=== PATIENT | female | born 1945 | race Caucasian/White ===

== ENCOUNTER → 2017-09-30 10:34 | Outpatient (CLI) | payer MEDICARE, OTHER, SELFPAY ==
[2017-09-30 12:20] LABS: ALB/GLOB Ratio 1.2 RATIO (0.9-2.4); AST(SGOT) 23 U/L (15-37); Alanine Aminotransfer ALT/SGPT 27 U/L (13-56); Albumin, Serum 3.6 g/dL (3.2-5.0); Alkaline Phosphatase 114 U/L (45-117); Anion Gap 8 (5-15); BUN 18 mg/dL (7-18); BUN/Creat Ratio 17.6 RATIO (10-20); Calcium,Total 8.7 mg/dL (8.5-10.1); Chloride 105 mmol/L (98-107); Creatinine, Serum 1.02 mg/dL (0.55-1.02); EST Glomerular Filtration Rate 57 mL/min (>60); Est Glom Filt Rate - Afr Amer 69 mL/min (>60); Globulin 2.9 g/dL (2.2-4.2); Glucose 86 mg/dL (74-106); Potassium 3.4 mmol/L (3.5-5.1); Protein, Total 6.5 g/dL (6.4-8.2); Sodium Level 139 mmol/L (136-145); Thyroid Stim Hormone (TSH) 1.63 uIU/mL (0.358-3.74); Vitamin D,25 Hydroxy 48.4 ng/mL (29.95-100.01)
[2017-09-30 12:30] LABS: Absolute Lymphocyte Count 1.83 X10^3/ul (0.83-4.51); Basophil# 0.02 X10^3/uL; Basophil% 0.3 % (0-1); Eosinophil# 0.13 X10^3/uL; Eosinophils% 1.6 % (0-5); Hematocrit 46.2 % (37-47); Hemoglobin 14.9 g/dl (12.0-15.0); Lymphocyte # 1.83 X10^3/ul (4.0); Lymphocyte % 23.2 % (19-41); Mean Corp Hgb Conc 32.3 g/gl (32-36); Mean Corpuscular Hgb 26.5 pg (27.0-32.0); Mean Corpuscular Volume 82.2 fL (81-99); Mean Platelet Vol. 9.7 fl (6.2-12.0); Monocyte# 0.87 X10^3/uL; Neutrophil # 5.02 X10^3/uL (2.7-7.7); Neutrophil % 63.8 % (47-70); POSITIVE COUNT NO; POSITIVE DIFFERENTIAL NO; POSITIVE MORPHOLOGY NO; Platelet Count 144 K/mm3 (150-450); RBC Distribution Width CV 14.7 % (11.6-14.6); RBC Distribution Width SD 43.8 fl (35.1-43.9); Red Blood Count 5.62 M/mm3 (4.2-5.4); White Blood Count 7.9 K/mm3 (4.4-11.0)
== END ==
PROVIDERS: Family Provider Family Medicine Geriatric Medicine; PCP Family Medicine Geriatric Medicine; Visit Provider Family Medicine Geriatric Medicine
DX: E55.9 Vitamin D deficiency, unspecified (principal); R53.83 Other fatigue
CPT/HCPCS: 36415; 80053; 82306; 84443; 85025

== ENCOUNTER → 2017-12-26 12:37 | Outpatient (CLI) | payer MEDICARE, OTHER, SELFPAY ==
--- NOTE | 2017-12-26 12:40 | RAD_ITS ---
STUDY: X-RAY CHEST REASON FOR EXAM: Female, 72 years old. Increasing shortness of breath since hip surgery last year. TECHNIQUE: PA and lateral views of the chest. COMPARISON: PA and lateral chest x-ray September 20, 2016. FINDINGS: There is mild crowding of vascular markings in the medial left base, unchanged. The lungs are otherwise clear and expanded. There is no demonstrated pleural abnormality. Normal size heart. Normal mediastinum and yvonne. Normal visualized pulmonary arteries. There is stable tortuosity of the aortic arch and descending thoracic aorta that parallels the spinal curvature. Moderate S-shaped scoliosis of the thoracolumbar spine is grossly unchanged Normal visualized ribs, clavicles, and shoulders. A small to moderate size retrocardiac hiatal hernia is more clearly depicted in today's study. RAD/Chest PA and Lateral IMPRESSION: 1. No acute cardiopulmonary disease. 2. Moderate S-shaped scoliosis of the thoracolumbar spine again noted. 3. Small to moderate size retrocardiac hiatal hernia. Electronically Signed: Rojas Coulter MD at 19:52 EDT , Service support ,
== END ==
PROVIDERS: Family Provider Family Medicine Geriatric Medicine; PCP Family Medicine Geriatric Medicine; Visit Provider Family Medicine Geriatric Medicine
DX: R06.02 Shortness of breath (principal)
CPT/HCPCS: 71046

== ENCOUNTER → 2017-12-27 12:30 | Outpatient (CLI) | payer MEDICARE, OTHER, SELFPAY ==
--- NOTE | 2018-01-05 13:32 | PFT_ITS ---
PFT RESULTS SPIROMETRY: Spirometry suggestive for Moderate Restrictive Ventilatory Component. Findings are suggestive, but not diagnostic, for Reversible Airflow Obstruction Comparison with previous studies suggested for restriction. LUNG VOLUMES: Mild Restrictive component confirmed with Lung Volumes. DIFFUSION: Moderate gas transfer abnormality.
== END ==
PROVIDERS: Family Provider Family Medicine Geriatric Medicine; PCP Family Medicine Geriatric Medicine; Visit Provider Family Medicine Geriatric Medicine
DX: R06.02 Shortness of breath (principal); R06.2 Wheezing
CPT/HCPCS: 94060; 94726; 94729

== ENCOUNTER → 2018-01-03 18:57 | Outpatient (CLI) | payer MEDICARE, OTHER, SELFPAY | PROVIDERS: Family Provider Family Medicine Geriatric Medicine; PCP Family Medicine Geriatric Medicine; Visit Provider Family Medicine Geriatric Medicine | DX: N39.0 Urinary tract infection, site not specified (principal) | CPT/HCPCS: 87086; 87088; 87186 ==

== ENCOUNTER → 2018-01-04 12:52 | Outpatient (CLI) | payer MEDICARE, OTHER, SELFPAY ==
--- NOTE | 2018-01-04 12:56 | ECHOD_ITS ---
Reason For Study: SOB Procedure This was a 2D Doppler, Color Flow transthoracic echocardiogram. Exam performed in department. Left Ventricle Normal size and thickness. The estimated ejection fraction is 75 %. Stage 1 diastolic dysfunction. No regional wall motion abnormalities noted. Right Ventricle Normal size and thickness. Normal systolic function. Atria Normal left atrium. Normal right atrium. Normal atrial septum. Mitral Valve The mitral valve is structurally normal. No prolapse or stenosis seen. Tricuspid Valve Normal tricuspid valve. Trivial tricuspid valve insufficiency. Right ventricular systolic pressure estimated to be 28 mmHg. Aortic Valve Normal aortic valve. Trisinus/trileaflet aortic valve. Trivial aortic valve insufficiency. Pulmonic Valve Normal pulmonic valve. Mild (1+) pulmonic valve insufficiency. Great Vessels Normal aortic root. Normal arch. Normal inferior vena cava. Inferior vena cava collapse with sniff. Pericardium/Pleural No pericardial effusion. MMode/2D Measurements & Calculations LVIDd: 2.5 cm IVSd: 1.0 cm Ao root diam: 3.1 cm LVIDs: 1.8 cm LVPWd: 1.0 cm RVDd: 3.2 cm FS: 28.9 % LAV(MOD-bp): 40.5 ml LA A4 area: 16.8 cm2 RA A4 area: 10.9 cm2 LAV(MOD-bp) Indexed: 23.2 ml/m2 LAV(MOD-sp2): 40.8 ml LAV(MOD-sp4): 40.7 ml Time Measurements MV dec time: 0.28 sec Doppler Measurements & Calculations MV E max satish: 73.7 cm/sec Lat Peak E' Satish: 10.5 cm/sec Med Peak E' Satish: 5.7 cm/sec MV A max satish: 94.8 cm/sec E/E' lat: 7.0 E/E' med: 13.0 MV E/A: 0.78 Ao V2 max: 131.1 cm/sec AI max satish: 436.0 cm/sec LV V1 max: 118.3 cm/sec Ao max P.9 mmHg AI max P.2 mmHg LV V1 max P.6 mmHg Ao V2 mean: 90.1 cm/sec AI dec slope: 228.6 cm/sec2 LV V1 mean P.8 mmHg Ao mean P.6 mmHg AI P1/2t: 558.7 msec LV V1 mean: 77.3 cm/sec Ao V2 VTI: 27.8 cm LV V1 VTI: 26.1 cm PA V2 max: 78.3 cm/sec PI end-d satish: 101.8 cm/sec TR max satish: 232.9 cm/sec TR max P.8 mmHg Interpretation Summary The estimated ejection fraction is 75 %. Stage 1 diastolic dysfunction. Trivial tricuspid valve insufficiency. Right ventricular systolic pressure estimated to be 28 mmHg. Trivial aortic valve insufficiency. Mild (1+) pulmonic valve insufficiency. There is no comparison study available. Ordering Physician: Mickey Nguyen Referring Physician: Mickey Nguyen Chi Performed By: Lynette Blood, VICTORIACS, RVT
== END ==
PROVIDERS: Family Provider Family Medicine Geriatric Medicine; PCP Family Medicine Geriatric Medicine; Visit Provider Family Medicine Geriatric Medicine
DX: R06.02 Shortness of breath (principal)
CPT/HCPCS: 93306

== ENCOUNTER → 2018-02-01 11:54 | Outpatient (CLI) | payer MEDICARE, OTHER, SELFPAY ==
[2018-02-01 13:27] LABS: Anion Gap 8 (5-15); BUN 18 mg/dL (7-18); BUN/Creat Ratio 17.1 RATIO (10-20); Calcium,Total 9.4 mg/dL (8.5-10.1); Chloride 105 mmol/L (98-107); Creatinine, Serum 1.05 mg/dL (0.55-1.02); EST Glomerular Filtration Rate 55 mL/min (>60); Est Glom Filt Rate - Afr Amer 66 mL/min (>60); Glucose 99 mg/dL (74-106); Potassium 3.6 mmol/L (3.5-5.1); Sodium Level 141 mmol/L (136-145)
== END ==
PROVIDERS: Family Provider Family Medicine Geriatric Medicine; PCP Family Medicine Geriatric Medicine; Visit Provider Family Medicine Geriatric Medicine
DX: I10 Essential (primary) hypertension (principal)
CPT/HCPCS: 36415; 80048

== ENCOUNTER → 2018-02-17 10:45 | Outpatient (CLI) | payer MEDICARE, OTHER, SELFPAY | PROVIDERS: Family Provider Family Medicine Geriatric Medicine; PCP Family Medicine Geriatric Medicine; Visit Provider Family Medicine Geriatric Medicine | DX: K59.00 Constipation, unspecified (principal) | CPT/HCPCS: 74018 ==

== ENCOUNTER → 2018-06-26 14:39 | Outpatient (CLI) | payer MEDICARE, OTHER, SELFPAY ==
[2018-06-26 17:45] LABS: Absolute Lymphocyte Count 2.31 X10^3/ul (0.83-4.51); Absolute Neutrophil Count 6.6 X10^3/uL (2.0-7.7); Basophil# 0.04 X10^3/uL; Basophil% 0.4 % (0-1); Eosinophil# 0.13 X10^3/uL; Eosinophils% 1.3 % (0-5); Hematocrit 46.7 % (37-47); Hemoglobin 14.7 g/dl (12.0-15.0); Lymphocyte # 2.31 X10^3/ul (4.0); Lymphocyte % 23.4 % (19-41); Mean Corp Hgb Conc 31.5 g/gl (32-36); Mean Corpuscular Hgb 26.8 pg (27.0-32.0); Mean Corpuscular Volume 85.1 fL (81-99); Mean Platelet Vol. 9.9 fl (6.2-12.0); Monocyte# 0.85 X10^3/uL; Monocyte% 8.6 % (0-10); Neutrophil # 6.55 X10^3/uL (2.7-7.7); Neutrophil % 66.2 % (47-70); Platelet Count 173 K/mm3 (150-450); RBC Distribution Width CV 14.6 % (11.6-14.6); RBC Distribution Width SD 44.8 fl (35.1-43.9); Red Blood Count 5.49 M/mm3 (4.2-5.4); White Blood Count 9.9 K/mm3 (4.4-11.0)
[2018-06-26 17:51] LABS: POSITIVE COUNT NO; POSITIVE DIFFERENTIAL NO; POSITIVE MORPHOLOGY NO
[2018-06-26 19:17] LABS: ALB/GLOB Ratio 1.2 RATIO (0.9-2.4); AST(SGOT) 20 U/L (15-37); Alanine Aminotransfer ALT/SGPT 21 U/L (13-56); Albumin, Serum 3.7 g/dL (3.2-5.0); Alkaline Phosphatase 105 U/L (45-117); Anion Gap 11 (5-15); BUN 21 mg/dL (7-18); BUN/Creat Ratio 16.9 RATIO (10-20); Calcium,Total 10.1 mg/dL (8.5-10.1); Chloride 103 mmol/L (98-107); Creatinine, Serum 1.24 mg/dL (0.55-1.02); EST Glomerular Filtration Rate 45 mL/min (>60); Est Glom Filt Rate - Afr Amer 55 mL/min (>60); Glucose 92 mg/dL (74-106); Protein, Total 6.7 g/dL (6.4-8.2); Sodium Level 143 mmol/L (136-145); Thyroid Stim Hormone (TSH) 1.52 uIU/mL (0.358-3.74)
== END ==
PROVIDERS: Family Provider Family Medicine Geriatric Medicine; PCP Family Medicine Geriatric Medicine; Visit Provider Family Medicine Geriatric Medicine
DX: I10 Essential (primary) hypertension (principal); E55.9 Vitamin D deficiency, unspecified; N39.0 Urinary tract infection, site not specified
CPT/HCPCS: 36415; 80053; 82306; 84443; 85025; 87086; 87088

== ENCOUNTER → 2018-07-17 13:46 | Outpatient (CLI) | payer MEDICARE, OTHER, SELFPAY ==
--- NOTE | 2018-07-17 13:48 | US_ITS ---
STUDY: RENAL ULTRASOUND - COMPLETE REASON FOR EXAM: Female, 72 years old. Recurrent UTIs. TECHNIQUE: Ultrasound evaluation of the kidneys was performed with real-time and static madrid-scale imaging. COMPARISON: None. FINDINGS: RIGHT KIDNEY: Normal location of the right kidney, which is normal in size. The right kidney measures 8.7 cm. There is increased renal cortical echogenicity when compared to the adjacent liver. The renal cortex measures 1.1 cm. There is a 1 x 0.9 x 0.9 cm simple cyst in the upper pole cortex. There are no right renal calculi. There is no right hydronephrosis. DISTAL RIGHT URETER: There is non-visualization of the distal right ureter. There is no demonstrated right ureterovesical junction calculus. There is a visualized right ureteral jet. LEFT KIDNEY: Normal location of the left kidney, which is normal in size. The left kidney measures 8.4 cm. Increased renal cortical echogenicity. The renal cortex measures 0.9 cm. There is a 7.3 x 6.8 x 6.5 cm simple cyst off the mid kidney. There are no left renal calculi. There is no left hydronephrosis. DISTAL LEFT URETER: There is non-visualization of the distal left ureter. There is no demonstrated left ureterovesical junction calculus. There is a visualized left ureteral jet. BLADDER: The distended urinary bladder has a volume of 71 ml. The empty urinary bladder has a volume of 0 ml. There is a normal wall thickness of the distended urinary bladder. There is no demonstrated mass within the urinary bladder. There are no demonstrated bladder calculi. US/Kidney and Bladder IMPRESSION: 1. Low normal size kidneys with increased renal cortical echogenicity suggesting medical renal disease. 2. Bilateral renal cysts. 3. Normal urinary bladder. Electronically Signed: Jesu Pollock DO at 20:18 EST Tel [phone], Service support ,
== END ==
PROVIDERS: Family Provider Family Medicine Geriatric Medicine; PCP Family Medicine Geriatric Medicine; Referring Provider Urology; Visit Provider Urology
DX: N39.0 Urinary tract infection, site not specified (principal); E87.6 Hypokalemia
CPT/HCPCS: 36415; 76770; 80048

== ENCOUNTER → 2018-07-17 14:41 | Outpatient (CLI) | payer MEDICARE, OTHER, SELFPAY ==
[2018-07-17 16:07] LABS: Anion Gap 11 (5-15); BUN 27 mg/dL (7-18); BUN/Creat Ratio 24.1 RATIO (10-20); Calcium,Total 9.5 mg/dL (8.5-10.1); Chloride 100 mmol/L (98-107); Creatinine, Serum 1.12 mg/dL (0.55-1.02); EST Glomerular Filtration Rate 51 mL/min (>60); Est Glom Filt Rate - Afr Amer 62 mL/min (>60); Glucose 86 mg/dL (74-106); Potassium 3.9 mmol/L (3.5-5.1); Sodium Level 139 mmol/L (136-145)
== END ==
PROVIDERS: Family Provider Family Medicine Geriatric Medicine; PCP Family Medicine Geriatric Medicine; Visit Provider Family Medicine Geriatric Medicine
DX: E87.6 Hypokalemia (principal)
CPT/HCPCS: 36415; 80048

== ENCOUNTER → 2018-12-27 09:00 | Outpatient (CLI) | payer MEDICARE, OTHER, SELFPAY ==
[2018-12-27 12:22] LABS: Vitamin D,25 Hydroxy 55.6 ng/mL (29.95-100.01)
[2018-12-27 12:30] LABS: ALB/GLOB Ratio 1.3 RATIO (0.9-2.4); AST(SGOT) 20 U/L (15-37); Alanine Aminotransfer ALT/SGPT 21 U/L (13-56); Albumin, Serum 3.8 g/dL (3.2-5.0); Alkaline Phosphatase 96 U/L (45-117); Anion Gap 8 (5-15); BUN 23 mg/dL (7-18); BUN/Creat Ratio 17.3 RATIO (10-20); Calcium,Total 9.9 mg/dL (8.5-10.1); Chloride 104 mmol/L (98-107); Creatinine, Serum 1.33 mg/dL (0.55-1.02); EST Glomerular Filtration Rate 42 mL/min (>60); Est Glom Filt Rate - Afr Amer 50 mL/min (>60); Globulin 2.9 g/dL (2.2-4.2); Glucose 99 mg/dL (74-106); Potassium 3.8 mmol/L (3.5-5.1); Protein, Total 6.7 g/dL (6.4-8.2); Sodium Level 141 mmol/L (136-145); Thyroid Stim Hormone (TSH) 1.65 uIU/mL (0.358-3.74)
[2018-12-27 12:39] LABS: Absolute Lymphocyte Count 2.16 X10^3/uL (0.83-4.51); Absolute Neutrophil Count 3.7 X10^3/uL (2.0-7.7); Basophil# 0.06 X10^3/uL; Basophil% 0.9 % (0-1); Eosinophils% 1.5 % (0-5); Hematocrit 47.4 % (37-47); Hemoglobin 14.6 g/dL (12.0-15.0); Lymphocyte # 2.16 X10^3/ul (4.0); Lymphocyte % 32.7 % (19-41); Mean Corp Hgb Conc 30.8 g/dL (32-36); Mean Corpuscular Hgb 25.4 pg (27.0-32.0); Mean Corpuscular Volume 82.4 fL (81-99); Mean Platelet Vol. 9.8 fl (6.2-12.0); Monocyte# 0.58 X10^3/uL; Monocyte% 8.8 % (0-10); NRBC Flagged by Analyzer 0 % (0-5); Neutrophil # 3.68 X10^3/uL (2.7-7.7); Neutrophil % 55.8 % (47-70); Platelet Count 149 K/mm3 (150-450); RBC Distribution Width CV 14.3 % (11.6-14.6); RBC Distribution Width SD 42.1 fl (35.1-43.9); Red Blood Count 5.75 M/mm3 (4.2-5.4); White Blood Count 6.6 K/mm3 (4.4-11.0)
== END ==
PROVIDERS: Family Provider Family Medicine Geriatric Medicine; PCP Family Medicine Geriatric Medicine; Visit Provider Family Medicine Geriatric Medicine
DX: I10 Essential (primary) hypertension (principal); E55.9 Vitamin D deficiency, unspecified
CPT/HCPCS: 36415; 80053; 82306; 84443; 85025

== ENCOUNTER → 2019-01-10 12:26 | Outpatient (CLI) | payer MEDICARE, OTHER, SELFPAY ==
[2019-01-09 15:15] VITALS: BMI 27.3
--- NOTE | 2019-01-10 12:30 | BI_ITS ---
MAMMOGRAPHY - BILATERAL SCREENING REASON FOR EXAM: Female, 73 years old. Routine annual screening examination. PERTINENT HISTORY: Non-contributory. TECHNIQUE: Digital bilateral breast adolfo (3D mammographic acquisition) in the CC and MLO projections. 2-D mediolateral oblique (MLO) and craniocaudad (CC) views of both breasts were obtained. CAD: Full Field Digital Mammography with Computer Added Detection was performed. COMPARISON: Comparison is made with prior study dated January 01, 2014 and December 15, 2012. FINDINGS: Breast Composition: There are scattered areas of fibroglandular density. There are no dominant masses or suspicious calcifications. No other significant abnormalities are identified. There has been no significant change since the prior study. BI/SCREEN MAMM (CAD) W/ADOLFO BILAT IMPRESSION: Stable bilateral screening mammogram. Yearly follow-up mammogram recommended. (A) ASSESSMENT CATEGORY: BIRADS Category 1: Negative. A letter regarding these results will be sent to the patient by the facility within 30 days. Approximately 10% of breast cancers are not detected by mammography. A normal mammogram should not delay biopsy of a clinically suspicious abnormality. [id number] Electronically Signed: Sinan Johnosn, at 14:28 EDT , Service support ,
== END ==
PROVIDERS: Family Provider Family Medicine Geriatric Medicine; PCP Family Medicine Geriatric Medicine; Referring Provider Family Medicine Geriatric Medicine; Visit Provider Family Medicine Geriatric Medicine
DX: Z12.31 Encounter for screening mammogram for malignant neoplasm of breast (principal)
CPT/HCPCS: 77063; 77067

== ENCOUNTER → 2019-01-22 12:42 | Outpatient (CLI) | payer MEDICARE, OTHER, SELFPAY ==
[2019-01-09 15:15] VITALS: BMI 27.3
--- NOTE | 2019-01-22 12:43 | ECHOCS_ITS ---
Reason For Study: Dyspnea/SOB Procedure This was a 2D Doppler, Color Flow transthoracic echocardiogram. Contrast injection was performed. The study was technically difficult. Exam performed in department. Left Ventricle Normal size and thickness. The estimated ejection fraction is 75 %. Stage 1 diastolic dysfunction. No regional wall motion abnormalities noted. Right Ventricle Normal size and thickness. Normal systolic function. Atria Normal left atrium. Normal right atrium. Normal atrial septum. Mitral Valve The mitral valve is structurally normal. No prolapse or stenosis seen. Tricuspid Valve Normal tricuspid valve. Unable to estimate RV systolic pressure due to insufficient tricuspid regurgitant envelope. Aortic Valve Normal aortic valve. Trisinus/trileaflet aortic valve. Pulmonic Valve Normal pulmonic valve. Trivial pulmonic valve insufficiency. Great Vessels Normal aortic root. Normal arch. Normal inferior vena cava. Inferior vena cava collapse with sniff. Pericardium/Pleural No pericardial effusion. Medication 22 gauge I.V. with prn adaptor inserted into right arm. Diluted definity 2ml given slow IV push to enhance endocardial definition. MMode/2D Measurements & Calculations LVIDd: 3.6 cm IVSd: 1.1 cm LA dimension: 2.9 cm LVIDs: 2.0 cm LVPWd: 0.79 cm FS: 45.8 % LAV(MOD-sp4): 51.4 ml LA A4 area: 18.8 cm2 RA A4 area: 17.8 cm2 Time Measurements MV dec time: 0.19 sec Doppler Measurements & Calculations MV E max satish: 108.7 cm/sec Lat Peak E' Satish: 11.2 cm/sec Med Peak E' Satish: 7.2 cm/sec MV A max satish: 111.0 cm/sec E/E' lat: 9.7 E/E' med: 15.0 MV E/A: 0.98 MV V2 max: 108.8 cm/sec MV P1/2t max satish: 107.9 cm/sec Ao V2 max: 136.8 cm/sec MV max P.7 mmHg MV P1/2t: 94.6 msec Ao max P.5 mmHg MV V2 mean: 51.0 cm/sec MV dec slope: 334.0 cm/sec2 Ao V2 mean: 92.0 cm/sec MV mean P.4 mmHg Ao mean P.7 mmHg MV V2 VTI: 37.9 cm MVA(P1/2t): 2.3 cm2 Ao V2 VTI: 33.9 cm LV V1 max: 114.4 cm/sec PA V2 max: 74.2 cm/sec PI end-d satish: 92.5 cm/sec LV V1 max P.2 mmHg LV V1 mean P.3 mmHg LV V1 mean: 67.9 cm/sec LV V1 VTI: 26.6 cm Interpretation Summary The estimated ejection fraction is 75 %. Stage 1 diastolic dysfunction. Unable to estimate RV systolic pressure due to insufficient tricuspid regurgitant envelope. Compared to echo report dated 01/04/2018, no appreciable changes noted. The study was technically difficult. Contrast injection was performed. Ordering Physician: Kamaljit Jean-Baptiste Referring Physician: Patrick, Mickey Chi Performed By: Jef Mortensen RCS
== END ==
PROVIDERS: Family Provider Family Medicine Geriatric Medicine; PCP Family Medicine Geriatric Medicine; Referring Provider Internal Medicine Cardiovascular Disease; Visit Provider Internal Medicine Cardiovascular Disease
DX: R06.02 Shortness of breath (principal); I11.9 Hypertensive heart disease without heart failure; R60.9 Edema, unspecified
CPT/HCPCS: 93306; Q9957; A4216; C8929

== ENCOUNTER → 2019-01-29 10:16 | Outpatient (CLI) | payer MEDICARE, OTHER, SELFPAY ==
[2019-01-09 15:15] VITALS: BMI 27.3
[2019-01-23 06:37] VITALS: BMI 26.9
--- NOTE | 2019-01-29 10:16 | STEWCON_ITS ---
Reason For Study: Dyspnea Stress Results Protocol: Dobutamine Stress Echo Maximum Predicted HR: 148 bpm Target HR: 126 bpm % Maximum Predicted HR: 89 % DurationHeart Rate Stage (mm:ss) (bpm) BP Comment Baseline 52 135/75No Chest Pain; Diluted Definity 4 ML Given DSE 10 MCG 3:25 51 142/70No Chest Pain DSE 20 MCG 3:05 55 138/70No Chest Pain DSE 30 MCG 3:04 81 142/70No Chest Pain DSE 40 MCG 4:55 131 164/70No Chest Pain; Atropine 0.5 MG IVP Recovery 91 122/70No Chest Pain Stress Duration: 14:29 mm:ss Maximum Stress HR: 131 bpm METS: 1 Baseline Echocardiogram Findings The estimated ejection fraction is 65 %. Stress Echo Wall motion Data Resting WM Intermediate WM Stress WM Resting Wall Motion Wall Motion Stress No regional wall motion No regional wall motion abnormalities noted. abnormalities noted. EKG Data The baseline ECG displays normal sinus rhythm. The patient was titrated from 10 mcg to a maximum of 40 mcg of dobutamine during the stress. The maximum heart rate attained was 131 beats per minute. This was 88% of maximum predicted heart rate. During dobutamine infusion, there were no ST or T wave changes noted to suggest ischemia. No clinical angina was noted. Interpretation Summary The estimated ejection fraction is 65 %. Normal, adequate, dobutamine echocardiogram. Negative for ischemia by EKG and echocardiographic criteria. No anginal symptoms noted. Rare PVCs and PACs noted. Appropriate blood pressure response to dobutamine. Test terminated due to the attainment of target heart rate. Final LVEF is 75%. Decreased sensitivity due to poor echo windows requiring Definity agent. No complications. The study was technically difficult. Contrast injection was performed. Ordering Physician: Kamaljit Jean-Baptiste Referring Physician: Mickey Nguyen Chi Performed By: La Bocanegra, GLENNY, RVT
== END ==
PROVIDERS: Family Provider Family Medicine Geriatric Medicine; PCP Family Medicine Geriatric Medicine; Referring Provider Internal Medicine Cardiovascular Disease; Visit Provider Internal Medicine Cardiovascular Disease
DX: I11.9 Hypertensive heart disease without heart failure (principal); R06.02 Shortness of breath; R60.9 Edema, unspecified
CPT/HCPCS: 93017; 93350; J7040; Q9957; A4216; C8928

== ENCOUNTER → 2019-02-07 13:26 | Outpatient (CLI) | payer MEDICARE, OTHER, SELFPAY ==
[2019-01-23 06:37] VITALS: BMI 26.9
--- NOTE | 2019-02-07 13:29 | CT_ITS ---
STUDY: CT CHEST WITHOUT CONTRAST REASON FOR EXAM: Female, 73 years old. INCREASING SHORTNESS OF BREATH RADIATION DOSAGE (If Supplied By Facility): CTDIvol = ( 9.53 ) mGy, DLP = ( 271.10 ) mGycm TECHNIQUE: Transaxial imaging was performed without the administration of intravenous contrast material. Individualized dose optimization techniques were used for this CT. COMPARISON: None. FINDINGS: The lungs are normal. There is no demonstrated pleural abnormality. Normal heart and pericardium. There are calcifications of the coronary arteries. Normal mediastinum. Normal hilar regions. Normal unenhanced pulmonary arteries. Normal aorta arch and descending thoracic aorta. Moderate hiatal hernia. There are multi-level degenerative changes of the thoracic spine. Moderate dextroconvex scoliosis. There is no demonstrated abnormality of the visualized upper abdomen. CT/Chest without Contrast IMPRESSION: No acute chest disease. Moderate hiatal hernia. Electronically Signed: Addi Go MD at 19:17 EDT , Service support ,
== END ==
PROVIDERS: Family Provider Family Medicine Geriatric Medicine; PCP Family Medicine Geriatric Medicine; Referring Provider Internal Medicine Critical Care Medicine; Visit Provider Internal Medicine Critical Care Medicine
DX: R06.02 Shortness of breath (principal)
CPT/HCPCS: 71250

== ENCOUNTER → 2019-02-27 10:35 | Outpatient (CLI) | payer MEDICARE, OTHER, SELFPAY ==
[2019-01-23 06:37] VITALS: BMI 26.9
--- NOTE | 2019-02-28 09:26 | PFT ---
INTRODUCTION: The patient is a 73-year-old female that presents for pulmonary function studies secondary to a diagnosis of shortness of breath. Respiratory therapy reports good patient effort. Bronchodilators were used during testing. INTERPRETATION: Forced expiration spirometry demonstrates the presence of a severe large airways obstructive ventilatory defect. There was no significant response to aerosolized bronchodilators. Spirograms are of fair quality and do not plateau indicating slow emptying of the lungs. Body plethysmography was performed and reveals a decrease TLC to 3.15 L, 75% of predicted, indicative of a mild restrictive ventilatory defect. Diffusing capacity by single breath CO is reduced at 47% of predicted. IMPRESSION: Irreversible severe mixed ventilatory defect with symmetric reduction in diffusing capacity.
== END ==
PROVIDERS: Family Provider Family Medicine Geriatric Medicine; PCP Family Medicine Geriatric Medicine; Referring Provider Internal Medicine Critical Care Medicine; Visit Provider Internal Medicine Critical Care Medicine
DX: R06.02 Shortness of breath (principal)
CPT/HCPCS: 94060; 94726; 94729

== ENCOUNTER → 2019-02-28 12:17 | Outpatient (CLI) | payer MEDICARE, OTHER, SELFPAY ==
[2019-01-23 06:37] VITALS: BMI 26.9
[2019-02-28 12:45] VITALS: PULSE 56; PULSE 57; PULSE 81; PULSE 83; PULSE 84; PULSE 85; PULSE 86; O2SAT 91; O2SAT 92; O2SAT 93; O2SAT 96; O2SAT 97
--- NOTE | 2019-03-01 08:23 | PCM.PSN.6M ---
PSN 6 Minute Walk Test - 6 Minute Walk Test 6 Minute Walk Test: 6 Minute Walk Test PSN:6-Minute Walk Test Start: 02/28/19 12:45 Freq: Status: Active Protocol: RESP.6MINW Document 02/28/19 12:45 JANAENDER (Rec: 02/28/19 12:49 DYLON [id number]) 6 Minute Walk Test Date Performed 02/28/19 Time Performed 12:30 Height 5 ft 3 in Weight: 152 lb Weight in Pounds 152.[address]: José Luis Damon Assistive device used: Cane Pre-test Oxygen Delivery Method Room Air Pulse Ox (%) 96 Pulse Rate (60-100 beats/min) 56 L Dyspnea Kelle Scale (0-10) 0 Exertion Kelle Scale (6-20) 6 1st minute Oxygen Delivery Method Room Air Pulse Ox (%) 93 Pulse Rate (60-100 beats/min) 81 2nd minute Oxygen Delivery Method Room Air Pulse Ox (%) 92 Pulse Rate (60-100 beats/min) 84 3rd minute Oxygen Delivery Method Room Air Pulse Ox (%) 91 Pulse Rate (60-100 beats/min) 83 Reported Symptoms Increased Work of Breathing 4th minute Oxygen Delivery Method Room Air Pulse Ox (%) 92 Pulse Rate (60-100 beats/min) 83 Reported Symptoms Increased Work of Breathing 5th minute Oxygen Delivery Method Room Air Pulse Ox (%) 91 Pulse Rate (60-100 beats/min) 86 Reported Symptoms Increased Work of Breathing 6th minute Oxygen Delivery Method Room Air Pulse Ox (%) 92 Pulse Rate (60-100 beats/min) 85 Dyspnea Kelle Scale (0-10) 4 Exertion Kelle Scale (6-20) 14 Reported Symptoms Increased Work of Breathing Post-test Oxygen Delivery Method Room Air Pulse Ox (%) 97 Pulse Rate (60-100 beats/min) 57 L Full Laps Walked 10 Partial Lap, Number of Tiles Walked 15 Total Distance Walked (ft) 605 - Interpretation Interpretation: The patient ambulated 605 feet over the course of 6 minutes beginning on room air with the use of a cane. Pretesting oxygen saturation was noted to be 96% on room air. With ambulation, the ludy oxygen saturation was 91%. There was evidence of both impaired walk distance and significant exertional oxygen desaturation. - Recommendations Recommendations: There is no indication for the use of supplemental oxygen at this time. However, close interval follow-up is recommended, given the degree of oxygen desaturation noted during this study.
== END ==
PROVIDERS: Family Provider Family Medicine Geriatric Medicine; PCP Family Medicine Geriatric Medicine; Referring Provider Internal Medicine Critical Care Medicine; Visit Provider Internal Medicine Critical Care Medicine
DX: R06.02 Shortness of breath (principal)
CPT/HCPCS: 94618

== ENCOUNTER → 2019-06-27 13:12 | Outpatient (CLI) | payer MEDICARE, OTHER, SELFPAY ==
[2019-05-01 06:21] VITALS: BMI 26.5
[2019-06-27 13:34] LABS: Absolute Lymphocyte Count 2.16 X10^3/uL (0.83-4.51); Absolute Neutrophil Count 5.5 X10^3/uL (2.0-7.7); Basophil# 0.07 X10^3/uL; Basophil% 0.8 % (0-1); Eosinophil# 0.17 X10^3/uL; Eosinophils% 1.9 % (0-5); Hematocrit 48.7 % (37-47); Hemoglobin 15.3 g/dL (12.0-15.0); Lymphocyte # 2.16 X10^3/ul (4.0); Lymphocyte % 24.4 % (19-41); Mean Corp Hgb Conc 31.4 g/dL (32-36); Mean Corpuscular Hgb 27.3 pg (27.0-32.0); Mean Platelet Vol. 9.4 fl (6.2-12.0); Monocyte# 0.98 X10^3/uL; NRBC Flagged by Analyzer 0 % (0-5); Neutrophil # 5.47 X10^3/uL (2.7-7.7); Neutrophil % 61.7 % (47-70); Platelet Count 158 K/mm3 (150-450); RBC Distribution Width CV 13.2 % (11.6-14.6); RBC Distribution Width SD 41.7 fl (35.1-43.9); White Blood Count 8.9 K/mm3 (4.4-11.0)
[2019-06-27 13:54] LABS: Vitamin D,25 Hydroxy 59.5 ng/mL (29.95-100.01)
[2019-06-27 14:06] LABS: ALB/GLOB Ratio 1.2 RATIO (0.9-2.4); AST(SGOT) 21 U/L (15-37); Alanine Aminotransfer ALT/SGPT 26 U/L (13-56); Albumin, Serum 3.7 g/dL (3.2-5.0); Alkaline Phosphatase 108 U/L (45-117); Anion Gap 5 (5-15); BUN 21 mg/dL (7-18); BUN/Creat Ratio 17.1 RATIO (10-20); Calcium,Total 10.5 mg/dL (8.5-10.1); Chloride 105 mmol/L (98-107); Creatinine, Serum 1.23 mg/dL (0.55-1.02); EST Glomerular Filtration Rate 46 mL/min (>60); Est Glom Filt Rate - Afr Amer 55 mL/min (>60); Glucose 83 mg/dL (74-106); Potassium 3.8 mmol/L (3.5-5.1); Protein, Total 6.7 g/dL (6.4-8.2); Sodium Level 140 mmol/L (136-145); Thyroid Stim Hormone (TSH) 1.83 uIU/mL (0.358-3.74)
== END ==
PROVIDERS: Family Provider Family Medicine Geriatric Medicine; PCP Family Medicine Geriatric Medicine; Visit Provider Family Medicine Geriatric Medicine
DX: E55.9 Vitamin D deficiency, unspecified (principal); I10 Essential (primary) hypertension
CPT/HCPCS: 36415; 80053; 82306; 84443; 85025

== ENCOUNTER → 2019-08-21 13:32 | Outpatient (CLI) | payer MEDICARE, OTHER, SELFPAY ==
[2019-08-03 11:37] VITALS: BMI 26.9
--- NOTE | 2019-08-21 13:34 | ECHOD_ITS ---
Reason For Study: PHTN Procedure This was a 2D Doppler, Color Flow transthoracic echocardiogram. Exam performed in department. Left Ventricle Normal size and thickness. The estimated ejection fraction is 75 %. Stage 1 diastolic dysfunction. No regional wall motion abnormalities noted. Right Ventricle Normal size and thickness. Normal systolic function. Atria Normal left atrium. Normal right atrium. Normal atrial septum. Mitral Valve Mild diffuse mitral valve thickening. Mild mitral annular calcification extending into the posterior leaflet. Tricuspid Valve Normal tricuspid valve. Trivial tricuspid valve insufficiency. Right ventricular systolic pressure estimated to be 33 mmHg. Aortic Valve Trisinus/trileaflet aortic valve. Mild diffuse aortic valve thickening. Trivial aortic valve insufficiency. Pulmonic Valve Normal pulmonic valve. Mild (1+) pulmonic valve insufficiency identified. Great Vessels Normal aortic root. Normal arch. Normal inferior vena cava. Inferior vena cava collapse with sniff. Pericardium/Pleural No pericardial effusion. MMode/2D Measurements & Calculations LVIDd: 3.6 cm IVSd: 0.83 cm Ao root diam: 2.8 cm LVIDs: 1.7 cm LVPWd: 0.81 cm RVDd: 3.4 cm FS: 53.4 % LAV(MOD-bp): 45.8 ml LA A4 area: 20.3 cm2 LA dimension(2D): 3.1 cm LAV(MOD-bp) Indexed: 26.6 ml/m2 LAV(MOD-sp2): 33.8 ml LAV(MOD-sp4): 58.8 ml RA A4 area: 13.2 cm2 Time Measurements MV dec time: 0.29 sec Doppler Measurements & Calculations MV E max satish: 84.0 cm/sec Lat Peak E' Satish: 11.2 cm/sec Med Peak E' Satish: 6.0 cm/sec MV A max satish: 99.3 cm/sec E/E' lat: 7.5 E/E' med: 14.0 MV E/A: 0.85 Ao V2 max: 130.3 cm/sec AI max satish: 413.1 cm/sec LV V1 max: 112.8 cm/sec Ao max P.8 mmHg AI max P.6 mmHg LV V1 max P.1 mmHg Ao V2 mean: 99.2 cm/sec AI dec slope: 171.3 cm/sec2 LV V1 mean P.1 mmHg Ao mean P.2 mmHg AI P1/2t: 706.4 msec LV V1 mean: 85.1 cm/sec Ao V2 VTI: 33.4 cm LV V1 VTI: 26.1 cm PA V2 max: 97.1 cm/sec PI end-d satish: 105.8 cm/sec TR max satish: 259.9 cm/sec TR max P.0 mmHg Interpretation Summary The estimated ejection fraction is 75 %. Stage 1 diastolic dysfunction. Trivial tricuspid valve insufficiency. Right ventricular systolic pressure estimated to be 33 mmHg. Trivial aortic valve insufficiency. Compared to echo report dated 01/22/2019, no appreciable changes noted. Ordering Physician: Kamaljit Jean-Baptiste Referring Physician: Mickey Nguyen Chi Performed By: Carolina Turner RDCS, RVT
== END ==
PROVIDERS: PCP Family Medicine Geriatric Medicine; Referring Provider Internal Medicine Cardiovascular Disease; Visit Provider Internal Medicine Cardiovascular Disease
DX: I27.20 Pulmonary hypertension, unspecified (principal); R06.02 Shortness of breath
CPT/HCPCS: 93306

== ENCOUNTER → 2020-01-02 11:46 | Outpatient (CLI) | payer MEDICARE, OTHER, SELFPAY ==
[2019-10-29 08:16] VITALS: BMI 26.9
[2020-01-02 12:19] LABS: Absolute Lymphocyte Count 2.23 X10^3/uL (0.83-4.51); Absolute Neutrophil Count 4.5 X10^3/uL (2.0-7.7); Basophil# 0.05 X10^3/uL; Basophil% 0.7 % (0-1); Eosinophil# 0.19 X10^3/uL; Eosinophils% 2.5 % (0-5); Hematocrit 47.1 % (37-47); Hemoglobin 14.9 g/dL (12.0-15.0); Lymphocyte # 2.23 X10^3/ul (4.0); Lymphocyte % 29.4 % (19-41); Mean Corp Hgb Conc 31.6 g/dL (32-36); Mean Corpuscular Hgb 27.6 pg (27.0-32.0); Mean Corpuscular Volume 87.4 fL (81-99); Mean Platelet Vol. 9.5 fl (6.2-12.0); Monocyte# 0.64 X10^3/uL; Monocyte% 8.4 % (0-10); NRBC Flagged by Analyzer 0 % (0-5); Neutrophil # 4.46 X10^3/uL (2.7-7.7); Neutrophil % 58.9 % (47-70); Platelet Count 153 K/mm3 (150-450); RBC Distribution Width CV 13.3 % (11.6-14.6); RBC Distribution Width SD 41.3 fl (35.1-43.9); Red Blood Count 5.39 M/mm3 (4.2-5.4); White Blood Count 7.6 K/mm3 (4.4-11.0)
[2020-01-02 12:43] LABS: ALB/GLOB Ratio 1.4 RATIO (0.9-2.4); AST(SGOT) 21 U/L (15-37); Alanine Aminotransfer ALT/SGPT 26 U/L (13-56); Alkaline Phosphatase 94 U/L (45-117); Anion Gap 5 (5-15); BUN 23 mg/dL (7-18); Calcium,Total 10.7 mg/dL (8.5-10.1); Chloride 103 mmol/L (98-107); Creatinine, Serum 1.15 mg/dL (0.55-1.02); EST Glomerular Filtration Rate 49 mL/min (>60); Est Glom Filt Rate - Afr Amer 60 mL/min (>60); Globulin 2.9 g/dL (2.2-4.2); Glucose 111 mg/dL (74-106); Potassium 3.7 mmol/L (3.5-5.1); Protein, Total 6.9 g/dL (6.4-8.2); Sodium Level 141 mmol/L (136-145); Thyroid Stim Hormone (TSH) 1.77 uIU/mL (0.358-3.74)
[2020-01-02 14:08] LABS: Vitamin D,25 Hydroxy 74.5 ng/mL
== END ==
PROVIDERS: PCP Family Medicine Geriatric Medicine; Visit Provider Family Medicine Geriatric Medicine
DX: E55.9 Vitamin D deficiency, unspecified (principal); I10 Essential (primary) hypertension
CPT/HCPCS: 36415; 80053; 82306; 84443; 85025

== ENCOUNTER → 2020-01-31 13:28 | Outpatient (CLI) | payer MEDICARE, OTHER, SELFPAY ==
[2019-10-29 08:16] VITALS: BMI 26.9
--- NOTE | 2020-01-31 14:58 | PFTCOMP_ITS ---
COMPLETE PULMONARY FUNCTION TEST INTERPRETATION Brief HPI: Patient is a 74 year old female, currently under the care of myself, who presents to [facility] for complete pulmonary function tests secondary to diagnosis of dyspnea. Respiratory therapist reports good effort and reproducible results. Interpretation: Forced expiration spirometry shows a severe large airways obstructive ventilatory defect with an FEV1 of 47% predicted. There is no significant bronchodilator response by strict ATS criteria. Spirograms are of good quality and plateau slowly, indicating slowly emptying areas of the lungs. The respiratory flow volume loop shows decreased expiratory flow rates at all lung volumes consistent with airway obstruction. Lung volumes by body plethysmography show a normal total lung capacity at 4.19 L, 95% predicted. FRC and RV are elevated out of proportion. Lung volume measurements are consistent with air-trapping. Diffusion capacity by carbon monoxide is decreased at 47% predicted. The airway resistance is elevated. Compared to previous pulmonary function tests from 02/27/2019, a significant improvement in TLC by 33%. Impression: Irreversible severe large airways obstructive ventilatory defect with a symmetric reduction diffusion capacity, resulting in air trapping, but some improvement compared to previous.
== END ==
PROVIDERS: PCP Family Medicine Geriatric Medicine; Referring Provider Nurse Practitioner Acute Care; Visit Provider Nurse Practitioner Acute Care
DX: R06.02 Shortness of breath (principal)
CPT/HCPCS: 94060; 94726; 94729

== ENCOUNTER → 2020-02-01 12:25 | Outpatient (CLI) | payer MEDICARE, OTHER, SELFPAY ==
[2019-10-29 08:16] VITALS: BMI 26.9
[2020-02-01 12:50] VITALS: PULSE 105; PULSE 56; PULSE 77; PULSE 91; PULSE 92; PULSE 94; PULSE 96; O2SAT 88; O2SAT 89; O2SAT 90; O2SAT 92; O2SAT 94; O2SAT 95
--- NOTE | 2020-02-01 12:56 | CPS ---
Mrs Ahuja stated she had to stop more due to back pain than SOB, but I also felt that she was more SOB than a 2 at the end of testing more a 5. She also took a 15 sec break at 430 into the test.
--- NOTE | 2020-02-01 15:43 | PCM.PSN.6M ---
PSN 6 Minute Walk Test - 6 Minute Walk Test 6 Minute Walk Test: 6 Minute Walk Test PSN:6-Minute Walk Test Start: 02/01/20 12:49 Freq: Status: Active Protocol: RESP.6MINW Document 02/01/20 12:50 FR (Rec: 02/01/20 13:00 FR [id number]) 6 Minute Walk Test Date Performed 02/01/20 Time Performed 12:30 Height 5 ft 3 in Weight: 68.946 kg Weight in Pounds 152.[address]: Dr. Damon Assistive device used: Cane Pre-test Oxygen Delivery Method Room Air Pulse Ox (%) 94 Pulse Rate (60-100 beats/min) 56 L Dyspnea Kelle Scale (0-10) 0 Exertion Kelle Scale (6-20) 6 1st minute Oxygen Delivery Method Room Air Pulse Ox (%) 90 Pulse Rate (60-100 beats/min) 91 Number of Rests Taken 1 Reported Symptoms Increased Work of Breathing 2nd minute Oxygen Delivery Method Room Air Pulse Ox (%) 89 Pulse Rate (60-100 beats/min) 92 Reported Symptoms Increased Work of Breathing 3rd minute Oxygen Delivery Method Room Air Pulse Ox (%) 92 Pulse Rate (60-100 beats/min) 96 Reported Symptoms Increased Work of Breathing 4th minute Oxygen Delivery Method Room Air Pulse Ox (%) 89 Pulse Rate (60-100 beats/min) 92 Number of Rests Taken 1 Reported Symptoms Increased Work of Breathing 5th minute Oxygen Delivery Method Room Air Pulse Ox (%) 88 Pulse Rate (60-100 beats/min) 94 Reported Symptoms Increased Work of Breathing 6th minute Oxygen Delivery Method Room Air Pulse Ox (%) 88 Pulse Rate (60-100 beats/min) 105 H Dyspnea Kelle Scale (0-10) 2 Exertion Kelle Scale (6-20) 9 Reported Symptoms Increased Work of Breathing Post-test Oxygen Delivery Method Room Air Pulse Ox (%) 95 Pulse Rate (60-100 beats/min) 77 Full Laps Walked 10 Partial Lap, Number of Tiles Walked 45 Total Distance Walked (ft) 635 02/01/20 12:56 Cardiopulmonary Services by Amanda Torres Mrs Ahuja stated she had to stop more due to back pain than SOB, but I also felt that she was more SOB than a 2 at the end of testing more a 5. She also took a 15 sec break at 430 into the test. Initialized on 02/01/20 12:56 - END OF NOTE - Interpretation Interpretation: The patient was able to ambulate 635 feet over the course of 6 minutes on room air with the assistance of a cane and one break. The patient did desaturate as low as 88%, but no supplemental oxygen was given. These findings are consistent with a respiratory limitation exercise tolerance. - Recommendations Recommendations: Patient requires no supplemental oxygen at rest, but should be using 2 L nasal cannula with any exertion.
== END ==
PROVIDERS: PCP Family Medicine Geriatric Medicine; Referring Provider Nurse Practitioner Acute Care; Visit Provider Nurse Practitioner Acute Care
DX: R06.02 Shortness of breath (principal)
CPT/HCPCS: 94618

== ENCOUNTER → 2020-07-16 10:54 | Outpatient (CLI) | payer MEDICARE, OTHER, SELFPAY ==
[2020-05-22 13:09] VITALS: BMI 27.1
[2020-07-16 12:34] LABS: Absolute Lymphocyte Count 2.03 X10^3/uL (0.83-4.51); Absolute Neutrophil Count 5.1 X10^3/uL (2.0-7.7); Basophil# 0.05 X10^3/uL; Basophil% 0.6 % (0-1); Eosinophil# 0.15 X10^3/uL; Eosinophils% 1.9 % (0-5); Hematocrit 49.7 % (37-47); Hemoglobin 15.5 g/dL (12.0-15.0); Lymphocyte # 2.03 X10^3/ul (4.0); Lymphocyte % 25.3 % (19-41); Mean Corp Hgb Conc 31.2 g/dL (32-36); Mean Corpuscular Hgb 26.6 pg (27.0-32.0); Mean Corpuscular Volume 85.4 fL (81-99); Mean Platelet Vol. 9.6 fl (6.2-12.0); Monocyte# 0.65 X10^3/uL; Monocyte% 8.1 % (0-10); NRBC Flagged by Analyzer 0 % (0-5); Neutrophil # 5.13 X10^3/uL (2.7-7.7); Platelet Count 154 K/mm3 (150-450); RBC Distribution Width CV 13.2 % (11.6-14.6); RBC Distribution Width SD 41.1 fl (35.1-43.9); Red Blood Count 5.82 M/mm3 (4.2-5.4)
[2020-07-16 13:03] LABS: Vitamin D,25 Hydroxy 51.4 ng/mL
[2020-07-16 13:25] LABS: ALB/GLOB Ratio 1.3 RATIO (0.9-2.4); AST(SGOT) 21 U/L (15-37); Alanine Aminotransfer ALT/SGPT 26 U/L (13-56); Albumin, Serum 3.8 g/dL (3.2-5.0); Alkaline Phosphatase 114 U/L (45-117); Anion Gap 8 (5-15); BUN 30 mg/dL (7-18); BUN/Creat Ratio 24.6 RATIO (10-20); Calcium,Total 10.1 mg/dL (8.5-10.1); Chloride 106 mmol/L (98-107); Creatinine, Serum 1.22 mg/dL (0.55-1.02); EST Glomerular Filtration Rate 46 mL/min (>60); Est Glom Filt Rate - Afr Amer 56 mL/min (>60); Globulin 2.9 g/dL (2.2-4.2); Glucose 69 mg/dL (74-106); Potassium 3.6 mmol/L (3.5-5.1); Protein, Total 6.7 g/dL (6.4-8.2); Sodium Level 141 mmol/L (136-145)
== END ==
PROVIDERS: PCP Family Medicine Geriatric Medicine; Visit Provider Family Medicine Geriatric Medicine
DX: I10 Essential (primary) hypertension (principal); E55.9 Vitamin D deficiency, unspecified
CPT/HCPCS: 36415; 80053; 82306; 84443; 85025

== ENCOUNTER → 2020-10-28 13:25 | Outpatient (CLI) | payer MEDICARE, OTHER, SELFPAY ==
[2020-05-22 13:09] VITALS: BMI 27.1
[2020-10-28 13:44] VITALS: PULSE 74; PULSE 75; PULSE 96; PULSE 98; PULSE 99; O2SAT 91; O2SAT 92; O2SAT 95; O2SAT 98
--- NOTE | 2020-10-29 09:29 | PCM.PSN.6M ---
PSN 6 Minute Walk Test 6 Minute Walk Test 6 Minute Walk Test: 6 Minute Walk Test PSN:6-Minute Walk Test Start: 10/28/20 13:44 Freq: Status: Active Protocol: [id number].6MINW Document 10/28/20 13:44 (Rec: 10/28/20 13:50 [id number]) 6 Minute Walk Test Date Performed 10/28/20 Time Performed 13:45 Height 5 ft 3 in Weight: 146 lb Weight in Pounds 146.[address]: Aleja Gao DISABILITY REPRESENTATIVE FIO2 (% Oxygen) 21 Assistive device used: Cane Pre-test Oxygen Delivery Method Room Air Pulse Ox (%) 98 Pulse Rate (60-100 beats/min) 74 Dyspnea Kelle Scale (0-10) 0 Exertion Kelle Scale (6-20) 6 1st minute Oxygen Delivery Method Room Air Pulse Ox (%) 92 Pulse Rate (60-100 beats/min) 96 2nd minute Oxygen Delivery Method Room Air Pulse Ox (%) 92 Pulse Rate (60-100 beats/min) 96 3rd minute Oxygen Delivery Method Room Air Pulse Ox (%) 92 Pulse Rate (60-100 beats/min) 96 4th minute Oxygen Delivery Method Room Air Pulse Ox (%) 91 Pulse Rate (60-100 beats/min) 98 5th minute Oxygen Delivery Method Room Air Pulse Ox (%) 91 Pulse Rate (60-100 beats/min) 99 6th minute Oxygen Delivery Method Room Air Pulse Ox (%) 91 Pulse Rate (60-100 beats/min) 98 Post-test Oxygen Delivery Method Room Air Pulse Ox (%) 95 Pulse Rate (60-100 beats/min) 75 Dyspnea Kelle Scale (0-10) 1 Exertion Kelle Scale (6-20) 11 Full Laps Walked 8 Partial Lap, Number of Tiles Walked 0 Total Distance Walked (ft) 472 Interpretation Interpretation: The patient ambulated 472 feet over the course of 6 minutes beginning on room air with the use of a cane. Pretesting oxygen saturation was noted to be 98% on room air. With ambulation, the ludy oxygen saturation was 91%. This represents a significant exertional oxygen desaturation, consistent with a pulmonary limitation to exercise tolerance. Recommendations Recommendations: There is no indication for the use of supplemental oxygen at this time. However, close interval follow-up is recommended, given the degree of oxygen desaturation noted during this study.
== END ==
PROVIDERS: PCP Family Medicine Geriatric Medicine; Referring Provider Nurse Practitioner Acute Care; Visit Provider Nurse Practitioner Acute Care
DX: R06.02 Shortness of breath (principal)
CPT/HCPCS: 94618

== ENCOUNTER → 2021-01-07 09:46 | Outpatient (CLI) | payer MEDICARE, OTHER, SELFPAY ==
[2020-10-29 09:36] VITALS: BMI 27.1
[2021-01-07 12:41] LABS: Absolute Lymphocyte Count 1.76 X10^3/uL (0.83-4.51); Absolute Neutrophil Count 4.6 X10^3/uL (2.0-7.7); Basophil# 0.05 X10^3/uL; Basophil% 0.7 % (0-1); Eosinophil# 0.13 X10^3/uL; Eosinophils% 1.8 % (0-5); Hematocrit 49.1 % (37-47); Hemoglobin 15.6 g/dL (12.0-15.0); Lymphocyte # 1.76 X10^3/ul (0.83-4.51); Lymphocyte % 24.4 % (19-41); Mean Corp Hgb Conc 31.8 g/dL (32-36); Mean Corpuscular Hgb 27.3 pg (27.0-32.0); Mean Corpuscular Volume 85.8 fL (81-99); Monocyte# 0.69 X10^3/uL; Monocyte% 9.6 % (0-10); NRBC Flagged by Analyzer 0 % (0-5); Neutrophil # 4.56 X10^3/uL (2.7-7.7); Neutrophil % 63.4 % (47-70); Platelet Count 138 K/mm3 (150-450); RBC Distribution Width CV 14.1 % (11.6-14.6); RBC Distribution Width SD 44.4 fl (35.1-43.9); Red Blood Count 5.72 M/mm3 (4.2-5.4); White Blood Count 7.2 K/mm3 (4.4-11.0)
[2021-01-07 13:23] LABS: ALB/GLOB Ratio 1.3 RATIO (0.9-2.4); AST(SGOT) 21 U/L (15-37); Alanine Aminotransfer ALT/SGPT 29 U/L (13-56); Albumin, Serum 3.7 g/dL (3.2-5.0); Alkaline Phosphatase 93 U/L (45-117); Anion Gap 6 (5-15); BUN 20 mg/dL (7-18); BUN/Creat Ratio 22.5 RATIO (10-20); Calcium,Total 9.9 mg/dL (8.5-10.1); Chloride 104 mmol/L (98-107); Creatinine, Serum 0.89 mg/dL (0.55-1.02); EST Glomerular Filtration Rate 66 mL/min (>60); Est Glom Filt Rate - Afr Amer 80 mL/min (>60); Globulin 2.9 g/dL (2.2-4.2); Glucose 99 mg/dL (74-106); Potassium 3.6 mmol/L (3.5-5.1); Protein, Total 6.6 g/dL (6.4-8.2); Sodium Level 140 mmol/L (136-145); Thyroid Stim Hormone (TSH) 1.61 uIU/mL (0.358-3.74)
== END ==
PROVIDERS: PCP Family Medicine Geriatric Medicine; Referring Provider Family Medicine Geriatric Medicine; Visit Provider Family Medicine Geriatric Medicine
DX: I10 Essential (primary) hypertension (principal); E55.9 Vitamin D deficiency, unspecified
CPT/HCPCS: 36415; 80053; 82306; 84443; 85025

== ENCOUNTER → 2021-05-22 13:01 | Outpatient (CLI) | payer MEDICARE, OTHER, SELFPAY ==
[2020-10-29 09:36] VITALS: BMI 27.1
--- NOTE | 2021-05-23 10:58 | PFTCOMP ---
COMPLETE PULMONARY FUNCTION TEST INTERPRETATION Brief HPI: Patient is a 75 year old female, currently under the care of myself, who presents to [facility] for complete pulmonary function tests secondary to diagnosis of dyspnea. Respiratory therapist reports good effort and reproducible results. Interpretation: Forced expiration spirometry shows no large airways obstructive ventilatory defect with an FEV1 of 51% predicted. There is no significant bronchodilator response by strict ATS criteria. Spirograms are of good quality and plateau normally. The respiratory flow volume loop shows a normal pattern. Lung volumes by body plethysmography show a decreased total lung capacity at 2.8 L, 67% predicted. All other lung volumes are reduced symmetrically. Diffusion capacity by carbon monoxide is normal at 83% predicted. The airway resistance is elevated. Compared to previous pulmonary function tests from 02/27/2019, there is been a significant improvement in DLCO. Impression: Moderate restrictive ventilatory defect with some improvement in DLCO compared to previous.
== END ==
PROVIDERS: PCP Family Medicine Geriatric Medicine; Referring Provider Internal Medicine Critical Care Medicine; Visit Provider Internal Medicine Critical Care Medicine
DX: R06.02 Shortness of breath (principal); M41.9 Scoliosis, unspecified; K44.9 Diaphragmatic hernia without obstruction or gangrene
CPT/HCPCS: 94060; 94726; 94729

== ENCOUNTER 2021-08-18 14:00 | Outpatient (CLI) | payer MEDICARE, OTHER, SELFPAY ==
[2021-08-18 16:44] LABS: Absolute Lymphocyte Count 3.24 X10^3/uL (0.83-4.51); Absolute Neutrophil Count 5.2 X10^3/uL (2.0-7.7); Basophil# 0.02 X10^3/uL; Basophil% 0.2 % (0-1); Hematocrit 47.7 % (37-47); Hemoglobin 16.6 g/dL (12.0-15.0); Lymphocyte # 3.24 X10^3/ul (0.83-4.51); Lymphocyte % 35.6 % (19-41); Mean Corp Hgb Conc 34.8 g/dL (32-36); Mean Corpuscular Hgb 29.2 pg (27.0-32.0); Mean Corpuscular Volume 83.8 fL (81-99); Mean Platelet Vol. 10.1 fl (6.2-12.0); Monocyte# 0.67 X10^3/uL; Monocyte% 7.4 % (0-10); NRBC Flagged by Analyzer 0 % (0-5); Neutrophil # 5.15 X10^3/uL (2.7-7.7); Neutrophil % 56.5 % (47-70); Platelet Count 186 K/mm3 (150-450); RBC Distribution Width CV 13.2 % (11.6-14.6); RBC Distribution Width SD 40.7 fl (35.1-43.9); Red Blood Count 5.69 M/mm3 (4.2-5.4); White Blood Count 9.1 K/mm3 (4.4-11.0)
[2021-08-18 17:12] LABS: Vitamin D,25 Hydroxy 63.2 ng/mL
[2021-08-18 17:23] LABS: ALB/GLOB Ratio 0.7 RATIO (0.9-2.4); AST(SGOT) 95 U/L (15-37); Alanine Aminotransfer ALT/SGPT 57 U/L (13-56); Albumin, Serum 2.8 g/dL (3.2-5.0); Alkaline Phosphatase 102 U/L (45-117); Anion Gap 9 (5-15); BUN 20 mg/dL (7-18); BUN/Creat Ratio 19.2 RATIO (10-20); Calcium,Total 8.3 mg/dL (8.5-10.1); Chloride 93 mmol/L (98-107); Creatinine, Serum 1.04 mg/dL (0.55-1.02); EST Glomerular Filtration Rate 55 mL/min (>60); Est Glom Filt Rate - Afr Amer 67 mL/min (>60); Glucose 133 mg/dL (74-106); Potassium 3.5 mmol/L (3.5-5.1); Protein, Total 6.8 g/dL (6.4-8.2); Sodium Level 131 mmol/L (136-145); Thyroid Stim Hormone (TSH) 1.14 uIU/mL (0.358-3.74)
== END 2021-08-18 23:59 | disposition home or self-care (01) ==
LOC: POLAB3 14:11
PROVIDERS: PCP Family Medicine Geriatric Medicine; Visit Provider Family Medicine Geriatric Medicine
DX: I10 Essential (primary) hypertension (principal); E55.9 Vitamin D deficiency, unspecified
CPT/HCPCS: 36415; 80053; 82306; 84443; 85025

== ENCOUNTER 2021-08-18 16:24 | Inpatient (IN) | payer MEDICARE, OTHER, SELFPAY ==
[2021-08-18] VITALS (10 sets, daily range): BP systolic 107–135; BP diastolic 53–92; PULSE 83–101; RESP 15–27; TEMP 36.4–36.9; O2SAT 88–100; BMI 24.4; BMI 24.3
--- NOTE | 2021-08-18 16:45 | EKG12_ITS ---
Test Reason : Blood Pressure : / mmHG Vent. Rate : 081 BPM Atrial Rate : 081 BPM P-R Int : 140 ms QRS Dur : 084 ms QT Int : 392 ms P-R-T Axes : 018 009 026 degrees QTc Int : 455 ms Normal sinus rhythm T wave abnormality, consider anterior ischemia Abnormal ECG Confirmed by ANISH GAN, AUDREY ([id number]), technical writer and editor MARGARITA LOCKWOOD ([id number]) on 08/19/2021 9:49:34 AM Referred By: DESTINEY Confirmed By:AUDREY OCONNELL MD
--- NOTE | 2021-08-18 16:59 | ED.VIS.DYS ---
HPI History of Present Illness Chief Complaint: Shortness of Breath Informant: patient and family Onset/Context/Timing Onset: Days Context: sudden Timing: Continuous Quality: Positive for Dyspnea on exertion and Wheezing; Negative for Orthopnea and PND Current Severity: Mild Maximum Severity: Severe Worsened by: - (Any activity) Relieved by: Nothing Associated Symptoms cough and rhinorrhea; Negative for post nasal drip, ear pain, fever, sore throat, subjective, chills, white sputum, yellow sputum or green sputum Chest Pain: Positive for None Narrative Narrative: Patient is 75-year-old woman who at the end of June 13 [place] to care for a sick relative. Relative was diagnosed with COVID. Patient returned from the [facility] 2 weeks ago. She now presents because of cough, dyspnea, dyspnea on exertion and wheezing. She was seen at Dr. Sen's office who ordered laboratory tests and sent her to the emergency department. Patient has mild labored breathing at rest. Pulse ox is 88% on room air. She has conversational dyspnea. She denies fever chills. She initially had upper respiratory symptoms which were much more pronounced. She does have a cough which is slightly productive. She denies leg pain or swelling. She denies prior history of VTE. PE Risk Factors: Positive for Recent travel; Negative for Cancer, OCP + Smoking + > 35, Prior DVT or PE, Recent immobilization and Recent surgery Prior similar symptoms: No Recent Illness/Hospitalization: No PFSH PFS Medical History Diastolic dysfunction Edema Essential hypertension Hiatal hernia History of pneumonia Hyperlipidemia Hypokalemia Scoliosis Shortness of breath Home Medications ascorbic acid (vitamin C) 500 mg tablet 1,000 mg PO DAILY tab 01/06/19 [History Last Taken Unknown] citalopram 20 mg tablet 20 mg PO DAILY 01/06/19 [History Last Taken Unknown] hydrochlorothiazide 50 mg tablet 50 mg PO DAILY 01/06/19 [History Last Taken Unknown] loratadine 10 mg tablet 10 mg PO DAILY 01/06/19 [History Last Taken Unknown] losartan 50 mg tablet 50 mg PO DAILY 01/06/19 [History Last Taken Unknown] potassium chloride 20 mEq tablet,extended release 20 meq PO DAILY 01/06/19 [History Last Taken Unknown] rosuvastatin 10 mg tablet 10 mg PO DAILY 01/06/19 [History Last Taken Unknown] calcium-ergocalciferol (vit D2) capsule 1 cap PO DAILY cap 01/09/19 [History Last Taken Unknown] latanoprost 0.005 % eye drops 1 drp OPHTHALMIC QPM 01/09/19 [History Last Taken Unknown] timolol maleate 0.5 % eye drops 1 drp OPHTHALMIC DAILY ml 01/09/19 [History Last Taken Unknown] brimonidine 0.2 % eye drops 1 drp OPHTHALMIC BID ml 05/22/20 [History Last Taken Unknown] cholecalciferol (vitamin D3) 25 mcg (1,000 unit) tablet 25 mcg PO DAILY 02/04/21 [History Last Taken Unknown] Allergy/AdvReac Type Severity Reaction Status Date / Time prednisone Allergy Rash Verified 06/02/21 10:51 adhesive tape AdvReac Intermediate Rash, Verified 06/02/21 10:51 burning amoxicillin [From Augmentin] AdvReac Unknown unknown Verified 06/02/21 10:51 clavulanic acid AdvReac Unknown unknown Verified 06/02/21 10:51 [From Augmentin] pain medication AdvReac Severe Difficulty Uncoded 06/02/21 10:51 swallowing Family History Father CAD (coronary artery disease) Myocardial infarction Mother Hypertension Uncle Emphysema of lung Surgical History H/O wisdom tooth extraction History of hernia repair History of hip replacement History of Leobardo fundoplication History of tonsillectomy Hx of cataract removal with insertion of prosthetic lens Social History (Updated 08/18/21 @ 17:[address] Harris Jacobsen MD) household members: none Smoking Status: Never smoker alcohol intake: never substance use type: does not use ROS ROS ED Constitutional Constitutional ED: Denies chills, fever(s), sweats or weight loss Eyes Eyes: Denies blurry vision, change in vision or diplopia ENT ENT ED: Reports rhinorrhea; Denies ear pain or sore throat Cardiovascular Cardiovascular: Denies chest pain, orthopnea, palpitations, paroxysmal nocturnal dyspnea or racing heartbeat Respiratory/Chest Respiratory/Chest: Reports cough, dyspnea, dyspnea on exertion and sputum; Denies orthopnea or paroxysmal nocturnal dyspnea Gastrointestinal Gastrointestinal: Denies abdominal pain, diarrhea, nausea or vomiting Genitourinary Genitourinary ED: Denies dysuria, hematuria or urinary frequency Musculoskeletal Musculoskeletal: Denies arthralgias, myalgias or neck pain Integumentary Denies rash Neurologic Neurologic: Reports weakness; Denies headache(s) or paresthesias Endocrine Endocrinology: Denies polydipsia, polyphagia or polyuria Hematologic/Lymphatic Hematologic/Lymphatic: Denies easy bleeding or easy bruising EXAM Physical Exam Const Vital Signs: 08/18/21 16:25 08/18/21 16:42 08/18/21 16:44 Temperature 97.6 F L Temperature Source Temporal Pulse Rate 83 Respiratory Rate 15 Respiratory Effort Short of Breath Labored Respiratory Depth Normal Respiratory Pattern Tachypnea Blood Pressure 119/53 L Blood Pressure Mean 75 Pulse Ox 100 88 Oxygen Delivery Method Room Air Room Air Nasal Cannula Oxygen Flow Rate (L/min) 2 08/18/21 17:06 Temperature Temperature Source Pulse Rate 101 H Respiratory Rate 20 H Respiratory Effort Respiratory Depth Respiratory Pattern Normal Blood Pressure Blood Pressure Mean Pulse Ox Oxygen Delivery Method Oxygen Flow Rate (L/min) Positive well nourished and well developed; Negative for obese, cachectic, contractures or unkempt General Appearance ED: well developed; Negative for unkempt, cachectic, contractures, NAD or pallor Nutritional Appearance: Negative for cachectic or obese HEENT Reports TM's clear and dry mucous membranes HEENT Narrative: Nares patent. Uvula midline. atraumatic; Negative for tenderness Tympanic Membrane ED: Yes TM's clear Mouth ED: Yes dry mucous membranes Mouth: dry mucous membranes Eyes PERRL and EOMs intact bilaterally General Eye ED: Negative for pale conjunctiva or scleral icterus Neck no lymphadenopathy, supple, no meningeal signs and no JVD Neck Narrative: Trachea midline. No inspiratory expiratory stridor. Resp No normal respiratory effort and No clear to auscultation bilaterally Auscultation: rales bilateral base and wheezes expiratory wheezes and scattered wheezes (Bilateral more pronounced posterior and centrally anterior after coughing) Cardio regular rate, regular rhythm, S1 normal heart sound, S2 normal heart sound and no murmurs GI non-tender, non-distended and no masses Auscultation: normoactive bowel sounds Palpation: soft Back/Spine no CVA tenderness and normal to inspection Extremity normal to inspection Extremity Narrative: There is no asymmetry, swelling, discoloration, leg vein distention, palpable cords or tenderness along the distribution of the deep venous system. Neuro oriented x3 and CN's II-XII intact bilaterally [place] Coma Scale: document GCS findings Spontaneous Obeys Commands Oriented 15 Sensorium / Orientation: alert Psych mental status grossly normal Appearance: Negative for unkempt Skin no wounds General Skin Exam: Negative for jaundice or pallor Lesions: no lesions Rashes: no rashes MDM MDM MDM Narrative Medical decision making narrative: Since blood work was ordered and in the lab and running these were not repeated. In light of history of Covid exposure and the patient not being vaccinated with bilateral rales and wheezing suspect that she has Covid pneumonia. Rapid Covid test was obtained as well as chest x-ray. Since there is history of cardiac disease after reviewing prior records EKG was obtained to rule out cardiac ischemia. Since concern is patient has COVID pneumonia even though the rapid is negative which is not surprising since her symptoms started approximately 1 month ago. Shortness of breath started 2 weeks ago. Will obtain PCR test and prolactin. Since her white count is normal and history is suggestive/consistent with Covid pneumonia antibiotics were not ordered. The hospitalist was made aware that antibiotics were not started. Clinically patient has COVID pneumonia. Lab Data Attestation: I reviewed the patient's lab results. Lab results narrative: Since lactate is normal blood cultures are not indicated or needed. Labs: Laboratory Results - last 24 hr 08/18/21 17:00 Lactic Acid 1.6 CBC and differential that were ordered prior to arrival are unremarkable. The electrolyte panel reveals mild hyponatremia and hypochloremia. This most likely is due to hydrochlorothiazide. GFR is 55 with a creatinine of 1.04. Glucose is slightly elevated. Radiography Chest X-Ray - ED: 1 View and Read by ED Physician (Single view chest x-ray was interpreted by me at 1748 as findings consistent with Covid. She has bilateral interstitial changes that are predominantly in the periphery. Cardiac size is unremarkable. Mediastinum is unremarkable. Ostia structures are remarkable for significant scoliosis.) EKG Initial EKG: Attestation: I personally reviewed and interpreted this EKG as follows: Interpretation: Sinus Rhythm (Ventricular rate is 81. WI interval is 140 ms. QS durations 84 ms. QT duration 392 ms. [place] is normal. There is minimally inverted T waves in the anterior leads. There is no ST depression or elevation. We will need to compare to prior.) Discharge Plan Dx/Rx/DC Orders Clinical Impression: Bilateral pneumonia, Acute respiratory failure with hypoxia, Sepsis without acute organ dysfunction Disposition Disposition: Acute Care Hospital [facility]
[2021-08-18] MEDS: Albuterol 2.5 MG/3 ML VIAL.NEB. INHALATION ×3 (17:06)
[2021-08-18 17:34] LABS: Lactic Acid 1.6 mmol/L (0.4-1.9)
--- NOTE | 2021-08-18 17:37 | RAD_ITS ---
STUDY: X-RAY CHEST REASON FOR EXAM: Female, 75 years old. Hypoxia, bibasilar rales, exposure to Covid TECHNIQUE: Single frontal view of the chest. COMPARISON: 02/07/2019. FINDINGS: Diffuse patchy pulmonary opacities. There is no demonstrated pleural abnormality. Normal size heart. Normal mediastinum and yvonne. Normal visualized pulmonary arteries. Normal visualized aortic arch and descending thoracic aorta. Severe scoliosis incompletely characterized. Normal visualized ribs, clavicles, and shoulders. There is no demonstrated abnormality of the visualized soft tissue structures of the upper abdomen. RAD/Chest 1 View (Portable) IMPRESSION: Diffuse pulmonary opacities may represent pneumonia in the appropriate clinical setting. Electronically Signed: Fredy Roche MD at 18:24 EST ,
--- NOTE | 2021-08-18 18:01 | PCM.HP.STD ---
HPI - General General Date of Admission: 08/18/21 HPI Narrative RICHELLE DIXON, is a 75 F who presents via the ED on 08/18/2021 with a complaint of shortness of breath for 2 weeks prior to admission. She went to the [facility] to take care of a relative who had covid. She returned from the [facility] about 2 weeks ago and started feeling short of breath. Her symptoms gradually worsened and she had associated cough, wheezing and dyspnea on exertion. She denied any fever or chills. She went to her PCP today and was referred to the ED. On arrival in the ED she was saturating at 88% on room air. She denies any history of DVT or PE. Vitals in the ED were temperature of 97.6 Fahrenheit with pulse rate of 101 and RR of 20. She was saturating at 88% on 2 L of oxygen. CBC showed WBC of 9.1 with hemoglobin of 16.6 and platelets of 186. Chemistry shows sodium of 131 and creatinine of 1.04. Lactic acid was 1.6 and total bilirubin was 1.4. Chest x-ray showed evidence of bilateral infiltrates. She was given a dose of dexamethasone. Covid antigen test was negative and PCR orders was pending. She has been admitted to be managed for acute hypoxic respiratory insufficiency with suspicion for Covid. [facility] Medical History Diastolic dysfunction Edema Essential hypertension Hiatal hernia History of pneumonia Hyperlipidemia Hypokalemia Scoliosis Shortness of breath Home Medications ascorbic acid (vitamin C) 500 mg tablet 1,000 mg PO DAILY tab 01/06/19 [History Last Taken 08/18/21] citalopram 20 mg tablet 20 mg PO DAILY 01/06/19 [History Last Taken 08/18/21] hydrochlorothiazide 50 mg tablet 50 mg PO DAILY 01/06/19 [History Last Taken 08/18/21] loratadine 10 mg tablet 10 mg PO DAILY 01/06/19 [History Last Taken 08/18/21] losartan 50 mg tablet 50 mg PO DAILY 01/06/19 [History Last Taken 08/18/21] potassium chloride 20 mEq tablet,extended release 20 meq PO DAILY 01/06/19 [History Last Taken 08/18/21] rosuvastatin 10 mg tablet 10 mg PO DAILY 01/06/19 [History Last Taken 08/18/21] latanoprost 0.005 % eye drops 1 drp OPHTHALMIC QPM 01/09/19 [History Last Taken 08/17/21] timolol maleate 0.5 % eye drops 1 drp OPHTHALMIC DAILY ml 01/09/19 [History Last Taken 08/17/21] brimonidine 0.2 % eye drops 1 drp OPHTHALMIC BID ml 05/22/20 [History Last Taken 08/17/21] cholecalciferol (vitamin D3) 25 mcg (1,000 unit) tablet 25 mcg PO DAILY 02/04/21 [History Last Taken 08/18/21] Allergy/AdvReac Type Severity Reaction Status Date / Time prednisone Allergy Rash Verified 06/02/21 10:51 adhesive tape AdvReac Intermediate Rash, Verified 06/02/21 10:51 burning amoxicillin [From Augmentin] AdvReac Unknown unknown Verified 06/02/21 10:51 clavulanic acid AdvReac Unknown unknown Verified 06/02/21 10:51 [From Augmentin] pain medication AdvReac Severe Difficulty Uncoded 06/02/21 10:51 swallowing Family History Father CAD (coronary artery disease) Myocardial infarction Mother Hypertension Uncle Emphysema of lung Surgical History H/O wisdom tooth extraction History of hernia repair History of hip replacement History of Leobardo fundoplication History of tonsillectomy Hx of cataract removal with insertion of prosthetic lens Social History (Updated 08/18/21 @ 17:[address] Harris Jacobsen MD) household members: none Smoking Status: Never smoker alcohol intake: never substance use type: does not use ROS Constitutional Constitutional: Reports fatigue, malaise and weakness; Denies anorexia, change in weight, chills, fever(s) or night sweats Eyes Eyes: Denies change in vision ENT HEENT: Denies dysphagia, headache(s), nasal congestion, nasal discharge or sore throat Cardiovascular Cardiovascular: Denies chest pain, dyspnea on exertion, edema, lightheadedness, orthopnea, palpitations, rapid heart rate or syncope Respiratory/Chest Respiratory/Chest: Reports cough, dyspnea, productive cough, shortness of breath at rest, shortness of breath with exertion and wheezing; Denies excessive phlegm production or hemoptysis Gastrointestinal Gastrointestinal: Denies abdominal pain, constipation, diarrhea, nausea or vomiting Genitourinary Genitourinary: Denies burning urination, dysuria, urinary frequency or urinary hesitancy Musculoskeletal Musculoskeletal: Denies arthralgias Neurologic Neurologic: Denies confusion, focal weakness, headache(s), numbness or seizures Psychiatric Psychiatric: Denies anxiety or depression Endocrine Endocrinology: Denies change in body appearance Hematologic/Lymphatic Hematologic/Lymphatic: Denies anemia or easy bleeding Allergic/Immunologic Allergic/Immunologic: Denies asthma Vital Signs Vital Signs Vital Signs: 08/18/21 16:25 08/18/21 16:42 08/18/21 16:44 Temperature 97.6 F L Temperature Source Temporal Pulse Rate 83 Respiratory Rate 15 Respiratory Effort Short of Breath Labored Respiratory Depth Normal Respiratory Pattern Tachypnea Blood Pressure 119/53 L Blood Pressure Mean 75 Pulse Ox 100 88 Oxygen Delivery Method Room Air Room Air Nasal Cannula Oxygen Flow Rate (L/min) 2 08/18/21 17:06 Temperature Temperature Source Pulse Rate 101 H Respiratory Rate 20 H Respiratory Effort Respiratory Depth Respiratory Pattern Normal Blood Pressure Blood Pressure Mean Pulse Ox Oxygen Delivery Method Oxygen Flow Rate (L/min) Weight Weight: 138 lb Body Mass Index (BMI) 24.4 Physical Exam Const alert, oriented x3 and no apparent distress General Appearance: cooperative HEENT normocephalic, head/scalp atraumatic and hearing grossly normal bilaterally Eyes PERRL, EOMs intact bilaterally and conjunctivae normal Neck no lymphadenopathy, supple and no JVD Resp Resp Narrative: Mildly diminished breath sounds bibasilarly. No wheezes or crackles. On 2 L of oxygen by nasal cannula. Cardio regular rate, regular rhythm, S1 normal heart sound, S2 normal heart sound and no murmurs GI normal to inspection, nondistended, normoactive bowel sounds, soft to palpation, non-tender and non-distended Extremity normal to inspection, full ROM and no clubbing, cyanosis or edema Peripheral Pulses: Yes pulses 2+ throughout Skin no rashes or lesions noted Neuro oriented x3, CN's II-XII intact bilaterally and moves all extremities Sensorium / Orientation: awake, alert and oriented to time Motor Exam: strength 5/5 throughout Psych affect normal Results Lab / Micro Data Labs: Laboratory Results - last 24 hr 08/18/21 17:00: Lactic Acid 1.6 Micro: Microbiology 08/18/21 16:55 Nasal Secretion SARS-CoV-2 Antigen (Rapid) - Final Assessment & Plan Assessment/Plan (1) Bilateral pneumonia: (2) Hypoxia: PLAN: #Acute hypoxic respiratory insufficiency concern is for covid as she was exposed to a relative she went to care for who had covid she is unvaccinated covid antigen test is negative. WIll check PCR check respiratory panel, troponin series and BNP titrate oxygen to maintain sats >90% breathing treatment with bronchodilators Hold off on any further treatment for Covid now until PCR comes back. : Covid precautions. patient is adamant she doesnt want the COVID shot because she doesnt believe in it. She is however open to having the covid meds if needed. SHe was counseled that she is out of the window for remdesivir,a nd would be initiated on a 10 day course of decadron if her PCR is positive EKG showed t wave inversions in anterior leads; previous EKG only showed evidence of probable old inferior infarct; no evidence of anterior t wave inversions. #Hypertension: On hydrochlorothiazide and losartan. #Hyperlipidemia: On statin DVT prophylaxis: Lovenox CODE STATUS:DNRCCA no intubation Patient counseled extensively about differences between full code, DNR CCA and DNR CCA. Patient states she does not want to be intubated. She was initially open to CPR but subsequently changed her mind when she was informed that CPR and intubation usually go together. Despite further counseling, patient is adamant that she does not want CPR or intubation. I counseled patient that if she needed intubation and she refused it, she would likely . Patient states she is okay with it and does not want CPR or intubation. CODE STATUS is therefore DNR CCA no intubation Total [id number] time 18 minutes Charges/Coding Visit Charges Inpatient E&M: 96135 Init Hosp L3 Procedures Hospitalists Procedures: 95361 Advncd Care Plan 30 Min
[2021-08-18] MEDS: dexAMETHasone 4 MG Tablet 6 MG PO (18:07)
--- NOTE | 2021-08-18 18:15 | CASEMGMT ---
SHAISTA CALVIN Assessment: RN CM to room to meet with patient for initial transition planning/care coordination assessment. RN NIKUNJ introduced self and role at [facility]. Patient voices understanding and consents to assessment at this time. Patient's friend Karla present at bedside. Patient is alert and oriented and answers all questions appropriately, sitting up on ER cart with oxygen per NC. Care providers, pharmacy, and demographics verified/updated at this time. Admitting Dx: bilateral pneumonia, hypoxia, suspect COVID pneumonia PCP: Patrick Specialists: Denies Preferred Pharmacy: [facility] Insurance: Medicare A/B & [employer] Pres[employer] Benefit: yes Living Will/HPOA: Patient denies having a living will or HPOA. LNOK: Cousins Dre Arriaga and Audrey Osorio Living Arrangements: Patient lives alone in ground-level, single story apartment with no steps to enter the home. Patient states independent with ADLs prior to hospitalization but admits to recent weakness. Patient typically ambulates with the use of a cane. Smoking/ETOH: Never smoker, denies ETOH use Transportation: Patient drives self and denies transportation concerns. DME/HHC/SNF: Patient has a cane, raised toilet seat, shower chair and grab bars available in the home. Patient does not have home oxygen and denies preference of DME company if oxygen were to be needed at time of discharge. Previous HHC through [facility] and previous SNF stay at [facility]. Patient has no concerns with going home at time of discharge and is interested in HHC. Patient was provided with a list of HHC providers including quality and resource use data and consistent with the patient's preferred geographic region, medical needs, and insurance network. CM to follow for any discharge planning/needs. Patient voices no concerns/needs at this time. Advised patient to ask for CM if any questions/concerns/needs arise. Voices understanding. Plan: home with HHC
[2021-08-18 19:01] LABS: Procalcitonin 0.24 ng/mL (0.00-0.09)
[2021-08-18 19:23] LABS: BNP,B-Type NATRIURETIC PEPTIDE 22.7 pg/mL (0-100)
[2021-08-18 20:54] LABS: Troponin-I HS 24 pg/mL (3.0-54.0)
[2021-08-18] MEDS: BRIMONIDINE 0.2% 5ML BOTTLE 1 DRP OPHTHALMIC (21:33)
[2021-08-18] MEDS: Latanoprost 0.005% 1 Bottle 1 DRP OPHTHALMIC (21:33)
[2021-08-18] MEDS: Timolol 0.5% 5ML OPTH.BTL 1 DRP OPHTHALMIC (21:34)
[2021-08-18] MEDS: Atorvastatin Calcium 20 MG Tablet PO (21:49)
[2021-08-18 22:57] LABS: Troponin-I HS 23 pg/mL (3.0-54.0)
[2021-08-18 23:01] LABS: D-Dimer Quantitative (DVT/PE) 2.62 FEU/ug/m (0.27-0.49)
--- NOTE | 2021-08-18 23:42 | PCM.HOSP.N ---
Hospitalist Note COVID PCR returned positive. Will add antigen, sputum request. Maintain on precautions for COVID given worsened status would require the 20 day timeline. Will add decadron and monitor given rash reported with prednisone therapy. Given timeline 2 weeks not candidate for antiviral treatment. D-dimer elevated thus will also obtain CTPA.
[2021-08-19] VITALS (15 sets, daily range): BP systolic 104–121; BP diastolic 61–79; PULSE 63–96; RESP 18–20; TEMP 36.6–37.7; O2SAT 84–100
[2021-08-19 02:16] LABS: Absolute Lymphocyte Count 3.71 X10^3/uL (0.83-4.51); Absolute Neutrophil Count 2.3 X10^3/uL (2.0-7.7); Hematocrit 44.5 % (37-47); Hemoglobin 14.8 g/dL (12.0-15.0); Lymphocyte # 3.71 X10^3/ul (0.83-4.51); Mean Corp Hgb Conc 33.3 g/dL (32-36); Mean Corpuscular Hgb 28.6 pg (27.0-32.0); Mean Corpuscular Volume 85.9 fL (81-99); Mean Platelet Vol. 10.3 fl (6.2-12.0); Monocyte# 0.19 X10^3/uL; Monocyte% 3.1 % (0-10); NRBC Flagged by Analyzer 0 % (0-5); Neutrophil # 2.26 X10^3/uL (2.7-7.7); Neutrophil % 36.6 % (47-70); Platelet Count 158 K/mm3 (150-450); RBC Distribution Width CV 13.2 % (11.6-14.6); RBC Distribution Width SD 42.2 fl (35.1-43.9); Red Blood Count 5.18 M/mm3 (4.2-5.4); White Blood Count 6.2 K/mm3 (4.4-11.0)
[2021-08-19 02:46] LABS: Troponin-I HS 28 pg/mL (3.0-54.0)
[2021-08-19 02:49] LABS: ALB/GLOB Ratio 0.7 RATIO (0.9-2.4); AST(SGOT) 73 U/L (15-37); Alanine Aminotransfer ALT/SGPT 45 U/L (13-56); Albumin, Serum 2.3 g/dL (3.2-5.0); Alkaline Phosphatase 92 U/L (45-117); Anion Gap 6 (5-15); BUN 19 mg/dL (7-18); Calcium,Total 8.1 mg/dL (8.5-10.1); Chloride 102 mmol/L (98-107); Creatinine, Serum 0.95 mg/dL (0.55-1.02); EST Glomerular Filtration Rate 61 mL/min (>60); Est Glom Filt Rate - Afr Amer 74 mL/min (>60); Estimated Creatinine Clearance 42.98 ml/min; Globulin 3.4 g/dL (2.2-4.2); Glucose 178 mg/dL (74-106); Potassium 3.3 mmol/L (3.5-5.1); Protein, Total 5.7 g/dL (6.4-8.2); Sodium Level 136 mmol/L (136-145)
[2021-08-19] MEDS: Cholecalciferol (VIT D3) 25 MCG TABLET (1,000 UNITS) PO (08:28)
[2021-08-19] MEDS: Losartan Potassium 50 MG Tablet PO (08:28)
[2021-08-19] MEDS: Potassium Chloride Oral Tablet 20 MEQ PO (08:28)
[2021-08-19] MEDS: Potassium Chloride Oral Tablet 20 MEQ 40 MEQ PO (08:28)
[2021-08-19] MEDS: Citalopram 20 MG Tablet PO (08:29)
[2021-08-19] MEDS: Loratadine 10 MG Tablet PO (08:29)
[2021-08-19] MEDS: hydroCHLOROthiazide 25 MG Tablet 50 MG PO (08:29)
[2021-08-19] MEDS: Ascorbic Acid 500 MG Tablet 1000 MG PO (08:29)
[2021-08-19] MEDS: Enoxaparin 40 MG/0.4 ML Syringe SC (08:30)
[2021-08-19] MEDS: dexAMETHasone 10 MG/ML Vial 6 MG IV (08:31)
[2021-08-19] MEDS: BRIMONIDINE 0.2% 5ML BOTTLE 1 DRP OPHTHALMIC ×2 (08:42→20:54)
--- NOTE | 2021-08-19 08:43 | NURSING ---
refused proair inhaler for wheezes states it affects her glaucma. education provided on repositioning and proning as well as I.S..
--- NOTE | 2021-08-19 13:20 | PCM.PN.HOSP ---
Subjective Subjective Patient reports her breathing is stable. She is maintained on 3 L nasal cannula. She does indicate that she has coughed up some sputum and has been compliant with her incentive spirometer. Nursing indicates that she has not wanted to do a whole lot for herself overall. Patient indicates she is not interested in being vaccinated after she is cleared to do so. Objective Data Objective Data Vital Signs: Vital Signs Temp Pulse Resp BP Pulse Ox 97.8 F 80 18 118/67 100 08/19/21 08:23 08/19/21 11:00 08/19/21 08:23 08/19/21 08:23 08/19/21 13:08 Oxygen Flow Rate (L/min) 3 Oxygen Delivery Method Nasal Cannula Weight: 62.414 kg Body Mass Index (BMI) 24.3 Intake & Output: Intake and Output for Last 24 Hours 08/17/21 08/18/21 08/19/21 23:59 23:59 23:59 Intake Total 600 / 600 Output Total 450 / 450 Balance 150 / 150 Lab / Micro Data Result Diagrams: 08/19/21 02:08 08/19/21 02:08 Labs: Laboratory Results - last 24 hr 08/18/21 14:11: B-Natriuretic Peptide 22.7 08/18/21 17:00: Lactic Acid 1.6 08/18/21 18:05: Procalcitonin 0.24 H 08/18/21 18:11: COVID-19 (LORAINE) Detected 08/18/21 20:00: Troponin I High Sens 24 08/18/21 22:14: Troponin I High Sens 23 08/18/21 22:14: D-Dimer Quant (PE/DVT) 2.62 H* 08/19/21 02:08: Troponin I High Sens 28 08/19/21 02:08: WBC 6.2, RBC 5.18, Hgb 14.8, Hct 44.5, MCV 85.9, MCH 28.6, MCHC 33.3, RDW Std Deviation 42.2, RDW Coeff of Thong 13.2, Plt Count 158, MPV 10.3, Immature Gran % (Auto) 0.300, Neut % (Auto) 36.6 L, Lymph % (Auto) 60.0 H, [place] % (Auto) 3.1, Eos % (Auto) 0.0, Baso % (Auto) 0.0, Absolute Neuts (auto) 2.3, Absolute Lymphs (auto) 3.71, Nucleated RBC % 0 08/19/21 02:08: Sodium 136, Potassium 3.3 L, Chloride 102, Carbon Dioxide 28.0, Anion Gap 6, BUN 19 H, Creatinine 0.95, Estim Creat Clear Calc 42.98, Est GFR (MDRD) Af Amer 74, Est GFR (MDRD) Non-Af 61, BUN/Creatinine Ratio 20.0, Glucose 178 H, Calcium 8.1 L, Total Bilirubin 0.80, AST 73 H, ALT 45, Alkaline Phosphatase 92, Total Protein 5.7 L, Albumin 2.3 L, Globulin 3.4, Albumin/Globulin Ratio 0.7 L 08/19/21 02:08: C-React Prot Ext Range 60.60 H Micro: Microbiology 08/18/21 23:55 Urine, Clean Catch Legionella Antigen - Final 08/18/21 23:55 Urine, Clean Catch Streptococcus pneumoniae Antigen (M - Final 08/18/21 16:55 Nasal Secretion SARS-CoV-2 Antigen (Rapid) - Final Radiography Diagnostic Testing: Radiology Impression Chest X-Ray 08/18/21 17:37 IMPRESSION: Diffuse pulmonary opacities may represent pneumonia in the appropriate clinical setting. Electronically Signed: Fredy Roche MD at 18:24 EST , Chest CTA 08/19/21 23:39 IMPRESSION: 1. No evidence of pulmonary embolus. 2. Patchy multifocal areas of groundglass opacity. Imaging features can be seen with COVID 19 pneumonia, though are nonspecific and occur with a variety of infectious and noninfectious processes. Individualized dose optimization techniques were used for this CT. at 0124 Reported and signed by: Rob Serrano MD Electronically Signed: Rob Serrano MD at 1:23 EST , Physical Exam Const alert, oriented x3, no apparent distress, average body habitus, healthy appearing and well nourished Constitutional Narrative: Older white female sitting up in a chair at the bedside, nontoxic, mild dyspnea with conversation with intermittent cough Exam Limitations: no limitations HEENT head/scalp atraumatic and moist oral mucous membranes HEENT Narrative: No thrush noted, Mallampati is 3 Head and Scalp: normocephalic Resp normal respiratory effort, no retractions and no use of accessory muscles Resp Narrative: Few scattered crackles, mild dyspnea with conversation, intermittent cough Auscultation: crackles; Negative for rales, rhonchi or wheezes Cardio regular rate, regular rhythm, S1 normal heart sound, S2 normal heart sound, no murmurs, no rub, no gallops, no clicks and no JVD GI normal to inspection, nondistended, normoactive bowel sounds, soft to palpation, non-tender and non-distended Extremity no clubbing, cyanosis or edema Peripheral Pulses: Yes pulses 2+ throughout Neuro oriented x3, moves all extremities and no focal motor deficits Sensorium / Orientation: awake and alert Speech: speech normal Assessment & Plan Assessment/Plan (1) Acute respiratory failure with hypoxia: (2) Shortness of breath: (3) Hypokalemia: (4) Transaminitis: (5) Hyperglycemia: (6) Elevated d-dimer: PLAN: Acute hypoxic respiratory failure secondary to COVID-19 pneumonia -Patient is nonvaccinated -Patient has been symptomatic for approximately 2 weeks -Out of the window for remdesivir -Continue Decadron day 2 of 10 -Check CRP to assess whether or not she would qualify for baricitinib if she decompensates further -Patient is currently on 3 L nasal cannula with oxygen saturations at 92 to 97% -Continue incentive spirometer -As needed diuresis to maintain euvolemia and optimize lung function -Patient does have restrictive disease at baseline per previous PFTs -Encourage mobility -Patient is uninterested in being vaccinated Hypokalemia -P.o. potassium replacement -Repeat lab in a.m. Transaminitis -Likely related to acute COVID-19 infection -Monitor periodically Hyperglycemia -Suspected iatrogenic -Patient remains on Decadron -Monitor and add sliding scale if patient having consistent blood sugars greater than 180 Elevated D-dimer -Suspect related to Covid infection -CTA is negative for PE Restrictive lung disease -PFTs done by pulmonary on 06/02/2021 -Follow-up with pulmonary after discharge Chronic diastolic dysfunction -Monitor for as needed diuresis -No current signs of decompensation Hypertension -Continue hydrochlorothiazide -Continue losartan Hyperlipidemia -Continue Crestor Depression -Continue citalopram DVT prophylaxis -Lovenox -SCDs CODE STATUS -DNR CCA with no intubation -Documentation noted on admission but order not in place -We will place order at this time Charges/Coding Visit Charges Inpatient E&M: 06614 Subs Hosp L2
[2021-08-19] MEDS: Latanoprost 0.005% 1 Bottle 1 DRP OPHTHALMIC (20:54)
[2021-08-19] MEDS: Timolol 0.5% 5ML OPTH.BTL 1 DRP OPHTHALMIC (20:54)
[2021-08-19] MEDS: Acetaminophen 325 MG Tablet 650 MG PO (20:54)
--- NOTE | 2021-08-19 23:39 | CT_ITS ---
EXAM: CT ANGIOGRAPHY CHEST WITHOUT AND WITH INTRAVENOUS CONTRAST : 1945 CLINICAL INDICATION: suspected PE TECHNIQUE: Helically acquired angiography images were obtained of the chest without and with intravenous contrast. This CT exam was performed using one or more of the following dose reduction techniques: automated exposure control, adjustment of the mA and/or kV according to patient size, and/or use of iterative reconstruction technique. This report was created using [employer] report generation technology. MIP reconstructed images were created and reviewed. CONTRAST: IV 100mL Isovue-370 COMPARISON: None. FINDINGS: PULMONARY ARTERIES: Unremarkable. Normal in caliber. No evidence of pulmonary embolism. AORTA: Unremarkable. Normal in caliber. No evidence of dissection. GREAT VESSELS OF AORTIC ARCH: Unremarkable. Normal in caliber. No evidence of dissection. LUNGS AND PLEURAL SPACES: There are multifocal patchy areas of groundglass opacity within both lungs. No mass. No pleural effusion or thickening. No pneumothorax. HEART: Unremarkable. Heart size is normal. No pericardial effusion. No signs of right heart strain, ratio of right ventricle to left ventricle measures less than 1. MEDIASTINUM: Unremarkable. No mediastinal or hilar adenopathy. Esophagus is unremarkable. No hiatal hernia. THYROID: Unremarkable. No thyroid lesions. BONES/JOINTS: There is a scoliotic deformity of the thoracic spine. No suspicious lytic or blastic abnormality. CT/CTA Chest W/WO Contrast IMPRESSION: 1. No evidence of pulmonary embolus. 2. Patchy multifocal areas of groundglass opacity. Imaging features can be seen with COVID 19 pneumonia, though are nonspecific and occur with a variety of infectious and noninfectious processes. Individualized dose optimization techniques were used for this CT. at 0124 Reported and signed by: Rob Serrano MD Electronically Signed: Rob Serrano MD at 1:23 EST ,
[2021-08-20] VITALS (12 sets, daily range): BP systolic 101–132; BP diastolic 66–86; PULSE 70–102; RESP 18–19; TEMP 35.9–37.4; O2SAT 87–95
[2021-08-20 06:43] LABS: Anion Gap 5 (5-15); BUN 31 mg/dL (7-18); BUN/Creat Ratio 34.7 RATIO (10-20); Calcium,Total 8.8 mg/dL (8.5-10.1); Chloride 100 mmol/L (98-107); Creatinine, Serum 0.89 mg/dL (0.55-1.02); EST Glomerular Filtration Rate 65 mL/min (>60); Est Glom Filt Rate - Afr Amer 79 mL/min (>60); Estimated Creatinine Clearance 45.87 ml/min; Glucose 118 mg/dL (74-106); Potassium 4.4 mmol/L (3.5-5.1); Sodium Level 133 mmol/L (136-145)
[2021-08-20] MEDS: Citalopram 20 MG Tablet PO (09:50)
[2021-08-20] MEDS: Ascorbic Acid 500 MG Tablet 1000 MG PO (09:50)
[2021-08-20] MEDS: dexAMETHasone 10 MG/ML Vial 6 MG IV (09:51)
[2021-08-20] MEDS: Losartan Potassium 50 MG Tablet PO (09:51)
[2021-08-20] MEDS: Loratadine 10 MG Tablet PO (09:51)
[2021-08-20] MEDS: hydroCHLOROthiazide 25 MG Tablet 50 MG PO (09:51)
[2021-08-20] MEDS: Potassium Chloride Oral Tablet 20 MEQ PO (09:52)
[2021-08-20] MEDS: Enoxaparin 40 MG/0.4 ML Syringe SC (09:52)
[2021-08-20] MEDS: Cholecalciferol (VIT D3) 25 MCG TABLET (1,000 UNITS) PO (09:52)
[2021-08-20] MEDS: BRIMONIDINE 0.2% 5ML BOTTLE 1 DRP OPHTHALMIC ×2 (09:53→21:03)
--- NOTE | 2021-08-20 10:12 | CASEMGMT ---
Addendum entered by Nafisa Zuniga 08/20/21 12:43: Received tc from Lois at [facility] who states pt visitor in room asks who will take care of pt until [facility] sees her on Tuesday. Visitor reported pt cannot return home. At this time hospitalist notified RN CM and DUST CONTROL ENGINEER that pt is agreeable to SNF as therapy is in working with her now. TC to Lois at [facility] to cancel C referral. Addendum entered by Nafisa Zuniga 08/20/21 11:45: Received tc from Lois, they will accept pt for SOC on Tuesday. Original Note: TC to pt in room, noted PT and OT is recommending additional therapy, pt states she has had a chance to review the [facility] list provided in ER. She has chosen [facility]. TC to [facility], left message on Lois's vm with referral. Will await acceptance.
--- NOTE | 2021-08-20 12:49 | CASEMGMT ---
Social Work Note SW updated that pt will need SNF at discharge. RICKIE placed a call to pt's room and spoke with guest Lin. RICKIE spoke with Lin and pt about SNF options. Pt stating that first choice is [facility] and then other choices would be either [facility] or [facility]. RICKIE placed a call to Flower at [facility]. [facility] COVID unit is available and do have beds available. SW faxed referral to [facility]. Plan: [facility] pending acceptance Kiana Melendez PROJECT MANAGER PROCESS DEVELOPMENT, FAN MAIL CLERK
--- NOTE | 2021-08-20 13:14 | PCM.PN.HOSP ---
Subjective Subjective Patient has remained stable on 2 L of supplemental oxygen. She had minimal desaturation on this with exertion. She was initially resistant to going somewhere for strengthening prior to discharge home however she is now more accepting. We have discussed this with case management and they were going to be looking into this however there is some question whether or not she will be able to be placed given the fact that she is Covid positive. Objective Data Objective Data Vital Signs: Vital Signs Temp Pulse Resp BP Pulse Ox 99.3 F H 102 H 18 132/66 H 87 08/20/21 09:05 08/20/21 09:05 08/20/21 09:05 08/20/21 09:05 08/20/21 10:07 Oxygen Flow Rate (L/min) [At 0 REST on Room Air] Oxygen Flow Rate (L/min) 2 Oxygen Delivery Method Nasal Cannula Weight: 62.4 kg Body Mass Index (BMI) 24.3 Intake & Output: Intake and Output for Last 24 Hours 08/18/21 08/19/21 08/20/21 23:59 23:59 23:59 Intake Total 900 / 900 Output Total 850 / 850 Balance 50 / 50 Lab / Micro Data Result Diagrams: 08/19/21 02:08 08/20/21 05:30 Labs: Laboratory Results - last 24 hr 08/20/21 05:30: Sodium 133 L, Potassium 4.4, Chloride 100, Carbon Dioxide 28.0, Anion Gap 5, BUN 31 H, Creatinine 0.89, Estim Creat Clear Calc 45.87, Est GFR (MDRD) Af Amer 79, Est GFR (MDRD) Non-Af 65, BUN/Creatinine Ratio 34.7 H, Glucose 118 H, Calcium 8.8 Micro: Microbiology 08/18/21 23:55 Urine, Clean Catch Legionella Antigen - Final 08/18/21 23:55 Urine, Clean Catch Streptococcus pneumoniae Antigen (M - Final 08/18/21 16:55 Nasal Secretion SARS-CoV-2 Antigen (Rapid) - Final Physical Exam Const alert, oriented x3, no apparent distress, average body habitus, healthy appearing and well nourished Constitutional Narrative: Older white female sitting up on the edge of bed with therapy services at the bedside, nontoxic, dyspneic with recent exertion but oxygen saturation stable on 3 L General Appearance: cooperative Exam Limitations: no limitations HEENT normocephalic, head/scalp atraumatic, hearing grossly normal bilaterally and moist oral mucous membranes HEENT Narrative: No thrush Head and Scalp: normocephalic Eyes conjunctivae normal Resp normal respiratory effort, no retractions, no use of accessory muscles and clear to auscultation bilaterally Resp Narrative: Diminished but clear Auscultation: Negative for crackles, rales, rhonchi or wheezes Cardio regular rate, regular rhythm, S1 normal heart sound, S2 normal heart sound, no murmurs, no rub, no gallops, no clicks and no JVD GI normal to inspection, nondistended, normoactive bowel sounds, soft to palpation, non-tender and non-distended Extremity normal to inspection, full ROM and no clubbing, cyanosis or edema Peripheral Pulses: Yes pulses 2+ throughout Neuro oriented x3, moves all extremities and no focal motor deficits Neuro Narrative: Significant generalized weakness Sensorium / Orientation: awake and alert Speech: speech normal Assessment & Plan Assessment/Plan (1) Acute respiratory failure with hypoxia: (2) Shortness of breath: (3) Hypokalemia: (4) Transaminitis: (5) Hyperglycemia: (6) Elevated d-dimer: (7) Debility: PLAN: Acute hypoxic respiratory failure secondary to COVID-19 pneumonia -Patient is nonvaccinated -Patient has been symptomatic for approximately 2 weeks--> will need a patient through 08/24/2020 -Out of the window for remdesivir -Continue Decadron day 3 of 10 -CRP was 60.6 and therefore patient would not be a candidate for baricitinib -Patient is currently on 3 L nasal cannula with oxygen saturations at 93 to 95% -Patient was 87% at rest on room air -Continue incentive spirometer -As needed diuresis to maintain euvolemia and optimize lung function -Lasix 40 mg IV push today we will hold hydrochlorothiazide at this time -Patient does have restrictive disease at baseline per previous PFTs -Encourage mobility -Patient is uninterested in being vaccinated Hypokalemia -Resolved Transaminitis -Likely related to acute COVID-19 infection -Monitor periodically Hyperglycemia -Suspected iatrogenic -Patient remains on Decadron -Monitor and add sliding scale if patient having consistent blood sugars greater than 180 Debility -Patient with marked weakness and therapy services at this time recommending placement at discharge for continued rehab prior to discharge home -Referrals to be made -New PT/OT while hospitalized Elevated D-dimer -Suspect related to Covid infection -CTA is negative for PE Restrictive lung disease -PFTs done by pulmonary on 06/02/2021 -Follow-up with pulmonary after discharge Chronic diastolic dysfunction -Monitor for as needed diuresis -No current signs of decompensation Hypertension -Hold hydrochlorothiazide while utilizing pulse Lasix -Continue losartan Hyperlipidemia -Continue Crestor Depression -Continue citalopram DVT prophylaxis -Lovenox -SCDs CODE STATUS -DNR CCA with no intubation Charges/Coding Visit Charges Inpatient E&M: 10618 Subs Hosp L2
--- NOTE | 2021-08-20 14:30 | CASEMGMT ---
Addendum entered by Kiana Melendez 08/20/21 17:12: SW in to speak with pt and Lin. SW introduced self and role at [facility]. SW updated pt that [facility] is able to accept pt and she will discharge there tomorrow. Pt states she would like to go to [facility]. SW informed pt that this worker will have to check on [facility]'s COVID policy as this worker is not sure they will accept a COVID+ patient. Pt states understanding. RICKIE placed a call to Aneta at [facility] and provided referral. Aneta states she is not sure of their COVID policy as it just changed. Aneta states she will need to check with upper management to see what their current policy is for COVID pt's. RICKIE faxed referral to [facility]. Plan: [facility] vs [facility] pending acceptance Kiana BRISENO, NICK Original Note: Social Work Note SW received email from Flower at [facility] stating they can accept pt tomorrow. Kiana BRISENO, SHANK CARRIER
[2021-08-20] MEDS: Furosemide 40 MG/4 ML Vial IV (15:47)
[2021-08-20] MEDS: Latanoprost 0.005% 1 Bottle 1 DRP OPHTHALMIC (21:03)
[2021-08-20] MEDS: Timolol 0.5% 5ML OPTH.BTL 1 DRP OPHTHALMIC (21:05)
[2021-08-20] MEDS: Atorvastatin Calcium 20 MG Tablet PO (21:05)
[2021-08-21] VITALS (11 sets, daily range): BP systolic 98–140; BP diastolic 62–75; PULSE 72–85; RESP 16–20; TEMP 36.1–37.2; O2SAT 86–95
[2021-08-21 06:56] LABS: Anion Gap 6 (5-15); BUN 31 mg/dL (7-18); BUN/Creat Ratio 36.5 RATIO (10-20); Calcium,Total 9.4 mg/dL (8.5-10.1); Chloride 99 mmol/L (98-107); Creatinine, Serum 0.85 mg/dL (0.55-1.02); EST Glomerular Filtration Rate 69 mL/min (>60); Est Glom Filt Rate - Afr Amer 84 mL/min (>60); Estimated Creatinine Clearance 48.03 ml/min; Glucose 110 mg/dL (74-106); Potassium 3.9 mmol/L (3.5-5.1); Sodium Level 135 mmol/L (136-145)
[2021-08-21] MEDS: Ascorbic Acid 500 MG Tablet 1000 MG PO (08:40)
[2021-08-21] MEDS: Potassium Chloride Oral Tablet 20 MEQ PO (08:40)
[2021-08-21] MEDS: Citalopram 20 MG Tablet PO (08:40)
[2021-08-21] MEDS: Loratadine 10 MG Tablet PO (08:40)
[2021-08-21] MEDS: Enoxaparin 40 MG/0.4 ML Syringe SC (08:40)
[2021-08-21] MEDS: dexAMETHasone 10 MG/ML Vial 6 MG IV (08:40)
[2021-08-21] MEDS: Losartan Potassium 50 MG Tablet PO (08:40)
[2021-08-21] MEDS: BRIMONIDINE 0.2% 5ML BOTTLE 1 DRP OPHTHALMIC (08:41)
[2021-08-21] MEDS: Cholecalciferol (VIT D3) 25 MCG TABLET (1,000 UNITS) PO (08:48)
--- NOTE | 2021-08-21 10:50 | CASEMGMT ---
Social Work Note RICKIE received call from Aneta at [facility] stating they cannot accept pt. SW in to speak with pt and pt's visitor present in room. RICKIE informed pt that [facility] cannot accept pt. Pt agreeable to [facility]. RICKIE asked pt about completing HCPOA. Pt's visitor said documents have been completed, they just need signed. RICKIE informed pt's visitor that this worker needs to hear from pt herself who she wants to be HCPOA. SW spoke with pt regarding HCPOA. Pt unable to name HCPOA at this time to this worker. SW informed pt that documents can be sent with her to the assisted and RICKIE at [facility] can assist when pt is able to discuss HCPOA. RICKIE updated physician. Plan: [facility] skilled today Kiana Melendez SOUND DESIGNER, DIETETIC INTERN
--- NOTE | 2021-08-21 12:17 | TREXTCAR_ITS ---
Diet 08/18/21 19:11 Diet: Cardiac - Heart Healthy Food consistency:: Regular Liquid Consistency:: Regular/Thin Type of Dietary Supplement:: Ensure Enlive Is pt able to select menu?: Yes Diet Comments: 120ml ensure enlive TID w/ meals Routine Orders/Code Status O2 Liters per Minute: 2L at rest and 3 with exertion O2 Frequency: Continuous Keep PO Greater than or Equal to (%): 90 Routine Lab Work: CBC and BMP Code Status: DNRCC-A (no intubation) Therapies Physical Therapy: Eval and Treat Occupational Therapy: Eval and Treat Problem/Diagnosis (1) Acute respiratory failure with hypoxia: Status: Acute (2) Shortness of breath: Status: Acute (3) Hypokalemia: Status: Acute (4) Transaminitis: Status: Acute (5) Hyperglycemia: Status: Acute (6) Elevated d-dimer: Status: Acute (7) Debility: Status: Acute Allergies/Procedures Done in Hospital Allergies prednisone Allergy (Verified 06/02/21 10:51) Rash adhesive tape Adverse Reaction (Intermediate, Verified 06/02/21 10:51) Rash, burning amoxicillin [From Augmentin] Adverse Reaction (Unknown, Verified 06/02/21 10:51) unknown clavulanic acid [From Augmentin] Adverse Reaction (Unknown, Verified 06/02/21 10:51) unknown pain medication Adverse Reaction (Severe, Uncoded 06/02/21 10:51) Difficulty swallowing Procedures: None Type of Care/Length of Stay Estimated LOS: Convalescent Care Less Than 30 days Type of Care Needed: Skilled Rehab Potential: Good Prognosis: Good Additional Orders/Day of Discharge Day of Discharge: 08/21/21 Dietary and Speech Recommendations Dietitian Recommendations/Changes: Continue cardiac diet w/ ensure enlive TID at meals---will adjust ensure to 120ml Q meal. Monitor need to restrict carbohydrates if blood glucose remains high. Discharge Plan Admission Admit Date/Time: 08/18/21 18:14 Primary Reason for Your Visit: Shortness of Breath Attending Provider: Kiah Torre Primary Care Provider: Mickey Nguyen Chi Instructions Additional Instructions / Restrictions: 1. You will need to be isolated through 08/24/2020 and then may come out of quarantine 2. Recommend vaccination once you are out of quarantine 3. Please complete Decadron as ordered Discharge Orders/Prescriptions Prescriptions: New acetaminophen [Tylenol] 325 mg Tablet 650 mg PO Q4H PRN PRN (Reason: Fever, pain 1-03/22) Qty: 0 RF: 0 albuterol sulfate [ProAir HFA] 90 mcg/actuation Hfa Aerosol Inhaler 2 puff inhalation Q2H PRN PRN (Reason: Dyspnea, wheezing) Qty: 0 RF: 0 enoxaparin 40 mg/0.4 mL Syringe 40 mg subcut DAILY Qty: 0 RF: 0 (DME) Compact Space Chamber Spacer 1 ea inhalation PRN Qty: 0 RF: 0 dexamethasone [Decadron] 6 mg tablet 6 mg PO DAILY Qty: 6 RF: 0 Continued citalopram 20 mg tablet 20 mg PO DAILY RF: 0 losartan 50 mg tablet 50 mg PO DAILY RF: 0 hydrochlorothiazide 50 mg tablet 50 mg PO DAILY RF: 0 potassium chloride 20 mEq tablet extended release 20 meq PO DAILY RF: 0 rosuvastatin [Crestor] 10 mg tablet 10 mg PO DAILY RF: 0 loratadine [Claritin] 10 mg tablet 10 mg PO DAILY RF: 0 ascorbic acid (vitamin C) 500 mg tablet 1,000 mg PO DAILY RF: 0 timolol maleate 0.5 % drops 1 drp OPHTHALMIC DAILY RF: 0 latanoprost 0.005 % drops 1 drp OPHTHALMIC QPM RF: 0 cholecalciferol (vitamin D3) 25 mcg (1,000 unit) tablet 25 mcg PO DAILY RF: 0 brimonidine 0.2 % drops 1 drp OPHTHALMIC BID RF: 0 Referrals / Follow Up: José Luis Damon MD [STAFF PHYSICIAN] - See Referral Note (Call for follow-up after discharge from the correction) Mickey Nguyen Chi, MD [Primary Care Provider] - Within 1 Month Disposition Disposition (needs filled in before D/C Order can be placed): Long Term Facility
--- NOTE | 2021-08-21 12:22 | DS.PCM_ITS ---
Providers Date of Admission: 08/18/21 Primary Care Physician: Dr. Mickey Nguyen MD Reason For Visit: ACUTE HYPOXIC RESPIRATORY INSUFFICIENCY Diagnosis Discharge Diagnosis (1) Acute respiratory failure with hypoxia: Status: Acute Code(s): J96.01 - Acute respiratory failure with hypoxia (2) Shortness of breath: Status: Acute Code(s): R06.02 - Shortness of breath (3) Hypokalemia: Status: Acute Code(s): E87.6 - Hypokalemia (4) Transaminitis: Status: Acute Code(s): R74.01 - Elevation of levels of liver transaminase levels (5) Hyperglycemia: Status: Acute Code(s): R73.9 - Hyperglycemia, unspecified (6) Elevated d-dimer: Status: Acute Code(s): R79.89 - Other specified abnormal findings of blood chemistry (7) Debility: Status: Acute Code(s): R53.81 - Other malaise Medications at Discharge Home Medications ascorbic acid (vitamin C) 500 mg tablet 1,000 mg PO DAILY tab 01/06/19 citalopram 20 mg tablet 20 mg PO DAILY 01/06/19 hydrochlorothiazide 50 mg tablet 50 mg PO DAILY 01/06/19 loratadine 10 mg tablet 10 mg PO DAILY 01/06/19 losartan 50 mg tablet 50 mg PO DAILY 01/06/19 potassium chloride 20 mEq tablet,extended release 20 meq PO DAILY 01/06/19 rosuvastatin 10 mg tablet 10 mg PO DAILY 01/06/19 latanoprost 0.005 % eye drops 1 drp OPHTHALMIC QPM 01/09/19 timolol maleate 0.5 % eye drops 1 drp OPHTHALMIC DAILY ml 01/09/19 brimonidine 0.2 % eye drops 1 drp OPHTHALMIC BID ml 05/22/20 cholecalciferol (vitamin D3) 25 mcg (1,000 unit) tablet 25 mcg PO DAILY 02/04/21 acetaminophen [Tylenol] 650 mg PO Q4H PRN PRN #0 tab 08/21/21 albuterol sulfate [ProAir HFA] 2 puff INHALATION Q2H PRN PRN #0 g 08/21/21 dexamethasone [Decadron] 6 mg PO DAILY #6 tab 08/21/21 enoxaparin 40 mg SUBCUT DAILY #0 ml 08/21/21 inhalational spacing device [Compact Space Chamber] #0 ea 08/21/21 Hospital Course Operations None Procedures None Summary of Care Provided Minutes Spent on Discharge: 37 Hospital Course: Mrs. Ahuja is a 75-year-old white female who presented to the emergency department [facility] on 08/18/2021 with a chief complaint of shortness of breath. She evidently had been having some shortness of breath for about 2 weeks prior to presentation but was progressively worsening which is why she decided to present when she did. She had been in [place] visiting a relative who had developed Covid at that time and she had been taking care of them. She is not vaccinated. She reported her symptoms gradually worsened and she complained of associated cough, wheezing, dyspnea on exertion and general malaise. She denied any fever or chills, nausea or vomiting, or diarrhea. She was evaluated by her primary care physician on the day of admission and they referred her to the emergency department. Upon arrival to the ED she was satting 88% on room air and was not oxygen dependent at baseline. She was afebrile with mild tachycardic having a heart rate of 101 and a respiratory rate at 20. Her CBC was overall unimpressive. Her BMP showed mild hyponatremia with a sodium of 131 and a serum creatinine of 1.04. A lactic acid was obtained and found to be 1.6. Her chest x-ray showed bilateral patchy infiltrates. Her rapid Covid testing was negative however she was positive on PCR. A D-dimer was obtained and found to be mildly elevated therefore CTA of her chest was performed and was negative for PE but did redemonstrate patchy bilateral infiltrates that were noted on her chest x-ray. She was given Decadron and admitted to the medical floor for continued care. A CRP was obtained to evaluate whether or not she would be a candidate for baricitinib if her respiratory status decompensated and it was found to be 60.6 which made her noncandidate. She was maintained on 2 to 3 L of nasal cannula for entire hospitalization and did not have any decompensation or worsening respiratory status. It was difficult motivating her to utilize her incentive spirometry, Acapella, and encourage mobility within the room however therapy was able to work with her periodically. Prior to discharge I did discuss with her the importance of continued pulmonary hygiene including I-S/Acapella/continued aggressive mobility. We did discuss the ramifications of not being aggressive with this including further debility and superimposed bacterial pneumonia. She voiced understanding and family was at bedside when we had this discussion. She was found to be intermittently hypokalemic and this had resolved upon discharge. She had some mild transaminitis which was related to her COVID-19 infection. As noted above, she was seen by physical and Occupational Therapy during her hospitalization and they recommended discharge to a skilled facility for continued care as she was markedly weak and compliance was less than stellar. She was maintained on all her chronic medications throughout her hospitalization other than her hydrochlorothiazide as she was being dosed intermittently with Lasix. Her HCTZ was reinitiated on discharge and I do recommend a BMP be done within the next 7 days to follow-up on her sodium. She was discharged in stable condition on 2 L at rest and required 3 L with exertion on 08/21/2021. She is to follow-up with her primary care physician within 2 weeks after discharge from the skilled facility and we do recommend follow-up with pulmonary medicine after discharge as well. Information for pulmonary follow-up was given and she needs to call for appointment after discharge from the skilled facility. Vaccination was recommended after she completes quarantine however she was resistant to this recommendation. Quarantine is completed on 08/24/2021. Discharge diagnoses: Acute hypoxic respiratory failure COVID-19 pneumonia Hypokalemia-resolved Transaminitis Iatrogenic hyperglycemia secondary to steroid use Debility Elevated D-dimer Restrictive lung disease Chronic diastolic dysfunction Hypertension Hyperlipidemia Depression Physical Exam Const alert, oriented x3, no apparent distress, average body habitus, healthy appearing and well nourished Constitutional Narrative: Older white female lying in bed relatively flat, visitor bedside, patient appears tired but nontoxic, somewhat tachypneic but remains on 2 L nasal cannula at rest with oxygen saturations at 95% General Appearance: cooperative, comfortable, well kempt and well developed Exam Limitations: no limitations HEENT normocephalic, head/scalp atraumatic, hearing grossly normal bilaterally and moist oral mucous membranes HEENT Narrative: No thrush is present, Mallampati is 2 Eyes PERRL, EOMs intact bilaterally and conjunctivae normal Eyes Narrative: No scleral icterus Neck no lymphadenopathy, supple and no JVD Neck Narrative: Trachea midline, no thyroid enlargement Resp normal respiratory effort, no retractions, no use of accessory muscles and clear to auscultation bilaterally Resp Narrative: Diminished few crackles at bases bilaterally-incentive spirometry was strongly encouraged Auscultation: Negative for crackles, rales, rhonchi or wheezes Cardio regular rate, regular rhythm, S1 normal heart sound, S2 normal heart sound, no murmurs, no rub, no gallops, no clicks and no JVD GI normal to inspection, nondistended, normoactive bowel sounds, soft to palpation, non-tender and non-distended Extremity normal to inspection, full ROM and no clubbing, cyanosis or edema Skin no rashes or lesions noted, no wounds, skin turgor normal and no jaundice Neuro oriented x3, CN's II-XII intact bilaterally, moves all extremities and no focal motor deficits Neuro Narrative: Significant generalized weakness Sensorium / Orientation: awake and alert Speech: speech normal Psych affect normal Weight / BMI Weight Weight: 62.4 kg Body Mass Index (BMI) 24.3 ABG / Lab / Microbiology Data Result Diagrams: 08/19/21 02:08 08/21/21 06:07 Laboratory: Laboratory Results - last 24 hr 08/21/21 06:07: Sodium 135 L, Potassium 3.9, Chloride 99, Carbon Dioxide 30.0, Anion Gap 6, BUN 31 H, Creatinine 0.85, Estim Creat Clear Calc 48.03, Est GFR (MDRD) Af Amer 84, Est GFR (MDRD) Non-Af 69, BUN/Creatinine Ratio 36.5 H, Glucose 110 H, Calcium 9.4 Microbiology: Microbiology 08/18/21 23:55 Urine, Clean Catch Legionella Antigen - Final 08/18/21 23:55 Urine, Clean Catch Streptococcus pneumoniae Antigen (M - Final 08/18/21 16:55 Nasal Secretion SARS-CoV-2 Antigen (Rapid) - Final D/C Instructions Discharge Diet: Low fat / Low cholesterol Discharge Activity: Return to Normal Activity (As tolerated) Meaningful Use Info Meaningful Use Diagnoses (Choose all that apply): None applicable Discharge Plan Admission Admit Date/Time: 08/18/21 18:14 Primary Reason for Your Visit: Shortness of Breath Attending Provider: Kiah Torre Primary Care Provider: Mickey Nguyen Chi Instructions Additional Instructions / Restrictions: 1. You will need to be isolated through 08/24/2020 and then may come out of quarantine 2. Recommend vaccination once you are out of quarantine 3. Please complete Decadron as ordered Discharge Orders/Prescriptions Prescriptions: New acetaminophen [Tylenol] 325 mg Tablet 650 mg PO Q4H PRN PRN (Reason: Fever, pain 1-03/22) Qty: 0 RF: 0 albuterol sulfate [ProAir HFA] 90 mcg/actuation Hfa Aerosol Inhaler 2 puff inhalation Q2H PRN PRN (Reason: Dyspnea, wheezing) Qty: 0 RF: 0 enoxaparin 40 mg/0.4 mL Syringe 40 mg subcut DAILY Qty: 0 RF: 0 (DME) Compact Space Chamber Spacer 1 ea inhalation PRN Qty: 0 RF: 0 dexamethasone [Decadron] 6 mg tablet 6 mg PO DAILY Qty: 6 RF: 0 Continued citalopram 20 mg tablet 20 mg PO DAILY RF: 0 losartan 50 mg tablet 50 mg PO DAILY RF: 0 hydrochlorothiazide 50 mg tablet 50 mg PO DAILY RF: 0 potassium chloride 20 mEq tablet extended release 20 meq PO DAILY RF: 0 rosuvastatin [Crestor] 10 mg tablet 10 mg PO DAILY RF: 0 loratadine [Claritin] 10 mg tablet 10 mg PO DAILY RF: 0 ascorbic acid (vitamin C) 500 mg tablet 1,000 mg PO DAILY RF: 0 timolol maleate 0.5 % drops 1 drp OPHTHALMIC DAILY RF: 0 latanoprost 0.005 % drops 1 drp OPHTHALMIC QPM RF: 0 cholecalciferol (vitamin D3) 25 mcg (1,000 unit) tablet 25 mcg PO DAILY RF: 0 brimonidine 0.2 % drops 1 drp OPHTHALMIC BID RF: 0 Referrals / Follow Up: José Luis Damon MD [STAFF PHYSICIAN] - See Referral Note (Call for follow-up after discharge from the retirement) Mickey Nguyen Chi, MD [Primary Care Provider] - Within 1 Month Disposition Disposition (needs filled in before D/C Order can be placed): [facility] Facility Charges/Coding Visit Charges Inpatient E&M: 75409 SNF Disch >30 Min
--- NOTE | 2021-08-21 16:10 | CASEMGMT ---
Social Work Note SW completed [facility] in [facility]. RICKIE Faxed completed discharge paperwork to [facility] including transfer to extended care facility, signed medication list, any scripts, COVID tool, and [facility]. Original in SNF folder and copy on pt's chart. RICKIE spoke with RN, pt to transport via cot. SW accessed trip assist and arranged transportation via cot for 5:00pm. Transportation form completed and placed on SNF folder and copy on pt's chart. RICKIE also placed Advanced Directives in additional folder and asked front office secretary to send them with transport. SW in to speak with pt and pt's guest present. SW updated pt on discharge and transportation time to [facility]. RICKIE also informed pt that Advanced Directive documents will be sent with pt so she can continue to discuss the documents. Pt and pt's guest state understanding, denied additional needs or concerns at this time. RICKIE placed a call to Flower at [facility] and left message updating her on discharge and transportation time. RICKIE also emailed Flower at [facility]. RN updated. Plan: [facility] skilled under [facility]escent stay with Physician's transporting pt via cot at 5:00pm Kiana Melendez CATALOGUE AND SPECIAL PRODUCTS MANAGER, REORDERING CLERK
== END 2021-08-21 17:25 | disposition skilled nursing facility (03) | DRG 177 ==
LOC: ED 18:08 → MS3 18:28
PROVIDERS: Family Medicine; Admitting Provider Student in an Organized Health Care Education/Training Program; Emergency Provider Emergency Medicine; PCP Family Medicine Geriatric Medicine; Visit Provider Internal Medicine
DX: U07.1 COVID-19 (principal); J12.82 Pneumonia due to coronavirus disease 2019; J96.01 Acute respiratory failure with hypoxia; I50.32 Chronic diastolic (congestive) heart failure; E87.1 Hypo-osmolality and hyponatremia; I11.0 Hypertensive heart disease with heart failure; E78.5 Hyperlipidemia, unspecified; E87.6 Hypokalemia; J98.4 Other disorders of lung; E55.9 Vitamin D deficiency, unspecified; R74.01 Elevation of levels of liver transaminase levels; R73.9 Hyperglycemia, unspecified; T38.0X5A Adverse effect of glucocorticoids and synthetic analogues, initial encounter; F32.A Depression, unspecified; R53.81 Other malaise; R79.1 Abnormal coagulation profile; Z66 Do not resuscitate; Z79.899 Other long term (current) drug therapy
CPT/HCPCS: 36415; 71045; 71275; 80048; 80053; 82306; 83605; 83880; 84145; 84443; 84484; 85025; 85379; 86140; 87426; 87449; 87635; 93005; 94640; 94667; 94762; 97162; 97166; 97530; 97535; 97802; 99251; 99284; A4216; G0463; J1940; U0003; U0005

== ENCOUNTER 2021-09-16 13:11 | Outpatient (CLI) | payer MEDICARE, OTHER, SELFPAY ==
[2021-09-16 17:23] LABS: Anion Gap 5 (5-15); BUN 27 mg/dL (7-18); BUN/Creat Ratio 24.8 RATIO (10-20); Calcium,Total 10.6 mg/dL (8.5-10.1); Chloride 105 mmol/L (98-107); Creatinine, Serum 1.09 mg/dL (0.55-1.02); EST Glomerular Filtration Rate 52 mL/min (>60); Est Glom Filt Rate - Afr Amer 63 mL/min (>60); Glucose 85 mg/dL (74-106); Potassium 4.1 mmol/L (3.5-5.1); Sodium Level 139 mmol/L (136-145)
== END 2021-09-16 23:59 | disposition home or self-care (01) ==
LOC: POLAB3 13:12
PROVIDERS: PCP Family Medicine Geriatric Medicine; Visit Provider Family Medicine Geriatric Medicine
DX: E87.6 Hypokalemia (principal)
CPT/HCPCS: 36415; 80048

== ENCOUNTER 2021-09-24 12:57 | Outpatient (CLI) | payer MEDICARE, OTHER, SELFPAY ==
[2021-09-24 17:45] LABS: Anion Gap 5 (5-15); BUN 18 mg/dL (7-18); BUN/Creat Ratio 19.4 RATIO (10-20); Calcium,Total 9.6 mg/dL (8.5-10.1); Chloride 105 mmol/L (98-107); Creatinine, Serum 0.93 mg/dL (0.55-1.02); EST Glomerular Filtration Rate 63 mL/min (>60); Est Glom Filt Rate - Afr Amer 76 mL/min (>60); Glucose 111 mg/dL (74-106); Potassium 4.1 mmol/L (3.5-5.1); Sodium Level 139 mmol/L (136-145)
== END 2021-09-24 23:59 | disposition home or self-care (01) ==
LOC: POLAB3 12:58
PROVIDERS: PCP Family Medicine Geriatric Medicine; Visit Provider Family Medicine Geriatric Medicine
DX: E83.52 Hypercalcemia (principal)
CPT/HCPCS: 36415; 80048

== ENCOUNTER → 2022-04-19 | Outpatient (CLI) | payer MEDICARE, OTHER, SELFPAY ==
--- NOTE | 2022-04-20 15:09 | PFTCOMP_ITS ---
COMPLETE PULMONARY FUNCTION TEST INTERPRETATION Brief HPI: Patient is a 76-year-old female, currently under the care of myself, who presents to [facility] for complete pulmonary function tests secondary to diagnosis of dyspnea. Respiratory therapist reports good effort and reproducible results. Interpretation: Forced expiration spirometry shows no large airways obstructive ventilatory defect with an FEV1 of 48% predicted. There is no significant bronchodilator response by strict ATS criteria. Spirograms are of good quality and plateau normally. The respiratory flow volume loop shows a normal pattern. Lung volumes by body plethysmography show a decreased total lung capacity at 2.8 3 L, 65% predicted. All other lung volumes are reduced symmetrically. Diffusion capacity by carbon monoxide is normal at 77% predicted. The airway resistance is slightly elevated. Compared to previous pulmonary function tests from 05/22/2021, there has been no significant change. Impression: Moderate restrictive ventilatory defect with relatively preserved diffusion capacities and no change compared to previous testing
== END | disposition home or self-care (01) ==
LOC: PSN 12:49
PROVIDERS: PCP Family Medicine Geriatric Medicine; Referring Provider Nurse Practitioner Acute Care; Visit Provider Nurse Practitioner Acute Care
DX: R06.02 Shortness of breath (principal)
CPT/HCPCS: 94060; 94726; 94729

== ENCOUNTER → 2022-10-25 | Outpatient (CLI) | payer MEDICARE, OTHER, SELFPAY ==
[2022-10-25 16:42] LABS: Absolute Lymphocyte Count 2.21 X10^3/uL (0.83-4.51); Absolute Neutrophil Count 5.1 X10^3/uL (2.0-7.7); Basophil# 0.08 X10^3/uL; Eosinophil# 0.18 X10^3/uL; Eosinophils% 2.2 % (0-5); Hematocrit 50.7 % (37-47); Hemoglobin 16.3 g/dL (12.0-15.0); Lymphocyte # 2.21 X10^3/ul (0.83-4.51); Mean Corp Hgb Conc 32.1 g/dL (32-36); Mean Corpuscular Hgb 28.5 pg (27.0-32.0); Mean Corpuscular Volume 88.6 fL (81-99); Mean Platelet Vol. 8.9 fl (6.2-12.0); Monocyte# 0.58 X10^3/uL; Monocyte% 7.1 % (0-10); NRBC Flagged by Analyzer 0 % (0-5); Neutrophil # 5.11 X10^3/uL (2.7-7.7); Neutrophil % 62.5 % (47-70); Platelet Count 169 K/mm3 (150-450); RBC Distribution Width CV 12.5 % (11.6-14.6); RBC Distribution Width SD 40.5 fl (35.1-43.9); Red Blood Count 5.72 M/mm3 (4.2-5.4); White Blood Count 8.2 K/mm3 (4.4-11.0)
[2022-10-25 17:00] LABS: Vitamin D,25 Hydroxy 67.1 ng/mL
[2022-10-25 17:09] LABS: ALB/GLOB Ratio 1.2 RATIO (0.9-2.4); AST(SGOT) 28 U/L (15-37); Alanine Aminotransfer ALT/SGPT 32 U/L (13-56); Albumin, Serum 3.7 g/dL (3.2-5.0); Alkaline Phosphatase 132 U/L (45-117); Anion Gap 8 (5-15); BUN 16 mg/dL (7-18); BUN/Creat Ratio 16.9 RATIO (10-20); Calcium,Total 10.1 mg/dL (8.5-10.1); Chloride 106 mmol/L (98-107); Creatinine, Serum 0.95 mg/dL (0.55-1.02); EST Glomerular Filtration Rate 61 mL/min (>60); Est Glom Filt Rate - Afr Amer 74 mL/min (>60); Glucose 132 mg/dL (74-106); Protein, Total 6.7 g/dL (6.4-8.2); Sodium Level 142 mmol/L (136-145); Thyroid Stim Hormone (TSH) 1.63 uIU/mL (0.358-3.74)
== END | disposition home or self-care (01) ==
LOC: POLAB3 15:05
PROVIDERS: PCP Family Medicine Geriatric Medicine; Visit Provider Family Medicine Geriatric Medicine
DX: I10 Essential (primary) hypertension (principal); E55.9 Vitamin D deficiency, unspecified
CPT/HCPCS: 36415; 80053; 82306; 84443; 85025

== ENCOUNTER → 2023-01-31 | Outpatient (CLI) | payer MEDICARE, OTHER, SELFPAY ==
--- NOTE | 2023-01-31 14:45 | RAD_ITS ---
Abdomen A burst INDICATION: LOW BACK PAIN EXAMINATION/TECHNIQUE: X-RAY - XR Spine Lumbar Min 4 Views: 5 image COMPARISON: December 09, 2015 hip radiograph. January 18, 2013 lumbar spine radiograph. FINDINGS: VERTEBRAE: Severe levocurvature of the lumbar spine without significant change from January 18, 2013. No fracture or acute compression deformity. Diffuse facet arthropathy, severe right L1-L2 and L2-L3, bilateral L3-L4 and L4-L5 with worsening from prior lumbar spine exam. Preserved lumbar lordosis. Mild degenerative grade 1 anterolisthesis L3 on L4 and L4 on L5. Left lateral subluxation of L3 on L4 without significant interval change. DISCS: Redemonstration disc height loss throughout the lumbar spine without significant interval change. OTHER: Interval bilateral hip arthroplasty with expected alignment, incompletely viewed on lumbar spine projections. INCLUDED ABDOMEN: Included bowel gas pattern is non-obstructive. Pelvic phleboliths. RAD/L/S Spine Min 4 Views IMPRESSION: Severe scoliosis and spondylosis with mild progression of facet arthropathy compared to prior exam Interval bilateral hip arthroplasty without acute finding in limited [id number]. Electronically Signed: Quinten Rae MD at 10:05 EDT ,
[2023-01-31 15:39] LABS: Absolute Lymphocyte Count 2.17 X10^3/uL (0.83-4.51); Absolute Neutrophil Count 4.8 X10^3/uL (2.0-7.7); Basophil# 0.05 X10^3/uL; Basophil% 0.6 % (0-1); Eosinophil# 0.15 X10^3/uL; Eosinophils% 1.9 % (0-5); Hematocrit 52.3 % (37-47); Hemoglobin 16.4 g/dL (12.0-15.0); Lymphocyte # 2.17 X10^3/ul (0.83-4.51); Lymphocyte % 28.1 % (19-41); Mean Corp Hgb Conc 31.4 g/dL (32-36); Mean Corpuscular Hgb 27.9 pg (27.0-32.0); Mean Corpuscular Volume 89.1 fL (81-99); Mean Platelet Vol. 9.2 fl (6.2-12.0); Monocyte# 0.54 X10^3/uL; NRBC Flagged by Analyzer 0 % (0-5); Neutrophil # 4.78 X10^3/uL (2.7-7.7); Neutrophil % 62.1 % (47-70); Platelet Count 157 K/mm3 (150-450); RBC Distribution Width CV 12.7 % (11.6-14.6); RBC Distribution Width SD 41.2 fl (35.1-43.9); Red Blood Count 5.87 M/mm3 (4.2-5.4); White Blood Count 7.7 K/mm3 (4.4-11.0)
[2023-01-31 16:25] LABS: ALB/GLOB Ratio 1.3 RATIO (0.9-2.4); AST(SGOT) 27 U/L (15-37); Alanine Aminotransfer ALT/SGPT 28 U/L (13-56); Albumin, Serum 3.8 g/dL (3.2-5.0); Alkaline Phosphatase 120 U/L (45-117); Anion Gap 6 (5-15); BUN 13 mg/dL (7-18); BUN/Creat Ratio 12.1 RATIO (10-20); Calcium,Total 10.3 mg/dL (8.5-10.1); Chloride 108 mmol/L (98-107); Creatinine, Serum 1.07 mg/dL (0.55-1.02); EST Glomerular Filtration Rate 53 mL/min (>60); Est Glom Filt Rate - Afr Amer 64 mL/min (>60); Globulin 2.9 g/dL (2.2-4.2); Glucose 126 mg/dL (74-106); Potassium 3.9 mmol/L (3.5-5.1); Protein, Total 6.7 g/dL (6.4-8.2); Sodium Level 140 mmol/L (136-145); Thyroid Stim Hormone (TSH) 1.55 uIU/mL (0.358-3.74)
[2023-01-31 20:49] LABS: Vitamin D,25 Hydroxy 78.1 ng/mL
== END | disposition home or self-care (01) ==
PROVIDERS: PCP Family Medicine Geriatric Medicine; Referring Provider Family Medicine Geriatric Medicine; Visit Provider Family Medicine Geriatric Medicine
DX: I10 Essential (primary) hypertension (principal); E55.9 Vitamin D deficiency, unspecified; M54.50 Low back pain, unspecified
CPT/HCPCS: 36415; 72110; 80053; 82306; 84443; 85025

== ENCOUNTER 2023-03-18 15:00 | Outpatient (RCR) | payer MEDICARE, OTHER, SELFPAY ==
--- NOTE | 2023-02-02 13:52 | HP.PTEVAL ---
Patient's Visit Information Visit Information Visit Information: RICHELLE DIXON is a 77 year old F referred to Physical Therapy by Dr. Mickey Nguyen MD with a diagnosis of LBP. Date of Evaluation: 02/02/23 Physical Therapist: Alonso Wills DPT, OCS, CSCS Visit Plan Frequency: 2x /Week Duration: 4-6 Weeks Plan: 2x/week for 4-6 weeks for... 1. LB ROM mat and stretching to HEP 2. core and LE mat strength and hip strength to HEP 3. MH and STM to R Lumbar paraspinals please. Subjective Subjective: LBP for about a month. H/o arthritis and scoliosis. This is new and insidious. Checked kidney adn OK. X rays show scoliosis and OA. No leg symptoms but has comfortable sitting. a bad R knee which may need replaced. H?o B CARMEN. Arthhritis throughout body. pain is 5/10 getting up from bed or chair. Once up it feels better. Walking is limited due to knee pain . Back is OK. Uses wh walker to get around. Sleeping is OK but getting up is painful and turning is painful. 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 Basic ADLs are good. Sweeping is challenging to back and knee. Hobbies:Puzzles, gameshows. No regular exercises. Lifts walker into car with movement. Pain LBP: Pain Intensity (Out of 10): 0 Pain Intensity Range: 0 and 5 Objective Objective: lift 1.5 inches on R shoe since 2017 hip replacement. Walks with a wh walker mod I, can ambulate without AD, see FGA. LB AROM is poor and max limited in ext and flexion and B SB. Pain with r SB and ext on r LB. - SLR, - slump test. hip ankle and knee AROM WFL, L knee slightly flexed -3 degrees due to OA. Weakness apparent in pelvis and hips abd, ext at 3/5 and flexion 3/5 knee flexion and ext 4- B. Ankles 4. reflexes 1/3 patella and achilles Sensation LE WNL to gross light touch. Balance/Special Test Scores Oswestry Low Back Score: 19 Goals Goal 1:: I appropr HEP core and LE mat strength adn LB ROM to limit future problems. Goal Time Frame: 4-6 Weeks Goal 2:: Patient feel pain back to baseline levels 1/10 and 90% better Goal Time Frame: 4-6 Weeks Goal 3:: Oswestry score 5 or better Goal Time Frame: 4-6 Weeks Goal 4:: Get out of bed without pain Goal Time Frame: 4-6 Weeks Rehabilitation Potential Physical Therapy Diagnosis: LBP muscular vs OA, making mobility challenging. Rehabilitation Potential: Fair Anticipated Interventions Patient/Client Instruction: Educate patient on: Condition For the Purpose of:: To decrease pain, To improve nutrient delivery to tissue, To improve muscle performance and motor function, To increase tolerance to activity/condition/position and To improve ability of physical actions for home/community/work/leisure Therapeutic Exercise to Include: Strength training, Postural training, Flexibilty training, Passive ROM and Active ROM For the Purpose of:: To decrease pain, To increase ROM, To improve nutrient delivery to tissue, To improve muscle performance and motor function, To increase tolerance to activity/condition/position and To improve ability of physical actions for home/community/work/leisure Manual Therapy Techniques to Include: Petrissage and Soft tissue mobilization For the Purpose of:: To decrease pain, To increase ROM and To improve nutrient delivery to tissue Thermo therapy (hot pack): Yes For the Purpose of:: To improve nutrient delivery to tissue Text: Thank you for the opportunity to evaluate your patient. For Medicare and Medicare HMO plans, please review the plan of care and approve it. It will need to be FAXED BACK to us at [phone] for Medicare purposes. For Medicare only, by signing this I certify the plan of care. Please let me know if there are questions or concerns regarding this plan of care. Physician Signature: Date:
--- NOTE | 2023-03-18 15:58 | HP.PTDCSUM_ITS ---
Discharge Summary D/C summary: It has been my pleasure to treat RICHELLE DIXON referred by Dr. Mickey Nguyen MD, with the diagnosis of LBP for a total of 14 visit(s). Discharge Date: 03/18/23 Please see the following information for a summary of their discharge status. Subjective Subjective: Slow progress, R knee holds her back. back pain is up and down but days up to 3/10, not sure what makes her worse, maybe weather. Uses wh walker away from home but not at home. Back only hurts at times. has been busy at [employer] today. Very busy days give her more back pain. HEP: Pain LBP: Pain Intensity (Out of 10): 3 right knee: Pain Intensity (Out of 10): 5 Overall Improvement % Improvement: 10 Objective Objective/Function: r leg shorter but lift in shoe today. Walksin short steps but I with wh walker adn without today. LB AROM mod limited all over but not much inncreased pain with movement. antalgia in gait on R side. Goals Goal 1:: I appropr HEP core and LE mat strength adn LB ROM to limit future problems. Goal Progress: Goal Met Goal 2:: Patient feel pain back to baseline levels 1/10 and 90% better Goal Progress: Not Progressing Goal 3:: Oswestry score 5 or better Goal Progress: Not Progressing Goal 4:: Get out of bed without pain Goal Progress: Goal Met Plan Plan: d/c to HEP, pt to contact doctor Nguyen if she decides pain is not livable or wants further options. D/C Information Discharge Comments: pt to continue via HEP and contact Dr. Nguyen if desires further option for LBP. I am suspicious that R knee pain is part of the problem with her back. d/c sentence: If there are questions or concerns regarding this patient's physical therapy, please feel free to call me at [phone]. Thank you for the referral of this patient. Sincerely, Alonso Wills, DPT, OCS, CSCS Balance/Gait/Functional tests Balance/Special Test Scores Oswestry Low Back Score: 19 Improvement % Improvement: 10
== END 2023-03-18 19:00 | disposition home or self-care (01) ==
LOC: PT 15:00
PROVIDERS: PCP Family Medicine Geriatric Medicine; Referring Provider Family Medicine Geriatric Medicine; Visit Provider Family Medicine Geriatric Medicine
DX: M54.50 Low back pain, unspecified (principal)
CPT/HCPCS: 97110; 97140; 97162; 97164; 97530

== ENCOUNTER → 2023-08-03 | Outpatient (CLI) | payer MEDICARE, OTHER, SELFPAY ==
--- OUTSIDE RECORDS SUMMARY | 2023-08-03 13:53 | XMS RPT_ITS | CCD ---
Author Name Unknown Address [address] [place] [address] Organization [facility] Care Team Providers Care Family Medicine Resident Name Role Phone Sanjeev Nguyen Primary Care Provider [phone] Allergies Allergy Classification Reported Allergen(s) Allergy Type Date of Onset Reaction(s) Facility (3 sources) Amoxicillin Drug Allergy 0 [place] (3 sources) Clavulanate Drug Allergy 0 [place] (3 sources) predniSONE Drug Allergy 0 Rash [place] (2 sources) Acetaminophen / HYDROcodone Drug Allergy 0 Nausea And Vomiting [facility] Work Phone: (2 sources) Acetaminophen / oxyCODONE Drug Allergy 0 Nausea And Vomiting [facility] Work Phone: (2 sources) Adhesive Tape Propensity to adverse reactions to drug 1 Rash [facility] Work Phone: (2 sources) Morphine Drug Allergy 0 Nausea And Vomiting [facility] Work Phone: (2 sources) oxyCODONE Drug Allergy 0 Nausea And Vomiting [facility] Work Phone: (2 sources) oxyCODONE Drug Allergy 0 Nausea And Vomiting [facility] Work Phone: Medications Current Medications Medication Drug Class(es) Dates Sig (Normalized) Sig (Original) brimonidine tartrate 2 mg/ml ophthalmic solution (4 sources) alpha-Adrenergic Agonist Start: 08-13-2020 1 drop, Both Eyes, 2 TIMES DAILY, First dose on Tue08/13/20 at 2100 Completed/Discontinued Medications Medication Drug Class(es) Dates Sig (Normalized) Sig (Original) 100 ml acetaminophen 10 mg/ml injection (6 sources) Start: 08-13-2020 End: 08-14-2020 [facility] 1,000 mg Problems Problem Classification Problem Date Documented Date Episodic/Chronic Abdominal hernia (5 sources) Hiatal hernia; Translations: [Hiatal hernia] Onset: 04-08-2020 04-08-2020 Episodic Esophageal disorders (5 sources) Gastroesophageal reflux disease without esophagitis; Translations: [Gastroesophageal reflux disease without esophagitis] Onset: 04-08-2020 04-08-2020 Chronic Gastritis and duodenitis (4 sources) Chronic superficial gastritis; Translations: [Chronic superficial gastritis without bleeding] 04-08-2020 Episodic Unclassified (1 source) Patient encounter status; Translations: [Encounter for screening for other viral diseases] Results Test Name Value Interpretation Reference Range Facil ity Vital Signs Date Time Vital Sign Value Performing Clinician Faci lity 08-14-2020 13:29-0500 Body Temperature 98.6 [degF] Fran LEYVA Work Phone: 08-14-2020 13:29-0500 BP Diastolic 69 mm[Hg] Fran LEYVA Work Phone: 08-14-2020 13:29-0500 BP Systolic 136 mm[Hg] Fran LEYVA Work Phone: 08-14-2020 13:29-0500 Pulse (Heart Rate) 62 /min Fran LEYVA Work Phone: 08-14-2020 13:29-0500 Pulse Oximetry 97 % Fran LEYVA Work Phone: 08-14-2020 13:29-0500 Respiratory Rate 16 /min Fran LEYVA Work Phone: 08-13-2020 11:07-0500 BMI (Body Mass Index) 27.44 kg/m2 Fran LEYVA Work Phone: 08-13-2020 11:07-0500 Body weight 68.04 kg Fran LEYVA Work Phone: 08-13-2020 11:07-0500 Height 157.5 cm Fran LEYVA Work Phone: 08-11-2020 12:39-0500 Body Temperature 97.7 [degF] Fran LEYVA Work Phone: 08-11-2020 12:39-0500 BP Diastolic 67 mm[Hg] Fran LEYVA Work Phone: 08-11-2020 12:39-0500 BP Systolic 119 mm[Hg] Fran LEYVA Work Phone: 08-11-2020 12:39-0500 Pulse (Heart Rate) 56 /min Fran LEYVA Work Phone: 08-11-2020 12:39-0500 Pulse Oximetry 95 % Fran LEYVA Work Phone: 08-11-2020 12:39-0500 Respiratory Rate 16 /min Fran LEYVA Work Phone: 08-11-2020 12:30-0500 BMI (Body Mass Index) 27.47 kg/m2 Fran LEYVA Work Phone: 08-11-2020 12:30-0500 Body weight 68.13 kg Fran LEYVA Work Phone: 08-11-2020 12:30-0500 Height 157.5 cm Fran LEYVA Work Phone: 04-08-2020 10:43-0400 BP Diastolic 76 mm[Hg] Fran Castro [email or web address] , [place] 04-08-2020 10:43-0400 BP Systolic 157 mm[Hg] Fran Castro [email or web address] , [place] 04-08-2020 10:43-0400 Pulse (Heart Rate) 62 /min Fran Castro [email or web address], [place] 04-08-2020 10:43-0400 Pulse Oximetry 98 % Fran Castro [email or web address] , [place] 04-08-2020 10:43-0400 Respiratory Rate 18 /min Fran Woods [facility] , [place] 04-08-2020 09:07-0400 BMI (Body Mass Index) 27.28 kg/m2 Fran Woods [facility], [place] 04-08-2020 09:07-0400 Body Temperature 98.29 [degF] Fran Woods [facility], [place] 04-08-2020 09:07-0400 Body weight 69.85 kg Fran Woods [facility] , [place] 04-08-2020 09:07-0400 Height 160 cm Fran Woods [facility] , [place] Encounters Encounter Date Encounter Type Care Provider Facility Start: 08-13-2020 End: 08-14-2020 Subsequent hospital visit by physician Fran Castro Work Phone: [facility] Procedures Date Procedure Procedure Detail Performing Clinician Start: 08-14-2020 Radex gi tract upper w/wo delayed images w/o kub Caprice Burnette Work Phone: Start: 08-14-2020 Assay of magnesium Silvina viry Burnette Work Phone: Start: 08-14-2020 Assay of phosphorus inorganic Caprice Burnette Work Phone: Start: 08-14-2020 BASIC METABOLIC PANE L W/ REFLEX TO MG FOR LOW K Caprice Burnette Work Phone: Start: 08-14-2020 Blood count complete auto&auto difrntl wbc Caprice Burnette Work Phone: Start: 08-13-2020 OPERATIVE REPORT 3m Sca nning Start: 08-11-2020 Radiologic exam ches t 2 views Chinyere L Gordon Work Phone: Start: 08-11-2020 Basic metabolic pane l calcium total Nadege Friedt Work Phone: Start: 08-11-2020 Blood count hemoglobin Nadege Friedt Work Phone: Start: 08-11-2020 COVID-19 Nadege Fr iedt Work Phone: Start: 04-08-2020 ENDOSCOPY REPORT 3m Scanning Plan of Treatment Date Care Activity Detail Author Start: 08-14-2021 Creatinine measurement Creatinine mo nitoring [facility] Work Phone: Start: 08-14-2021 Potassium monitoring Potassium monit oring [facility] Work Phone: Start: 08-11-2021 Creatinine measurement Creatinine mo nitoring [facility] Work Phone: Start: 08-11-2021 Potassium monitoring Potassium monit oring [facility] Work Phone: Start: 08-22-2020 End: 08-22-2020 Office Visit 08/22/2020 Office Visit [facility] Fran Castro MD [address] [place] [address], [address] [place], [place] [id number] [facility] [place] [place] Start: 08-13-2020 Hospital Encounter 08/13/2020 Hospital Encounter General Surgery Fran Castro MD [address] [place] [address], [address] [place] [address] [phone] [facility] Start: 04-18-2020 End: 04-18-2020 Office Visit 04/18/2020 Office Visit [facility] Surgery Fran Castro MD [address] [place] [address] Street, [address] [place] [address] [phone] [facility] [place] [place] Start: 02-27-2020 Annual Wellness Visi t (AWV) Annual Wellness Visit (AWV) [place] Start: 02-12-2020 Influenza vaccination Flu vaccine (# 1) [place] Start: 12-08-2011 Pneumococcal 65+ yea rs Vaccine (1 of 1 - PPSV23) Pneumococcal 65+ years Vaccine (1 of 1 - PPSV23) [place] Start: 2001 Screening for osteoporosis DEXA (modify frequency per FRAX score) [place] Start: 1996 Screening for malign ant neoplasm of breast Breast cancer screen [place] Start: 1996 Screening for malign ant neoplasm of colon Colon cancer screen colonoscopy [place] Start: 1996 Shingles Vaccine (1 of 2) Correa gles Vaccine (1 of 2) [place] Start: 1965 DTaP/Tdap/Td vaccine (1 - Tdap) DTaP/Tdap/Td vaccine (1 - Tdap) [place] Start: 1962 COVID-19 Vaccine (1 of 2) COVI D-19 Vaccine (1 of 2) [employer] Work Phone: Start: 1956 Lipid panel Lipid screen [place], [place] Start: 1946 Creatinine measurement Creatinine mo nitoring [place] Start: 1946 Hepatitis C screening Hepatitis C sc reen [place] Start: 1946 Potassium monitoring Potassium monit oring [place] Basic Metabolic Pane l w/ Reflex to MG Basic Metabolic Panel w/ Reflex to MG Lab Routine Daily until discontinued starting 08/14/2020, 1 completed [employer] Work Phone: Payers Date Payer Category Payer Unknown [facility] [id number] 2016-Present [phone] [address] [place] [address] [id number] 2014 Medicare [id number] Social History Date Type Detail Facility Start: 04-08-2020 End: 08-13-2020 Tobacco smoking status NHIS Never smoker [place] Start: 04-08-2020 End: 08-13-2020 Tobacco use and exposure Never used [place] Start: 04-08-2020 End: 08-13-2020 Alcohol intake Lifetime non-drinker (finding) [place] Start: 03-07-2020 History SDOH Alcohol Frequency 1 [place] [facility] to SARS-CoV -2 (event) Not sure [facility] [place] Summary Purpose Family History No Family History Records FoundNo Family History Records Found Advance Directives Latest Code Status on File Code Status Date Activated Date Inactivated Comments Full Code 08/13/2020 6:26 PM Full Code 08/13/2020 11:07 AM 08/13/2020 6:23 PM Discharge Instructions * Instructions* Sadie Shetty RN - 04/08/2020 Upper GI Endoscopy: What to expect at home ACTIVITY: DO NOT DRIVE, OPERATE MACHINERY, OR DRINK ANY ALCOHOL TODAY. Avoid making critical decisions, signing legal documents, or performing any activity that requires alertness for the rest of the day. You may be bloated or have gas pains since air was introduced into the stomach for the procedure. You may need to pass the gas throughout the day. You may experience a mild sore throat. You may use an pulr-afi-bjzogwi chloraseptic spray, gargle with warm salt water, or use throat lozenges. Notify your physician if this feeling lasts more than 48 hours. Rest the remainder of the day. You may resume normal activity tomorrow. You may return to work tomorrow. DIET: You may resume a normal diet unless notified or recommended by your physician. You may be eager to eat a large meal after fasting, but it is a good idea to start with light mealsand ease into solid foods the first day. (*) If your stomach is upset, try clear liquids and bland, low-fat foods like plain toast or rice. Drink plenty of fluids for the first 24 hours (unless your physician states otherwise). MEDICATION: Resume your normal home medications unless notified or recommended by your physician. If you take blood thinners (such as Coumadin, Eliquis, Plavix, Aspirin, etc.) or anti-inflammatory medications (Advil, Motrin, Aleve, etc.), ask your physician when you may resume these medications. FOLLOW-UP APPOINTMENT: Follow up with or call your physician as needed. When to call for help: Call your doctor IMMEDIATELY or seek medical care if you experience: ? Severe pain or vomiting ? Coughing up more than a teaspoon of blood ? You pass a large amount of tar-like stools ? Your belly is swollen and firm with severe pain ? A fever greater than 101 degrees ? Redness or swelling of arm from the IV site for more than 48 hours ? Sudden onset of chest pain or shortness of breath ? If you become extremely dizzy or pass out (lose consciousness) IF YOU ARE UNABLE TO REACH YOUR PHYSICIAN GO TO NEAREST EMERGENCY DEPARTMENT You may experience some minor side effects following your procedure. Minor complications of esophageal manometry include: Nosebleed Discomfort in the nose and throat Stuffy/runny nose Severe complications from this procedure are rare. If you experience any signs of severe complications, please alert your physician and/or seek emergency medical care. Severe complications of esophageal manometry include: Chest pain Shortness of breath Irregular heart rhythm Aspiration (inhaling stomach contents into the lungs) Fever great than 100.4 F Perforation or tearing of the esophagus Perforation or tearing of a lung (pneumothorax) *Please continue taking your medications as prescribed and resume your previous diet unless instructed otherwise by your physician. *If a new medication has been prescribed, you will either receive a paper prescription or have it sent electronically to your pharmacy. This will be discussed with you by your physician and/or your nurse. documented in this encounter* Instructions* Vivian Hamlin RN - 08/11/2020 TAKE the following medications the morning of your surgery-Citalopram, Claritin,eye drops. You may take Tylenol (Acetaminophen) if needed for pain. No Motrin, Ibuprofen, or Advil 24 hours prior to surgery, or longer if instructed by your surgeon. No Aleve or Naprosyn 3 days prior to surgery, or longer if instructed by your surgeon. If you have specific questions, please call your surgeon. Please bring your [facility] Surgical Information folder on the day of surgery. Please saniya the last dose taken (date and time ) on your Daily Medications List provided in your After Visit Summary. Please bring a photo ID and insurance information to 1st floor surgery. * Attachments The following attachments cannot be sent through Care Everywhere. * Hiatal Hernia (Gambian) documented in this encounter* Discharge Instr - Diet* Caprice Burnette MD - 08/13/2020 3:14 PM EST Good nutrition is important when healing from an illness, injury, or surgery. Follow any nutrition recommendations given to you during your hospital stay. If you were given an oral nutrition supplement while in the hospital, continue to take this supplement at home. You can take it with meals, in-between meals, and/or before bedtime. These supplements can be purchased at most local grocery stores, pharmacies, and chain super-stores. If you have any questions about your diet or nutrition, call the hospital and ask for the dietitian. Avoid carbonation, straws, gum chewing, and smoking. These activities introduce air into your stomach and cause bloating and discomfort. Simethicone (gas-x) may ease gas pain and can be purchased over the counter without a prescription. Day 1 after your surgery begin a clear liquid diet. It includes the following liquids: Apple juice Cranberry juice Grape juice Chicken broth Beef broth Flavored gelatin (Jell-O ) Decaf tea and coffee Caffeinated beverages are permitted based on tolerance Popsicles Citizen Of [place] ice Day 2 and Day 3 after your surgery advance diet to full liquid diet which includes anything on the clear liquid diet, plus: Milk, soy, rice and almond (no chocolate) Cream of wheat, cream of rice, grits Strained creamed soups (no tomato or broccoli) Vanilla and strawberry-flavored ice cream Sherbet Blended, custard styled or whipped yogurt (plain or vanilla only) Vanilla and butterscotch pudding (no chocolate or coconut) Nutritional drinks including Ensure , Boost , [place] Instant Breakfast (no chocolate-flavored) Mashed potatoes On Day 4 after your surgery you may start a soft diet and continue this diet until you follow up inthe office in one to two weeks. A list of food items is below. Food Category Foods to Choose Foods to Avoid Beverages Milk, such as, whole, 2%, 1%, non-fat, or skim, soy, rice, almond Caffeinated and decaf tea and coffee Powdered drink mixes (in moderation) Non-citrus juices (apple, grape, cranberry or blends of these) Fruit nectars Nutritional drinks including Boost , Ensure , [place] Instant Breakfast Chocolate milk, cocoa or other chocolate-flavored drinks Carbonated drinks Alcohol K[place]us juices like orange, grapefruit, lemon and pamunkey Breads Pancakes, Greek toast and waffles Crackers (saltine, butter, soda, mathieu, Goldfish and Cheese Nips ) Toasted bread Untoasted bread, bagels, Rg and hard rolls, [place]ian muffins Crackers with nuts, seeds, fresh or dried fruit, coconut, or highly seasoned, such as garlic or onion-flavored Sweet rolls, coffee cake or doughnuts Cereals Well cooked cereals, such as oatmeal (plain or flavored) Cold cereal (Cornflakes , Rice Krispies , Cheerios , Special K plain, Rice Chex and puffed rice) Very coarse cereal, such as bran, shredded wheat Any cereal with fresh or dried fruit, coconut, seeds or nuts Desserts Eat in moderation and do not eat desserts or sweets by themselves. Plain cakes, cookies and cream-filled pies Vanilla and butterscotch pudding or custard Ice cream, ice milk, frozen yogurt and sherbet Gelatin made from allowed foods Fruit ices and popsicles Desserts containing chocolate, coconut, nuts, seeds, fresh or dried fruit,peppermint or spearmint Eggs Poached, hard boiled or scrambled Fried eggs and highly seasoned eggs (deviled eggs) Fats Eat in moderation. Butter and margarine Mayonnaise and vegetable oils Mildly seasoned cream sauces and gravies Plain cream cheese Sour cream Highly seasoned salad dressings, cream sauces and gravies Medrano, medrano fat, ham fat, lard and salt pork Fried foods Nuts Fruits Fruit juice Any canned or cooked fruit except those listed in the AVOID column ALL fresh fruits, such as citrus, bananas and pineapple Canned pineapple Dried fruits, such as raisins, berries Fruits with seeds, such as berries, kiwi and figs Meat, Fish, Poultry, and Dairy Products Meats may be ground, minced or chopped to ease swallowing and digestion Tender, well cooked and moist cuts of beef, chicken, turkey and pork Veal and mello Flaky, cooked fish Canned tuna Cottage and ricotta cheeses Mild cheese, such as Citizen Of [place], brick, mozzarella and baby [place]ian Creamy peanut butter Plain custard or blended fruit yogurt Moist casseroles, such as macaroni & cheese, tuna noodle Grilled or toasted cheese sandwich Tough meats with a lot of gristle Fried, highly seasoned, smoked and fatty meat, fish or poultry, such as frankfurters, luncheon meats, sausage, medrano, spare ribs, beef brisket, sardines, anchovies, duck and goose Erath and other entrees made with pepper or chili pepper Shellfish Strongly flavored cheeses, such as sharp cheese, extra sharp cheddar, cheese containing peppers or other seasonings Crunchy peanut butter Any yogurt with nuts, seeds, coconut, strawberries or raspberries Potatoes and Starches Peeled, mashed or boiled white or sweet potatoes Oven-baked potatoes without skin Well cooked white rice, enriched noodles, barley, spaghetti, macaroni and other pastas Fried potatoes, potato skins and potato chips Hard and soft taco shells Fried, brown or wild rice Soups Mildly flavored meat stocks Cream soups made from allowed foods Highly seasoned soups and tomato based soups, cream soups made with gas producing vegetables, such as broccoli, cauliflower, onion, etc. Sweets and Snacks Use in moderation and do not eat large amounts of sweets by themselves. Syrup, honey, jelly and seedless jam Plain hard candies and plain candies made with allowed ingredients Molasses Marshmallows Other candy made from allowed ingredients Thin pretzels Jam, marmalade and preserves Chocolate in any form Any candy containing nuts, coconut, seeds, peppermint, spearmint or dried or fresh fruit Popcorn, potato chips, tortilla chips Soft or hard thick pretzels, such as sourdough Vegetables Well cooked soft vegetables without seeds or skins, such as asparagus tips, beets, carrots, green and wax beans, chopped spinach, tender canned baby peas, squash and pumpkin Raw vegetables, tomatoes, tomato juice, tomato sauce and V-8 juice Gas producing vegetables, such as broccoli, Brussel sprouts, cabbage, cauliflower, onions, corn, cucumber, green peppers, rutabagas, turnips, radishes and sauerkraut Dried beans, peas and lentils Miscellaneous Salt and spices in moderation Mustard and vinegar in moderation Fried or highly seasoned foods Coconut and seeds Pickles and olives Erath sauces, ketchup, barbecue sauce, horseradish, black pepper, chili powder and onion and garlicseasonings Any other strongly flavored seasoning, condiment, spice or herb not tolerated Any food not tolerated * Additional Instructions* Caprice Burnette MD - 08/13/2020 [facility] - Surgery [facility] Physicians Surgery DISCHARGE INSTRUCTIONS FOR DR. CASTRO Thank you very much for allowing me to participate in your care, it is truly a privilege. Below please see discharge orders that will help you during your recovery. Please do not hesitate to call theoffice during the day at [phone] for any questions. After hours, the same number will allow you to reach the on-call surgeon. Please remove the Steri-Strips 5 days after surgery. Please remove the Steri- Strips as instructed 5days after your date of surgery, remove them on 08/18/20. This includes any clear bandages and gauze placed in the navel, if applicable. If you have been provided with an abdominal binder, this is for your comfort. Please take this off in order to shower and use it as needed for your comfort. There is no designated time frame with which you should wear the binder. Again, it is only for your comfort and symptom relief. Please shower the day after surgery. Soap and water is adequate. Keep the incisions clean and dry. No lotions or ointments until you are seen in the office. Surgery can hurt! Please make every effort to take the pain medicine as instructed to help reduce your discomfort. I usually recommend that you take pain medicine when you wake up in the morning and before you go to sleep. Schedule the rest of the day in order to not interfere with medication dosages as prescribed. If you feel that the medicine is not working, please call the office. Should you have nausea after surgery (the most common complaint after surgery) you will be providedwith a prescription for Phenergan. Please utilize this should you have any postoperative nausea or vomiting. If you feel that the medicine is not working, please call the office. Please use Miralax (available over the counter) until you have a bowel movement. Constipation is routine after surgery and adding the Miralax will help prevent constipation. For any emergencies, please dial 911. Thank you again for allowing me to participate in your care, and get well soon! Best regards, Fran Castro M.D., F.A.C.S. * Attachments The following attachments cannot be sent through Care Everywhere. * Leobardo Fundoplication: Post-op (Gambian) documented in this encounter Assessments Diagnosis Hiatal hernia Diaphragmatic hernia without mention of obstruction or gangrene Gastroesophageal reflux disease without esophagitis Esophageal reflux Chronic superficial gastritis without bleeding Atrophic gastritis without mention of hemorrhage Diagnosis Encounter for screening for other viral diseases Diagnosis Hiatal hernia- Primary Diaphragmatic hernia without mention of obstruction or gangrene Gastroesophageal reflux disease without esophagitis Esophageal reflux Hospital Course * Caprice Burnette MD - 08/14/2020 4:06 PM EST 48 Hour Discharge Summary Note Patient ID: Sahyy Ahuja [id number] y.o. 1945 Admit date: 08/13/2020 Discharge date and time: 08/14/20 Admitting Physician: Fran Castro MD Discharge Physician: Caprice Burnette MD Consults: none Admission Diagnoses: Hiatal hernia [K44.9] BMI Classification: Overweight (BMI 25.0-29.9) Procedure: Laparoscopic Hiatal Hernia Repair with Mesh Laparoscopic Posterior Toupet Fundoplication Upper GI Endoscopy Pertinent Findings and Labs noted during admission: see Epic Significant Diagnostic Studies: UGI Discharge Diagnoses: Hiatal hernia [K44.9] Discharged Condition: good Homegoing Instructions: activity as tolerated, no heavy lifting greater than 10 lbs, no driving while on narcotics, may shower Recommended Follow-up: Follow up with Dr. Castro in 1-2 weeks Diet: clear liquids Discharge Medications: Shayy Ahuja Home Medication Instructions JOHNATHON:[id number] Printed on:08/14/20 1039 Medication Information acetaminophen (TYLENOL) 500 MG tablet Take 500 mg by mouth every 6 hours as needed for Pain ascorbic acid (VITAMIN C) 500 MG tablet Take 1,000 mg by mouth daily brimonidine (ALPHAGAN) 0.2 % ophthalmic solution INSTILL 1 DROP INTO EACH EYE TWICE DAILY Calcium Carb-Cholecalciferol (CALCIUM-VITAMIN D) 500-200 MG-UNIT per tablet Take 1 tablet by mouth daily Cholecalciferol (VITAMIN D3) 125 MCG (5000 UT) TABS Take by mouth daily citalopram (CELEXA) 20 MG tablet Take 20 mg by mouth daily hydroCHLOROthiazide (HYDRODIURIL) 50 MG tablet Take 50 mg by mouth daily latanoprost (XALATAN) 0.005 % ophthalmic solution Place 1 drop into both eyes nightly loratadine (CLARITIN) 10 MG tablet Take 10 mg by mouth daily losartan (COZAAR) 50 MG tablet Take 50 mg by mouth daily NYSTATIN [id number] UNIT/GM powder Apply topically as needed (groin rash) ondansetron (ZOFRAN-ODT) 4 MG disintegrating tablet Take 1 tablet by mouth 3 times daily as needed for Nausea or Vomiting potassium chloride (KLOR-CON M) 20 MEQ extended release tablet TAKE 1 TABLET BY MOUTH ONCE DAILY rosuvastatin (CRESTOR) 10 MG tablet Take 10 mg by mouth nightly timolol (TIMOPTIC) 0.5 % ophthalmic solution INSTILL 1 DROP INTO EACH EYE TWICE DAILY timolol (TIMOPTIC-XE) 0.5 % ophthalmic gel-forming 1 drop daily No longer taking Disposition: home documented in this encounter Note 48 Hour Discharge Summary No te Patient ID: Shayy Abbasi Page [id number] 74 y.o. 1945 Admit date: 08/13/2020 Discharge date and time: 08/14/20 Admitting Physician: Fran Castro MD Discharge Physician: Caprice Burnette MD Consults: none Admission Diagnoses: Hiatal hernia [K44.9] BMI Classification: Overweight (BMI 25.0-29.9) Procedure: ? Laparoscopic Hiatal Hernia Repair with Mesh ? Laparoscopic Posterior Toupet Fundoplication ? Upper GI Endoscopy Pertinent Findings and Labs noted during admission: see Epic Significant Diagnostic Studies: UGI Discharge Diagnoses: Hiatal hernia [K44.9] Discharged Condition: good Homegoing Instructions: activity as tolerated, no heavy lifting greater than 10 lbs, no driving while on narcotics, may shower Recommended Follow-up: Follow up with Dr. Castro in 1-2 weeks Diet: clear liquids Discharge Medications: Shayy Ahuja Home Medication Instructions JOHNATHON:[id number] Printed on:08/14/20 6982 Medication Information acetaminophen (TYLENOL) 500 M (more content not included)... Note [facility] Patient Name: Shayy Ahuja OPERATIVE NOTE DATE OF PROCEDURE: 08/13/2020 SURGEON: Fran Castro HEATER HELPER FORGE: Caprice Burnette MD PREOPERATIVE DIAGNOSIS: ? Large Hiatal Hernia ? Refractory GERD POSTOPERATIVE DIAGNOSIS: ? Large Hiatal Hernia ? Refractory GERD OPERATION: ? Laparoscopic Hiatal Hernia Repair with Mesh ? Laparoscopic Posterior Toupet Fundoplication ? Upper GI Endoscopy ANESTHESIA: General anesthesia ESTIMATED BLOOD LOSS: less than 50 COMPLICATIONS: None PREOPERATIVE MEDICATIONS: Ancef, Heparin HISTORY: The patient is a 74 y.o. year old female with history of above preop diagnosis. I explained the risk, benefits, expected outcome, and alternatives to the procedure. Patient understands and is in agreement to proceed with operation. PROCEDURE: The patient was brought to the operating room and placed in supine position. After initiation of general anesthesia by the Anesthesia Department, she was placed in split- (more content not included)... Procedure Findings Note [facility] Patient Name: Shayy Ahuja OPERATIVE NOTE DATE OF PROCEDURE: 08/13/2020 SURGEON: Fran Castro HEATER HELPER FORGE: Caprice Burnette MD PREOPERATIVE DIAGNOSIS: ? Large Hiatal Hernia ? Refractory GERD POSTOPERATIVE DIAGNOSIS: ? Large Hiatal Hernia ? Refractory GERD OPERATION: ? Laparoscopic Hiatal Hernia Repair with Mesh ? Laparoscopic Posterior Toupet Fundoplication ? Upper GI Endoscopy ANESTHESIA: General anesthesia ESTIMATED BLOOD LOSS: less than 50 COMPLICATIONS: None PREOPERATIVE MEDICATIONS: Ancef, Heparin HISTORY: The patient is a 74 y.o. year old female with history of above preop diagnosis. I explained the risk, benefits, expected outcome, and alternatives to the procedure. Patient understands and is in agreement to proceed with operation. PROCEDURE: The patient was brought to the operating room and placed in supine position. After initiation of general anesthesia by the Anesthesia Department, she was placed in split- (more content not included)... History of Present Illness * Caprice Burnette MD - 08/14/2020 8:55 AM EST Department of General Surgery Surgical Service Surg4 Daily Progress Note ADMIT DATE: 08/13/2020 TODAY'S DATE: 08/14/2020 SUBJECTIVE No issues overnight. Feels great this AM. Pain well controlled with tylenol. No nausea or vomiting.No difficulty swallowing with ice chips OBJECTIVE: VITALS: BP 127/68 Pulse 65 Temp 97.9 F (36.6 C) (Temporal) Resp 18 Ht 5' 2 (1.575 m) Wt 150 lb (68 kg) SpO2 92% BMI 27.44 kg/m INTAKE/OUTPUT: Date 08/14/20 0000 - 08/14/20 2359 Shift [id number] 3477-9391 4897-7670 24 Hour Total INTAKE I.V.(mL/kg) 10(0.1) 10(0.1) Shift Total(mL/kg) 10(0.1) 10(0.1) OUTPUT Urine(mL/kg/hr) 300(0.6) 300 Shift Total(mL/kg) 300(4.4) 300(4.4) Weight (kg) 68 68 68 68 I/O last 3 completed shifts: In: 1010 [I.V.:1010] Out: 414 [Urine:400; Blood:14] No intake/output data recorded. PHYSICAL EXAM: GEN: well appearing, well developed, NAD HEAD: normocephalic, atraumatic HEENT: EOMI, conjunctiva normal NECK: full ROM, neck supple CHEST: RRR, Resp effort easy and unlabored ABDOMEN: soft, appropriately TTP, non-distended, incisions c/d/i SKIN: warm and dry, no rashes or erythema Data: CBC: Recent Labs 08/11/20142408/14/20136 WBC -- 10.7 HGB 14.5 15.1 HCT 44.1 44.9 PLT -- 135* BMP: Recent Labs 08/11/20 14208/14/20136 NA 136 134* K 4.0 4.0 CL 100 99 CO2 29 26 BUN 22* 26* CREATININE 0.87 0.89 GLUCOSE 92 130* Hepatic: No results for input(s): AST, ALT, ALB, BILITOT, ALKPHOS in the last 72 hours. Current Inpatient Medications Scheduled Meds: timolol 1 drop Both Eyes Daily brimonidine 1 drop Both Eyes BID sodium chloride flush 10 mL Intravenous 2 times per day enoxaparin 40 mg Subcutaneous Daily acetaminophen 1,000 mg Intravenous Q8H Continuous Infusions: PRN Meds:sodium chloride flush, ondansetron OR ondansetron, hydrALAZINE ASSESSMENT AND PLAN: This is a 74 y.o. female s/p lap hiatal hernia repair with toupet fundoplication -UGI this AM -can start clears once UGI done -IVFs -pain control with tylenol, refusing narcotics -nausea medication prn -oob/ambulate -IS/dvt ppx with lovenox -dc planning for today if tolerates clears Caprice Burnette MD PGY-5 08/14/2020 8:55 AM Associated attestation - Fran Castro MD - 08/14/2020 3:34 PM EST [facility] Patient Name: Shayy Abbasi Page Date: 08/14/20 MIS-General Surgery/Bariatric Progress Note Subjective: The patient is doing well, postoperative day #1 from [facility]. No nausea, vomiting, or adverse eventsovernight. Scheduled Meds: acetaminophen 1,000 mg Oral 3 times per day citalopram 20 mg Oral Daily hydroCHLOROthiazide 50 mg Oral Daily rosuvastatin 10 mg Oral Nightly timolol 1 drop Both Eyes Daily brimonidine 1 drop Both Eyes BID sodium chloride flush 10 mL Intravenous 2 times per day enoxaparin 40 mg Subcutaneous Daily Continuous Infusions: PRN Meds:sodium chloride flush, ondansetron OR ondansetron, hydrALAZINE Allergies Allergen Reactions Amoxicillin AMOXICILLIN (FROM AUGMENTIN) ADVERSE REACTION Clavulanic Acid CLAVULANIC ( FROM AUGMENTIN) ADVERSE REACTION Adhesive Tape Rash Several types tape, bandaids Morphine Nausea And Vomiting [place] [Hydrocodone-Acetaminophen] Nausea And Vomiting Tolerates Tylenol Oxycodone Nausea And Vomiting Oxycontin [Oxycodone Hcl] Nausea And Vomiting Percocet [Oxycodone-Acetaminophen] Nausea And Vomiting Prednisone Rash Objective: Patient Vitals for the past 24 hrs: BP Temp Temp src Pulse Resp SpO2 08/14/20 1329 136/69 98.6 F (37 C) Temporal 62 16 97 % 08/14/20 1009 (!) 146/77 98.6 F (37 C) Temporal 59 18 95 % 08/14/20 0510 127/68 97.9 F (36.6 C) Temporal 65 18 92 % 08/14/20 0151 124/73 98.2 F (36.8 C) Temporal 67 18 93 % 08/13/20 2114 137/71 98.2 F (36.8 C) Temporal 60 18 93 % 08/13/20 1825 (!) 164/88 98.4 F (36.9 C) Temporal 68 20 98 % 08/13/20 1745 137/80 66 16 99 % 08/13/20 1730 133/75 67 18 99 % 08/13/20 1720 (!) 147/80 68 16 100 % 08/13/20 1709 (!) 179/92 98 F (36.7 C) Temporal 68 14 99 % 08/13/20 1700 (!) 179/97 66 17 99 % 08/13/20 1630 (!) 180/96 64 19 98 % 08/13/20 1600 (!) 163/91 63 17 100 % 08/13/20 1545 (!) 154/78 66 18 99 % Average, Min, and Max for last 24 hours Vitals: TEMPERATURE: Temp Av.3 F (36.8 C) Min: 97.9 F (36.6 C) Max: 98.6 F (37 C) RESPIRATIONS RANGE: Resp Av.4 Min: 14 Max: 20 PULSE RANGE: Pulse Av.9 Min: 59 Max: 68 BLOOD PRESSURE RANGE: Systolic (24hrs), Av , Min:124 , Max:180 ; Diastolic (24hrs), Av, Min:68, Max:97 PULSE OXIMETRY RANGE: SpO2 Av.2 % Min: 92 % Max: 100 % I/O last 3 completed shifts: In: 1010 [I.V.:1010] Out: 414 [Urine:400; Blood:14] CBC: Recent Labs 08/14/20 013 WBC 10.7 HGB 15.1 HCT 44.9 PLT 135* BMP: Recent Labs 08/14/20 013 NA 134* K 4.0 CL 99 CO2 26 BUN 26* CREATININE 0.89 GLUCOSE 130* Abdomen: Bowel sounds were normal. The abdomen was soft and appropriately tender postoperative. Nondistended. Wounds are clean dry and intact. Assessment/Plan: Postoperative day #1, Lap HH GI/DVT prophylaxis, continue SQ heparin UGI normal, no signs of extravasation or leak Increase activity Trial clear liquid diet Pulmonary toilet Initiate home medications, and oral pain control medications Care was discussed with the resident on service. * Mirna Fisher RN - 08/13/2020 6:[address] Chad arshad for [facility] order for pain at [address] sumit arshad at [address] Ibarra gave verbal order, order placed and pharmacy called to verify order so it can be given, pttransported to H5 * Mirna Fisher RN - 08/13/2020 4:[address] burnette paged morphine ordered for the floor and pt has allergy to it * Mirna Fisher RN - 08/13/2020 4:45 PM EST Pt complaining for pain, but refusing narcotic pain ems d/t fear of having nausea like in the past,RN offered to medicate with zofran or phenergan for nausea prior to giving morphine;fentanyl' or dilaudid- pt refusing * Tammy Petit RN - 08/13/2020 4:27 PM EST Patient beginning to have pain in stomach and neck. Patient does not want narcotics. Given icepacksfor pain. * Tammy Petit RN - 08/13/2020 3:44 PM EST Updated friend. * Tammy Petit RN - 08/13/2020 3:30 PM EST Oral airway removed. documented in this encounter Additional Source Comments INFORMATION SOURCE (unrecogn ized section and content) DATE CREATED AUTHOR AUTHOR'S ORGANIZ ATION 08/16/2020 [facility] Ordered Prescriptions (unrec ognized section and content) FOR RECORDS PERTAINING TO PATIENTS WHO ARE OR HAVE BEEN ENROLLED IN A CHEMICAL DEPENDENCY/SUBSTANCEABUSE PROGRAM, SOME INFORMATION MAY BE OMITTED. This clinical summary was aggregated from multiple sources. Caution should be exercised in using it in the provision of clinical care. This summary normalizes information from multiple sources, and as a consequence, information in this document may materially change the coding, format and clinical context of patient data. In addition, data may be omitted in some cases. CLINICAL DECISIONS SHOULD BE BASED ON THE PRIMARY CLINICAL RECORDS. [facility]. provides no warranty or guarantee of the accuracy or completeness of information in this document.
[2023-08-03 16:08] LABS: Absolute Lymphocyte Count 1.92 X10^3/uL (0.83-4.51); Absolute Neutrophil Count 5.3 X10^3/uL (2.0-7.7); Basophil# 0.07 X10^3/uL; Basophil% 0.9 % (0-1); Eosinophil# 0.12 X10^3/uL; Eosinophils% 1.5 % (0-5); Hematocrit 49.6 % (37-47); Hemoglobin 15.6 g/dL (12.0-15.0); Lymphocyte # 1.92 X10^3/ul (0.83-4.51); Lymphocyte % 24.3 % (19-41); Mean Corp Hgb Conc 31.5 g/dL (32-36); Mean Corpuscular Hgb 28.2 pg (27.0-32.0); Mean Corpuscular Volume 89.7 fL (81-99); Mean Platelet Vol. 9.6 fl (6.2-12.0); Monocyte# 0.53 X10^3/uL; Monocyte% 6.7 % (0-10); NRBC Flagged by Analyzer 0 % (0-5); Neutrophil # 5.25 X10^3/uL (2.7-7.7); Neutrophil % 66.5 % (47-70); Platelet Count 146 K/mm3 (150-450); RBC Distribution Width CV 13.1 % (11.6-14.6); RBC Distribution Width SD 42.6 fl (35.1-43.9); Red Blood Count 5.53 M/mm3 (4.2-5.4); White Blood Count 7.9 K/mm3 (4.4-11.0)
[2023-08-03 16:23] LABS: Vitamin D,25 Hydroxy 66.9 ng/mL
[2023-08-03 16:28] LABS: ALB/GLOB Ratio 1.4 RATIO (0.9-2.4); AST(SGOT) 22 U/L (15-37); Alanine Aminotransfer ALT/SGPT 25 U/L (13-56); Albumin, Serum 3.7 g/dL (3.2-5.0); Alkaline Phosphatase 101 U/L (45-117); Anion Gap 4 (5-15); BUN 22 mg/dL (7-18); BUN/Creat Ratio 22.6 RATIO (10-20); Calcium,Total 10.1 mg/dL (8.5-10.1); Chloride 110 mmol/L (98-107); Creatinine, Serum 0.98 mg/dL (0.55-1.02); EST Glomerular Filtration Rate 59 mL/min (>60); Est Glom Filt Rate - Afr Amer 71 mL/min (>60); Globulin 2.7 g/dL (2.2-4.2); Glucose 108 mg/dL (74-106); Protein, Total 6.4 g/dL (6.4-8.2); Sodium Level 142 mmol/L (136-145); Thyroid Stim Hormone (TSH) 1.24 uIU/mL (0.358-3.74)
== END | disposition home or self-care (01) ==
LOC: POLAB3 13:05
PROVIDERS: PCP Family Medicine Geriatric Medicine; Visit Provider Family Medicine Geriatric Medicine
DX: I10 Essential (primary) hypertension (principal); E55.9 Vitamin D deficiency, unspecified
CPT/HCPCS: 36415; 80053; 82306; 84443; 85025

== ENCOUNTER → 2023-08-31 | Outpatient (CLI) | payer MEDICARE, OTHER, SELFPAY ==
--- NOTE | 2023-08-31 14:12 | RAD_ITS ---
STUDY: X-RAY - RIGHT SHOULDER REASON FOR EXAM: Female, 77 years old. RIGHT ROTATOR CUFF TEAR TECHNIQUE: 4 views of the right shoulder. COMPARISON: None. FINDINGS: There is mild glenohumeral arthrosis. There is mild acromioclavicular arthrosis. Normal acromion. Normal humeral head and visualized proximal humerus. The soft tissue structures are unremarkable. There is no demonstrated fracture. Normal visualized pulmonary apex. 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 Electronically Signed: George Torre MD at 14:20 EDT ,
== END | disposition home or self-care (01) ==
LOC: RAD 14:09
PROVIDERS: PCP Family Medicine Geriatric Medicine; Referring Provider Family Medicine Geriatric Medicine; Visit Provider Family Medicine Geriatric Medicine
DX: M75.101 Unspecified rotator cuff tear or rupture of right shoulder, not specified as traumatic (principal); X58.XXXA Exposure to other specified factors, initial encounter
CPT/HCPCS: 73030

== ENCOUNTER 2023-10-21 14:30 | Outpatient (RCR) | payer MEDICARE, OTHER, SELFPAY ==
--- NOTE | 2023-09-12 15:38 | HP.PTEVAL_ITS ---
Patient's Visit Information Visit Information Visit Information: RICHELLE DIXON is a 77 year old F referred to Physical Therapy by Dr. Mickey Nguyen MD with a diagnosis of R shoulder pain. Date of Evaluation: 09/12/23 Physical Therapist: Alosno Wills, PAWANT, OCS, CSCS Visit Plan Frequency: 2-3x /Week Duration: 4-6 Weeks Plan: 2-3x/week for 4-6 weeks for 1. mobs and PROM and strength to R shoulder Rc and elevaotrs, work on ROM end range flexion adn er also. US nonthermal R supraspinatus if painful at rest. Progress to home strength Rc posture as tolerated. IE HEP: sca circles, penduilum and supine stick elevation with activitiy modifcaiton and posture. Subjective Subjective: R shoulder hurts. Might have a RC tear. Had bruise for about a m onth. Shoulder hurt after cortisone injection in achilles which she may be allergic to. Not sure what elsemight have caused it. now it is hard to raise past 90, can force it up painfully. Painfree most of time at rest. Has been put on antiinflammatory. Meds are helping a little bit. Sleep is not a problem. Cannot lie on R side though which she likes to do. Basic aDLs dressing is going OK, elastic hose are a little tough. Showering and bathing are OK, Doing hair is painful. Reaching into cupboards hurt. Hobbies include crossword puzzle and jigsaw puzzles and reading. These things are oK. No regualr exercises for shoulder. Pain R shoulder: Pain Intensity (Out of 10): 1 Pain Intensity Range: 0 and 8 Objective Objective: Walks with rollator in to therapy mod I. Transfers bed and chair I. Cervical aROm WFL and without pain. tender to palpation R supraspinatus insertion point tender moderately. scap AROM is WNL Posture is forward head and protracted slightly elevated scap. Shoulder aROM is slow into elevation on R but can get symmetry with pain on R t 140. er 50 and painful R, IR L4 and painful R. slow and hesitant to move r shoulder. reflexes 1/3 bi and tri B. Sensation UE WNL to gross light touch. strength 3+ rotation B shoulders. 3 elevation R with pain, 3+ L. elbows flex and ext 4- and without pain. wrist and hands deformed form arthritis but strength WFL. + neer and HK on R, - ext rotation lag test, - sulcus, - apprehension Balance/Special Test Scores Quick DASH Score: 31.8175 Goals Goal 1:: Pain in R shoulder 75% better and 2/10 at worst Goal Time Frame: 4-6 Weeks Goal 2:: I appropriate HEP of posture, activitiy modifciaiton and strength Rc and posture to limit future problems Goal Time Frame: 4-6 Weeks Goal 3:: Do hair and eyebrows without increased pain R shoulder Goal Time Frame: 4-6 Weeks Goal 4:: quickdash score 15 or better. Goal Time Frame: 4-6 Weeks Rehabilitation Potential Physical Therapy Diagnosis: R shoulder pain and weakness limting funcitonal acttivites and comfort. Rehabilitation Potential: Good Anticipated Interventions Patient/Client Instruction: Educate patient on: Condition and Plan of Care For the Purpose of:: To decrease pain, To increase ROM, To improve nutrient delivery to tissue, To improve muscle performance and motor function, To increase tolerance to activity/condition/position and To improve ability of physical actions for home/community/work/leisure Therapeutic Exercise to Include: Strength training, Postural training, Flexibilty training, Passive ROM, Active ROM and Scapular Strength/Stabilization For the Purpose of:: To decrease pain, To increase ROM, To improve nutrient delivery to tissue and To improve muscle performance and motor function Manual Therapy Techniques to Include: Mobilization, Passive ROM and Soft tissue mobilization For the Purpose of:: To decrease pain, To increase ROM and To improve nutrient delivery to tissue Thermo therapy (hot pack): Yes Ultrasound (thermal/non thermal): Yes For the Purpose of:: To decrease pain, To decrease swelling/inflammation, To increase ROM, To improve nutrient delivery to tissue and To increase oxygenation perfusion Text: Thank you for the opportunity to evaluate your patient. For Medicare and Medicare HMO plans, please review the plan of care and approve it. It will need to be FAXED BACK to us at [phone] for Medicare purposes. For Medicare only, by signing this I certify the plan of care. Please let me know if there are questions or concerns regarding this plan of care. Physician Signature: Date:
--- NOTE | 2023-10-21 15:10 | HP.PTDCSUM ---
Discharge Summary D/C summary: It has been my pleasure to treat RICHELLE DIXON referred by Dr. Mickey Nguyen MD, with the diagnosis of R shoulder pain for a total of 12 visit(s). Discharge Date: 10/21/23 Please see the following information for a summary of their discharge status. Subjective Subjective: Been dooing good lately, weather makes her sore today. Soreness 4/10, was much better 1-2/10. Exeercises no problem at home. Shoulder activity is normal outside of heavy lifting and mopping. Dressing. Pain R shoulder: Pain Intensity (Out of 10): 1 Overall Improvement % Improvement: 80 Objective Objective/Function: full aROM, stiff near full elevation, strength 4-/5 wihtout pain. Doing well overall and understands activitiy mdoficaiton Goals Goal 1:: Pain in R shoulder 75% better and 2/10 at worst Goal Progress: Goal Met Goal 2:: I appropriate HEP of posture, activitiy modifciaiton and strength Rc and posture to limit future problems Goal Progress: Goal Met Goal 3:: Do hair and eyebrows without increased pain R shoulder Goal Progress: Goal Met Goal 4:: quickdash score 15 or better. Goal Progress: Goal Met Plan Plan: d/c to HEP D/C Information d/c sentence: If there are questions or concerns regarding this patient's physical therapy, please feel free to call me at [phone]. Thank you for the referral of this patient. Sincerely, Alonso Wills, DPT, OCS, CSCS Balance/Gait/Functional tests Balance/Special Test Scores Quick DASH Score: 25.0000 Improvement % Improvement: 80
== END 2023-10-21 15:30 | disposition home or self-care (01) ==
LOC: PT 14:30
PROVIDERS: PCP Family Medicine Geriatric Medicine; Referring Provider Family Medicine Geriatric Medicine; Visit Provider Family Medicine Geriatric Medicine
DX: M25.511 Pain in right shoulder (principal); M75.101 Unspecified rotator cuff tear or rupture of right shoulder, not specified as traumatic
CPT/HCPCS: 97035; 97110; 97140; 97161; 97530

== ENCOUNTER 2023-12-05 13:00 | Outpatient (RCR) | payer MEDICARE, OTHER, SELFPAY ==
--- NOTE | 2023-10-21 15:40 | HP.PTEVAL ---
Patient's Visit Information Visit Information Visit Information: RICHELLE DIXON is a 77 year old F referred to Physical Therapy by Dr. Per Portillo DPM with a diagnosis of R PF fibromatosis. Date of Evaluation: 10/21/23 Physical Therapist: Alonso Wills DPT, OCS, CSCS Visit Plan Frequency: 2x /Week Duration: 4-6 Weeks Plan: 2x/week for 4=6 weeks for IE: gastroc wall stretch and 305x in am and pm, AP throughout day. 1. STM to PF R and rollout gastroc soleus R and stretch PF and gastroc 2. ankle and foot strength R foot to HEP 3. US nonthermal R heel 4. consider ionto, orthotics, nightsplint if not helpful but cannot afford right now, or return to doctor. Subjective Subjective: New script for R PF fibromatosis today. Pain in R platar heel. Been hurting for 8 weeks and just started one day insidiously. Referred to [facility] in [place]. Gave cortisone shot(allergic to prednisone), which did not help any. [facility] is on fixed [facility]. They take the edge off. Pain was 8/10 before inserts, 7/10 with inserts, Today 7/10 every step, More comfortable at rest. It causes her to limp and walks on toes due to R LLD shorter. Activities that are effected including walking. Has to stop walking early when on feet alot, Avoids walking for fitness. uses wh walker to get around. Hurts immediately in am but does not keep shanique up at night. Pain R: Pain Intensity (Out of 10): 3 R heel: Pain Intensity (Out of 10): 2 Pain Intensity Range: 0 and 8 Objective Objective: R heel tender on plantar surface moderately. Min tender on R posterior achilles insertion also. DF 4 degrees with some tightness gastroc but not soleus B. Other AROM in ankle WFL and symmetrical. heel raise without pain B, toe raise hurts R. strength ankle 4-/5 without myotomal abnormalities in LE. reflexes 2/3 patella and achilles Wearing heels and walking I but antalgic and hesitant heel weight bearing on R. Sensation LE WNL to gross light touch. Pes planus in B feet moderatly, has inserts and cannot afford more aggressive ones offered by doctor. metatarsals move well and big toe is 4/5 flex/ext and without pain. Balance/Special Test Scores Lower Extremity Functional Score: 40 Goals Goal 1:: pain in R heel 2/10 at worst and 75% better Goal Time Frame: 4-6 Weeks Goal 2:: I appropriate HEP to limit future problems(stretch adn ankle strength ) Goal Time Frame: 4-6 Weeks Goal 3:: walk without antalgia in R LE Goal Time Frame: 4-6 Weeks Goal 4:: Get out of bed without noticing R foot pain Goal Time Frame: 4-6 Weeks Rehabilitation Potential Physical Therapy Diagnosis: R heel pain effecting comfortable functions Rehabilitation Potential: Fair Anticipated Interventions Patient/Client Instruction: Educate patient on: Condition and Plan of Care For the Purpose of:: To decrease pain, To increase ROM, To improve nutrient delivery to tissue and To improve muscle performance and motor function Therapeutic Exercise to Include: Strength training, Flexibilty training, Passive ROM and Active ROM For the Purpose of:: To decrease pain, To increase ROM, To improve nutrient delivery to tissue, To improve muscle performance and motor function and To increase tolerance to activity/condition/position Manual Therapy Techniques to Include: Mobilization, Passive ROM and Soft tissue mobilization For the Purpose of:: To decrease pain, To increase ROM and To improve nutrient delivery to tissue Ultrasound (thermal/non thermal): Yes (nonthermal) For the Purpose of:: To decrease pain, To decrease swelling/inflammation and To improve nutrient delivery to tissue Text: Thank you for the opportunity to evaluate your patient. For Medicare and Medicare HMO plans, please review the plan of care and approve it. It will need to be FAXED BACK to us at [phone] for Medicare purposes. For Medicare only, by signing this I certify the plan of care. Please let me know if there are questions or concerns regarding this plan of care. Physician Signature: Date:
--- NOTE | 2023-12-05 13:17 | HP.PTDCSUM ---
Discharge Summary D/C summary: It has been my pleasure to treat RICHELLE DIXON referred by Dr. Per Portillo DPM, with the diagnosis of R PF fibromatosis for a total of 14 visit(s). Discharge Date: 12/05/23 Please see the following information for a summary of their discharge status. Subjective Subjective: Getting better adn better. Insoles help. Hurts a little in am 2/10 until gets shoes on. Does well the rest of the day. Can get sensitive if doesn't have shoes on. Activities are normal for her, she is limited by OA , not heel. HEP: stretches , ecc lowering, bands all 1x/day. Using wh walker out outside of house due to knee OA. Can't stand long for this reason. Pain R: Pain Intensity (Out of 10): 3 R heel: Pain Intensity (Out of 10): 0 Overall Improvement % Improvement: 95 Objective Objective/Function: Good AROM, Good gait with no problem. FGA is good. Pt is more limited by OA then any remaining heel pain and is I with HEP. Goals Goal 1:: pain in R heel 2/10 at worst and 75% better Goal Progress: Goal Met Goal 2:: I appropriate HEP to limit future problems(stretch adn ankle strength ) Goal Progress: Goal Met Goal 3:: walk without antalgia in R LE Goal Progress: Goal Met Goal 4:: Get out of bed without noticing R foot pain Goal Progress: Progressing Plan Plan: d/c to HEP D/C Information Discharge Comments: Will contact doctor if pain returns. d/c sentence: If there are questions or concerns regarding this patient's physical therapy, please feel free to call me at [phone]. Thank you for the referral of this patient. Sincerely, Alonso Wills, DPT, OCS, CSCS Balance/Gait/Functional tests Balance/Special Test Scores Functional Gait Assessment Score: 21 % Disability: 30.0000 Lower Extremity Functional Score: 45 Improvement % Improvement: 95
== END 2023-12-05 13:26 | disposition home or self-care (01) ==
LOC: PT 13:00
PROVIDERS: PCP Family Medicine Geriatric Medicine; Referring Provider Podiatrist Foot & Ankle Surgery; Visit Provider Podiatrist Foot & Ankle Surgery
DX: M72.2 Plantar fascial fibromatosis (principal)
CPT/HCPCS: 97035; 97110; 97140; 97161; 97530

== ENCOUNTER 2023-12-12 19:51 | Emergency (ER) | payer MEDICARE, OTHER, SELFPAY ==
[2023-12-12 19:51] VITALS: BP 172/65; PULSE 59; RESP 16; TEMP 36.1; O2SAT 95; BMI 25.8
--- NOTE | 2023-12-12 22:02 | US_ITS ---
INDICATION: LT LEG PAIN TODAY EXAMINATION: Ultrasound US Venous Duplex LE Unilat / Limited TECHNIQUE: Loving scale, pulse wave, and color flow Doppler imaging was performed of the lower extremity venous system. The LEFT greater saphenous, common femoral, femoral, and popliteal veins were interrogated. COMPARISON: No pertinent previous for comparison.. FINDINGS: There is normal compression, augmentation, and signal throughout the visualized deep lower extremity veins. No mass or fluid collection. US/Venous Duplex Imag/Limited/Uni IMPRESSION: 1. No sonographic evidence of deep venous thrombosis/DVT in the LEFT lower extremity venous system. 2. No sonographic evidence of superficial thrombophlebitis. Electronically Signed: Nicolas Navarro MD at 22:53 EDT ,
--- NOTE | 2023-12-12 22:14 | RAD_ITS ---
INDICATION: pain EXAMINATION/TECHNIQUE: X-RAY - XR Hip Unilateral with Pelvis when performed; 2-3 Views COMPARISON: No relevant prior comparison study available FINDINGS: PELVIC BONES: No displaced fracture, destructive or sclerotic lesions. Note that overlapping bowel shadows may however obscure fine detail. Sacroiliac joints are unremarkable. No widening of the pubic symphysis. HIPS: Bilateral hip arthroplasties are present. No evidence of fracture or hardware failure. No displaced fracture seen in this frontal view. SOFT TISSUES: No soft tissue swelling or gas. RAD/HIP, UNI W/ Pelvis 2-3 Views IMPRESSION: 1. Bilateral hip arthroplasties. 2. No evidence of fracture or hardware failure or destructive bony process particularly involving LEFT hip. Electronically Signed: Nicolas Navarro MD at 22:41 EDT ,
--- NOTE | 2023-12-12 23:34 | ED.VIS.LOWEX ---
HPI History of Present Illness Chief Complaint: Lower Extremity Injury Narrative Narrative: 78-year-old female presenting with left leg pain. She states that this morning she took some trash out to the dumpster and it was fairly heavy and she had to struggle to get it over the top of the dumpster she did not have any injury at that time but later noticed that her left calf started to hurt and was achy. Now radiates up into her left hamstring and the lateral aspect of her left hip. Denies any direct trauma. No numbness. No bruising. No swelling. No history of DVT and no risk factors. She does have history of left hip replacement and expresses concern she might have injured something. [facility] Medical History Non-smoker Hiatal hernia History of pneumonia Scoliosis Diastolic dysfunction Hypokalemia Edema Hyperlipidemia Essential hypertension Shortness of breath Home Medications ?Medication ?Instructions ?Recorded ?Last Taken ?Type ascorbic acid (vitamin C) 500 mg 1,000 mg PO DAILY 01/06/19 08/18/21 History tablet citalopram 20 mg tablet 20 mg PO DAILY 01/06/19 08/18/21 History losartan 50 mg tablet 50 mg PO DAILY 01/06/19 08/18/21 History potassium chloride 20 mEq 20 meq PO DAILY 01/06/19 08/18/21 History tablet,extended release rosuvastatin 10 mg tablet (Crestor) 10 mg PO DAILY 01/06/19 08/18/21 History latanoprost 0.005 % eye drops 1 drp ophthalmic (eye) QPM 01/09/19 08/17/21 History timolol maleate 0.5 % eye drops 1 drp ophthalmic (eye) DAILY 01/09/19 08/17/21 History brimonidine 0.2 % eye drops 1 drp ophthalmic (eye) BID 05/22/20 08/17/21 History cholecalciferol (vitamin D3) 25 25 mcg PO DAILY 02/04/21 08/18/21 History mcg (1,000 unit) tablet acetaminophen 325 mg tablet 650 mg (2 x 325 mg) PO Q4H PRN PRN 08/21/21 Unknown Rx (Tylenol) Fever, pain 1-03/22 #0 tabs inhalational spacing device #0 ea 08/21/21 Unknown Rx (Compact Space Chamber) biotin 10,000 mcg chewable tablet mcg PO 11/29/22 Unknown History (Hair, Skin and Nails (biotin)) fexofenadine 180 mg tablet 180 mg PO DAILY #90 tabs 11/29/22 Unknown Rx (Radha Allergy) Allergy/AdvReac Type Severity Reaction Status Date / Time prednisone Allergy Rash Verified 12/12/23 19:53 Opioids - Morphine Analogues AdvReac Severe DIFFICULTY Verified 12/12/23 19:53 SWALLOWING adhesive tape AdvReac Intermediate Rash, Verified 12/12/23 19:53 burning amoxicillin (From Augmentin) AdvReac Unknown unknown Verified 12/12/23 19:53 clavulanic acid (From AdvReac Unknown unknown Verified 12/12/23 19:53 Augmentin) Corticosteroids AdvReac Pain in Verified 12/12/23 19:53 (Glucocorticoids) (steroids) joints Family History Father CAD (coronary artery disease) Myocardial infarction Mother Hypertension Uncle Emphysema of lung Surgical History History of hernia repair History of Leobardo fundoplication H/O wisdom tooth extraction History of hip replacement Hx of cataract removal with insertion of prosthetic lens History of tonsillectomy Social History household members: none Smoking Status: Never smoker alcohol intake: never substance use type: does not use ROS ROS ED Constitutional Constitutional ED: Denies chills, fever(s) or sweats Eyes Eyes: Denies blurry vision or change in vision ENT ENT ED: Denies ear pain or sore throat Cardiovascular Cardiovascular: Denies chest pain, palpitations or racing heartbeat Respiratory/Chest Respiratory/Chest: Denies cough, dyspnea or sputum Gastrointestinal Gastrointestinal: Denies abdominal pain, constipation, diarrhea, nausea or vomiting Genitourinary Genitourinary ED: Denies dysuria, hematuria or urinary frequency Musculoskeletal Musculoskeletal: Reports other Details: Left leg pain ; Denies arthralgias, myalgias or neck pain Integumentary Denies abscess, Abrasions or rash Neurologic Neurologic: Denies headache(s), paresthesias or weakness Psychiatric Psychiatric: Denies anxiety, depression, suicidal ideation or suicidal thoughts Endocrine Endocrinology: Denies polydipsia or polyuria EXAM Physical Exam Const Vital Signs: 12/12/23 19:51 Temperature 96.9 F L Temperature Source Temporal Pulse Rate 59 L Respiratory Rate 16 Blood Pressure 172/65 H Blood Pressure Mean 100 Pulse Ox 95 Positive well nourished General Appearance ED: NAD HEENT Reports moist mucous membranes normocephalic and atraumatic Resp normal respiratory effort Cardio regular rate and regular rhythm Extremity Extremity Narrative: Mild tenderness to palpation at left greater trochanter. No obvious deformity. Negative logroll. There is pain with external rotation of the hip. I am able to straight leg raise her left leg greater than 90 degrees without significant symptoms. There is mild tenderness to palpation directly over the IT band on the left and in the left calf. No bruising, rashes. MDM MDM MDM Narrative Medical decision making narrative: Patient presenting with left leg pain. Her exam is benign and she is some mild tenderness. She does not any risk factors for DVT that I can tell. She has no bruising or swelling. I had a long discussion with the patient about imaging. Will obtain a duplex of the left lower extremity to rule out DVT and an x-ray of the left hip as the patient is concerned for her hip replacement. X-ray left hip on my interpretation shows no acute fracture or subluxation. The hardware is in place. DVT study was negative. Patient counseled on findings. Recommended RICE therapy. Discharged home in stable condition. Impression: 1. Leg strain Radiography Diagnostic Testing: Clinical Impression(s) from Imaging Studies Venous Duplex 12/12/23 22:02 IMPRESSION: 1. No sonographic evidence of deep venous thrombosis/DVT in the LEFT lower extremity venous system. 2. No sonographic evidence of superficial thrombophlebitis. Electronically Signed: Nicolas Navarro MD at 22:53 EDT , Hip/Pelvis X-Ray 12/12/23 22:14 IMPRESSION: 1. Bilateral hip arthroplasties. 2. No evidence of fracture or hardware failure or destructive bony process particularly involving LEFT hip. Electronically Signed: Nicolas Navarro MD at 22:41 EDT , Discharge Plan Triage Chief Complaint: Lower Extremity Injury ED Provider: Sergio Smith Dx/Rx/DC Orders Instructions: ED Leg Spasm Prescriptions: No Action citalopram 20 mg tablet 20 mg PO DAILY losartan 50 mg tablet 50 mg PO DAILY potassium chloride 20 mEq tablet extended release 20 meq PO DAILY rosuvastatin [Crestor] 10 mg tablet 10 mg PO DAILY ascorbic acid (vitamin C) 500 mg tablet 1,000 mg PO DAILY timolol maleate 0.5 % drops 1 drp OPHTHALMIC DAILY latanoprost 0.005 % drops 1 drp OPHTHALMIC QPM cholecalciferol (vitamin D3) 25 mcg (1,000 unit) tablet 25 mcg PO DAILY brimonidine 0.2 % drops 1 drp OPHTHALMIC BID Patient Comments: INSTILL 1 DROP INTO EACH EYE TWICE DAILY Hair, Skin and Nails (biotin) 10,000 mcg tablet,chewable PO fexofenadine [Radha Allergy] 180 mg tablet 180 mg PO DAILY Qty: 90 3RF acetaminophen [Tylenol] 325 mg Tablet 650 mg PO Q4H PRN PRN (Reason: Fever, pain 1-03/22) Qty: 0 0RF (DME) Compact Space Chamber Spacer 1 ea inhalation PRN Qty: 0 0RF Rx Instructions: As Directed Primary Care Provider: Mickey Nguyen Chi Referrals: Mickey Nguyen Chi, MD [Primary Care Provider] - Print Language: Kyrgyz Disposition Disposition: Home, Self Care Discharge Date/Time: 12/12/23 23:21
== END 2023-12-12 23:21 | disposition home or self-care (01) ==
PROVIDERS: Emergency Provider Student in an Organized Health Care Education/Training Program; PCP Family Medicine Geriatric Medicine; Visit Provider Student in an Organized Health Care Education/Training Program
DX: S86.912A Strain of unspecified muscle(s) and tendon(s) at lower leg level, left leg, initial encounter (principal); X58.XXXA Exposure to other specified factors, initial encounter
CPT/HCPCS: 73502; 93971; 99282

== ENCOUNTER → 2024-02-20 | Outpatient (CLI) | payer MEDICARE, OTHER, SELFPAY ==
[2024-02-20 15:08] LABS: Absolute Lymphocyte Count 2.22 X10^3/uL (0.83-4.51); Absolute Neutrophil Count 5.1 X10^3/uL (2.0-7.7); Basophil# 0.06 X10^3/uL; Basophil% 0.7 % (0-1); Eosinophil# 0.12 X10^3/uL; Eosinophils% 1.5 % (0-5); Hematocrit 51.5 % (37-47); Hemoglobin 16.5 g/dL (12.0-15.0); Lymphocyte # 2.22 X10^3/ul (0.83-4.51); Lymphocyte % 27.3 % (19-41); Mean Corpuscular Hgb 28.1 pg (27.0-32.0); Mean Corpuscular Volume 87.7 fL (81-99); Mean Platelet Vol. 8.5 fl (6.2-12.0); Monocyte% 7.4 % (0-10); NRBC Flagged by Analyzer 0 % (0-5); Neutrophil # 5.11 X10^3/uL (2.7-7.7); Neutrophil % 62.7 % (47-70); Platelet Count 143 K/mm3 (150-450); RBC Distribution Width CV 12.9 % (11.6-14.6); RBC Distribution Width SD 41.5 fl (35.1-43.9); Red Blood Count 5.87 M/mm3 (4.2-5.4); White Blood Count 8.1 K/mm3 (4.4-11.0)
[2024-02-20 15:40] LABS: ALB/GLOB Ratio 1.3 RATIO (0.9-2.4); AST(SGOT) 26 U/L (15-37); Alanine Aminotransfer ALT/SGPT 34 U/L (13-56); Albumin, Serum 3.8 g/dL (3.2-5.0); Alkaline Phosphatase 125 U/L (45-117); Anion Gap 9 (5-15); BUN 21 mg/dL (7-18); BUN/Creat Ratio 19.1 RATIO (10-20); Calcium,Total 10.5 mg/dL (8.5-10.1); Chloride 107 mmol/L (98-107); EST Glomerular Filtration Rate 51 mL/min (>60); Est Glom Filt Rate - Afr Amer 62 mL/min (>60); Globulin 2.9 g/dL (2.2-4.2); Glucose 123 mg/dL (74-106); Potassium 4.3 mmol/L (3.5-5.1); Protein, Total 6.7 g/dL (6.4-8.2); Sodium Level 142 mmol/L (136-145)
== END | disposition home or self-care (01) ==
LOC: POLAB3 14:58
PROVIDERS: PCP Family Medicine Geriatric Medicine; Visit Provider Family Medicine Geriatric Medicine
DX: I10 Essential (primary) hypertension (principal); E55.9 Vitamin D deficiency, unspecified
CPT/HCPCS: 36415; 80053; 82306; 84443; 85025

== ENCOUNTER → 2024-05-15 | Outpatient (CLI) | payer MEDICARE, OTHER, SELFPAY | END | disposition home or self-care (01) | LOC: POLAB3 15:50 | PROVIDERS: PCP Family Medicine Geriatric Medicine; Visit Provider Family Medicine Geriatric Medicine | DX: R68.83 Chills (without fever) (principal) | CPT/HCPCS: 87631 ==

== ENCOUNTER → 2024-08-06 | Outpatient (CLI) | payer MEDICARE, OTHER, SELFPAY | END | disposition home or self-care (01) | LOC: POLAB3 15:25 | PROVIDERS: PCP Family Medicine Geriatric Medicine; Visit Provider Family Medicine Geriatric Medicine | DX: J10.1 Influenza due to other identified influenza virus with other respiratory manifestations (principal) | CPT/HCPCS: 87631 ==

== ENCOUNTER → 2024-08-21 | Outpatient (CLI) | payer MEDICARE, OTHER, SELFPAY ==
[2024-08-21 16:02] LABS: Absolute Lymphocyte Count 3.48 X10^3/uL (0.83-4.51); Absolute Neutrophil Count 6.1 X10^3/uL (2.0-7.7); Basophil# 0.08 X10^3/uL; Basophil% 0.7 % (0-1); Eosinophil# 0.18 X10^3/uL; Eosinophils% 1.7 % (0-5); Hematocrit 49.1 % (37-47); Hemoglobin 15.9 g/dL (12.0-15.0); Lymphocyte # 3.48 X10^3/ul (0.83-4.51); Lymphocyte % 32.2 % (19-41); Mean Corp Hgb Conc 32.4 g/dL (32-36); Mean Corpuscular Hgb 28.2 pg (27.0-32.0); Mean Corpuscular Volume 87.1 fL (81-99); Mean Platelet Vol. 8.9 fl (6.2-12.0); Monocyte# 0.97 X10^3/uL; NRBC Flagged by Analyzer 0.2 % (0-5); Neutrophil # 6.08 X10^3/uL (2.7-7.7); Neutrophil % 56.1 % (47-70); Platelet Count 181 K/mm3 (150-450); RBC Distribution Width CV 12.7 % (11.6-14.6); RBC Distribution Width SD 40.5 fl (35.1-43.9); Red Blood Count 5.64 M/mm3 (4.2-5.4); White Blood Count 10.8 K/mm3 (4.4-11.0)
[2024-08-21 16:57] LABS: ALB/GLOB Ratio 1.6 RATIO (0.9-2.4); AST(SGOT) 24 U/L (<=31); Alanine Aminotransfer ALT/SGPT 13 U/L (<=34); Albumin, Serum 4.1 g/dL (3.4-4.8); Alkaline Phosphatase 114 U/L (35-104); Anion Gap 11 (5-15); BUN 23 mg/dL (4-19); BUN/Creat Ratio 24.8 RATIO (10-20); Calcium,Total 10.6 mg/dL (7.6-11.0); Carbon Dioxide 24.5 mmol/L (21.0-32.0); Chloride 104 mmol/L (98-108); Creatinine, Serum 0.95 mg/dL (0.70-1.20); EST Glomerular Filtration Rate 62 (>60); Globulin 2.5 g/dL (2.2-4.2); Glucose 80 mg/dL (70-99); Potassium 4.6 mmol/L (3.3-5.1); Protein, Total 6.6 g/dL (5.9-8.4); Sodium Level 140 mmol/L (133-145); Vitamin D,25 Hydroxy 52.2 ng/mL (30-100)
== END | disposition home or self-care (01) ==
LOC: POLAB3 15:34
PROVIDERS: PCP Family Medicine Geriatric Medicine; Visit Provider Family Medicine Geriatric Medicine
DX: I10 Essential (primary) hypertension (principal); E55.9 Vitamin D deficiency, unspecified
CPT/HCPCS: 36415; 80053; 82306; 84443; 85025

== ENCOUNTER 2024-12-06 11:24 | Emergency (ER) | payer MEDICARE, OTHER, SELFPAY ==
[2024-12-06 11:24] VITALS: BP 129/75; PULSE 68; RESP 18; TEMP 36.6; O2SAT 98; BMI 26.4
[2024-12-06 11:33] VITALS: BMI 26.4
--- NOTE | 2024-12-06 11:49 | RAD_ITS ---
PROCEDURE: TIBIA FIBULA 2 VIEWS 12/06/2024 REASON FOR EXAM: INJURY TECHNIQUE: TIBIA FIBULA 2 VIEWS COMPARISON: None FINDINGS: No fracture or dislocation. Soft tissues are unremarkable. RAD/Tibia & Fibula 2 Views IMPRESSION: No acute abnormality is seen. Reading Location: [id number]
--- NOTE | 2024-12-06 12:01 | CT_ITS ---
PROCEDURE: BRAIN/HEAD WITHOUT CONTRAST 12/06/2024 REASON FOR EXAM: HEAD INJURY TECHNIQUE: BRAIN/HEAD WITHOUT CONTRAST Coronal and Sagittal reconstruction series were provided. One or more dose reduction techniques were used (e.g., Automated exposure control, adjustment of the mA and/or kV according to patient size, use of iterative reconstruction technique. RADIATION DOSE SUMMARY: CTDlvol: 44.99 mGy DLP: 829.85 mGycm COMPARISON: None FINDINGS: Brain: Low density in the periventricular white matter suggests mild chronic small vessel ischemic changes. Atherosclerotic calcification of the cavernous portions of the internal carotid arteries bilaterally. CSF Spaces: Mild generalized cerebral atrophy Sinuses/Mastoids: Clear at visualized levels Bones: Hyperostosis frontalis interna. CT/Brain/Head without Contrast IMPRESSION: CHRONIC CHANGES. NO ACUTE FINDINGS. Reading Location: [id number]
[2024-12-06 12:52] VITALS: PULSE 74; RESP 18; O2SAT 94
--- NOTE | 2024-12-06 13:20 | ED.VIS.FALL ---
HPI HPI - Fall History of Present Illness Chief Complaint: Fall Narrative Narrative: Presents here with friend fall out of bed. Awaking at 7:00 felt tired stayed in bed. She rolled to edge of bed fell off hitting her left leg on the bed. She got up and bumped her head on the bed siding. No loss of conscious. Recent TIA on aspirin and Plavix. Bruising to the legs however able to ambulate. No loss of consciousness. PFSH PFS Medical History Polycythemia Non-smoker Hiatal hernia History of pneumonia Scoliosis Diastolic dysfunction Hypokalemia Edema Hyperlipidemia Essential hypertension Shortness of breath Home Medications ?Medication ?Instructions ?Recorded ?Last Taken ?Type ascorbic acid (vitamin C) 500 mg 1,000 mg PO DAILY 01/06/19 12/06/24 History tablet citalopram 20 mg tablet 20 mg PO DAILY 01/06/19 12/06/24 History losartan 50 mg tablet 50 mg PO DAILY 01/06/19 12/06/24 History rosuvastatin 10 mg tablet (Crestor) 10 mg PO QHS 01/06/19 12/05/24 History latanoprost 0.005 % eye drops 1 drp ophthalmic (eye) QPM 01/09/19 12/05/24 History timolol maleate 0.5 % eye drops 1 drp ophthalmic (eye) BID 01/09/19 12/06/24 History brimonidine 0.2 % eye drops 1 drp ophthalmic (eye) BID 05/22/20 12/06/24 History cholecalciferol (vitamin D3) 25 25 mcg PO DAILY 02/04/21 12/06/24 History mcg (1,000 unit) tablet inhalational spacing device #0 ea 08/21/21 Unknown Rx (Compact Space Chamber) biotin 10,000 mcg chewable tablet 10,000 mcg PO DAILY 11/29/22 12/06/24 History (Hair, Skin and Nails (biotin)) fexofenadine 180 mg tablet 180 mg PO DAILY #90 tabs 11/29/22 12/06/24 Rx (Radha Allergy) netarsudil 0.02 % eye drops 1 drp ophthalmic (eye) QPM 02/29/24 12/05/24 History (Rhopressa) acetaminophen 325 mg tablet 650 mg PO Q4H PRN Fever, pain 12/06/24 Unknown History (Tylenol) -03/22 clopidogrel 75 mg tablet 75 mg PO DAILY 12/06/24 12/06/24 History potassium chloride 20 mEq 20 meq PO DAILY 12/06/24 12/06/24 History tablet,extended release(part/cryst) Allergy/AdvReac Type Severity Reaction Status Date / Time prednisone Allergy Rash Verified 12/06/24 11:41 Opioids - Morphine Analogues AdvReac Severe DIFFICULTY Verified 12/06/24 11:41 SWALLOWING adhesive tape AdvReac Intermediate Rash, Verified 12/06/24 11:41 burning amoxicillin (From Augmentin) AdvReac Unknown unknown Verified 12/06/24 11:41 clavulanic acid (From AdvReac Unknown unknown Verified 12/06/24 11:41 Augmentin) Corticosteroids AdvReac Pain in Verified 12/06/24 11:41 (Glucocorticoids) (steroids) joints Family History Father CAD (coronary artery disease) Myocardial infarction Mother Hypertension Heart disease Uncle Emphysema of lung Heart disease Surgical History History of hernia repair History of Leobardo fundoplication H/O wisdom tooth extraction History of hip replacement Hx of cataract removal with insertion of prosthetic lens History of tonsillectomy Social History household members: none Smoking Status: Never smoker alcohol intake: never substance use type: does not use ROS ROS ED Constitutional Constitutional ED: Denies fever(s) Cardiovascular Cardiovascular: Denies chest pain Respiratory/Chest Respiratory/Chest: Denies cough Gastrointestinal Gastrointestinal: Denies diarrhea or vomiting Musculoskeletal Musculoskeletal: Reports none and other Details: Left leg bruising Integumentary Denies rash or wounds Neurologic Neurologic: Denies weakness EXAM Physical Exam Const Vital Signs: 12/06/24 11:24 12/06/24 12:52 12/06/24 12:52 Temperature 97.8 F Temperature Source Temporal Pulse Rate 68 74 Respiratory Rate 18 18 Respiratory Effort Normal Respiratory Depth Normal Respiratory Pattern Normal Blood Pressure 129/75 H Blood Pressure Mean 93 Pulse Ox 98 94 Oxygen Delivery Method Room Air Room Air Room Air 12/06/24 13:22 Temperature 97 F L Temperature Source Pulse Rate 81 Respiratory Rate 16 Respiratory Effort Respiratory Depth Respiratory Pattern Blood Pressure 128/74 H Blood Pressure Mean 92 Pulse Ox 98 Oxygen Delivery Method Positive well nourished and well developed Constitutional Narrative: GCS 15. General Appearance ED: well developed and NAD HEENT Reports moist mucous membranes HEENT Narrative: Abrasion right forehead above right eye. normocephalic Eyes General Eye ED: Yes normal appearance of both eyes Neck full ROM Chest Wall Chest: Negative for tenderness Resp normal respiratory effort and normal air movement Effort and Inspection: symmetric chest movement; Negative for respiratory distress Cardio regular rate, regular rhythm and no murmurs Peripheral Pulses: pulses 2+ throughout GI normal to inspection, nondistended, normoactive bowel sounds and non-tender Palpation: Negative for guarding or rebound tenderness present Extremity Extremity Narrative: Left lower leg: No hip tenderness. Small infrapatellar knee abrasion. Hematoma anterior mid leg, no active bleeding. Soft compartments. Pulses intact distally. General Extremety ED: Yes tenderness; Negative for edema General Extremity: Negative for edema Neuro oriented x3 and no sensory deficits noted Sensorium / Orientation: awake and alert Skin Skin Narrative: See above MDM MDM MDM Narrative Medical decision making narrative: Interventions / MDM: Differential diagnosis: Left leg contusion, closed head injury Diagnosis considered but do not suspect: Fracture x-ray negative. Troponin hemorrhage however CT negative. My EKG interpretation: N/A Imaging independently reviewed and interpreted by myself: CT brain: No acute process. Left leg tib-fib 2 views: No fracture noted External documents reviewed: N/A Test considered but not ordered:N/A ED course: Patient alert oriented x 3 she had fall out of bed leg injury on aspirin and Plavix. She has abrasion to her head. CT head and left leg x-ray ordered. Image studies negative. Adeel wrap to her hematoma to the leg. She will use Tylenol as needed. Outpatient follow-up. All questions were answered. Re-evaluation: stable Disposition discussed with patient/family/significant other: Patient and friend Case discussed with consulting clinician: N/A This note was generated with [employer] dictation software. It may contain incorrect words, spelling, and punctuation that were not noted in checking the note before signing. Radiography Diagnostic Testing: Clinical Impression(s) from Imaging Studies Tibia/Fibula X-Ray 06/26/25 11:49 IMPRESSION: No acute abnormality is seen. Reading Location: [id number] Brain CT 12/06/24 12:01 IMPRESSION: CHRONIC CHANGES. NO ACUTE FINDINGS. Reading Location: [id number] Discharge Plan Triage Chief Complaint: Fall Other Complaint: Neuro S/Sx ED Provider: Archie Bone Dx/Rx/DC Orders Clinical Impression: Head injury, Contusion of leg, left, Fall Instructions: Bruises (Contusions), ED Head Injury (Adult) Prescriptions: No Action citalopram 20 mg tablet 20 mg PO DAILY losartan 50 mg tablet 50 mg PO DAILY rosuvastatin [Crestor] 10 mg tablet 10 mg PO QHS ascorbic acid (vitamin C) 500 mg tablet 1,000 mg PO DAILY timolol maleate 0.5 % drops 1 drp OPHTHALMIC BID latanoprost 0.005 % drops 1 drp OPHTHALMIC QPM cholecalciferol (vitamin D3) 25 mcg (1,000 unit) tablet 25 mcg PO DAILY brimonidine 0.2 % drops 1 drp OPHTHALMIC BID Patient Comments: INSTILL 1 DROP INTO EACH EYE TWICE DAILY Hair, Skin and Nails (biotin) 10,000 mcg tablet,chewable 10,000 mcg PO DAILY fexofenadine [Radha Allergy] 180 mg tablet 180 mg PO DAILY Qty: 90 3RF Rhopressa 0.02 % drops 1 drp ophthalmic (eye) QPM (DME) Compact Space Chamber Spacer 1 ea inhalation PRN Qty: 0 0RF Rx Instructions: As Directed potassium chloride 20 mEq tablet,ER particles/crystals 20 meq PO DAILY acetaminophen [Tylenol] 325 mg Tablet 650 mg PO Q4H PRN (Reason: Fever, pain 1-03/22) clopidogrel 75 mg tablet 75 mg PO DAILY Patient Comments: FOR 20 DAYS Primary Care Provider: Mickey Nguyen Chi Referrals: Mickey Nguyen Chi, MD [Primary Care Provider] - Activity Restrictions/Additional Instructions: CT brain negative. Left leg x-ray negative for fracture. Continue Adeel wrap ice can use Tylenol as needed. Follow-up with your doctor. Print Language: Indian Disposition Disposition: Home, Self Care Discharge Date/Time: 12/06/24 13:26
[2024-12-06 13:22] VITALS: BP 128/74; PULSE 81; RESP 16; TEMP 36.1; O2SAT 98
== END 2024-12-06 13:26 | disposition home or self-care (01) ==
PROVIDERS: Emergency Provider Emergency Medicine; PCP Family Medicine Geriatric Medicine; Visit Provider Emergency Medicine
DX: S00.81XA Abrasion of other part of head, initial encounter (principal); I10 Essential (primary) hypertension; S80.12XA Contusion of left lower leg, initial encounter; W06.XXXA Fall from bed, initial encounter; Z79.02 Long term (current) use of antithrombotics/antiplatelets; Z79.82 Long term (current) use of aspirin; Z79.899 Other long term (current) drug therapy; Z86.73 Personal history of transient ischemic attack (TIA), and cerebral infarction without residual deficits
CPT/HCPCS: 70450; 73590; 99283; A4216

== ENCOUNTER → 2024-12-11 | Outpatient (CLI) | payer MEDICARE, OTHER, SELFPAY ==
--- NOTE | 2024-12-11 14:08 | VDLE_ITS ---
Reason For Study Reason For Study: Left leg swelling Procedure LEFT This is a venous duplex using B-mode, color flow and GSV is normal. spectral Doppler. CFV is compressible, spontaneous, phasic, competent, Exam performed in department. and demonstrates normal augmentation. A preliminary report was called and/or faxed to . FV is compressible, spontaneous, phasic, competent Patrick. and demonstrates normal augmentation. POP V is compressible, spontaneous, phasic, competent and demonstrates normal augmentation. T/P Trunk is compressible. PTV is compressible. LT PerV is compressible. VL/Venous Duplex US, Unilateral Interpretation Summary Deep veins of the left lower extremity are patent and compressible segmentally. There is no evidence of left lower extremity deep vein thrombosis. Valvular competence appears intact within the p roximal deep venous system on the left . The left great saphenous vein appears patent and compressible segmentally. Ordering Physician: Mickey Nguyen Chi Referring Physician: Mickey Nguyen Chi Performed By: Kiana Mcqueen RVT
--- OUTSIDE RECORDS SUMMARY | 2024-12-11 22:48 | XMS RPT_ITS | CCD ---
Author Organization [facility] Care Team Providers Care Farmer Vegetable Name Role Phone Sanjeev Nguyen Primary Care Provider Patrick, Dr. Mickey Whittington Primary Care Provider Patrick, Dr. Mickey Whittington Referring Provider Murray PRINTED CIRCUIT PHOTOGRAPHER, PRINTED CIRCUIT PHOTOGRAPHER-C Aleja Attending Provider Dr. Harris Jacobsen Emergency Provider Dr. Jada Mccarthy Admit Provider Dr. Jada Mccarthy Attending Provider [phone] Jada Mccarthy Other Provider Dr. Kiah Torre Attending Provider Dr. Kiah Torre Other Provider Dr. Mickey Nguyen Chi Primary Care Provider Patrick, Dr. Mickey Whittington Primary Care Provider Patrick, Dr. Mickey Whittington Referring Provider Murray PRINTED CIRCUIT PHOTOGRAPHER, PRINTED CIRCUIT PHOTOGRAPHER-C Aleja Attending Provider [phone] Murray PRINTED CIRCUIT PHOTOGRAPHER, PRINTED CIRCUIT PHOTOGRAPHER-C Aleja Referring Provider Murray PRINTED CIRCUIT PHOTOGRAPHER, PRINTED CIRCUIT PHOTOGRAPHER-C Aleja Other Provider Dr. José Luis Damon Attending Provider Dr. Mickey Nguyen Chi Primary Care Provider [phone] Patrick, Dr. Mickey Whittington Referring Provider Dr. José Luis Damon Attending Provider Patrick GAN, Dr. Mickey Whittington Primary Care Provider [phone] Patrick GAN, Dr. Mickey Whittington Attending Provider [phone] Patrick GAN, Dr. Mickey Whittington Primary Care Provider Patrick GAN, Dr. Mickey Whittington Attending Provider PATRICK GAN, DR CANALES Primary Care Physician Patrick GAN, Dr. Mickey Whittington Primary Care Provider [phone] Patrick GAN, Dr. Mickey Whittington Attending Provider Smitha ALEXANDRE, Dr. Almanza Emergency Provider [phone] GiseleusLillianaour Attending Unavailable Patrick, Mickey Chi Referring Unavailable Patrick, Mickey Chi Primary Care Unavailable Isckarus, Mansour Attending Unavailable Patrick, Mickey Chi Referring Unavailable Patrick, Mickey Chi Primary Care Unavailable Patrick, Mickey Chi Primary Care Unavailable Nikky Galo Attending Unavailable Isckarus, Mansour Attending Unavailable Isckarus, Mansour Referring Unavailable Patrick, Mickey Chi Primary Care Unavailable Patrick, Mickey Chi Attending Unavailable Patrick, Mickey Chi Primary Care Unavailable Patrick, Mickey Chi Attending Unavailable Patirck, Mickey Chi Primary Care Unavailable Patrick, Mickey Chi Attending Unavailable Patrick, Mickey Chi Primary Care Unavailable Patrick, Mickey Chi Attending Unavailable Patrick, Mickey Chi Primary Care Unavailable Sergio Smith Attending Unavailable Patrick, Mickey Chi Primary Care Unavailable Archie Bone Attending Unavailable Patrick, Mickey Chi Primary Care Unavailable YELITZA MORENO, KRISTEN Abbasi Admitting Adrien HARO DO, DR ARANGO Attending Unavailable PATRICK GAN, DR CANALES Primary Care Unavailable Allergies Allergy Classification Reported Allergen(s) Allergy Type Date of Onset Reaction(s) Facility (11 sources) Amoxicillin Drug Allergy 02-27-20 20 unknown [place], [place] (11 sources) Clavulanate Drug Allergy 02-27-20 20 unknown [place], [place] (12 sources) predniSONE; Translations: [prednisone] Drug Allergy 02-27-20 Rash [place], [place] (2 sources) Acetaminophen / HYDROcodone Drug Allergy 04-18-20 Nausea And Vomiting [facility] Work Phone: (2 sources) Acetaminophen / oxyCODONE Drug Allergy 04-18-20 20 Nausea And Vomiting [facility] Work Phone: (11 sources) Adhesive Tape; Translations: [adhesive tape] Propensity to adverse reactions to drug 08-12-19 21 Rash [facility] Work Phone: (2 sources) Morphine Drug Allergy 04-18-20 [facility]a [facility]omiting [facility] Work Phone: (2 sources) oxyCODONE Drug Allergy 04-18-20 [facility] Vomiting [facility] Work Phone: (2 sources) oxyCODONE Drug Allergy 04-18-20 Nausea And Vomiting [facility] Work Phone: (3 sources) pain medication Propensity to adverse reactions 06-02-20 21 Difficulty swallowing [facility] Work Phone: (5 sources) Opioids - Morphine Analogues Propensity to adverse reactions 07-13-19 24 DIFFICULTY SWALLOWING [facility] (3 sources) Glucocorticoid Receptor Agonists Propensity to adverse reactions 03-07-20 24 Pain in joints [facility] (1 source) Codeine; Translations: [codeine] Drug Allergy nausea [facility] (1 source) Cortisone; Translations: [cortisone] Drug Allergy nausea, rash [facility] (1 source) Latex Allergy to substance rash [facility] (1 source) [facility] medication for hypertension (non-codified) Drug allergy narcotics [facility] (1 source) Amoxicillin Drug Allergy 12-07-19 25 [facility] (1 source) Clavulanate Drug Allergy 12-07-19 25 [facility] (1 source) Corticosteroids Drug allergy (disorder) 12-07-19 25 [facility] (1 source) predniSONE Drug Allergy 12-07-19 25 [facility] (1 source) Opioids - Morphine Analogues Drug allergy (disorder) 12-07-19 25 [facility] Repository Medications Current Medications Medication Drug Class(es) Dates Sig (Normalized) Sig (Original) acetaminophen 325 mg oral tablet (15 sources) Start: 08-21-2021 End: 12-06-2024 take 2 tablets by mouth every four hours as needed for pain Acetaminophen (Tylenol) 325 mg Tablet Active 650 mg PO Q4H as needed for Fever, pain December 06, 2024 12:00am Start: 08-13-2020 End: 08-14-2020 acetaminophen (OFIRMEV) infu irma 1,000 mg Start: 08-13-2020 take 1 dose by mouth three times daily 1,000 mg, Oral, EVERY 8 HOURS SCHEDULED (3 times per day), First dose on Alida 08/14/20 at 1400 Maximum dose of acetaminophen is 4000 mg from all sources in 24 hours. take 1 tablet by beata every six hours as needed for pain acetaminophen (TYLENOL) 500 MG tablet Take 500 mg by mouth every 6 hours as needed for Pain 0 Suspended Albuterol Sulfate (8 sources) beta2-Adrenergic Agonist Start: 08-21-2021 take 1 puff(s) by inhalation every two hours as needed Albuterol Sulfate (Proair Hfa) 90 mcg/actuation Hfa Aerosol Inhaler Active 2 PUFF INHALATION EVERY 2 HOURS NEEDED 0 August 21, 2021 1:24pm Start: 08-21-2021 End: 11-24-2021 Albuterol Sulfate (Proair Hf a) 90 mcg/actuation Hfa Aerosol Inhaler Discontinued 2 NMA INHALATION EVERY 2 HOURS NEEDED as needed for Dyspnea, wheezing 0 August 21, 2021 1:00am November 24, 2021 12:40pm Start: 08-21-2021 End: 11-24-2021 take 1 puff(s) by inhalation every two hours as needed Albuterol Sulfate (Proair Hfa) 90 mcg/actuation Hfa Aerosol Inhaler Discontinued 2 PUFF INHALATION EVERY 2 HOURS NEEDED 0 August 21, 2021 1:00am November 24, 2021 12:40pm Radha 24 Hour Allergy (1 source) Start: 12-02-2024 take 1 dose by mouth once daily Radha 24 Hour Allergy Dose : 180 mg =, Oral, qDay, 0 Refill(s) Start Date: 12/02/24 Status: Ordered Repeat number: 1 Ascorbic Acid (12 sources) Vitamin C Start: 12-02-2024 Vitamin C See Instructions, qDay, 0 Refill(s) Start Date: 12/02/24 Status: Ordered Repeat number: 1 Start: 01-06-2019 take 2 tablets by mo [facility] once daily Ascorbic Acid (Vitamin C) 500 mg tablet Active 1000 mg PO DAILY January 06, 2019 12:00am Start: 01-06-2019 take 1000 mg by mouth once jaylen ly Ascorbic Acid (Vitamin C) Active 1000 MG PO DAILY January 06, 2019 12:00am take 1 tablet by mouth once niesha y ascorbic acid (VITAMIN C) 500 MG tablet Take 500 mg by mouth daily 0 Active aspirin 81 mg chewable tablet (1 source) Platelet Aggregation Inhibitor, Nonsteroidal Anti-inflammatory Drug Start: 12-03-2024 End: 01-02-2025 aspirin 81 mg oral tablet, chewable Dose : 81 mg = 1 tab(s), Oral, qDay, # 30 tab(s), 0 Refill(s), Pharmacy: [facility]/pharmacy #[id number], 160, cm, 12/02/24 15:49:00 EDT, Height, kg, 12/02/24 15:49:00 EDT, Dosing Weight Start Date: 12/03/24 Stop Date: 01/02/25 Status: Ordered Quantity: 30.0 Unit: tab(s) Repeat number: 1 Biotin (6 sources) Start: 12-02-2024 biotin qDay, 0 Refill(s) Start Date: 12/02/24 Status: Ordered Repeat number: 1 Start: 11-29-2022 Biotin (Hair, Skin And Nails (Biotin)) 10,000 mcg tablet,chewable Active 56113 ug PO DAILY November 29, 2022 12:00am Start: 11-29-2022 Biotin (Hair, Skin And Nails (Biotin)) 10,000 mcg tablet,chewable Active ug PO November 29, 2022 12:00am Start: 11-29-2022 Biotin (Hair, Skin And Nails (Biotin)) 10,000 mcg tablet,chewable Active ug PO November 28, 2022 11:00pm Start: 11-29-2022 Biotin (Hair, Skin And Nails (Biotin)) 10,000 mcg tablet,chewable Active MCG PO November 29, 2022 12:00am brimonidine tartrate 2 mg/ml ophthalmic solution (13 sources) alpha-Adrenergic Agonist Start: 05-22-2020 Brimo nidine 0.2 % drops Active 1 NMA OPHTHALMIC TWICE A DAY May 22, 2020 1:00am Start: 02-19-2020 take 1 drop(s) into the eye(s) twice daily brimonidine (ALPHAGAN) 0.2 % ophthalmic solution INSTILL 1 DROP INTO EACH EYE TWICE DAILY 0 02/19/2020 Suspended Start: 09-25-2019 take 1 drop(s) into the eye(s) twice daily Alphagan 0.2% ophthalmic solution INSTILL 1 DROP INTO EACH EYE TWICE DAILY Start Date: 09/25/19 Status: Ordered Repeat number: 1 cholecalciferol 0.025 mg oral tablet (19 sources) Vitamin D Start: 02-04-2021 take 1 tablet by mouth once daily Cholecalciferol (Vitamin D3) 25 mcg (1,000 unit) tablet Active 25 ug PO DAILY February 04, 2021 12:00am Start: 01-09-2019 End: 02-04-2021 take 1 capsule by mouth once daily Cholecalciferol (Vitamin D3) 5,000 unit capsule Discontinued 5000 U PO DAILY January 09, 2019 12:00am February 04, 2021 1:37pm Cholecalciferol (VITAMIN D3) 125 MCG (5000 UT) TABS Take by mouth daily 0 Suspended Cholecalciferol (VITAMIN D3) 125 MCG (5000 UT) TABS Take by mouth 0 Active citalopram 20 mg oral tablet (13 sources) Serotonin Reuptake Inhibitor Start: 01-06-2019 take 1 tablet by mouth once daily Citalopram 20 mg tablet Active 20 mg PO DAILY January 06, 2019 12:00am clopidogrel 75 mg oral tablet (2 sources) [id number] Platelet Inhibitor Start: 12-04-2024 End: 12-24-2024 take 1 tablet by mouth once daily Clopidogrel 75 mg tablet Active 75 mg PO DAILY December 06, 2024 12:00am 1 ml hydrALAZINE hydrochloride 20 mg/ml injection (2 sources) Arteriolar Vasodilator Start: 08-13-2020 hydrALAZINE (APRESOLINE) injection 10 mg Start: 08-13-2020 End: 08-13-2020 hydrALAZINE (APRESOLINE) inj ection 5 mg hydroCHLOROthiazide 25 mg oral tablet (12 sources) Thiazide Diuretic Start: 08-14-2020 take 50 mg by mouth once daily 50 mg, Oral, DAILY, First dose on Alida 08/14/20 at 1045 Start: 01-06-2019 End: 07-13-2023 take 1 tablet by mouth once daily Hydrochlorothiazide 50 mg tablet Discontinued 50 mg PO DAILY January 06, 2019 12:00am July 13, 2023 11:46am Inhalational Spacing Device (Compact Space Chamber) Spacer (8 sources) Start: 08-21-2021 Inhalational S pacing Device (Compact Space Chamber) Spacer Active 1 EACH INHALATION NEEDED 0 August 21, 2021 1:24pm As Directed Start: 08-21-2021 Inhalational S pacing Device (Compact Space Chamber) Spacer Active 1 NMA INHALATION NEEDED as needed for WITH ALBUTEROL INHALER 0 August 21, 2021 1:00am As Directed Start: 08-21-2021 Inhalational S pacing Device (Compact Space Chamber) Spacer Active 1 NMA INHALATION NEEDED as needed for WITH ALBUTEROL INHALER 0 August 21, 2021 12:00am As Directed Start: 08-21-2021 Inhalational S pacing Device (Compact Space Chamber) Spacer Active 1 EACH INHALATION NEEDED 0 August 21, 2021 1:00am As Directed Start: 08-21-2021 Inhalational S pacing Device (Compact Space Chamber) Spacer Active 1 EACH INHALATION NEEDED 0 August 21, 2021 12:00am As Directed latanoprost 0.05 mg/ml ophthalmic solution (12 sources) Prostaglandin Analog Start: 09-25-2019 take 1 drop(s) into the eye(s) at bedtime latanoprost 0.005% ophthalmic solution INSTILL 1 DROP INTO EACH EYE AT BEDTIME Start Date: 09/25/19 Status: Ordered Repeat number: 1 Start: 01-09-2019 Latanoprost 0. 005 % drops Active 1 NMA OPHTHALMIC EVERY EVENING January 09, 2019 12:00am take 1 drop(s) into the eye(s) once daily latanoprost (XALATAN) 0.005 % ophthalmic solution Place 1 drop into both eyes nightly 0 Suspended losartan potassium 50 mg oral tablet (12 sources) Angiotensin 2 Receptor Zunilda Start: 01-06-2019 take 1 tablet by mouth once daily Losartan 50 mg tablet Active 50 mg PO DAILY January 06, 2019 12:00am netarsudil 0.2 mg/ml ophthalmic solution (4 sources) Rho Kinase Inhibitor Start: 12-02-2024 Rhopressa 0.02% ophthalmic solution Dose = 1 drop(s), Eyes, both, qPM, 0 Refill(s) Start Date: 12/02/24 Status: Ordered Repeat number: 1 Start: 02-29-2024 take 0.02 drop(s) in to the eye(s) once daily in the evening Netarsudil (Rhopressa) 0.02 % drops Active 1 NMA OPHTHALMIC EVERY EVENING February 29, 2024 12:00am ondansetron 4 mg disintegrating oral tablet (1 source) Serotonin-3 Receptor Antagonist Start: 08-13-2020 take 1 tablet by mouth three times daily as needed for nausea ondansetron (ZOFRAN-ODT) 4 MG disintegrating tablet Take 1 tablet by mouth 3 times daily as needed for Nausea or Vomiting 21 tablet 0 08/13/2020 Active ondansetron (ZOFRAN-ODT) disintegrating tablet 4 mg (1 source) Start: 08-13-2020 ondansetron (ZOFRAN-ODT) disintegrating tablet 4 mg microencapsulated potassium chloride 20 meq extended release oral tablet (13 sources) Start: 12-06-2024 take 1 tablet by mouth once daily Potassium Chloride 20 mEq tablet,ER particles/crystals Active 20 meq PO DAILY December 06, 2024 12:00am Start: 02-07-2020 take 1 tablet by beata th once daily potassium chloride (KLOR-CON M) 20 MEQ extended release tablet TAKE 1 TABLET BY MOUTH ONCE DAILY 0 02/07/2020 Suspended Start: 09-25-2019 take 1 tablet by beata th once daily potassium chloride 20 mEq oral tablet, extended release TAKE 1 TABLET BY MOUTH ONCE DAILY Start Date: 09/25/19 Status: Ordered Repeat number: 1 Start: 01-06-2019 End: 12-06-2024 take 1 tablet by mouth once daily Potassium Chloride 20 mEq tablet extended release Discontinued 20 meq PO DAILY January 06, 2019 12:00am December 06, 2024 12:21pm rosuvastatin calcium 20 mg oral tablet (13 sources) HMG-CoA Reductase Inhibitor Start: 08-14-2020 take 10 mg by mouth once daily 10 mg, Oral, NIGHTLY, First dose on Al[place] 08/14/20 at 2100 Start: 01-06-2019 take 1 tablet by beata th at bedtime Rosuvastatin (Crestor) 10 mg tablet Active 10 mg PO AT BEDTIME January 06, 2019 12:00am 3 ml sodium chloride 9 mg/ml injection (3 sources) Start: 08-13-2020 10 mL, Intrave nous, EVERY 12 HOURS SCHEDULED (2 times per day), First dose on Tue08/13/20 at 2100 Start: 08-13-2020 take 10 mL intraveno us route once as needed 10 mL, Intravenous, PRN, Line Care, After every IV line use, Starting Tue08/13/20 at 1826 Start: 04-08-2020 0.9 % sodium c hloride infusion timolol 0.005 mg/mg ophthalmic gel (16 sources) beta-Adrenergic Zunilda Start: 08-13-2020 1 drop , Both Eyes, DAILY, First dose on Tue08/13/20 at 1845 Start: 02-07-2020 take 1 drop(s) into the eye(s) twice daily timolol (TIMOPTIC) 0.5 % ophthalmic solution INSTILL 1 DROP INTO EACH EYE TWICE DAILY 0 02/07/2020 Suspended Start: 09-25-2019 take 1 drop(s) into the eye(s) twice daily timolol maleate 0.5% ophthalmic solution INSTILL 1 DROP INTO EACH EYE TWICE DAILY Start Date: 09/25/19 Status: Ordered Repeat number: 1 Start: 01-09-2019 Timolol Maleat e Active 1 DRP OPHTHALMIC DAILY January 09, 2019 3:32pm Start: 01-09-2019 Timolol Maleat e 0.5 % drops Active 1 NMA OPHTHALMIC TWICE A DAY January 09, 2019 12:00am Start: 01-09-2019 Timolol Maleat e 0.5 % drops Active 1 NMA OPHTHALMIC DAILY January 09, 2019 12:00am Start: 01-09-2019 Timolol Maleat e 0.5 % drops Active 1 NMA OPHTHALMIC DAILY January 08, 2019 11:00pm Start: 01-09-2019 Timolol Maleat e Active 1 DRP OPHTHALMIC DAILY January 09, 2019 12:00am Start: 01-09-2019 Timolol Maleat e Active 1 DRP OPHTHALMIC DAILY January 08, 2019 11:00pm apply 1 drop(s) into the eye(s) once daily timolol (TIMOPTIC-XE) 0.5 % ophthalmic gel-forming 1 drop daily No longer taking 0 Suspended Vitamin D3 (1 source) Start: 12-02-2024 Vitamin D3 Dos e : 25 mcg = 1 tab(s), Oral, Daily, 0 Refill(s) Start Date: 12/02/24 Status: Ordered Repeat number: 1 Completed/Discontinued Medications Medication Drug Class(es) Dates Sig (Normalized) Sig (Original) aprepitant 40 mg oral capsule (1 source) Substance P/Neurokinin-1 Receptor Antagonist Start: 08-13-2020 End: 08-13-2020 aprepitant (EMEND) capsule 40 mg Start: 08-13-2020 End: 08-13-2020 aprepitant (EMEND) capsule 4 0 mg atenolol 25 mg oral tablet (8 sources) beta-Adrenergic Zunilda Start: 01-06-2019 End: 08-03-2019 take 1 tablet by mouth once daily Atenolol 25 mg tablet Discontinued 25 mg PO DAILY January 06, 2019 12:00am August 03, 2019 12:46pm calcium carbonate 1250 mg / cholecalciferol 200 unt oral tablet (3 sources) Vitamin D take 1 tablet by mouth once daily Calcium Carb-Cholecalcife rol (CALCIUM-VITAMIN D) 500-200 MG-UNIT per tablet Take 1 tablet by mouth daily 0 Suspended take 1 tablet by beata th twice daily at mealtime Calcium Carb-Cholecalciferol (CALCIUM- TAMIN D) 500-200 MG-UNIT per tablet Take 1 tablet by mouth 2 times daily (with meals) 0 Active calcium chloride 0.0014 meq/ml / potassium chloride 0.004 meq/ml / sodium chloride 0.103 meq/ml / sodium lactate 0.028 meq/ml injectable solution (1 source) Start: 08-13-2020 End: 08-13-2020 lactated ringers infusion ceFAZolin 2000 mg injection (1 source) Cephalosporin Antibacterial Start: 08-13-2020 End: 08-13-2020 ceFAZolin (ANCEF) 2000 mg in dextrose 4 % 100 mL IVPB (premix) celecoxib 200 mg oral capsule (1 source) Nonsteroidal Anti-inflammatory Drug Start: 08-13-2020 End: 08-13-2020 celecoxib (CELEBREX) capsule 200 mg Start: 08-13-2020 End: 08-13-2020 celecoxib (CELEBREX) capsule 200 mg dexamethasone 6 mg oral tablet (8 sources) Corticosteroid Start: 08-21-2021 End: 08-28-2021 take 1 tablet by mouth once daily Dexamethasone (Decadron) 6 mg tablet Discontinued 6 mg PO DAILY August 21, 2021 1:00am August 27, 2021 12:00am August 28, 2021 12:03am 0.4 ml enoxaparin sodium 100 mg/ml prefilled syringe (9 sources) Low Molecular Weight Heparin Start: 08-21-2021 End: 07-13-2023 Enoxaparin 40 mg/0.4 mL Syringe Discontinued 40 mg SC DAILY 0 August 21, 2021 1:00am July 13, 2023 11:46am Start: 08-13-2020 inject 40 mg by subc utaneous injection once daily 40 mg, Subcutaneous, DAILY, First dose on Tue08/13/20 at 2200 famotidine 20 mg oral tablet (1 source) Histamine-2 Receptor Antagonist Start: 08-13-2020 End: 08-13-2020 famotidine (PEPCID) tablet 20 mg Start: 08-13-2020 End: 08-13-2020 famotidine (PEPCID) tablet 2 0 mg fexofenadine hydrochloride 180 mg oral tablet (16 sources) Histamine-1 Receptor Antagonist Start: 03-03-2022 End: 11-29-2022 take 1 tablet by mouth once daily Fexofenadine (Radha Allergy) 180 mg tablet Discontinued 180 mg PO DAILY November 29, 2022 1:27pm November 29, 2022 1:27pm furosemide 20 mg oral tablet (8 sources) Loop Diuretic Start: 01-09-2019 End: 02-07-2020 take 1 tablet by mouth once daily as needed for edema, then take 3 tablets by mouth once daily as needed for edema Furosemide 20 mg tablet Discontinued 20 mg PO DAILY as needed for edema January 09, 2019 12:00am February 07, 2020 3:41pm Take 1 tablet as needed for excessive lower extremity edema, or weight gain of greater than 3 pounds from the day before 1 ml heparin sodium, porcine 5000 unt/ml prefilled syringe (1 source) Unfractionated Heparin, Anti-coagulant Start: 08-13-2020 End: 08-13-2020 heparin (porcine) injection 5,000 Units Start: 08-13-2020 End: 08-13-2020 heparin (porcine) injection 5,000 Units lidocaine hydrochloride 0.02 mg/mg topical gel (1 source) Antiarrhythmic, Amide Local Anesthetic Start: 04-08-2020 End: 04-08-2020 lidocaine (XYLOCAINE) 2 % jelly loperamide hydrochloride 2 mg oral capsule (1 source) Opioid Agonist Start: 08-14-2020 End: 08-14-2020 loperamide (IMODIUM) capsule 2 mg loratadine 10 mg oral tablet (11 sources) Start: 01-06-2019 End: 03-03-2022 take 1 tablet by mouth once daily Loratadine (Claritin) 10 mg tablet Discontinued 10 mg PO DAILY January 06, 2019 12:00am March 03, 2022 2:51pm meloxicam 7.5 mg oral tablet (8 sources) Nonsteroidal Anti-inflammatory Drug Start: 01-06-2019 End: 08-03-2019 take 1 tablet by mouth twice daily Meloxicam 7.5 mg tablet Discontinued 7.5 mg PO TWICE A DAY January 06, 2019 12:00am August 03, 2019 12:47pm nystatin 100 unt/mg topical powder (2 sources) Polyene Antifungal Start: 04-16-2020 NYSTATIN [id number] UNIT/GM powder Apply topically as needed (groin rash) 0 04/16/2020 Suspended pantoprazole 40 mg delayed release oral tablet (8 sources) Proton Pump Inhibitor Start: 01-06-2019 End: 08-03-2019 take 1 tablet by mouth once daily Pantoprazole 40 mg tablet,delayed release (DR/EC) Discontinued 40 mg PO DAILY January 06, 2019 12:00am August 03, 2019 12:47pm Problems Active Problems Problem Classification Problem Date Documented Date Episodic/Chronic Abdominal hernia (13 sources) Hiatal hernia; Translations: [Diaphragmatic hernia without obstruction or gangrene] Onset: 04-08-2020 04-08-2020 Episodic Comment on above: Status post Leobardo M arch 2020 Diabetes mellitus without complication (3 sources) Type 2 diabetes mellitus without complication; Translations: [Type 2 diabetes mellitus without complications] Onset: 12-02-2024 Chronic Diabetes mellitus without complication (10 sources) Hyperglycemia; Translations: [Hyperglycemia, unspecified] Episodic Disorders of lipid metabolism (10 sources) Hyperlipidemia; Translations: [Hyperlipidemia, unspecified] Onset: 12-02-2024 02-04-2021 Chronic E Codes: Fall (1 source) Fall; Translations: [Unspecified fall, initial encounter] 12-06-2024 Episodic Esophageal disorders (5 sources) Gastroesophageal reflux disease without esophagitis; Translations: [Gastroesophageal reflux disease without esophagitis] Onset: 04-08-2020 04-08-2020 Chronic Essential hypertension (11 sources) Essential hypertension; Translations: [Essential (primary) hypertension] Onset: 08-31-2024 01-06-2019 Chronic Fluid and electrolyte disorders (18 sources) Hypokalemia; Translations: [Hypokalemia] Episodic Gastritis and duodenitis (4 sources) Chronic superficial gastritis; Translations: [Chronic superficial gastritis without bleeding] 04-08-2020 Episodic Malaise and fatigue (10 sources) Asthenia; Translations: [Other malaise] Episodic Mood disorders (8 sources) Depressive disorder; Translations: [Depression] 01-06-2019 Chronic Nutritional deficiencies (8 sources) Vitamin D deficiency; Translations: [Vitamin D deficiency, unspecified] 01-06-2019 Chronic Other acquired deformities (8 sources) Kyphoscoliosis deformity of spine; Translations: [Scoliosis, unspecified] 01-23-2019 Chronic Other acquired deformities (2 sources) Scoliosis, unspecified; Translations: [Scoliosis [and kyphoscoliosis], idiopathic] 07-13-2023 Chronic Other and ill-defined heart disease (8 sources) Diastolic dysfunction; Translations: [Other ill-defined heart diseases] 02-21-2020 Chronic Comment on above: Stage I per echo 08/11 Other and ill-defined heart disease (2 sources) Other ill-defined heart diseases; Translations: [Heart disease, unspecified] 07-13-2023 Chronic Other hematologic conditions (3 sources) Erythrocytosis; Translations: [Secondary polycythemia] 02-29-2024 Episodic Other injuries and conditions due to external causes (1 source) Injury of head; Translations: [Unspecified injury of head, initial encounter] 12-06-2024 Episodic Other liver diseases (10 sources) Enzyme level - finding; Translations: [Elevated transaminase measurement] Episodic Other lower respiratory disease (8 sources) Dyspnea; Translations: [Shortness of breath] 01-06-2019 Episodic Other lower respiratory disease (8 sources) Hypoxia; Translations: [Hypoxemia] 08-18-2021 Episodic Other lower respiratory disease (3 sources) Shortness of breath; Translations: [Shortness of breath] Episodic Other lower respiratory disease (2 sources) Hypoxemia; Translations: [Hypoxemia] Episodic Other lower respiratory disease (9 sources) Cough; Translations: [[id number] syndrome manifesting as chronic cough] Episodic Other screening for suspected conditions (not mental disorders or infectious disease) (10 sources) D-dimer above reference range; Translations: [Other specified abnormal findings of blood chemistry] Episodic Pneumonia (except that caused by tuberculosis or sexually transmitted disease) (10 sources) Bilateral pneumonia; Translations: [Pneumonia, unspecified organism] Episodic Residual codes; unclassified (8 sources) Edema; Translations: [Edema, unspecified] 01-06-2019 Episodic Residual codes; unclassified (1 source) Altered mental status; Translations: [Altered mental status, unspecified] Onset: 12-02-2024 Episodic Residual codes; unclassified (1 source) Altered mental status, unspecified; Translations: [Altered mental status, unspecified] Onset: 12-02-2024 Episodic Respiratory failure; insufficiency; arrest (adult) (11 sources) Acute respiratory failure; Translations: [Acute respiratory failure with hypoxia] Episodic Superficial injury; contusion (1 source) Contusion of left lower leg, initial encounter; Translations: [Contusion of left lower extremity] 12-06-2024 Episodic Transient cerebral ischemia (2 sources) Transient cerebral ischemia; Translations: [Transient cerebral ischemic attack, unspecified] Onset: 12-02-2024 Chronic Unclassified (1 source) Patient encounter status; Translations: [Encounter for screening for other viral diseases] Past or Other Problems Problem Classification Problem Date Documented Da te Episodic/Chronic Other connective tissue disease (1 source) Pain in left leg; Translations: [Pain in left leg] Onset: 12-27-2023 Episodic Other hematologic conditions (2 sources) Secondary polycythemia; Translations: [Secondary polycythemia] Onset: 02-29-2024 Episodic Residual codes; unclassified (1 source) Chills (without fever); Translations: [Chills (without fever)] Onset: 08-16-2024 Episodic Results Test Name Value Interpretation Reference Range Facility Brain/Head without Contrasto n 12-06-2024 Brain/Head without Contrast [facility] Imaging Services [address] [place] [id number] Brain/Head without Contrast MR#: [id number] Acct: [id number] Name: RICHELLE AHUJA Rep #: [id number] : 1945 F 78 From: Sinan pitts MD PCP: Dr. Mickey Nguyen MD Status: [facility] ER Study: Brain/Head without Contrast Date of Exam: 11/12 12/05 Exam# [id number] Ordering Dr: Archie Bone DO PROCEDURE: BRAIN/HEAD WITHOUT CONTRAST 12/06/2024 REASON FOR EXAM: HEAD INJURY TECHNIQUE: BRAIN/HEAD WITHOUT CONTRAST Coronal and Sagittal reconstruction series were provided. One or more dose reduction techniques were used (e.g., Automated exposure control, adjustment of the mA and/or kV according to patient size, use of iterative reconstruction technique. RADIATION DOSE SUMMARY: CTDlvol: 44.99 mGy DLP: 829.85 mGycm COMPARISON: None FINDINGS: Brain: Low density in the periventricular white matter suggests mild chronic small vessel ischemic changes. Atherosclerotic calcification of the cavernous portions of the internal carotid arteries bilaterally. CSF Spaces: Mild generalized cerebral atrophy Sinuses/Mastoids: Clear at visualized levels Bones: Hyperostosis frontalis interna. CT/Brain/Head without Contrast IMPRESSION: CHRONIC CHANGES. NO ACUTE FINDINGS. Reading Location: [facility] CC: Dr. Mickey Nguyen MD; Dr. Archie Bone DO Global Program Director: Signed Normal [facility] Emergency Department Summary on 12-06-2024 Emergency Department Summary [facility] Medical Records Department [address] [place] [id number] Emergency Department Summary 12/06/24 MR#: [id number] Acct: [id number] Name: RICHELLE AHUJA Rep #: [id number] : 1945 78 From: Archie Breaux PCP: Dr. Mickey Nguyen MD Status:[facility] ER Location: ED [facility] HPI - Fall History of Present Illness Chief Complaint: Fall Narrative Narrative: Presents here with friend fall out of bed. Awaking at 7:00 felt tired stayed in bed. She rolled to edge of bed fell off hitting her left leg on the bed. She got up and bumped her head on the bed siding. No loss of conscious. Recent TIA on aspirin and Plavix. Bruising to the legs however able to ambulate. No loss of consciousness. [facility] Medical History Polycythemia Non-smoker Hiatal hernia History of pneumonia Scoliosis Diastolic dysfunction Hypokalemia Edema Hyperlipidemia Essential hypertension Shortness of breath Home Medications ???Medication ???Instructions ???Recorded ???Last Taken ???Type ascorbic acid (vitamin C) 500 mg 1,000 mg PO DAILY 01/06/19 5 History tablet citalopram 20 mg tablet 20 mg PO DAILY 01/06/19 12/06/24 H istory losartan 50 mg tablet 50 mg PO DAILY 01/06/19 12/06/24 H istory rosuvastatin 10 mg tablet (Crestor) 10 mg PO QHS 01/06/19 12/05/24 History latanoprost 0.005 % eye drops 1 drp ophthalmic (eye) QPM 9 12/05/24 History timolol maleate 0.5 % eye drops 1 drp ophthalmic (eye) BID 9 12/06/24 History brimonidine 0.2 % eye drops 1 drp ophthalmic (eye) BID 0 12/06/24 History cholecalciferol (vitamin D3) 25 25 mcg PO DAILY 02/04/21 12/06/24 History mcg (1,000 unit) tablet inhalational spacing device #0 ea 08/21/21 Unknown Rx (Compact Space Chamber) biotin 10,000 mcg chewable tablet 10,000 mcg PO DAILY 11/29/2211/12 History (Hair, Skin and Nails (biotin)) fexofenadine 180 mg tablet 180 mg PO DAILY #90 tabs 11/29/22 12/06/24 Rx (Radha Allergy) netarsudil 0.02 % eye drops 1 drp ophthalmic (eye) QPM 4 12/05/24 History (Rhopressa) acetaminophen 325 mg tablet 650 mg PO Q4H PRN Fever, pain 11/12 12/05 Unknown History (Tylenol) -10/10 clopidogrel 75 mg tablet 75 mg PO DAILY 12/06/24 12/06/24 H istory potassium chloride 20 mEq 20 meq PO DAILY 12/06/24 12/06/24 History tablet,extended release(part/cryst) Allergy/AdvReac Type Severity Reaction Status Date / Time prednisone Allergy Rash Verified 12/06/24 11:41 Opioids - Morphine Analogues AdvReac Severe DIFFICULTY Verified 12/06/24 11:41 SWALLOWING adhesive tape AdvReac Intermediate Rash, Verified 12/06/24 11:41 burning amoxicillin (From Augmentin) AdvReac Unknown unknown Verified 12/06/24 11:41 clavulanic acid (From AdvReac Unknown unknown Verified 12/06/24 11:41 Augmentin) Corticosteroids AdvReac Pain in Verified 12/06/24 11:41 (Glucocorticoids) (steroids) joints Family History Father CAD (coronary artery disease) Myocardial infarction Mother Hypertension Heart disease Uncle Emphysema of lung Heart disease Surgical History History of hernia repair History of Leobardo fundoplication H/O wisdom tooth extraction History of hip replacement Hx of cataract removal with insertion of prosthetic lens History of tonsillectomy Social History household members: none Smoking Status: Never smoker alcohol intake: never substance use type: does not use ROS ROS ED Constitutional Constitutional ED: Denies fever(s) Cardiovascular Cardiovascular: Denies chest pain Respiratory/Chest Respiratory/Chest: Denies cough Gastrointestinal Gastrointestinal: Denies diarrhea or vomiting Musculoskeletal Musculoskeletal: Reports none and other Details: Left leg bruising Integumentary Denies rash or wounds Neurologic Neurologic: Denies weakness EXAM Physical Exam Const Vital Signs: 12/06/24 11:24 12/06/24 12:52 12/06/24 12:52 Temperature 97.8 F Temperature Source Temporal Pulse Rate 68 74 Respiratory Rate 18 18 Respiratory Effort Normal Respiratory Depth Normal Respiratory Pattern Normal Blood Pressure 129/75 H Blood Pressure Mean 93 Pulse Ox 98 94 Oxygen Delivery Method Room Air Room Air Room Air 12/06/24 13:22 Temperature 97 F L Temperature Source Pulse Rate 81 Respiratory Rate 16 Respiratory Effort Respiratory Depth Respiratory Pattern Blood Pressure 128/74 H Blood Pressure Mean 92 Pulse Ox 98 Oxygen Delivery Method Positive well nourished and well developed Constitutiona (more content not included)... Normal [facility] Tibia Fibula 2 Viewson 12-06 Tibia Fibula 2 Views [facility] Imaging Services [address] [place] [address] Tibia Fibula 2 Views MR#: [id number] Acct: [id number] Name: RICHELLE AHUJA Rep #: [id number] : 1945 F 78 From: Sinan pitts MD PCP: Dr. Mickey Nguyen MD Status: REG ER Study: Tibia Fibula 2 Views Date of Exam: 12/06/24 Exam# [id number] Ordering Dr: Archie Bone DO PROCEDURE: TIBIA FIBULA 2 VIEWS 12/06/2024 REASON FOR EXAM: INJURY TECHNIQUE: TIBIA FIBULA 2 VIEWS COMPARISON: None FINDINGS: No fracture or dislocation. Soft tissues are unremarkable. RAD/Tibia Fibula 2 Views IMPRESSION: No acute abnormality is seen. Reading Location: [id number] CC: Dr. Mickey Nguyen MD; Dr. Archie Bone DO Global Program Director: Signed Normal [facility] CT ANGIOGRAPHY NECK W/CONTRA STon 12-04-2024 CT ANGIOGRAPHY NECK W/CONTRAST ORIGINAL EXAMINATION: CTA OF THE NECK 12/03/2024 2:31 pm TECHNIQUE: CTA of the neck was performed with the administration of intravenous contrast. Multiplanar reformatted images are provided for review. MIP images are provided for review. Stenosis of the internal carotid arteries measured using NASCET criteria. Automated exposure control, iterative reconstruction, and/or weight based adjustment of the mA/kV was utilized to reduce the radiation dose to as low as reasonably achievable. COMPARISON: None. HISTORY: ORDERING SYSTEM PROVIDED HISTORY: Reason for Exam: Transient ischemic attack (TIA) FINDINGS: AORTIC ARCH/ARCH VESSELS: No dissection or arterial injury. No significant stenosis of the brachiocephalic or subclavian arteries. CAROTID ARTERIES: No dissection, arterial injury, or hemodynamically significant stenosis by NASCET criteria. VERTEBRAL ARTERIES: No dissection, arterial injury, or significant stenosis. SOFT TISSUES: The lung apices are clear. No cervical or superior mediastinal lymphadenopathy. The larynx and pharynx are unremarkable. No acute abnormality of the salivary and thyroid glands. BONES: No acute osseous abnormality. IMPRESSION: No acute arterial abnormality of the neck. Interpreted by: Bayron Barr MD Preliminary Report By: Bayron Barr MD Electronically signed By Bayron Barr MD Dictated Date: 12/04/2024 3:32:47 AM Prelim Date: 12/04/2024 3:37:13 AM Sign Date: 12/04/2024 3:37:13 AM Ordering Provider: KRISTEN Wilde [facility] .Auto Diffon 12-03-2024 Basophil, Absolute 0.0 10 3/mcL Normal 0.0-0.3 [facility] Comment on above: Performed By: #### T SH, LIPID, FT4, A1C #### [address] [address] Basophils/100 WBC (Bld) 0.5 % Normal 0.0-2.[address] [facility] Comment on above: Performed By: #### T SH, LIPID, FT4, A1C #### [address] [address] Eosinophil, Absolute 0.2 10 3/mcL Normal 0.0-0.7 [facility] Comment on above: Performed By: #### T SH, LIPID, FT4, A1C #### [address] [address] Eosinophils/100 WBC (Bld) 1.9 % Normal 0.0-6.0 [facility] Comment on above: Performed By: #### T SH, LIPID, FT4, A1C #### [address] [address] Lymphocyte, Absolute 2.7 10 3/mcL Normal 0.9-4.3 [facility] Comment on above: Performed By: #### T SH, LIPID, FT4, A1C #### [address] [address] Lymphocytes/100 WBC (Bld) 34.4 % Normal 20.0-40.0 [facility] Comment on above: Performed By: #### T SH, LIPID, FT4, A1C #### [address] [address] Monocyte, Absolute 0.7 10 3/mcL Normal 0.1-1.4 [facility] Comment on above: Performed By: #### T SH, LIPID, FT4, A1C #### [address] [address] Monocytes/100 WBC (Bld) 8.6 % Normal 2.0-13.[address] [facility] Comment on above: Performed By: #### T SH, LIPID, FT4, A1C #### [address] [address] Neutrophils/100 WBC (Bld) 54.6 % Normal 50.0-75.0 [facility] Comment on above: Performed By: #### T SH, LIPID, FT4, A1C #### [address] [address] .GFRon 12-03-2024 Estimated Glomerular Filtration Rate 65 ml/min/1.73sqm Normal [facility] Comment on above: Result Comment: Stages of Chronic Kidney Disease (CKD) Stage Description eGFR(ml/min/1.73 sq.m.) CKD 1 Normal kidney function or >=90 normal kindney function with possible kidney damage (ex. Proteinuria) CKD 2 Kidney damage with mild loss 60-89 of kidney function CKD 3a Mild to moderate loss of kidney 45-59 function CKD 3b Moderate to severe loss of 30-44 of kindey function CKD 4 Severe loss of kidney function 15-29 CKD 5 Kidney failure <15 Note: (go live 2024) the eGFR calculation was updated to the 2020 CKD-EPI creatinine equation without a race factor to calculate the eGFR results. Performed By: #### T SH, LIPID, FT4, A1C #### [address] [address] .NEUABSon 12-03-2024 Neutrophil, Absolute 4.4 10 3/mcL Normal 2.3-8.1 [facility] Comment on above: Performed By: #### T SH, LIPID, FT4, A1C #### [address] [address] CBCon 12-03-2024 Erythrocyte distribution width (RBC) [Ratio] 13.5 % Normal 11.5-15.5 [facility] Comment on above: Performed By: #### T SH, LIPID, FT4, A1C #### [place] [id number] Hematocrit (Bld) [Volume fraction] 42.6 % Normal 34.0-46.0 [facility] Comment on above: Performed By: #### T SH, LIPID, FT4, A1C #### [place] [id number] Hgb 14.5 G/dL Normal 12.0-16.0 [facility] Comment on above: Performed By: #### T SH, LIPID, FT4, A1C #### [place] [id number] MCH (RBC) [Entitic mass] 29.3 pg Normal 27.0-33.0 [facility] Comment on above: Performed By: #### T SH, LIPID, FT4, A1C #### [place] [address] MCHC 34.1 G/dL Normal 32.0-36.0 [facility] Comment on above: Performed By: #### T SH, LIPID, FT4, A1C #### [place] [id number] MCV (RBC) [Entitic vol] 85.8 fL Normal 80.0-99.[address] [facility] Comment on above: Performed By: #### T SH, LIPID, FT4, A1C #### [place] [id number] Platelet 105 10 3/mcL Low 150-450 [facility] Comment on above: Performed By: #### T SH, LIPID, FT4, A1C #### [place] [id number] Platelet mean volume (Bld) [Entitic vol] 7.2 fL Normal 6.6-10.5 [facility] Comment on above: Performed By: #### T MACEY, LIPID, FT4, A1C #### [address] [address] RBC 4.96 10 6/mcL Normal 4.10-5.30 [facility] Comment on above: Performed By: #### T MACEY, LIPID, FT4, A1C #### [address] [address] WBC 8.0 10 3/mcL Normal 4.5-10.8 [facility] Comment on above: Performed By: #### T MACEY, LIPID, FT4, A1C #### [address] [address] CMPon 12-03-2024 Albumin Level 3.3 G/dL Low 3.4-4.8 [facility] Comment on above: Performed By: #### T MACEY, LIPID, FT4, A1C #### [address] [address] Albumin/Globulin [Mass ratio] 1.4 {ratio} Normal 1.1-2.5 [facility] Comment on above: Performed By: #### T MACEY, LIPID, FT4, A1C #### [address] [address] ALP [Catalytic activity/Vol] 89 U/L Normal 40-135 [facility] Comment on above: Performed By: #### T MACEY, LIPID, FT4, A1C #### [address] [address] ALT [Catalytic activity/Vol] 18 U/L Normal 14-59 [facility] Comment on above: Performed By: #### T MACEY, LIPID, FT4, A1C #### [address] [address] AST [Catalytic activity/Vol] 34 U/L Normal 10-40 [facility] Comment on above: Performed By: #### T MACEY, LIPID, FT4, A1C #### [address] [address] Bili Total 0.9 mg/dL Normal 0.2-1.0 [facility] Comment on above: Result Comment: Use of this assay is not recommended for patients undergoing treatment with eltrombopag due to the potential for falsely elevated results. Performed By: #### T SH, LIPID, FT4, A1C #### [place] [address] BUN/Creatinine Ratio 21 ratio Normal 7-27 [facility] Comment on above: Performed By: #### T SH, LIPID, FT4, A1C #### [place] [id number] Calcium [Mass/Vol] 9.6 mg/dL Normal 8.4-10.2 [facility] Comment on above: Performed By: #### T SH, LIPID, FT4, A1C #### [place] [address] Chloride [Moles/Vol] 109 mmol/L High 98-107 [facility] Comment on above: Performed By: #### T SH, LIPID, FT4, A1C #### [place] [address] CO2 [Moles/Vol] 30 mmol/L Normal 23-31 [facility] Comment on above: Performed By: #### T SH, LIPID, FT4, A1C #### [place] [address] Creatinine [Mass/Vol] 0.91 mg/dL Normal 0.51-0.95 [facility] Comment on above: Performed By: #### T SH, LIPID, FT4, A1C #### [place] [address] Electrolyte Balance 4.0 mEq/L Normal 4.0-15.0 [facility] Comment on above: Performed By: #### T SH, LIPID, FT4, A1C #### [place] [address] Globulin 2.4 G/dL Low 2.7-4.4 [facility] Comment on above: Performed By: #### T SH, LIPID, FT4, A1C #### [address] [address] Glucose [Mass/Vol] 98 mg/dL Normal 83-110 [facility] Comment on above: Performed By: #### T SH, LIPID, FT4, A1C #### [address] [address] Potassium [Moles/Vol] 4.2 mmol/L Normal 3.5-5.1 [facility] Comment on above: Performed By: #### T SH, LIPID, FT4, A1C #### [address] [address] Sodium [Moles/Vol] 143 mmol/L Normal 136-145 [facility] Comment on above: Performed By: #### T SH, LIPID, FT4, A1C #### [address] [address] Total Protein 5.7 G/dL Low 6.4-8.2 [facility] Comment on above: Performed By: #### T SH, LIPID, FT4, A1C #### [address] [address] Urea nitrogen [Mass/Vol] 19 mg/dL High 7-18 [facility] Comment on above: Performed By: #### T SH, LIPID, FT4, A1C #### [address] [address] [address] ANGIOGRAPHY HEAD W/ CONTR Theron 12-03-2024 CT ANGIOGRAPHY HEAD W/ CONTRAST ORIGINAL HISTORY: TIA COMPARISON: No TECHNIQUE: CT angiography of the head following uncomplicated administration of intravenous contrast, with 3D post-acquisition processing and with results displayed in source images, sagittal reconstructions through the carotid siphons, maximum intensity projections and volume rendered images. This exam was performed according to our departmental dose optimization program, and includes the following measures where applicable: automated exposure control, adjustment of the mAs and/or kVp according to patient size and/or exam, and an iterative reconstruction algorithm. FINDINGS: There are mild atherosclerotic changes to the cavernous internal carotid arteries. The internal carotid arteries their major branches are otherwise patent without, significant stenosis or aneurysm. There is early division of the left A2 segment. The major vessels of the posterior circulation are unremarkable in appearance. There is a circulatory pattern on the right. IMPRESSION: No large vessel occlusion. Interpreted by: Anderson Parry MD Preliminary Report By: Anderson Parry MD Electronically signed By Anderson Parry MD Dictated Date: 12/03/2024 3:23:08 PM Prelim Date: 12/03/2024 3:30:22 PM Sign Date: 12/03/2024 3:30:22 PM Ordering Provider: KRISTEN Wilde [facility] CT HEAD OR BRAIN W/O CONTRAS Ton 12-03-2024 CT HEAD OR BRAIN W/O CONTRAST ORIGINAL HISTORY: TIA COMPARISON: Previous day TECHNIQUE: Routine noncontrast head CT, with sagittal and coronal reconstructions. This exam was performed according to our departmental dose optimization program, and includes the following measures where applicable: automated exposure control, adjustment of the mAs and/or kVp according to patient size and/or exam, and an iterative reconstruction algorithm. FINDINGS: The study is mildly degraded by motion. Theventricles and sulci are mildly enlarged. There are no abnormal intra or extra-axial fluid collections. Within the limits of the examination loving-white matter differentiation is maintained. The calvaria and the bones of base of the skull are intact. IMPRESSION: Limited by motion. Otherwise no significant change. Interpreted by: Anderson Parry MD Preliminary Report By: Anderson Parry MD Electronically signed By Anderson Parry MD Dictated Date: 12/03/2024 2:08:42 PM Prelim Date: 12/03/2024 2:10:15 PM Sign Date: 12/03/2024 2:10:15 PM Ordering Provider: KRISTEN TORRE [facility] LABORATORYOrdered By: SYSTEM SYSTEM on 12-03-2024 Albumin BCP dye [Mass/Vol] 3.3 G/dL Low 3.4 - 4.8 G/dL AO ADM SS Albumin/Globulin [Mass ratio] 1.4 {ratio} Normal 1.1 - 2.5 ratio AO ADM SS ALP [Catalytic activity/Vol] 89 U/L Normal 40 - 135 U/L AO ADM SS ALT With P-5'-P [Catalytic activity/Vol] 18 U/L Normal 14 - 59 U/L AO ADM SS AST With P-5'-P [Catalytic activity/Vol] 34 U/L Normal 10 - 40 U/L AO ADM SS Basophils (Bld) [#/Vol] 0.0 103/mcL Normal 0.0 - 0.3 10^3/mcL AO Workflow SS Basophils/100 WBC (Bld) 0.5 % Normal 0.0 - 2.5 % AO Workflow SS Bilirubin [Mass/Vol] 0.9 mg/dL Normal 0.2 - 1 .0 mg/dL AO ADM SS Comment on above: Interpretive Data: U se of this assay is not recommended for patients undergoing treatment with eltrombopag due to the potential for falsely elevated results. Calcium [Mass/Vol] 9.6 mg/dL Normal 8.4 - 10. 2 mg/dL AO ADM SS Chloride [Moles/Vol] 109 mmol/L High 98 - 10 7 mmol/L AO ADM SS CO2 [Moles/Vol] 30 mmol/L Normal 23 - 31 mmol/L AO ADM SS Creatinine [Mass/Vol] 0.91 mg/dL Normal 0.51 - 0.95 mg/dL AO ADM SS Electrolyte Balance 4.0 mEq/L Normal 4.0 - 15 .0 mEq/L AO ADM SS Eosinophil, Absolute 0.2 103/mcL Normal 0.0 - 0 .7 10^3/mcL AO Workflow SS Eosinophils/100 WBC (Bld) 1.9 % Normal 0.0 - 6.0 % AO Workflow SS Erythrocyte distribution width (RBC) [Ratio] 13.5 % Normal 11.5 - 15.5 % AO Workflow SS Estimated Glomerular Filtration Rate 65 ml/min/1.73sqm Invalid Interpretation Code AO Chemistry S Comment on above: Interpretive Data: Stages of Chronic Kidney Disease (CKD) Stage Description eGFR(ml/min/1.73 sq.m.) CKD 1 Normal kidney function or >=90 normal kindney function with possible kidney damage (ex. Proteinuria) CKD 2 Kidney damage with mild loss 60-89 of kidney function CKD 3a Mild to moderate loss of kidney 45-59 function CKD 3b Moderate to severe loss of 30-44 of kindey function CKD 4 Severe loss of kidney function 15-29 CKD 5 Kidney failure <15 Note: (go live 2024) the eGFR calculation was updated to the 2020 CKD-EPI creatinine equation without a race factor to calculate the eGFR results. Globulin 2.4 G/dL Low 2.7 - 4.4 G/dL AO ADM SS Glucose [Mass/Vol] 98 mg/dL Normal 83 - 110 mg/dL AO ADM SS Hematocrit (Bld) [Volume fraction] 42.6 % Normal 34.0 - 46.0 % AO Workflow SS Hemoglobin (Bld) [Mass/Vol] 14.5 G/dL Normal 12.0 - 16.0 G/dL AO Workflow SS Lymphocytes (Bld) [#/Vol] 2.7 103/mcL Normal 0.9 - 4.3 10^3/mcL AO Workflow SS Lymphocytes/100 WBC (Bld) 34.4 % Normal 20.0 - 40.0 % AO Workflow SS Magnesium [Mass/Vol] 2.0 mg/dL Normal 1.8 - 2 .4 mg/dL AO ADM SS MCH (RBC) [Entitic mass] 29.3 pg Normal 27.0 - 33.0 pg AO Workflow SS MCHC 34.1 G/dL Normal 32.0 - 36.0 G/dL AO Workflow SS MCV (RBC) [Entitic vol] 85.8 fL Normal 80.0 - 99.0 fL AO Workflow SS Monocytes (Bld) [#/Vol] 0.7 103/mcL Normal 0.1 - 1.4 10^3/mcL AO Workflow SS Monocytes/100 WBC (Bld) 8.6 % Normal 2.0 - 13.0 % AO Workflow SS Neutrophils (Bld) [#/Vol] 4.4 103/mcL Normal 2.3 - 8.1 10^3/mcL AO Workflow SS Neutrophils/100 WBC (Bld) 54.6 % Normal 50.0 - 75.0 % AO Workflow SS Platelet mean volume (Bld) [Entitic vol] 7.2 fL Normal 6.6 - 10.5 fL AO Workflow SS Platelets (Bld) [#/Vol] 105 103/mcL Low 150 - 450 10^3/mcL AO Workflow SS Potassium [Moles/Vol] 4.2 mmol/L Normal 3.5 - 5.1 mmol/L AO ADM SS Protein [Mass/Vol] 5.7 G/dL Low 6.4 - 8.2 G/dL AO ADM SS RBC (Bld) [#/Vol] 4.96 106/mcL Normal 4.10 - 5.3 0 10^6/mcL AO Workflow SS Sodium [Moles/Vol] 143 mmol/L Normal 136 - 145 mmol/L AO ADM SS Urea nitrogen [Mass/Vol] 19 mg/dL High 7 - 18 mg/dL AO ADM SS Urea nitrogen/Creatinine [Mass ratio] 21 ratio Normal 7 - 27 ratio AO ADM SS WBC (Bld) [#/Vol] 8.0 103/mcL Normal 4.5 - 10.8 10^3/mcL AO Workflow SS MGon 12-03-2024 Magnesium [Mass/Vol] 2.0 mg/dL Normal 1.8-2.4 [facility] Comment on above: Performed By: #### T SH, LIPID, FT4, A1C #### [address] [address] .Auto Diffon 12-02-2024 Basophil, Absolute 0.1 10 3/mcL Normal 0.0-0.3 [facility] Comment on above: Performed By: #### T SH, LIPID, FT4, A1C #### [address] [address] Basophils/100 WBC (Bld) 0.8 % Normal 0.0-2.[address] [facility] Comment on above: Performed By: #### T SH, LIPID, FT4, A1C #### [address] [address] Eosinophil, Absolute 0.1 10 3/mcL Normal 0.0-0.7 [facility] Comment on above: Performed By: #### T SH, LIPID, FT4, A1C #### [address] [address] Eosinophils/100 WBC (Bld) 1.3 % Normal 0.0-6.0 [facility] Comment on above: Performed By: #### T SH, LIPID, FT4, A1C #### [address] [address] Lymphocyte, Absolute 2.3 10 3/mcL Normal 0.9-4.3 [facility] Comment on above: Performed By: #### T SH, LIPID, FT4, A1C #### [address] [address] Lymphocytes/100 WBC (Bld) 27.3 % Normal 20.0-40.0 [facility] Comment on above: Performed By: #### T SH, LIPID, FT4, A1C #### [address] [address] Monocyte, Absolute 0.5 10 3/mcL Normal 0.1-1.4 [facility] Comment on above: Performed By: #### T SH, LIPID, FT4, A1C #### [address] [address] Monocytes/100 WBC (Bld) 6.0 % Normal 2.0-13.[address] [facility] Comment on above: Performed By: #### T SH, LIPID, FT4, A1C #### [address] [address] Neutrophils/100 WBC (Bld) 64.6 % Normal 50.0-75.0 [facility] Comment on above: Performed By: #### T SH, LIPID, FT4, A1C #### [address] [address] .GFRon 12-02-2024 Estimated Glomerular Filtration Rate 63 ml/min/1.73sqm Normal [facility] Comment on above: Result Comment: Stages of Chronic Kidney Disease (CKD) Stage Description eGFR(ml/min/1.73 sq.m.) CKD 1 Normal kidney function or >=90 normal kindney function with possible kidney damage (ex. Proteinuria) CKD 2 Kidney damage with mild loss 60-89 of kidney function CKD 3a Mild to moderate loss of kidney 45-59 function CKD 3b Moderate to severe loss of 30-44 of kindey function CKD 4 Severe loss of kidney function 15-29 CKD 5 Kidney failure <15 Note: (go live 2024) the eGFR calculation was updated to the 2020 CKD-EPI creatinine equation without a race factor to calculate the eGFR results. Performed By: #### T SH, LIPID, FT4, A1C #### [address] [place] [address] .MDWon 12-02-2024 Monocyte Distribution Width 19.18 Normal 0.00-20.00 [facility] Comment on above: Result Comment: For ED adult patients suspected of sepsis, MDW<=20.0 does not rule out sepsis or risk of sepsis Performed By: #### T SH, LIPID, FT4, A1C #### [address] [address] .NEUABSon 12-02-2024 Neutrophil, Absolute 5.5 10 3/mcL Normal 2.3-8.1 [facility] Comment on above: Performed By: #### T SH, LIPID, FT4, A1C #### [address] [address] A1Con 12-02-2024 Glucose [Mass/Vol] 142 mg/dL Normal [facility] Comment on above: Result Comment: Erin mated average glucose (eAG) is a calculated value from Hemoglobin A1C and is major account representative of the average blood glucose level in the last 2-3 month period. Normal range: less than 114 mg/dL Performed By: #### T SH, LIPID, FT4, A1C #### [address] [address] HbA1c (Bld) [Mass fraction] 6.6 % Normal 4.3-6.4 [facility] Comment on above: Performed By: #### T SH, LIPID, FT4, A1C #### [address] [address] BMPon 12-02-2024 BUN/Creatinine Ratio 30 ratio High 7-27 [facility] Comment on above: Performed By: #### T SH, LIPID, FT4, A1C #### [address] [address] Calcium [Mass/Vol] 9.9 mg/dL Normal 8.4-10.2 [facility] Comment on above: Performed By: #### T SH, LIPID, FT4, A1C #### [address] [address] Chloride [Moles/Vol] 107 mmol/L Normal 98-107 [facility] Comment on above: Performed By: #### T SH, LIPID, FT4, A1C #### [place] [id number] CO2 [Moles/Vol] 27 mmol/L Normal 23-31 [facility] Comment on above: Performed By: #### T SH, LIPID, FT4, A1C #### [place] [id number] Creatinine [Mass/Vol] 0.93 mg/dL Normal 0.51-0.95 [facility] Comment on above: Performed By: #### T SH, LIPID, FT4, A1C #### [place] [address] Electrolyte Balance 7.0 mEq/L Normal 4.0-15.0 [facility] Comment on above: Performed By: #### T SH, LIPID, FT4, A1C #### [place] [address] Glucose [Mass/Vol] 106 mg/dL Normal 83-110 [facility] Comment on above: Performed By: #### T MACEY, LIPID, FT4, A1C #### [place] [address] Potassium [Moles/Vol] 3.8 mmol/L Normal 3.5-5.1 [facility] Comment on above: Performed By: #### T SH, LIPID, FT4, A1C #### [place] [address] Sodium [Moles/Vol] 141 mmol/L Normal 136-145 [facility] Comment on above: Performed By: #### T SH, LIPID, FT4, A1C #### [place] [id number] Urea nitrogen [Mass/Vol] 28 mg/dL High 7-18 [facility] Comment on above: Performed By: #### T SH, LIPID, FT4, A1C #### [place] [id number] CBCon 12-02-2024 Erythrocyte distribution width (RBC) [Ratio] 13.5 % Normal 11.5-15.5 [facility] Comment on above: Performed By: #### T SH, LIPID, FT4, A1C #### [address] [address] Hematocrit (Bld) [Volume fraction] 47.1 % High 34.0-46.0 [facility] Comment on above: Performed By: #### T SH, LIPID, FT4, A1C #### [place] [address] Hgb 15.8 G/dL Normal 12.0-16.0 [facility] Comment on above: Performed By: #### T SH, LIPID, FT4, A1C #### [address] [address] MCH (RBC) [Entitic mass] 28.7 pg Normal 27.0-33.0 [facility] Comment on above: Performed By: #### T SH, LIPID, FT4, A1C #### [address] [address] MCHC 33.6 G/dL Normal 32.0-36.0 [facility] Comment on above: Performed By: #### T SH, LIPID, FT4, A1C #### [address] [address] MCV (RBC) [Entitic vol] 85.3 fL Normal 80.0-99.[address] [facility] Comment on above: Performed By: #### T SH, LIPID, FT4, A1C #### [address] [address] Platelet 106 10 3/mcL Low 150-450 [facility] Comment on above: Performed By: #### T SH, LIPID, FT4, A1C #### [address] [address] Platelet mean volume (Bld) [Entitic vol] 6.8 fL Normal 6.6-10.5 [facility] Comment on above: Performed By: #### T SH, LIPID, FT4, A1C #### [facility] [address] [place], [place] [address] RBC 5.52 10 6/mcL High 4.10-5.30 [facility] Comment on above: Performed By: #### T SH, LIPID, FT4, A1C #### [facility] [address] [place], [place] [address] WBC 8.6 10 3/mcL Normal 4.5-10.8 [facility] Comment on above: Performed By: #### T SH, LIPID, FT4, A1C #### [facility] [address] [place], [place] [address] CT HEAD OR BRAIN W/O CONTRAS Ton 12-02-2024 CT HEAD OR BRAIN W/O CONTRAST ORIGINAL EXAMINATION: Exam Title:CT OF THE HEAD WITHOUT CONTRAST Completed Time: 12/02/2024 1:06 pm Procedure Description:CT HEAD/BRAIN WITHOUT CONTRAST COMPARISON: No direct comparison available HISTORY: ORDERING SYSTEM PROVIDED HISTORY: Reason for Exam: Delirium TECHNIQUE: Non-contrast CT head performed according to protocol. Multiplanar reconstructions performed. This exam was performed according to our departmental dose optimization program, and includes the following measures where applicable: automated exposure control, adjustment of the mAs and/or kVp according to patient size and/or exam, and an iterative reconstruction algorithm. FINDINGS: Calcified falx meningiomas. Moderate diffuse cerebral and mild diffuse cerebellar atrophy. Atherosclerotic disease. There is no gross intracranial hemorrhage, midline shift, or mass effect . No evidence for major vessel acute ischemic change. No acute osseous abnormality. Included portions of the globes, retrobulbar soft tissue, paranasal sinuses, mastoid air cells, and middle ears are normal in appearance. IMPRESSION: Chronic brain changes. No acute intracranial process demonstrated. CT head exam limited for evaluation for subtle acute ischemic process. Interpreted by: Eugenia Stearns DO Preliminary Report By: Eugenia Stearns DO Electronically signed By Eugenia Stearns DO Dictated Date: 12/02/2024 1:19:17 PM Prelim Date: 12/02/2024 1:20:06 PM Sign Date: 12/02/2024 1:20:06 PM Ordering Provider: BENJAMIN Wilde [facility] FT4on 12-02-2024 Free T4 [Mass/Vol] 1.11 ng/dL Normal 0.76-1.46 [facility] Comment on above: Performed By: #### T SH, LIPID, FT4, A1C #### [facility] [address] [place], [place] [address] LABORATORYOrdered By: Melba Pavon on 12-02-2024 Appearance (U) Clear (12/02/24 11:56 AM) Normal Clear AO Auto Urine SS Bilirubin Ql (U) Negative (12/02/24 11:56 AM) Normal Negative AO Auto Urine SS Color (U) Yellow (12/02/24 11:56 AM) Normal AO Auto Urine SS Glucose Test strip (U) [Mass/Vol] Negative Normal Negative AO Auto Urine SS Hemoglobin Auto test strip (U) [Mass/Vol] Negative (12/02/24 11:56 AM) Normal Negative AO Auto Urine SS Ketones Ql (U) Negative Normal Negative AO Auto Urine SS UA Leuk Est Negative (12/02/24 11:56 AM) Normal Negative AO Auto Urine SS UA Nitrite Negative (12/02/24 11:56 AM) Normal Negative AO Auto Urine SS UA pH 6.0 (12/02/24 11:56 AM) Normal 5.0 - 8.0 AO Auto Urine SS UA Protein Negative Normal Negative AO Auto Urine SS UA Spec Grav 1.025 (12/02/24 11:56 AM) Normal 1.015-1.025 AO Auto Urine SS UA Specimen Type Void (12/02/24 11:56 AM) Normal AO Auto Urine SS UA Urobilinogen 0.2 E.U./dL Normal 0.2-1.0 AO Auto Urine SS Cholesterol [Mass/Vol] 120 mg/dL Normal 0 - 2 00 mg/dL AO ADM SS Comment on above: Interpretive Data: C holesterol Reference Interval: Less than 200 Desirable 200-239 Borderline high risk 240 and above High risk Cholesterol in HDL [Mass/Vol] 50 mg/dL Normal 40 - 60 mg/dL AO ADM SS Cholesterol in LDL [Mass/Vol] 49 mg/dL Normal 0 - 130 mg/dL AO ADM SS Glucose [Mass/Vol] 142 mg/dL Invalid Interpretation Code AO Chemistry S Comment on above: Interpretive Data: E stimated average glucose (eAG) is a calculated value from Hemoglobin A1C and is major account representative of the average blood glucose level in the last 2-3 month period. Normal range: less than 114 mg/dL HbA1c (Bld) [Mass fraction] 6.6 % Invalid Interpretation Code 4.3 - 6.4 % AO Chemistry S Triglyceride [Mass/Vol] 103 mg/dL Normal 0 - 150 mg/dL AO ADM SS Comment on above: Interpretive Data: T riglyceride Reference Interval: Less than 150 Normal 150-199 Borderline high risk 200-499 High risk 500 or higher Very high risk LABORATORYOrdered By: SYSTEM SYSTEM on 12-02-2024 Basophils (Bld) [#/Vol] 0.1 103/mcL Normal 0.0 - 0.3 10^3/mcL AO Workflow SS Basophils/100 WBC (Bld) 0.8 % Normal 0.0 - 2.5 % AO Workflow SS Calcium [Mass/Vol] 9.9 mg/dL Normal 8.4 - 10. 2 mg/dL AO ADM SS Chloride [Moles/Vol] 107 mmol/L Normal 98 - 10 7 mmol/L AO ADM SS CO2 [Moles/Vol] 27 mmol/L Normal 23 - 31 mmol/L AO ADM SS Creatinine [Mass/Vol] 0.93 mg/dL Normal 0.51 - 0.95 mg/dL AO ADM SS Electrolyte Balance 7.0 mEq/L Normal 4.0 - 15 .0 mEq/L AO ADM SS Eosinophil, Absolute 0.1 103/mcL Normal 0.0 - 0 .7 10^3/mcL AO Workflow SS Eosinophils/100 WBC (Bld) 1.3 % Normal 0.0 - 6.0 % AO Workflow SS Erythrocyte distribution width (RBC) [Ratio] 13.5 % Normal 11.5 - 15.5 % AO Workflow SS Estimated Glomerular Filtration Rate 63 ml/min/1.73sqm Invalid Interpretation Code AO Chemistry S Comment on above: Interpretive Data: Stages of Chronic Kidney Disease (CKD) Stage Description eGFR(ml/min/1.73 sq.m.) CKD 1 Normal kidney function or >=90 normal kindney function with possible kidney damage (ex. Proteinuria) CKD 2 Kidney damage with mild loss 60-89 of kidney function CKD 3a Mild to moderate loss of kidney 45-59 function CKD 3b Moderate to severe loss of 30-44 of kindey function CKD 4 Severe loss of kidney function 15-29 CKD 5 Kidney failure <15 Note: (go live 2024) the eGFR calculation was updated to the 2020 CKD-EPI creatinine equation without a race factor to calculate the eGFR results. Free T4 [Mass/Vol] 1.11 ng/dL Normal 0.76 - 1. 46 ng/dL AO ADM SS Glucose [Mass/Vol] 106 mg/dL Normal 83 - 110 mg/dL AO ADM SS Hematocrit (Bld) [Volume fraction] 47.1 % High 34.0 - 46.0 % AO Workflow SS Hemoglobin (Bld) [Mass/Vol] 15.8 G/dL Normal 12.0 - 16.0 G/dL AO Workflow SS Lymphocytes (Bld) [#/Vol] 2.3 103/mcL Normal 0.9 - 4.3 10^3/mcL AO Workflow SS Lymphocytes/100 WBC (Bld) 27.3 % Normal 20.0 - 40.0 % AO Workflow SS MCH (RBC) [Entitic mass] 28.7 pg Normal 27.0 - 33.0 pg AO Workflow SS MCHC 33.6 G/dL Normal 32.0 - 36.0 G/dL AO Workflow SS MCV (RBC) [Entitic vol] 85.3 fL Normal 80.0 - 99.0 fL AO Workflow SS Monocyte distribution width Auto (Bld) [Entitic vol] 19.18 1 Normal 0.00 - 20.00 AO Workflow SS Comment on above: Result Comment: For ED adult patients suspected of sepsis, MDW<=20.0 does not rule out sepsis or risk of sepsis Monocytes (Bld) [#/Vol] 0.5 103/mcL Normal 0.1 - 1.4 10^3/mcL AO Workflow SS Monocytes/100 WBC (Bld) 6.0 % Normal 2.0 - 13.0 % AO Workflow SS Neutrophils (Bld) [#/Vol] 5.5 103/mcL Normal 2.3 - 8.1 10^3/mcL AO Workflow SS Neutrophils/100 WBC (Bld) 64.6 % Normal 50.0 - 75.0 % AO Workflow SS Platelet mean volume (Bld) [Entitic vol] 6.8 fL Normal 6.6 - 10.5 fL AO Workflow SS Platelets (Bld) [#/Vol] 106 103/mcL Low 150 - 450 10^3/mcL AO Workflow SS Potassium [Moles/Vol] 3.8 mmol/L Normal 3.5 - 5.1 mmol/L AO ADM SS RBC (Bld) [#/Vol] 5.52 106/mcL High 4.10 - 5.3 0 10^6/mcL AO Workflow SS Sodium [Moles/Vol] 141 mmol/L Normal 136 - 145 mmol/L AO ADM SS Troponin I.cardiac DL <= 0.01 ng/mL [Mass/Vol] 12 ng/L Normal 0 - 51 ng/L AO ADM SS Comment on above: Interpretive Data: H igh Sensitive Troponin I Reference Ranges: Female: 0-51 ng/L Male: 0-76 ng/L Testing performed on [employer] using a homogeneous sandwich chemiluminescent immunoassay based on [employer] technology. TSH Qn 1.41 m[IU]/L Normal 0.36 - 3.74 mcIU/mL AO ADM SS Urea nitrogen [Mass/Vol] 28 mg/dL High 7 - 18 mg/dL AO ADM SS Urea nitrogen/Creatinine [Mass ratio] 30 ratio High 7 - 27 ratio AO ADM SS WBC (Bld) [#/Vol] 8.6 103/mcL Normal 4.5 - 10.8 10^3/mcL AO Workflow SS LABORATORYOrdered By: Siri Cooper on 12-02-2024 Glucose [Mass/Vol] 105 mg/dL Normal 82 - 115 mg/dL [facility] Work Phone: LIPIDon 12-02-2024 Cholesterol [Mass/Vol] 120 mg/dL Normal 0-200 [facility] Comment on above: Result Comment: Chol esterol Reference Interval: Less than 200 Desirable 200-239 Borderline high risk 240 and above High risk Performed By: #### T SH, LIPID, FT4, A1C #### [place] [id number] [place], [place] [address] Cholesterol in HDL [Mass/Vol] 50 mg/dL Normal 40-60 [facility] Comment on above: Performed By: #### T SH, LIPID, FT4, A1C #### [facility] [address] [place], [place] [address] Cholesterol in LDL [Mass/Vol] 49 mg/dL Normal 0-130 [facility] Comment on above: Performed By: #### T SH, LIPID, FT4, A1C #### [address] [address] Triglyceride [Mass/Vol] 103 mg/dL Normal 0-150 A [facility] Comment on above: Result Comment: Trig lyceride Reference Interval: Less than 150 Normal 150-199 Borderline high risk 200-499 High risk 500 or higher Very high risk Performed By: #### T SH, LIPID, FT4, A1C #### [address] [address] [facility] High Sensitivity Troponin I 12 ng/L Normal 0-51 [facility] Comment on above: Result Comment: High Sensitive Troponin I Reference Ranges: Female: 0-51 ng/L Male: 0-76 ng/L Testing performed on [employer] using a homogeneous sandwich chemiluminescent immunoassay based on [employer] technology. Performed By: #### T SH, LIPID, FT4, A1C #### [place] [id number] TSHon 12-02-2024 TSH Qn 1.41 m[IU]/L Normal 0.36-3.74 [facility] Comment on above: Performed By: #### T SH, LIPID, FT4, A1C #### [address] [address] UAon 12-02-2024 Color (U) Yellow Normal [facility] Comment on above: Performed By: #### U A #### [address] [address] Glucose (U) [Mass/Vol] Negative Normal Negative [facility] Comment on above: Performed By: #### U A #### [address] [address] Ketones Ql (U) Negative Normal Negative [facility] Comment on above: Performed By: #### U A #### [place] [id number] UA Appear Clear Normal Clear [facility] Comment on above: Performed By: #### U A #### [address] [address] UA Blood Negative Normal Negative [facility] Comment on above: Performed By: #### U A #### [place] [id number] UA Leuk Est Negative Normal Negative [facility] Comment on above: Performed By: #### U A #### [place] [address] UA Nitrite Negative Normal Negative [facility] Comment on above: Performed By: #### U A #### [place] [address] UA pH 6.0 Normal 5.0 - 8.0 [facility] Comment on above: Performed By: #### U A #### [place] [address] UA Protein Negative Normal Negative [facility] Comment on above: Performed By: #### U A #### [place] [address] UA Spec Grav 1.025 Normal 1.015-1.025 [facility] Comment on above: Performed By: #### U A #### [place] [address] UA Specimen Type Void Normal [facility] Comment on above: Performed By: #### U A #### [place] [address] UA Urobilinogen 0.2 E.U./dL Normal 0.2-1.0 [facility] Comment on above: Performed By: #### U A #### [place] [address] Urobilinogen (U) [Mass/Vol] Negative Normal Negative [facility] Comment on above: Performed By: #### U A #### [place] [address] XR CHEST 1 VIEWon 12-02-2024 XR CHEST 1 VIEW ORIGINAL EXAMINATION: Exam Title:ONE XRAY VIEW OF THE CHEST Completed Time: 12/02/2024 12:00 pm Procedure Description:CHEST ONE VIEW AP/PA COMPARISON: No direct comparison available. HISTORY: ORDERING SYSTEM PROVIDED HISTORY: Reason for Exam: cough FINDINGS: Moderate-severe rotoscoliosis. A few scattered reticular pulmonary markings. No gross consolidative pneumonia, effusion, or pneumothorax. Heart size felt to be upper limits of normal. External chest leads. IMPRESSION: [] 1. A few subtle scattered reticular pulmonary markings. 2. Other findings described above. Interpreted by: Eugenia Stearns DO Preliminary Report By: Eugenia Stearns DO Electronically signed By Eugenia Stearns DO Dictated Date: 12/02/2024 12:13:20 PM Prelim Date: 12/02/2024 12:14:01 PM Sign Date: 12/02/2024 12:14:01 PM Ordering Provider: BENJAMIN Wilde [facility] Absolute lymphocyte countOrd ered By: Mickey Nguyen on 08-21-2024 Lymphocytes Auto (Unsp spec) [#/Vol] 3.48 10*3/uL 0.83-4.51 [facility] Absolute neutrophil countOrd ered By: Mickey Nguyen on 08-21-2024 Neutrophils (Bld) [#/Vol] 6.1 10*3/uL 2.0-7.7 [facility] Anion gap in Serum or Plasma Ordered By: Mickey Nguyen on 08-21-2024 Anion gap [Moles/Vol] 11 mmol/L 5-15 [facility] Automated lymphocyte count a s percentage of total leukocytesOrdered By: Mickey Nguyen on 08-21-2024 Lymphocytes/100 WBC Auto (Unsp spec) 32.2 % 19-41 [facility] BUN/creatinine ratioOrdered By: Mickey Nguyen on 08-21-2024 Urea nitrogen/Creatinine [Mass ratio] 24.8 mg/mg High 10-20 [facility] Basophil percentageOrdered B y: Mickey Nguyen on 08-21-2024 Basophils/100 WBC (Bld) 0.7 % 0-1 [facility] Bilirubin, totalOrdered By: Mickey Nguyen on 08-21-2024 Bilirubin [Mass/Vol] 0.70 mg/dL 0.00-1.30 [facility] CBC W/Diff, Automatedon 03- Absolute Lymph 3.48 X10 3/uL Normal 0.83-4.51 [facility] Comment on above: Performed By: #### L 500.4050, L506.1001, L501.9520, L100.0100 ####[facility] [address] [place], [address] Absolute Neut 6.1 X10 3/uL Normal 2.0-7.7 [facility] Comment on above: Performed By: #### L 500.4050, L506.1001, [id number], L100.0100 ####[facility] [address] [place], [address] Basophils/100 WBC (Bld) 0.7 % Normal 0-1 [facility] Comment on above: Performed By: #### L 500.4050, L506.1001, [id number], L100.0100 ####[facility] [address] [place], [address] Eosinophils/100 WBC (Bld) 1.7 % Normal 0-5 [facility] Comment on above: Performed By: #### L 500.4050, L506.1001, [id number], L100.0100 ####[facility] [address] [place], [address] Erythrocyte distribution width (RBC) [Ratio] 12.7 % Normal 11.6-14.6 [facility] Comment on above: Performed By: #### L 500.4050, L506.1001, L501.9520, L100.0100 ####[facility] [address] [place], [address] Hematocrit (Bld) [Volume fraction] 49.1 % High 37-47 [facility] Comment on above: Performed By: #### L 500.4050, L506.1001, [id number], L100.0100 ####[facility] [address] [place], [address] Hemoglobin (Bld) [Mass/Vol] 15.9 g/dL High 12.0-15.0 [facility] Comment on above: Performed By: #### L 500.4050, L506.1001, L501.9520, L100.0100 ####[facility] [address] [place], [address] IG% 0.300 Normal 0.0-0.9 [facility] Comment on above: Result Comment: IG% - Immature Granulocytes (promyelocytes, myelocytes and metamyelocytes) > 1% indicates that a LEFT SHIFT is Present. Performed By: #### L 500.4050, L506.1001, L501.9520, L100.0100 ####[facility] [address] [place], [address] Lymphocytes/100 WBC (Bld) 32.2 % Normal 19-41 [facility] Comment on above: Performed By: #### L 500.4050, L506.1001, [id number], L100.0100 ####[facility] [address] [place], [address] MCH (RBC) [Entitic mass] 28.2 pg Normal 27.0-32.0 [facility] Comment on above: Performed By: #### L 500.4050, L506.1001, [id number], L100.0100 ####[facility] [address] [place], [address] MCHC (RBC) [Mass/Vol] 32.4 g/dL Normal 32-36 [facility] Comment on above: Performed By: #### L 500.4050, L506.1001, [id number], L100.0100 ####[facility] [address] [place], [address] MCV (RBC) [Entitic vol] 87.1 fL Normal 81-99 [facility] Comment on above: Performed By: #### L 500.4050, L506.1001, [id number], L100.0100 ####[facility] [address] [place], [address] Monocytes/100 WBC (Bld) 9.0 % Normal 0-10 [facility] Comment on above: Performed By: #### L 500.4050, L506.1001, [id number], L100.0100 ####[facility] [address] [place], [address] Neutrophils/100 WBC (Bld) 56.1 % Normal 47-70 [facility] Comment on above: Performed By: #### L 500.4050, L506.1001, L501.9520, L100.0100 ####[facility] [address] [place], [address] Nucleated RBC (Bld) [#/Vol] 0.2 10*3/uL Normal 0-5 [facility] Comment on above: Performed By: #### L 500.4050, L506.1001, L501.9520, L100.0100 ####[facility] [address] [place], [address] Platelet mean volume (Bld) [Entitic vol] 8.9 fL Normal 6.2-12.0 [facility] Comment on above: Performed By: #### L 500.4050, L506.1001, [id number], L100.0100 ####[facility] [address] [place], [address] Platelets (Bld) [#/Vol] 181 10*3/uL Normal 150-450 [facility] Comment on above: Performed By: #### L 500.4050, L506.1001, [id number], L100.0100 ####[facility] [address] [place], [address] RBC (Bld) [#/Vol] 5.64 10*6/uL High 4.2-5.4 [facility] Comment on above: Performed By: #### L 500.4050, L506.1001, [id number], L100.0100 ####[facility] [address] [place], [address] RDW SD 40.5 fl Normal 35.1-43.9 [facility] Comment on above: Performed By: #### L 500.4050, L506.1001, L501.9520, L100.0100 ####[facility] [facility] [address] [place], [address] WBC (Bld) [#/Vol] 10.8 10*3/uL Normal 4.4-11.0 [facility] Comment on above: Performed By: #### L 500.4050, L506.1001, L501.9520, L100.0100 ####[facility] [address] [place], [address] Carbon dioxide, total [Moles /volume] in Central venous bloodOrdered By: Mickey Nguyen on 08-21-2024 CO2 [Moles/Vol] 24.5 mmol/L 21.0-32.0 [facility] Chloride assayOrdered By: Berhane Nguyen on 08-21-2024 Chloride [Moles/Vol] 104 mmol/L 98-108 [facility] Comprehensive Metabolic Prof ilon 08-21-2024 Albumin [Mass/Vol] 4.1 g/dL Normal 3.4-4.8 [facility] Comment on above: Performed By: #### L 500.4050, L506.1001, L501.9520, L100.0100 ####[facility] [address] [place], [address] Albumin/Globulin [Mass ratio] 1.6 {ratio} Normal 0.9-2.4 [facility] Comment on above: Performed By: #### L 500.4050, L506.1001, L501.9520, L100.0100 ####[facility] [address] [place], [address] ALK PHOS 114 U/L High 35-104 [facility] Comment on above: Performed By: #### L 500.4050, L506.1001, L501.9520, L100.0100 ####[facility] [address] [place], [address] ALT [Catalytic activity/Vol] 13 U/L Normal <=34 [facility] Comment on above: Performed By: #### L 500.4050, L506.1001, L501.9520, L100.0100 ####[facility] [address] [place], [address] AST [Catalytic activity/Vol] 24 U/L Normal <=31 [facility] Comment on above: Result Comment: Hemo lysis present, Results??could be affected. ?? Performed By: #### L 500.4050, L506.1001, L501.9520, L100.0100 ####[facility] [address] [place], [address] Bilirubin [Mass/Vol] 0.70 mg/dL Normal 0.00-1.30 [facility] Comment on above: Performed By: #### L 500.4050, L506.1001, L501.9520, L100.0100 ####[facility] [address] [place], [address] BUN/CRE 24.8 RATIO High 10-20 [facility] Comment on above: Performed By: #### L 500.4050, L506.1001, L501.9520, L100.0100 ####[facility] [address] [place], [address] Calcium [Mass/Vol] 10.6 mg/dL Normal 7.6-11.0 [facility] Comment on above: Performed By: #### L 500.4050, L506.1001, L501.9520, L100.0100 ####[facility] [address] [place], [address] Chloride [Moles/Vol] 104 mmol/L Normal 98-108 [facility] Comment on above: Performed By: #### L 500.4050, L506.1001, L501.9520, L100.0100 ####[facility] [address] [place], [address] CO2 [Moles/Vol] 24.5 mmol/L Normal 21.0-32.0 [facility] Comment on above: Performed By: #### L 500.4050, L506.1001, L501.9520, L100.0100 ####[facility] [address] [place], [address] Creatinine [Mass/Vol] 0.95 mg/dL Normal 0.70-1.20 [facility] Comment on above: Performed By: #### L 500.4050, L506.1001, L501.9520, L100.0100 ####[facility] [address] [place], [address] GAP 11 Normal 5-15 [facility] Comment on above: Performed By: #### L 500.4050, L506.1001, L501.9520, L100.0100 ####[facility] [address] [place], [address] GFR/1.73 sq M.predicted among non-blacks MDRD (S/P/Bld) [Vol rate/Area] 62 mL/min/{1.73_m2} Normal >60 [facility] Comment on above: Result Comment: mL/m in/1.73m2 CKD-EPI Creatinine Equation (2020) Performed By: #### L 500.4050, L506.1001, L501.9520, L100.0100 ####[facility] [address] [place], [address] Globulin (S) [Mass/Vol] 2.5 g/dL Normal 2.2-4.2 [facility] Comment on above: Performed By: #### L 500.4050, L506.1001, L501.9520, L100.0100 ####[facility] [address] [place], [address] Glucose [Mass/Vol] 80 mg/dL Normal 70-99 [facility] Comment on above: Performed By: #### L 500.4050, L506.1001, L501.9520, L100.0100 ####[facility] [address] [place], [address] Potassium [Moles/Vol] 4.6 mmol/L Normal 3.3-5.1 [facility] Comment on above: Result Comment: Hemo lysis present, Results??could be affected. ?? Performed By: #### L 500.4050, L506.1001, L501.9520, L100.0100 ####[facility] [address] [place], [address] Sodium [Moles/Vol] 140 mmol/L Normal 133-145 [facility] Comment on above: Performed By: #### L 500.4050, L506.1001, L501.9520, L100.0100 ####[facility] [address] [place], [address] T PROT 6.6 g/dL Normal 5.9-8.4 [facility] Comment on above: Performed By: #### L 500.4050, L506.1001, L501.9520, L100.0100 ####[facility] [address] [place], [address] Urea nitrogen [Mass/Vol] 23 mg/dL High 4-19 [facility] Comment on above: Performed By: #### L 500.4050, L506.1001, L501.9520, L100.0100 ####[facility] [address] [place], [address] Eosinophil percentageOrdered By: Mickey Nguyen on 08-21-2024 Eosinophils/100 WBC (Bld) 1.7 % 0-5 [facility] Erythrocyte distribution wid th ratioOrdered By: Mickey Nguyen on 08-21-2024 Erythrocyte distribution width (RBC) [Ratio] 12.7 % 11.6-14.6 [facility] Erythrocyte distribution wid th standard deviationOrdered By: Mickey Nguyen on 08-21-2024 Erythrocyte distribution width (RBC) [Entitic vol] 40.5 fL 35.1-43.9 [facility] Erythrocyte distribution width (RBC) [Ratio] 40.5 fl 35.1-43.9 [facility] GFR/1.73 sq M.predicted harry g non-blacks MDRD (S/P/Bld) [Vol rate/Area]Ordered By: Mickey Nguyen 08-21-2024 Estimated GFR (MDRD) Non-Af Amer 62 >60 [facility] Comment on above: mL/min/1.73m2 CKD-EP I Creatinine Equation (2020) Glomerular filtration rate ( GFR) estimation/1.73 sq m using serum, plasma, or whole bOrdered By: Mickey Nguyen 08-21-2024 GFR/1.73 sq M.predicted among non-blacks MDRD (S/P/Bld) [Vol rate/Area] 62 mL/min/{1.73_m2} >60 [facility] Comment on above: mL/min/1.73m2 CKD-EP I Creatinine Equation (2020) Hematocrit Auto (Bld) [Volum e fraction]Ordered By: Mickey Nguyen 08-21-2024 Hematocrit (Bld) [Volume fraction] 49.1 % High 37-47 [facility] Hemoglobin measurementOrdere d By: Mickey Nguyen on 08-21-2024 Hemoglobin (Bld) [Mass/Vol] 15.9 g/dL High 12.0-15.0 [facility] Immature granulocytes/100 WB C Auto (Bld)Ordered By: Mickey Nguyen on 08-21-2024 Immature granulocytes/100 WBC (Bld) 0.300 % 0.0-0.9 [facility] Comment on above: IG% - Immature Granu locytes (promyelocytes, myelocytes and metamyelocytes) > 1% indicates that a LEFT SHIFT is Present. L506.1001on 08-21-2024 Vitamin D 25-OH 52.2 ng/mL Normal 30-100 [facility] Comment on above: Result Comment: Purvi min D Status Deficiency: <20 ng/mL (50nmol/L) Insufficiency: 20-30 ng/mL (50-75 nmol/L) Sufficiency: 30-100 ng/mL (75-250 nmol/L) Toxicity: >100 ng/mL (>250 nmol/L) Performed By: #### L 500.4050, L506.1001, L501.9520, L100.0100 ####[facility] [address] [place], [place], [address] Laboratory - Chemistry and C hemistry - challengeOrdered By: Mickey Nguyen on 08-21-2024 AST [Catalytic activity/Vol] 24 U/L <32 [facility] Comment on above: Hemolysis present, R esults could be affected. Lymphocytes Auto (Unsp spec) [#/Vol]Ordered By: Mickey Nguyen on 08-21-2024 Lymphocytes (Bld) [#/Vol] 3.48 10*3/uL 0.83-4.51 [facility] Lymphocytes/100 WBC Auto (Un sp spec)Ordered By: Mickey Nguyen on 08-21-2024 Lymphocytes/100 WBC (Bld) 32.2 % 19-41 [facility] MCV (mean corpuscular volume ) determinationOrdered By: Mickey Nguyen on 08-21-2024 MCV (RBC) [Entitic vol] 87.1 fL 81-99 [facility] Mean corpuscular hemoglobin (MCH) determinationOrdered By: Mickey Nguyen on 08-21-2024 MCH (RBC) [Entitic mass] 28.2 pg 27.0-32.0 [facility] Mean corpuscular hemoglobin concentration (MCHC) determinationOrdered By: Mickey Nguyen on 08-21-2024 MCHC (RBC) [Mass/Vol] 32.4 g/dL 32-36 [facility] Mean platelet volume determi nationOrdered By: Mickey Nguyen on 08-21-2024 Platelet mean volume (Bld) [Entitic vol] 8.9 fL 6.2-12.0 [facility] Monocyte percentageOrdered B y: Mickey Nguyen on 08-21-2024 Monocytes/100 WBC (Bld) 9.0 % 0-10 [facility] Neutrophil percentageOrdered By: Mickey Nguyen on 08-21-2024 Neutrophils/100 WBC (Bld) 56.1 % 47-70 [facility] Nucleated red blood cell per centageOrdered By: Mickey Nguyen on 08-21-2024 Nucleated RBC/100 WBC (Bld) [Ratio] 0.2 % 0-5 [facility] Platelet countOrdered By: Berhane Nguyen on 08-21-2024 Platelets (Bld) [#/Vol] 181 10*3/uL 150-450 [facility] Potassium (Unsp spec) [Mass/ Vol]Ordered By: Mickey Nguyen on 08-21-2024 Potassium [Moles/Vol] 4.6 mmol/L 3.3-5.1 [facility] Comment on above: Hemolysis present, R esults could be affected. Potassium measurement (mass/ volume)Ordered By: Mickey Nguyen on 08-21-2024 Potassium (Unsp spec) [Mass/Vol] 4.6 mmol/L 3.3-5.1 [facility] Comment on above: Hemolysis present, R esults could be affected. RBC Auto (Bld) [#/Vol]Ordere d By: Mickey Nguyen on 08-21-2024 RBC (Bld) [#/Vol] 5.64 10*6/uL High 4.2-5.4 [facility] Serum creatinine measurement (mass/volume)Ordered By: Mickey Nguyen on 08-21-2024 Creatinine [Mass/Vol] 0.95 mg/dL 0.70-1.20 [facility] Serum globulin measurementOr dered By: Mickey Nguyen on 08-21-2024 Globulin (S) [Mass/Vol] 2.5 g/dL 2.2-4.2 [facility] Serum glucose measurement (m ass/volume)Ordered By: Mickey Nguyen on 08-21-2024 Glucose [Mass/Vol] 80 mg/dL 70-99 [facility] Serum or plasma alanine webb otransferase (ALT) measurementOrdered By: Mickey Nguyen on 08-21-2024 ALT [Catalytic activity/Vol] 13 U/L <35 [facility] Serum or plasma albumin willam urement (mass/volume)Ordered By: Mickey Nguyen on 08-21-2024 Albumin [Mass/Vol] 4.1 g/dL 3.4-4.8 [facility] Serum or plasma albumin/glob ulin mass ratioOrdered By: Mickey Nguyen 08-21-2024 Albumin/Globulin [Mass ratio] 1.6 {ratio} 0.9-2.4 [facility] Serum or plasma alkaline pollo sphatase measurementOrdered By: Mickey Nguyen 08-21-2024 ALP [Catalytic activity/Vol] 114 U/L High 35-104 [facility] Serum or plasma calcium willam urement (mass/volume)Ordered By: Mickey Nguyen 08-21-2024 Calcium [Mass/Vol] 10.6 mg/dL 7.6-11.0 [facility] Serum or plasma urea nitroge n measurement (mass/volume)Ordered By: Mickey Nguyen on 08-21-2024 Urea nitrogen [Mass/Vol] 23 mg/dL High 4-19 [facility] Sodium levelOrdered By: Mickey Nguyen 08-21-2024 Sodium [Moles/Vol] 140 mmol/L 133-145 [facility] TSH DL <= 0.005 mIU/L QnOrde red By: Mickey Nguyen on 08-21-2024 Thyroid Stimulating Hormone (TSH) 1.910 uIU/mL 0.300-4.200 [facility] TSH Qn 1.910 uIU/mL 0.300-4.200 [facility] Thyroid Stim Hormone (TSH)on 08-21-2024 TSH 1.910 uIU/mL Normal 0.300-4.200 [facility] Comment on above: Performed By: #### L 500.4050, L506.1001, L501.9520, L100.0100 ####[facility] [address] [place], [address] Total proteinOrdered By: Mickey Nguyen on 08-21-2024 Protein [Mass/Vol] 6.6 g/dL 5.9-8.4 [facility] Vitamin D, 25-hydroxyOrdered By: Mickey Nguyen on 08-21-2024 Vitamin D 25-Hydroxy 52.2 ng/mL 30-100 [facility] Comment on above: Vitamin D StatusDefi ciency: <20 ng/mL (50nmol/L)Insufficiency: 20-30 ng/mL (50-75 nmol/L)Sufficiency: 30-100 ng/mL (75-250 nmol/L)Toxicity: >100 ng/mL (>250 nmol/L) White blood cell (WBC) count Ordered By: Mickey Nguyen on 08-21-2024 WBC (Bld) [#/Vol] 10.8 10*3/uL 4.4-11.0 [facility] Influenza virus A and B and SARS-CoV-2 (COVID-19) and Respiratory syncytial virus RNAOrdered By: Mickey Nguyen on 08-06-2024 SARS-CoV-2 (COVID-19) RNA LORAINE+probe Ql (Unsp spec) Influenzae A Abnormal [facility] SARS-CoV-2 (COVID-19) RNA LORAINE+probe Ql (Unsp spec) Influenzae A Abnormal [facility] M100.678on 08-06-2024 M100.[address] Rupert NGUYEN'S OFFICE 08/06/24 5474 Ely Nieves. REPORT READ BACK BY SAME. SARS-CoV-2 (COVID 19) Negative INFLUENZA A A Positive A INFLUENZA B Negative RSV PCR Negative INFLUENZAE A Normal [facility] Comment on above: Performed By: #### M 100.678 #### [facility] [address] [place], [address] Influenza virus A and B and SARS-CoV-2 (COVID-19) and Respiratory syncytial virus RNAOrdered By: Mickey Nguyen on 05-15-2024 SARS-CoV-2 (COVID-19) RNA LORAINE+probe Ql (Unsp spec) [facility] SARS-CoV-2 (COVID-19) RNA LORAINE+probe Ql (Unsp spec) [facility] M100.678on 05-15-2024 M100.678 Pending SARS-CoV-2 (COVID 19) Negative INFLUENZA A Negative INFLUENZA B Negative RSV PCR Negative Normal [facility] Comment on above: Performed By: #### M 100.678 ####[facility] [address] [place], [place], [address] Oncology Visit Reporton 02-12 Oncology Visit Report [facility] [place] [facility] [address] [place] [address] OFFICE VISIT Date of Service: 03/07/24 1350 MR#: [id number] Acct: [id number] Name: RICHELLE AHUJA Rep #: [id number] : 1945 From: Tae Cruz MD Age/Sex: 78/F Location: [facility] Status: Signed HPI Subjective Date of Service 03/07/24 Chief Complaint Elevated H H History of Present Illness 78-year-old female, with no known chronic cardiopulmonary disease and noted to have a chronic mild polycythemia, see lab section. [facility] Medical History Polycythemia Non-smoker Hiatal hernia History of pneumonia Scoliosis Diastolic dysfunction Hypokalemia Edema Hyperlipidemia Essential hypertension Shortness of breath Surgical History History of hernia repair History of Leobardo fundoplication H/O wisdom tooth extraction History of hip replacement Hx of cataract removal with insertion of prosthetic lens History of tonsillectomy Family History Father CAD (coronary artery disease) Myocardial infarction Mother Hypertension Heart disease Uncle Emphysema of lung Heart disease Social History household members: none Smoking Status: Never smoker alcohol intake: never substance use type: does not use ROS ROS Narrative See February 29, 2024 Intake Vital Signs 02/29/24 11:37 03/07/24 13:51 03/07/24 14:00 Height 5 ft 3 in 5 ft 3 in 5 ft 3 in Weight: 67.245 kg 67.245 kg BMI 26.2 26.2 BP 123/65 H 108/68 Blood Pressure Location Lt brachial Lt brachial Position Sitting Sitting Respiration 18 16 Pulse 58 L 64 Pulse Source Monitor Monitor Temp 97.8 F 97.8 F Temperature Source Temporal Artery Temporal Artery Pulse Oximetry (%) 97 96 Oxygen Delivery Method room air room air Intake Is patient in pain?: No Allergies prednisone Allergy (Verified 03/07/24 13:58) Rash Opioids - Morphine Analogues Adverse Reaction (Severe, Verified 03/07/24 13:58) DIFFICULTY SWALLOWING adhesive tape Adverse Reaction (Intermediate, Verified 03/07/24 13:58) Rash, burning amoxicillin (From Augmentin) Adverse Reaction (Unknown, Verified 03/07/24 13:58) unknown clavulanic acid (From Augmentin) Adverse Reaction (Unknown, Verified 03/07/24 13:58) unknown Corticosteroids (Glucocorticoids) (steroids) Adverse Reaction (Verified 03/07/24 13:58) Pain in joints Medications ???Medication ???Instructions ???Recorded ???Confirmed ???Type ascorbic acid (vitamin C) 500 mg 1,000 mg PO DAILY 01/06/19 03/07/24 History tablet citalopram 20 mg tablet 20 mg PO DAILY 01/06/19 03/07/24 History losartan 50 mg tablet 50 mg PO DAILY 01/06/19 03/07/24 History potassium chloride 20 mEq 20 meq PO DAILY 01/06/19 03/07/24 History tablet,extended release rosuvastatin 10 mg tablet (Crestor) 10 mg PO DAILY 01/06/19 03/07/24 History latanoprost 0.005 % eye drops 1 drp ophthalmic (eye) QPM 01/09/19 03/07/24 History timolol maleate 0.5 % eye drops 1 drp ophthalmic (eye) DAILY 01/09/19 03/07/24 History brimonidine 0.2 % eye drops 1 drp ophthalmic (eye) BID 05/22/20 03/07/24 History cholecalciferol (vitamin D3) 25 25 mcg PO DAILY 02/04/21 03/07/24 History mcg (1,000 unit) tablet acetaminophen 325 mg tablet 650 mg (2 x 325 mg) PO Q4H PRN PRN 08/21/21 03/07/24 Rx (Tylenol) Fever, pain 1-03/22 #0 tabs inhalational spacing device #0 ea 08/21/21 03/07/24 Rx (Compact Space Chamber) biotin 10,000 mcg chewable tablet mcg PO 11/29/22 03/07/24 History (Hair, Skin and Nails (biotin)) fexofenadine 180 mg tablet 180 mg PO DAILY #90 tabs 11/29/22 03/07/24 Rx (Radha Allergy) netarsudil 0.02 % eye drops 1 drp ophthalmic (eye) QPM 02/29/24 03/07/24 History (Rhopressa) Have you fallen in the past year?: No Central Venous Access Central Venous Access: No Laboratory Results 02/29/24 02/20/24 08/03/23 12:37 14:58 13:07 Hgb 15.3 H 16.5 H 15.6 H Erythropoietin 6.6 01/31/23 10/25/22 08/19/21 13:38 15:17 02:08 Hgb 16.4 H 16.3 H 14.8 Erythropoietin 08/18/21 01/07/21 07/16/20 14:11 12:07 10:56 Hgb 16.6 H 15.6 H 15.5 H Erythropoietin 01/02/20 06/27/19 12/27/18 11:48 13:13 11:19 Hgb 14.9 15.3 H 14.6 Erythropoietin 06/01/16 06/03/15 12/03/14 14:14 15:28 13:12 Hgb 16.0 H 15.5 H 16.5 H Erythropoietin Exam Physical Exam Narrative See February 29, 2024 Const alert and oriented x3 Coding Level of Care Code Off vis,est,level 3 Exam Problem Focused Diagnoses Polycythemia D75.1 Assessment and Plan Assessment and Plan (1) Poly (more content not included)... Normal [place] [facility] Erythropoietinon 03-02-2024 ERYTHROPOIETIN 6.6 mIU/mL Normal 2.6-18.5 [facility] Comment on above: Result Comment: Cao Future Simpleel DxI 800 Immunoassay System Values obtained with different assay methods or kits cannot be used interchangeably. Results cannot be interpreted as absolute evidence of the presence or absence of malignant disease. Performed at: [address] [id number] [employer] Driver: Prince South PhD, Phone: [phone] Performed By: #### L 100.0100, L3100.1350 ####[facility] [address] [place], [address] CBC W/Diff, Automatedon 02-11 Absolute Lymph 2.68 X10 3/uL Normal 0.83-4.51 [facility] Comment on above: Performed By: #### L 100.0100, L3100.1350 #### [facility] [address] [place], [address] Absolute Neut 5.4 X10 3/uL Normal 2.0-7.7 [facility] Comment on above: Performed By: #### L 100.0100, L3100.1350 #### [facility] [address] [place], [address] Basophils/100 WBC (Bld) 0.6 % Normal 0-1 [facility] Comment on above: Performed By: #### L 100.0100, L3100.1350 #### [facility] [address] [place], [address] Eosinophils/100 WBC (Bld) 1.4 % Normal 0-5 [facility] Comment on above: Performed By: #### L 100.0100, L3100.1350 #### [facility] [address] [place], [address] Erythrocyte distribution width (RBC) [Ratio] 13.0 % Normal 11.6-14.6 [facility] Comment on above: Performed By: #### L 100.0100, L3100.1350 #### [facility] [address] [place], [address] Hematocrit (Bld) [Volume fraction] 47.6 % High 37-47 [facility] Comment on above: Performed By: #### L 100.0100, L3100.1350 #### [facility] [address] [place], [address] Hemoglobin (Bld) [Mass/Vol] 15.3 g/dL High 12.0-15.0 [facility] Comment on above: Performed By: #### L 100.0100, L3100.1350 #### [facility] [address] [place], [address] IG% 0.300 Normal 0.0-0.9 [facility] Comment on above: Result Comment: IG% - Immature Granulocytes (promyelocytes, myelocytes and metamyelocytes) > 1% indicates that a LEFT SHIFT is Present. Performed By: #### L 100.0100, L3100.1350 #### [facility] [address] [place], [address] Lymphocytes/100 WBC (Bld) 29.7 % Normal 19-41 [facility] Comment on above: Performed By: #### L 100.0100, L3100.1350 #### [facility] [address] [place], [address] MCH (RBC) [Entitic mass] 28.3 pg Normal 27.0-32.0 [facility] Comment on above: Performed By: #### L 100.0100, L3100.1350 #### [facility] [address] [place], [address] MCHC (RBC) [Mass/Vol] 32.1 g/dL Normal 32-36 [facility] Comment on above: Performed By: #### L 100.0100, L3100.1350 #### [facility] [address] [place], [address] MCV (RBC) [Entitic vol] 88.1 fL Normal 81-99 [facility] Comment on above: Performed By: #### L 100.0100, L3100.1350 #### [facility] [address] [place], [address] Monocytes/100 WBC (Bld) 7.8 % Normal 0-10 [facility] Comment on above: Performed By: #### L 100.0100, L3100.1350 #### [facility] [address] [place], [address] Neutrophils/100 WBC (Bld) 60.2 % Normal 47-70 [facility] Comment on above: Performed By: #### L 100.0100, L3100.1350 #### [facility] [address] [place], [address] Nucleated RBC (Bld) [#/Vol] 0 10*3/uL Normal 0-5 [facility] Comment on above: Performed By: #### L 100.0100, L3100.1350 #### [facility] [address] [place], [address] Platelet mean volume (Bld) [Entitic vol] 8.5 fL Normal 6.2-12.0 [facility] Comment on above: Performed By: #### L 100.0100, L3100.1350 #### [facility] [address] [place], [address] Platelets (Bld) [#/Vol] 141 10*3/uL Low 150-450 [facility] Comment on above: Performed By: #### L 100.0100, L3100.1350 #### [facility] [address] [place], [address] RBC (Bld) [#/Vol] 5.40 10*6/uL Normal 4.2-5.4 [facility] Comment on above: Performed By: #### L 100.0100, L3100.1350 #### [facility] [address] [place], [address] RDW SD 41.8 fl Normal 35.1-43.9 [facility] Comment on above: Performed By: #### L 100.0100, L3100.1350 #### [facility] [address] [place], [address] WBC (Bld) [#/Vol] 9.0 10*3/uL Normal 4.4-11.0 [facility] Comment on above: Performed By: #### L 100.0100, L3100.1350 #### [facility] [address] [place], [address] Oncology Visit Reporton 02-11 Oncology Visit Report [facility] [address] [place] [address] OFFICE VISIT Date of Service: 02/29/24 1121 MR#: [id number] Acct: [id number] Name: RICHELLE AHUJA Rep #: [id number] : 1945 From: Tae Cruz MD Age/Sex: 78/F [place] [facility] [place] Status: Signed HPI Subjective Date of Service 02/29/24 Chief Complaint Elevated H H History of Present Illness 78-year-old female, with no known chronic cardiopulmonary disease and noted to have a chronic mild polycythemia, see lab section. [facility] Medical History Polycythemia Non-smoker Hiatal hernia History of pneumonia Scoliosis Diastolic dysfunction Hypokalemia Edema Hyperlipidemia Essential hypertension Shortness of breath Surgical History History of hernia repair History of Leobardo fundoplication H/O wisdom tooth extraction History of hip replacement Hx of cataract removal with insertion of prosthetic lens History of tonsillectomy Family History Father CAD (coronary artery disease) Myocardial infarction Mother Hypertension Heart disease Uncle Emphysema of lung Heart disease Social History household members: none Smoking Status: Never smoker alcohol intake: never substance use type: does not use ROS Constitutional Constitutional: Reports systems reviewed and no addt'l complaints, except as documented and snoring; Denies fever(s) or weight loss Eyes Eyes: Reports systems reviewed and no addt'l complaints, except as documented ENT HEENT: Reports systems reviewed and no addt'l complaints, except as documented, nasal congestion, nasal discharge and other Details: Chronic seasonal allergies Cardiovascular Cardiovascular: Reports systems reviewed and no addt'l complaints, except as documented, edema and other Details: Chronic lower extremities edema, wears compression stockings ; Denies chest pain Respiratory/Chest Respiratory/Chest: Reports systems reviewed and no addt'l complaints, except as documented; Denies dyspnea or wheezing Gastrointestinal Gastrointestinal: Reports systems reviewed and no addt'l complaints, except as documented; Denies change in bowel habits Genitourinary Genitourinary: Reports systems reviewed and no addt'l complaints, except as documented Musculoskeletal Musculoskeletal: Reports systems reviewed and no addt'l complaints, except as documented Integumentary Integumentary: Reports systems reviewed and no addt'l complaints, except as documented; Denies new lesions Neurologic Neurologic: Reports systems reviewed and no addt'l complaints, except as documented; Denies focal weakness or paresthesias Psychiatric Psychiatric: Reports systems reviewed and no addt'l complaints, except as documented Endocrine Endocrinology: Reports systems reviewed and no addt'l complaints, except as documented Hematologic/Lymphatic Hematologic/Lymphatic: Reports systems reviewed and no addt'l complaints, except as documented Allergic/Immunologic Allergic/Immunologic: Reports systems reviewed and no addt'l complaints, except as documented Intake Vital Signs 12/12/23 19:51 02/29/24 11:23 02/29/24 11:37 Height 5 ft 3 in 5 ft 3 in 5 ft 3 in Weight: 67.245 kg BMI 26.2 BP 123/65 H Blood Pressure Location Lt brachial Position Sitting Respiration 18 Pulse 58 L Pulse Source Monitor Temp 97.8 F Temperature Source Temporal Artery Pulse Oximetry (%) 97 Oxygen Delivery Method room air Intake Is patient in pain?: No Allergies prednisone Allergy (Verified 02/29/24 11:32) Rash Opioids - Morphine Analogues Adverse Reaction (Severe, Verified 02/29/24 11:32) DIFFICULTY SWALLOWING adhesive tape Adverse Reaction (Intermediate, Verified 02/29/24 11:32) Rash, burning amoxicillin (From Augmentin) Adverse Reaction (Unknown, Verified 02/29/24 11:32) unknown clavulanic acid (From Augmentin) Adverse Reaction (Unknown, Verified 02/29/24 11:32) unknown Corticosteroids (Glucocorticoids) (steroids) Adverse Reaction (Verified 02/29/24 11:32) Pain in joints Medications ???Medication ???Instructions ???Recorded ???Confirmed ???Type ascorbic acid (vitamin C) 500 mg 1,000 mg PO DAILY 01/06/19 02/29/24 History tablet citalopram 20 mg tablet 20 mg PO DAILY 01/06/19 02/29/24 History losartan 50 mg tablet 50 mg PO DAILY 01/06/19 02/29/24 History potassium chloride 20 mEq 20 meq PO DAILY 01/06/19 02/29/24 History tablet,extended release rosuvastatin 10 mg tablet (Crestor) 10 mg PO DAILY 01/06/19 02/29/24 History latanoprost 0.005 % eye drops 1 drp ophthalmic (eye) QPM 01/09/19 02/29/24 History timolol maleate 0. (more content not included)... Normal [facility] Vitamin D,25 Hydroxyon 02-20 Vitamin D 25-OH 52.0 ng/mL Normal [facility] Comment on above: Result Comment: Purvi min D 25(OH) Status Range Deficiency <20 ng/mL (50nmol/L) Insufficiency 20 - 30 ng/mL (50 - 75 nmol/L) Sufficiency 30 - 100 ng/mL (75 - 250 nmol/L) Toxicity >100 ng/mL (>250 nmol/L) Performed By: #### L 500.4050, L501.9520, L100.0100, L506.1000 #### [facility] [address] [place], [address] CBC W/Diff, Automatedon 09-0 9-2024 Absolute Lymph 2.22 X10 3/uL Normal 0.83-4.51 [facility] Comment on above: Performed By: #### L 500.4050, L501.9520, L100.0100, L506.1000 #### [facility] [address] [place], [address] Absolute Neut 5.1 X10 3/uL Normal 2.0-7.7 [facility] Comment on above: Performed By: #### L 500.4050, L501.9520, L100.0100, L506.1000 #### [facility] [address] [place], [address] Basophils/100 WBC (Bld) 0.7 % Normal 0-1 [facility] Comment on above: Performed By: #### L 500.4050, L501.9520, L100.0100, L506.1000 #### [facility] [address] [place], [address] Eosinophils/100 WBC (Bld) 1.5 % Normal 0-5 [facility] Comment on above: Performed By: #### L 500.4050, L501.9520, L100.0100, L506.1000 #### [facility] [address] [place], [address] Erythrocyte distribution width (RBC) [Ratio] 12.9 % Normal 11.6-14.6 [facility] Comment on above: Performed By: #### L 500.4050, L501.9520, L100.0100, L506.1000 #### [facility] [address] [place], [address] Hematocrit (Bld) [Volume fraction] 51.5 % High 37-47 [facility] Comment on above: Performed By: #### L 500.4050, L501.9520, L100.0100, L506.1000 #### [facility] [address] [place], [address] Hemoglobin (Bld) [Mass/Vol] 16.5 g/dL High 12.0-15.0 [facility] Comment on above: Performed By: #### L 500.4050, L501.9520, L100.0100, L506.1000 #### [facility] [address] [place], [address] IG% 0.400 Normal 0.0-0.9 [facility] Comment on above: Result Comment: IG% - Immature Granulocytes (promyelocytes, myelocytes and metamyelocytes) > 1% indicates that a LEFT SHIFT is Present. Performed By: #### L 500.4050, L501.9520, L100.0100, L506.1000 #### [facility] [address] [place], [address] Lymphocytes/100 WBC (Bld) 27.3 % Normal 19-41 [facility] Comment on above: Performed By: #### L 500.4050, L501.9520, L100.0100, L506.1000 #### [facility] [address] [place], [address] MCH (RBC) [Entitic mass] 28.1 pg Normal 27.0-32.0 [facility] Comment on above: Performed By: #### L 500.4050, L501.9520, L100.0100, L506.1000 #### [facility] [address] [place], [address] MCHC (RBC) [Mass/Vol] 32.0 g/dL Normal 32-36 [facility] Comment on above: Performed By: #### L 500.4050, L501.9520, L100.0100, L506.1000 #### [facility] [address] [place], [address] MCV (RBC) [Entitic vol] 87.7 fL Normal 81-99 [facility] Comment on above: Performed By: #### L 500.4050, L501.9520, L100.0100, L506.1000 #### [facility] [address] [place], [address] Monocytes/100 WBC (Bld) 7.4 % Normal 0-10 [facility] Comment on above: Performed By: #### L 500.4050, L501.9520, L100.0100, L506.1000 #### [facility] [address] [place], [address] Neutrophils/100 WBC (Bld) 62.7 % Normal 47-70 [facility] Comment on above: Performed By: #### L 500.4050, L501.9520, L100.0100, L506.1000 #### [facility] [address] [place], [address] Nucleated RBC (Bld) [#/Vol] 0 10*3/uL Normal 0-5 [facility] Comment on above: Performed By: #### L 500.4050, L501.9520, L100.0100, L506.1000 #### [facility] [address] [place], [address] Platelet mean volume (Bld) [Entitic vol] 8.5 fL Normal 6.2-12.0 [facility] Comment on above: Performed By: #### L 500.4050, L501.9520, L100.0100, L506.1000 #### [facility] [address] [place], [address] Platelets (Bld) [#/Vol] 143 10*3/uL Low 150-450 [facility] Comment on above: Performed By: #### L 500.4050, L501.9520, L100.0100, L506.1000 #### [facility] [address] [place], [address] RBC (Bld) [#/Vol] 5.87 10*6/uL High 4.2-5.4 [facility] Comment on above: Performed By: #### L 500.4050, L501.9520, L100.0100, L506.1000 #### [facility] [address] [place], [address] RDW SD 41.5 fl Normal 35.1-43.9 [facility] Comment on above: Performed By: #### L 500.4050, L501.9520, L100.0100, L506.1000 #### [facility] [address] [place], [address] WBC (Bld) [#/Vol] 8.1 10*3/uL Normal 4.4-11.0 [facility] Comment on above: Performed By: #### L 500.4050, L501.9520, L100.0100, L506.1000 #### [facility] [address] [place], [address] Comprehensive Metabolic Prof [facility] 02-20-2024 Albumin [Mass/Vol] 3.8 g/dL Normal 3.2-5.0 [facility] Comment on above: Performed By: #### L 500.4050, L501.9520, L100.0100, L506.1000 #### [facility] [address] [place], [address] Albumin/Globulin [Mass ratio] 1.3 {ratio} Normal 0.9-2.4 [facility] Comment on above: Performed By: #### L 500.4050, L501.9520, L100.0100, L506.1000 #### [facility] [address] [place], [address] ALK P 125 U/L High 45-117 [facility] Comment on above: Performed By: #### L 500.4050, L501.9520, L100.0100, L506.1000 #### [facility] [address] [place], [address] ALT [Catalytic activity/Vol] 34 U/L Normal 13-56 [facility] Comment on above: Performed By: #### L 500.4050, L501.9520, L100.0100, L506.1000 #### [facility] [address] [place], [address] AST [Catalytic activity/Vol] 26 U/L Normal 15-37 [facility] Comment on above: Performed By: #### L 500.4050, L501.9520, L100.0100, L506.1000 #### [facility] [address] [place], [address] Bilirubin [Mass/Vol] 1.00 mg/dL Normal 0.20-1.00 [facility] Comment on above: Result Comment: For patients on eltrombopag therapy, use of Dimension [place] TBIL is not recommended. Performed By: #### L 500.4050, L501.9520, L100.0100, L506.1000 #### [facility] [address] [place], [address] BUN/CRE 19.1 RATIO Normal 10-20 [facility] Comment on above: Performed By: #### L 500.4050, L501.9520, L100.0100, L506.1000 #### [facility] [address] [place], [address] CA,Total 10.5 mg/dL High 8.5-10.1 [facility] Comment on above: Performed By: #### L 500.4050, L501.9520, L100.0100, L506.1000 #### [facility] [address] [place], [address] Chloride [Moles/Vol] 107 mmol/L Normal 98-107 [facility] Comment on above: Performed By: #### L 500.4050, L501.9520, L100.0100, L506.1000 #### [facility] [address] [place], [address] CO2 [Moles/Vol] 26.0 mmol/L Normal 21.0-32.0 [facility] Comment on above: Performed By: #### L 500.4050, L501.9520, L100.0100, L506.1000 #### [facility] [address] [place], [address] Creatinine [Mass/Vol] 1.10 mg/dL High 0.55-1.02 [facility] Comment on above: Result Comment: The validity of the calculated GFR GFRAA in patients over 70 years has not been determined. Clinical correlation is essential. Performed By: #### L 500.4050, L501.9520, L100.0100, L506.1000 #### [facility] [address] [place], [address] EST GFR - AA 62 mL/min Normal >60 [facility] Comment on above: Result Comment: Afri can Somali GFR Calc Performed By: #### L 500.4050, L501.9520, L100.0100, L506.1000 #### [facility] [address] [place], [address] GAP 9 Normal 5-15 [facility] Comment on above: Performed By: #### L 500.4050, L501.9520, L100.0100, L506.1000 #### [facility] [address] [place], [address] GFR/1.73 sq M.predicted among non-blacks MDRD (S/P/Bld) [Vol rate/Area] 51 mL/min/{1.73_m2} Low >60 [facility] Comment on above: Result Comment: Non- GFR Calc Performed By: #### L 500.4050, L501.9520, L100.0100, L506.1000 #### [facility] [address] [place], [address] Globulin (S) [Mass/Vol] 2.9 g/dL Normal 2.2-4.2 [facility] Comment on above: Performed By: #### L 500.4050, L501.9520, L100.0100, L506.1000 #### [facility] [address] [place], [address] Glucose [Mass/Vol] 123 mg/dL High 74-106 [facility] Comment on above: Result Comment: Fast ing Glucose result from 100 to 125 mg/dL suggests IMPAIRED HOMEOSTASIS per A.D.A. criteria. Performed By: #### L 500.4050, L501.9520, L100.0100, L506.1000 #### [facility] [address] [place], [address] Potassium [Moles/Vol] 4.3 mmol/L Normal 3.5-5.1 [facility] Comment on above: Performed By: #### L 500.4050, L501.9520, L100.0100, L506.1000 #### [facility] [address] [place], [address] Sodium [Moles/Vol] 142 mmol/L Normal 136-145 [facility] Comment on above: Performed By: #### L 500.4050, L501.9520, L100.0100, L506.1000 #### [facility] [address] [place], [address] T PROT 6.7 g/dL Normal 6.4-8.2 [facility] Comment on above: Performed By: #### L 500.4050, L501.9520, L100.0100, L506.1000 #### [facility] [address] [place], [address] Urea nitrogen [Mass/Vol] 21 mg/dL High 7-18 [facility] Comment on above: Performed By: #### L 500.4050, L501.9520, L100.0100, L506.1000 #### [facility] [address] [place], [address] Thyroid Stim Hormone (TSH)on 02-20-2024 TSH 1.570 uIU/mL Normal 0.358-3.740 [facility] Comment on above: Performed By: #### L 500.4050, L501.9520, L100.0100, L506.1000 #### [facility] [address] [place], [address] Emergency Department Summary on 12-12-2023 Emergency Department Summary [facility] Records Department [address] [facility] [place] [address] Emergency Department Summary 12/12/23 MR#: [id number] Acct: [id number] Name: RICHELLE AHUJA Rep #: [id number] : 1945 78 From: Sergio Smith DO PCP: Dr. Mickey Nguyen MD Status:DEP ER Location: ED HPI History of Present Illness Chief Complaint: Lower Extremity Injury Narrative Narrative: 78-year-old female presenting with left leg pain. She states that this morning she took some trash out to the dumpster and it was fairly heavy and she had to struggle to get it over the top of the dumpster she did not have any injury at that time but later noticed that her left calf started to hurt and was achy. Now radiates up into her left hamstring and the lateral aspect of her left hip. Denies any direct trauma. No numbness. No bruising. No swelling. No history of DVT and no risk factors. She does have history of left hip replacement and expresses concern she might have injured something. [facility] Medical History Non-smoker Hiatal hernia History of pneumonia Scoliosis Diastolic dysfunction Hypokalemia Edema Hyperlipidemia Essential hypertension Shortness of breath Home Medications ???Medication ???Instructions ???Recorded ???Last Taken ???Type ascorbic acid (vitamin C) 500 mg 1,000 mg PO DAILY 01/06/19 08/18/21 History tablet citalopram 20 mg tablet 20 mg PO DAILY 01/06/19 08/18/21 History losartan 50 mg tablet 50 mg PO DAILY 01/06/19 08/18/21 History potassium chloride 20 mEq 20 meq PO DAILY 01/06/19 08/18/21 History tablet,extended release rosuvastatin 10 mg tablet (Crestor) 10 mg PO DAILY 01/06/19 08/18/21 History latanoprost 0.005 % eye drops 1 drp ophthalmic (eye) QPM 01/09/19 08/17/21 History timolol maleate 0.5 % eye drops 1 drp ophthalmic (eye) DAILY 01/09/19 08/17/21 History brimonidine 0.2 % eye drops 1 drp ophthalmic (eye) BID 05/22/20 08/17/21 History cholecalciferol (vitamin D3) 25 25 mcg PO DAILY 02/04/21 08/18/21 History mcg (1,000 unit) tablet acetaminophen 325 mg tablet 650 mg (2 x 325 mg) PO Q4H PRN PRN 08/21/21 Unknown Rx (Tylenol) Fever, pain 1-03/22 #0 tabs inhalational spacing device #0 ea 08/21/21 Unknown Rx (Compact Space Chamber) biotin 10,000 mcg chewable tablet mcg PO 11/29/22 Unknown History (Hair, Skin and Nails (biotin)) fexofenadine 180 mg tablet 180 mg PO DAILY #90 tabs 11/29/22 Unknown Rx (Radha Allergy) Allergy/AdvReac Type Severity Reaction Status Date / Time prednisone Allergy Rash Verified 12/12/23 19:53 Opioids - Morphine Analogues AdvReac Severe DIFFICULTY Verified 12/12/23 19:53 SWALLOWING adhesive tape AdvReac Intermediate Rash, Verified 12/12/23 19:53 burning amoxicillin (From Augmentin) AdvReac Unknown unknown Verified 12/12/23 19:53 clavulanic acid (From AdvReac Unknown unknown Verified 12/12/23 19:53 Augmentin) Corticosteroids AdvReac Pain in Verified 12/12/23 19:53 (Glucocorticoids) (steroids) joints Family History Father CAD (coronary artery disease) Myocardial infarction Mother Hypertension Uncle Emphysema of lung Surgical History History of hernia repair History of Leobardo fundoplication H/O wisdom tooth extraction History of hip replacement Hx of cataract removal with insertion of prosthetic lens History of tonsillectomy Social History household members: none Smoking Status: Never smoker alcohol intake: never substance use type: does not use ROS ROS ED Constitutional Constitutional ED: Denies chills, fever(s) or sweats Eyes Eyes: Denies blurry vision or change in vision ENT ENT ED: Denies ear pain or sore throat Cardiovascular Cardiovascular: Denies chest pain, palpitations or racing heartbeat Respiratory/Chest Respiratory/Chest: Denies cough, dyspnea or sputum Gastrointestinal Gastrointestinal: Denies abdominal pain, constipation, diarrhea, nausea or vomiting Genitourinary Genitourinary ED: Denies dysuria, hematuria or urinary frequency Musculoskeletal Musculoskeletal: Reports other Details: Left leg pain ; Denies arthralgias, myalgias or neck pain Integumentary Denies abscess, Abrasions or rash Neurologic Neurologic: Denies headache(s), paresthesias or weakness Psychiatric Psychiatric: Denies anxiety, depression, suicidal ideation or suicidal thoughts Endocrine Endocrinology: Denies polydipsia or polyuria EXAM Physical Exam Const Vital Signs: 12/12/23 19:51 Temperature 96.9 F L Temperature Source Temporal Pulse Rate 59 L Respiratory Rate 16 Blood Pressure 172/65 (more content not included)... Normal [facility] HIP, UNI W/ Pelvis 2-3 Views on 12-12-2023 HIP, UNI W/ Pelvis 2-3 Views [facility] Imaging Services [address] [place] [address] HIP, UNI W/ Pelvis 2-3 Views MR#: [id number] Acct: [id number] Name: RICHELLE AHUJA KOLE Rep #: [id number] : 1945 F 78 From: Nicolas Mancia PCP: Dr. Mickey Nguyen MD Status: REG ER Study: HIP, UNI W/ Pelvis 2-3 Views Date of Exam: 07/06 Exam# [id number] Ordering Dr: Sergio Smith DO [id number] INDICATION: pain EXAMINATION/TECHNIQUE: X-RAY - XR Hip Unilateral with Pelvis when performed; 2-3 Views COMPARISON: No relevant prior comparison study available FINDINGS: PELVIC BONES: No displaced fracture, destructive or sclerotic lesions. Note that overlapping bowel shadows may however obscure fine detail. Sacroiliac joints are unremarkable. No widening of the pubic symphysis. HIPS: Bilateral hip arthroplasties are present. No evidence of fracture or hardware failure. No displaced fracture seen in this frontal view. SOFT TISSUES: No soft tissue swelling or gas. RAD/HIP, UNI W/ Pelvis 2-3 Views IMPRESSION: 1. Bilateral hip arthroplasties. 2. No evidence of fracture or hardware failure or destructive bony process particularly involving LEFT hip. Electronically Signed: Nicolas Navarro MD at 22:41 EDT Reading Location ID and State: [address] [place] [address] Tel , Service support , CC: Dr. Sergio Smith DO; Dr. Mickey Nguyen MD Global Program Director: Signed Normal [facility] Venous Duplex Imag/Limited/U nion 12-12-2023 Venous Duplex Imag/Limited/Uni [facility] [address] [place] [address] Venous Duplex Imag/Limited/Uni MR#: [id number] Acct: [id number] Name: RICHELLE AHUJA Rep #: [id number] : 1945 F 78 From: Nicolas Mancia PCP: Dr. Mickey Nguyen MD Status: REG ER Study: Venous Duplex Imag/Limited/Uni Date of Exam: 0 12/12/23 Exam# [id number] Ordering Dr: Sergio Smith DO [id number] INDICATION: LT LEG PAIN TODAY EXAMINATION: Ultrasound US Venous Duplex LE Unilat / Limited TECHNIQUE: Loving scale, pulse wave, and color flow Doppler imaging was performed of the lower extremity venous system. The LEFT greater saphenous, common femoral, femoral, and popliteal veins were interrogated. COMPARISON: No pertinent previous for comparison.. FINDINGS: There is normal compression, augmentation, and signal throughout the visualized deep lower extremity veins. No mass or fluid collection. US/Venous Duplex Imag/Limited/Uni IMPRESSION: 1. No sonographic evidence of deep venous thrombosis/DVT in the LEFT lower extremity venous system. 2. No sonographic evidence of superficial thrombophlebitis. Electronically Signed: Nicolas Navarro MD at 22:53 EDT , CC: Dr. Sergio Smith DO; Dr. Mickey Nguyen MD Global Program Director: Signed Normal [facility] Absolute lymphocyte countOrd ered By: Mickey Nguyen on 08-03-2023 Lymphocytes Auto (Unsp spec) [#/Vol] 1.92 10*3/uL 0.83-4.51 [facility] Automated lymphocyte count a s percentage of total leukocytesOrdered By: Mickey Nguyen on 08-03-2023 Lymphocytes/100 WBC Auto (Unsp spec) 24.3 % 19-41 [facility] Basophil percentageOrdered B y: Mickey Nguyen on 08-03-2023 Basophils/100 WBC (Bld) 0.9 % 0-1 [facility] Bilirubin [Mass/Vol] 0.70 mg/dL 0.20-1.00 [facility] Comment on above: For patients on eltr ombopag therapy, use of Dimension [place] TBIL is not recommended. Chloride [Moles/Vol] 110 mmol/L 98-107 [facility] Eosinophils/100 WBC (Bld) 1.5 % 0-5 [facility] Glucose [Mass/Vol] 108 mg/dL 74-106 [facility] Comment on above: Fasting Glucose resu lt from 100 to 125 mg/dL suggests IMPAIRED HOMEOSTASIS per A.D.A. criteria. Hemoglobin (Bld) [Mass/Vol] 15.6 g/dL 12.0-15.0 [facility] Monocytes/100 WBC (Bld) 6.7 % 0-10 [facility] Neutrophils (Bld) [#/Vol] 5.3 10*3/uL 2.0-7.7 [facility] Neutrophils/100 WBC (Bld) 66.5 % 47-70 [facility] Potassium [Moles/Vol] 4.0 mmol/L 3.5-5.1 [facility] Protein [Mass/Vol] 6.4 g/dL 6.4-8.2 [facility] Sodium [Moles/Vol] 142 mmol/L 136-145 [facility] WBC (Bld) [#/Vol] 7.9 10*3/uL 4.4-11.0 [facility] Determination of erythrocyte mean corpuscular volume (MCV)Ordered By: Mickey Nguyen on 08-03-2023 MCV (RBC) [Entitic vol] 89.7 fL 81-99 [facility] Erythrocyte distribution wid th ratioOrdered By: Mickey Nguyen 08-03-2023 Erythrocyte distribution width (RBC) [Ratio] 13.1 % 11.6-14.6 [facility] Erythrocyte distribution wid th standard deviationOrdered By: Mickey Nguyen on 08-03-2023 Erythrocyte distribution width (RBC) [Entitic vol] 42.6 fL 35.1-43.9 [facility] Hematocrit Auto (Bld) [Volum e fraction]Ordered By: Mickey Nguyen 08-03-2023 Hematocrit (Bld) [Volume fraction] 49.6 % 37-47 [facility] Immature granulocytes/100 WB C Auto (Bld)Ordered By: Mickey Nguyen on 08-03-2023 Immature granulocytes/100 WBC (Bld) 0.100 % 0.0-0.9 [facility] Comment on above: IG% - Immature Granu locytes (promyelocytes, myelocytes and metamyelocytes) > 1% indicates that a LEFT SHIFT is Present. Laboratory - Chemistry and C hemistry - challengeOrdered By: Mickey Nguyen on 08-03-2023 Albumin/Globulin [Mass ratio] 1.4 {ratio} 0.9-2.4 [facility] ALP [Catalytic activity/Vol] 101 U/L 45-117 [facility] ALT [Catalytic activity/Vol] 25 U/L 13-56 [facility] CO2 [Moles/Vol] 28.0 mmol/L 21.0-32.0 [facility] Globulin (S) [Mass/Vol] 2.7 g/dL 2.2-4.2 [facility] Urea nitrogen/Creatinine [Mass ratio] 22.6 mg/mg 10-20 [facility] Laboratory - Hematology and Cell countsOrdered By: Mickey Nguyen on 08-03-2023 MCH (RBC) [Entitic mass] 28.2 pg 27.0-32.0 [facility] MCHC (RBC) [Mass/Vol] 31.5 g/dL 32-36 [facility] Nucleated RBC/100 WBC (Bld) [Ratio] 0 % 0-5 [facility] Platelet mean volume (Bld) [Entitic vol] 9.6 fL 6.2-12.0 [facility] Platelets (Bld) [#/Vol] 146 10*3/uL 150-450 [facility] No Panel InformationOrdered By: Mickey Nguyen on 08-03-2023 Estimated GFR (MDRD) Amer 71 mL/min >60 [facility] Comment on above: GFR Calc Estimated GFR (MDRD) Non-Af Amer 59 mL/min >60 [facility] Comment on above: Non- GFR Calc Vitamin D 25-Hydroxy 66.9 ng/mL [facility] Comment on above: Vitamin D 25(OH) Sta tus Range Deficiency <20 ng/mL (50nmol/L) Insufficiency 20 - 30 ng/mL (50 - 75 nmol/L) Sufficiency 30 - 100 ng/mL (75 - 250 nmol/L) Toxicity >100 ng/mL (>250 nmol/L) RBC Auto (Bld) [#/Vol]Ordere d By: Mickey Nguyen on 08-03-2023 RBC (Bld) [#/Vol] 5.53 10*6/uL 4.2-5.4 [facility] Serum or plasma calcium willam urement (mass/volume)Ordered By: Mickey Nguyen on 08-03-2023 Calcium [Mass/Vol] 10.1 mg/dL 8.5-10.1 [facility] Serum or plasma creatinine m easurement (mass/volume)Ordered By: Mickey Nguyen on 08-03-2023 Creatinine [Mass/Vol] 0.98 mg/dL 0.55-1.02 [facility] Comment on above: The validity of the calculated GFR & GFRAA in patients over 70 years has not been determined. Clinical correlation is essential. Serum or plasma thyroid stim ulating hormone (TSH) measurement (units/volume)Ordered By: Mickey Nguyen on 08-03-2023 TSH Qn 1.24 uIU/mL 0.358-3.74 [facility] Serum or plasma urea nitroge n measurement (mass/volume)Ordered By: Mickey Nguyen on 08-03-2023 Urea nitrogen [Mass/Vol] 22 mg/dL 7-18 [facility] Thin prep Papanicolaou smear with manual screeningOrdered By: Mickey Nguyen on 08-03-2023 Thin prep Papanicolaou smear with manual screening 3.7 g/dL 3.2-5.0 [facility] Thin prep Papanicolaou smear with manual screening 22 U/L 15-37 [facility] Thin prep Papanicolaou smear with manual screening 4 5-15 [facility] Basophil percentageon 2021 Chloride [Moles/Vol] 105 mmol/L 98-107 [facility] Work Phone: Glucose [Mass/Vol] 111 mg/dL 74-106 [facility] Work Phone: Comment on above: Fasting Glucose resu lt from 100 to 125 mg/dL suggests IMPAIRED HOMEOSTASIS per A.D.A. criteria. Potassium [Moles/Vol] 4.1 mmol/L 3.5-5.1 [facility] Work Phone: Sodium [Moles/Vol] 139 mmol/L 136-145 [facility] Work Phone: Laboratory - Chemistry and C hemistry - challengeon 09-24-2021 CO2 [Moles/Vol] 29.0 mmol/L 21.0-32.0 [facility] Work Phone: Urea nitrogen/Creatinine [Mass ratio] 19.4 mg/mg 10-20 [facility] Work Phone: No Panel Informationon 09-24 Estimated GFR (MDRD) Amer 76 mL/min >60 [facility] Work Phone: Comment on above: GFR Calc Estimated GFR (MDRD) Non-Af Amer 63 mL/min >60 [facility] Work Phone: Comment on above: Non- GFR Calc Serum or plasma calcium willam urement (mass/volume)on 09-24-2021 Calcium [Mass/Vol] 9.6 mg/dL 8.5-10.1 [facility] Work Phone: Serum or plasma creatinine m easurement (mass/volume)on 09-24-2021 Creatinine [Mass/Vol] 0.93 mg/dL 0.55-1.02 [facility] Work Phone: Comment on above: The validity of the calculated GFR & GFRAA in patients over 70 years has not been determined. Clinical correlation is essential. Serum or plasma urea nitroge n measurement (mass/volume)on 09-24-2021 Urea nitrogen [Mass/Vol] 18 mg/dL 7-18 [facility] Work Phone: Thin prep Papanicolaou smear with manual screeningon 09-24-2021 Thin prep Papanicolaou smear with manual screening 5 5-15 [facility] Work Phone: Basophil percentageon 2021 Chloride [Moles/Vol] 105 mmol/L 98-107 [facility] Work Phone: Glucose [Mass/Vol] 85 mg/dL 74-106 [facility] Work Phone: Potassium [Moles/Vol] 4.1 mmol/L 3.5-5.1 [facility] Work Phone: Sodium [Moles/Vol] 139 mmol/L 136-145 [facility] Work Phone: Laboratory - Chemistry and C hemistry - challengeon 09-16-2021 CO2 [Moles/Vol] 29.0 mmol/L 21.0-32.0 [facility] Work Phone: Urea nitrogen/Creatinine [Mass ratio] 24.8 mg/mg 10-20 [facility] Work Phone: No Panel Informationon 09-16 Estimated GFR (MDRD) Amer 63 mL/min >60 [facility] Work Phone: Comment on above: GFR Calc Estimated GFR (MDRD) Non-Af Amer 52 mL/min >60 [facility] Work Phone: Comment on above: Non- GFR Calc Serum or plasma calcium willam urement (mass/volume)on 09-16-2021 Calcium [Mass/Vol] 10.6 mg/dL 8.5-10.1 [facility] Work Phone: Serum or plasma creatinine m easurement (mass/volume)on 09-16-2021 Creatinine [Mass/Vol] 1.09 mg/dL 0.55-1.02 [facility] Work Phone: Comment on above: The validity of the calculated GFR & GFRAA in patients over 70 years has not been determined. Clinical correlation is essential. Serum or plasma urea nitroge n measurement (mass/volume)on 09-16-2021 Urea nitrogen [Mass/Vol] 27 mg/dL 7-18 [facility] Work Phone: Thin prep Papanicolaou smear with manual screeningon 09-16-2021 Thin prep Papanicolaou smear with manual screening 5 5-15 [facility] Work Phone: Basophil percentageon 2021 Chloride [Moles/Vol] 99 mmol/L 98-107 [facility] Work Phone: Glucose [Mass/Vol] 110 mg/dL 74-106 [facility] Work Phone: Comment on above: Fasting Glucose resu lt from 100 to 125 mg/dL suggests IMPAIRED HOMEOSTASIS per A.D.A. criteria. Potassium [Moles/Vol] 3.9 mmol/L 3.5-5.1 [facility] Work Phone: Sodium [Moles/Vol] 135 mmol/L 136-145 [facility] Work Phone: Laboratory - Chemistry and C hemistry - challengeon 08-21-2021 CO2 [Moles/Vol] 30.0 mmol/L 21.0-32.0 [facility] Work Phone: Urea nitrogen/Creatinine [Mass ratio] 36.5 mg/mg 10-20 [facility] Work Phone: No Panel Informationon 08-21 Estimated Creatinine Clearance Calc 48.03 ml/min [facility] Work Phone: Estimated GFR (MDRD) Amer 84 mL/min >60 [facility] Work Phone: Comment on above: GFR Calc Estimated GFR (MDRD) Non-Af Amer 69 mL/min >60 [facility] Work Phone: Comment on above: Non- GFR Calc Serum or plasma calcium willam urement (mass/volume)on 08-21-2021 Calcium [Mass/Vol] 9.4 mg/dL 8.5-10.1 [facility] Work Phone: Serum or plasma creatinine m easurement (mass/volume)on 08-21-2021 Creatinine [Mass/Vol] 0.85 mg/dL 0.55-1.02 [facility] Work Phone: Comment on above: The validity of the calculated GFR & GFRAA in patients over 70 years has not been determined. Clinical correlation is essential. Serum or plasma urea nitroge n measurement (mass/volume)on 08-21-2021 Urea nitrogen [Mass/Vol] 31 mg/dL 7-18 [facility] Work Phone: Thin prep Papanicolaou smear with manual screeningon 08-21-2021 Thin prep Papanicolaou smear with manual screening 6 5-15 [facility] Work Phone: Absolute lymphocyte counton 08-19-2021 Lymphocytes Auto (Unsp spec) [#/Vol] 3.71 10*3/uL 0.83-4.51 [facility] Work Phone: Basophil percentageon 2021 Basophils/100 WBC (Bld) 0.0 % 0-1 [facility] Work Phone: Bilirubin [Mass/Vol] 0.80 mg/dL 0.20-1.00 [facility] Work Phone: Comment on above: For patients on eltr ombopag therapy, use of Dimension [place] TBIL is not recommended. Eosinophils/100 WBC (Bld) 0.0 % 0-5 [facility] Work Phone: Neutrophils (Bld) [#/Vol] 2.3 10*3/uL 2.0-7.7 [facility] Work Phone: Neutrophils/100 WBC (Bld) 36.6 % 47-70 [facility] Work Phone: Protein [Mass/Vol] 5.7 g/dL 6.4-8.2 [facility] Work Phone: WBC (Bld) [#/Vol] 6.2 10*3/uL 4.4-11.0 [facility] Work Phone: Blood erythrocytes count (nu mber/volume)on 08-19-2021 RBC (Bld) [#/Vol] 5.18 10*6/uL 4.2-5.4 [facility] Work Phone: Blood hemoglobin measurement (mass/volume)on 08-19-2021 Hemoglobin (Bld) [Mass/Vol] 14.8 g/dL 12.0-15.0 [facility] Work Phone: Blood lymphocytes/100 leukoc yteson 08-19-2021 Lymphocytes/100 WBC (Bld) 60.0 % 19-41 [facility] Work Phone: Blood monocytes/100 leukocyt eson 08-19-2021 Monocytes/100 WBC (Bld) 3.1 % 0-10 [facility] Work Phone: Blood platelet mean volumeon 08-19-2021 Platelet mean volume (Bld) [Entitic vol] 10.3 fL 6.2-12.0 [facility] Work Phone: Determination of erythrocyte mean corpuscular volume (MCV)on 08-19-2021 MCV (RBC) [Entitic vol] 85.9 fL 81-99 [facility] Work Phone: Hematocrit Auto (Bld) [Volum e fraction]on 08-19-2021 Hematocrit (Bld) [Volume fraction] 44.5 % 37-47 [facility] Work Phone: Laboratory - Chemistry and C hemistry - challengeon 08-19-2021 ALP [Catalytic activity/Vol] 92 U/L 45-117 [facility] Work Phone: ALT [Catalytic activity/Vol] 45 U/L 13-56 [facility] Work Phone: [phone] Globulin (S) [Mass/Vol] 3.4 g/dL 2.2-4.2 [facility] Work Phone: Laboratory - Hematology and Cell countson 08-19-2021 Erythrocyte distribution width (RBC) [Entitic vol] 42.2 fL 35.1-43.9 [facility] Work Phone: [phone] Erythrocyte distribution width (RBC) [Ratio] 13.2 % 11.6-14.6 [facility] Work Phone: Immature granulocytes/100 WBC (Bld) 0.300 % 0.0-0.9 [facility] Work Phone: Comment on above: IG% - Immature Granu locytes (promyelocytes, myelocytes and metamyelocytes) > 1% indicates that a LEFT SHIFT is Present. MCH (RBC) [Entitic mass] 28.6 pg 27.0-32.0 [facility] Work Phone: Nucleated RBC/100 WBC (Bld) [Ratio] 0 % 0-5 [facility] Work Phone: MCHC Auto (RBC) [Mass/Vol]on 08-19-2021 MCHC (RBC) [Mass/Vol] 33.3 g/dL 32-36 [facility] Work Phone: No Panel Informationon 08-19 Troponin I High Sensitivity 28 pg/mL 3.0-54.0 [facility] Work Phone: Comment on above: Please Note: New Pepper t Units and Gender Specific Reference Ranges. For more information see Policy Stat Procedure [place] High Sensitivity Troponin (TNIH) and attachments. Platelets bldon 08-19-2021 Platelets (Bld) [#/Vol] 158 10*3/uL 150-450 [facility] Work Phone: Serum or plasma C reactive p rotein measurement (mass/volume)on 08-19-2021 CRP [Mass/Vol] 60.60 mg/L 0.0-3.0 [facility] Work Phone: Comment on above: C-Reactive Protein ( CRP) provides useful information for thediagnosis, therapy and monitoring of inflammatory processesand associated diseases. For the evaluation of Relative Riskfor Cardiovascular Disease, a High Sensitivity CRP (HSCRP)should be ordered. Serum or plasma albumin willam urement (mass/volume)on 08-19-2021 Albumin [Mass/Vol] 2.3 g/dL 3.2-5.0 [facility] Work Phone: [phone] Serum or plasma albumin/glob ulin mass ratioon 08-19-2021 Albumin/Globulin [Mass ratio] 0.7 {ratio} 0.9-2.4 [facility] Work Phone: Thin prep Papanicolaou smear with manual screeningon 08-19-2021 Thin prep Papanicolaou smear with manual screening 73 U/L 15-37 [facility] Work Phone: Absolute lymphocyte counton 08-18-2021 Lymphocytes Auto (Unsp spec) [#/Vol] 3.24 10*3/uL 0.83-4.51 [facility] Work Phone: Basophil percentageon 2021 Lactate [Moles/Vol] 1.6 mmol/L 0.4-2.0 [facility] Work [facility]: Basophils/100 WBC (Bld) 0.2 % 0-1 [facility] Work Phone: Bilirubin [Mass/Vol] 1.40 mg/dL 0.20-1.00 [facility] Work Phone: Comment on above: For patients on eltr ombopag therapy, use of Dimension [place] TBIL is not recommended. Chloride [Moles/Vol] 93 mmol/L 98-107 [facility] Work Phone: Eosinophils/100 WBC (Bld) 0.0 % 0-5 [facility] Work Phone: Glucose [Mass/Vol] 133 mg/dL 74-106 [facility] Work Phone: Comment on above: Fasting Glucose resu lt greater than or equal to 126 mg/dL suggests DIABETES MELLITUS per A.D.A. criteria. Neutrophils (Bld) [#/Vol] 5.2 10*3/uL 2.0-7.7 [facility] Work Phone: Neutrophils/100 WBC (Bld) 56.5 % 47-70 [facility] Work Phone: Potassium [Moles/Vol] 3.5 mmol/L 3.5-5.1 [facility] Work Phone: Protein [Mass/Vol] 6.8 g/dL 6.4-8.2 [facility] Work Phone: Sodium [Moles/Vol] 131 mmol/L 136-145 [facility] Work Phone: WBC (Bld) [#/Vol] 9.1 10*3/uL 4.4-11.0 [facility] Work [facility]: Blood erythrocytes count (nu mber/volume)on 08-18-2021 RBC (Bld) [#/Vol] 5.69 10*6/uL 4.2-5.4 [facility] Work Phone: Blood hemoglobin measurement (mass/volume)on 08-18-2021 Hemoglobin (Bld) [Mass/Vol] 16.6 g/dL 12.0-15.0 [facility] Work Phone: Blood lymphocytes/100 leukoc yteson 08-18-2021 Lymphocytes/100 WBC (Bld) 35.6 % 19-41 [facility] Work Phone: Blood monocytes/100 leukocyt eson 08-18-2021 Monocytes/100 WBC (Bld) 7.4 % 0-10 [facility] Work Phone: Blood platelet mean volumeon 08-18-2021 Platelet mean volume (Bld) [Entitic vol] 10.1 fL 6.2-12.0 [facility] Work Phone: Determination of erythrocyte mean corpuscular volume (MCV)on 08-18-2021 MCV (RBC) [Entitic vol] 83.8 fL 81-99 [facility] Work Phone: Hematocrit Auto (Bld) [Volum e fraction]on 08-18-2021 Hematocrit (Bld) [Volume fraction] 47.7 % 37-47 [facility] Work Phone: [phone] Laboratory - Chemistry and C hemistry - challengeon 08-18-2021 ALP [Catalytic activity/Vol] 102 U/L 45-117 [facility] Work Phone: ALT [Catalytic activity/Vol] 57 U/L 13-56 [facility] Work Phone: CO2 [Moles/Vol] 29.0 mmol/L 21.0-32.0 [facility] Work Phone: Globulin (S) [Mass/Vol] 4.0 g/dL 2.2-4.2 [facility] Work Phone: [phone] Natriuretic peptide B (Bld) [Mass/Vol] 22.7 pg/mL 0-100 [facility] Work Phone: [phone] Urea nitrogen/Creatinine [Mass ratio] 19.2 mg/mg 10-20 [facility] Work Phone: [phone] Laboratory - Hematology and Cell countson 08-18-2021 Erythrocyte distribution width (RBC) [Entitic vol] 40.7 fL 35.1-43.9 [facility] Work Phone: [phone] Erythrocyte distribution width (RBC) [Ratio] 13.2 % 11.6-14.6 [facility] Work Phone: [phone] Immature granulocytes/100 WBC (Bld) 0.300 % 0.0-0.9 [facility] Work Phone: [phone] Comment on above: IG% - Immature Granu locytes (promyelocytes, myelocytes and metamyelocytes) > 1% indicates that a LEFT SHIFT is Present. MCH (RBC) [Entitic mass] 29.2 pg 27.0-32.0 [facility] Work Phone: [phone] Nucleated RBC/100 WBC (Bld) [Ratio] 0 % 0-5 [facility] Work Phone: [phone] Laboratory - Microbiology an d Antimicrobial susceptibilityon 08-18-2021 SARS-CoV-2 (COVID-19) RNA LORAINE+probe Ql (Unsp spec) Detected Not Detect [facility] Work Phone: [phone] Comment on above: Normal Reference Ran ge: Not DetectedMethod:(RT-PCR) real-time reverse transcriptase PCRLuminex DEL Instrument*The Food and Drug Administration (FDA) has issued an Emergency Use Authorization (EAU) for the DEL SARS-CoV-2 Assay for the rapid detection of the virus that causes COVID-19. This test has been validated, but the FDAs independent review of this validation is pending.*Negative results do not preclude infection and should not be used as the sole basis for treatment or patient management. Optimum specimen types and timing for peak viral levels during infections caused by SARS-CoV-2 have not been determined. Collection of multiple specimens from the same patient may be necessary to detect the virus. The possibility of a false negative result should be considered if the patient has clinical presentation or has had recent exposure. MCHC Auto (RBC) [Mass/Vol]on 08-18-2021 MCHC (RBC) [Mass/Vol] 34.8 g/dL 32-36 [facility] Work Phone: No Panel Informationon 08-18 Streptococcus pneumoniae Antigen (M [facility] Work Phone: D-Dimer Quantitative (PE/DVT) 2.62 FEU/ug/m 0.27-0.49 [facility] Work Phone: Comment on above: D-Dimer ELEVATED (>0 .49): Additional studies and clinicalassessments are indicated to conclude diagnosis of:Deep Vein Thrombosis (DVT) or Pulmonary Embolism (PE)CRITICAL VALUE VERIFIED. CALLED TO [id number]/08/22 2301 Ely Nieves.RESULTS READ BACK BY SAME . Estimated GFR (MDRD) Amer 67 mL/min >60 [facility] Work Phone: Comment on above: GFR Calc Estimated GFR (MDRD) Non-Af Amer 55 mL/min >60 [facility] Work Phone: Comment on above: Non- GFR Calc Thyroid Stimulating Hormone (TSH) 1.14 uIU/mL 0.358-3.74 [facility] Work Phone: Vitamin D 25-Hydroxy 63.2 ng/mL [facility] Work Phone: Comment on above: Vitamin D 25(OH) Sta tus Range Deficiency <20 ng/mL (50nmol/L) Insufficiency 20 - 30 ng/mL (50 - 75 nmol/L) Sufficiency 30 - 100 ng/mL (75 - 250 nmol/L) Toxicity >100 ng/mL (>250 nmol/L) Platelets bldon 08-18-2021 Platelets (Bld) [#/Vol] 186 10*3/uL 150-450 [facility] Work Phone: Serum or plasma albumin willam urement (mass/volume)on 08-18-2021 Albumin [Mass/Vol] 2.8 g/dL 3.2-5.0 [facility] Work Phone: Serum or plasma albumin/glob ulin mass ratioon 08-18-2021 Albumin/Globulin [Mass ratio] 0.7 {ratio} 0.9-2.4 [facility] Work Phone: Serum or plasma calcium willam urement (mass/volume)on 08-18-2021 Calcium [Mass/Vol] 8.3 mg/dL 8.5-10.1 [facility] Work Phone: Serum or plasma creatinine m easurement (mass/volume)on 08-18-2021 Creatinine [Mass/Vol] 1.04 mg/dL 0.55-1.02 [facility] Work Phone: Comment on above: The validity of the calculated GFR & GFRAA in patients over 70 years has not been determined. Clinical correlation is essential. Serum or plasma urea nitroge n measurement (mass/volume)on 08-18-2021 Urea nitrogen [Mass/Vol] 20 mg/dL 7-18 [facility] Work Phone: Serum procalcitonin measurem enton 08-18-2021 Procalcitonin [Mass/Vol] 0.24 ng/mL 0.00-0.09 [facility] Work Phone: Comment on above: A procalcitonin (PCT ) level above 2.0 ng/mL on the first day of ICU admission is associated with a high risk for progression to severe sepsis and/or septic shock. A PCT level below 0.5 ng/mL on the first day of ICU admission is associated with a low risk for progression to severe and/or septic shock. Note: Concentrations <0.5 ng/mL do not exclude an infection on account of localized infections (without systemic signs) which can be associated with such low concentrations, or a systemic infection in its initial stages (<6 hours). Furthermore, increased procalcitonin can occur without infection. PCT concentrations between 0.5 and 2.0 ng/mL should be interpreted taking into account the patient's history. It is recommended to retest PCT within 6-24 hours if any concentrations <2 ng/mL are obtained. Thin prep Papanicolaou smear with manual screeningon 08-18-2021 Thin prep Papanicolaou smear with manual screening 95 U/L 15-37 [facility] Work Phone: Thin prep Papanicolaou smear with manual screening 9 5-15 [facility] Work Phone: Basic Metabolic Panelon Calcium [Mass/Vol] 9.9 mg/dL Normal 8.4-10.4 [facility] Work Phone: [phone] Comment on above: Performed By: #### M G3, HEMDF, PHOS3, BMP3M #### [employer] [place] [address] [place] [address] Glucose [Mass/Vol] 130 mg/dL High 70-100 [facility] Work Phone: [phone] Comment on above: Performed By: #### M G3, HEMDF, PHOS3, BMP3M #### [employer] [address] [place] [address] Urea nitrogen [Mass/Vol] 26 mg/dL High 7-20 [facility] Work Phone: [phone] Comment on above: Performed By: #### M G3, HEMDF, PHOS3, BMP3M #### [employer] [address] [place] [address] Anion gap [Moles/Vol] 9 mmol/L Normal 3-13 [facility] Work Phone: [phone] Comment on above: Performed By: #### M G3, HEMDF, PHOS3, BMP3M #### [employer] [address] [place] [address] CO2 [Moles/Vol] 26 mmol/L Normal 22-30 [facility] Work Phone: [phone] Comment on above: Performed By: #### M G3, HEMDF, PHOS3, BMP3M #### [employer] [address] [place] [address] Creatinine [Mass/Vol] 0.89 mg/dL Normal 0.52-1.25 [facility] Work Phone: Comment on above: Performed By: #### M G3, HEMDF, PHOS3, BMP3M #### [employer] [address] [place] [address] GFR/1.73 sq M predicted among blacks MDRD (S/P/Bld) [Vol rate/Area] 74.2 mL/min/{1.73_m2} Normal >60 [facility] Work Phone: Comment on above: Performed By: #### M G3, HEMDF, PHOS3, BMP3M #### [employer] [address] [place] [address] GFR/1.73 sq M predicted among non-blacks MDRD (S/P/Bld) [Vol rate/Area] 64.0 mL/min/{1.73_m2} Normal >60 [facility] Comment on above: Result Comment: KDIG O guidelines provide the following GFR categories: Stage GFR(ml/min/1.73 m2) Terms G1 >=90 Normal or high G2 60-89 Mildly decreased* G3a 45-59 Mildly to moderately decreased G3b 30-44 Moderately to severely decreased G4 15-29 Severely decreased G5 <15 Kidney failure *Relative to young adult level. In the absence of evidence of kidney damage, neither GFR category G1 nor G2 fulfill the criteria for CKD. The CKD-EPI equation is validated in individuals 18 years of age and older. Currently the best equation for estimating glomerular filtration rate (GFR) from serum creatinine in children is the Bedside Stack equation. It is less accurate in patients with extremes of muscle mass, restriction of dietary protein, ingestion of creatine, extra-renal metabolism of creatinine, or treatment with medications that affect renal tubular creatinine secretion. Performed By: #### M G3, HEMDF, PHOS3, BMP3M #### [employer] [address] [place] [address] Chloride [Moles/Vol] 99 mmol/L Normal 98-107 [facility] Work Phone: Comment on above: Performed By: #### M G3, HEMDF, PHOS3, BMP3M #### [employer] [address] [place], [place] Potassium [Moles/Vol] 4.0 mmol/L Normal 3.5-5.1 [facility] Work Phone: [phone] Comment on above: Performed By: #### M G3, HEMDF, PHOS3, BMP3M #### [email or web address] [address] [place], [place] Sodium [Moles/Vol] 134 mmol/L Low 135-145 [facility] Work Phone: [phone] Comment on above: Performed By: #### M G3, HEMDF, PHOS3, BMP3M #### [employer] [address] [place], [place] Basic Metabolic Panel w/ Ref mehul to MGon 08-14-2020 EGFR IF NonAfrican Somali 64.0 mL/min >60 [facility] Work Phone: [phone] Comment on above: KDIGO guidelines pro vide the following GFR categories: Stage GFR(ml/min/1.73 m2) Terms G1 >=90 Normal or high G2 60-89 Mildly decreased* G3a 45-59 Mildly to moderately decreased G3b 30-44 Moderately to severely decreased G4 15-29 Severely decreased G5 <15 Kidney failure *Relative to young adult level. In the absence of evidence of kidney damage, neither GFR category G1 nor G2 fulfill the criteria for CKD. The CKD-EPI equation is validated in individuals 18 years of age and older. Currently the best equation for estimating glomerular filtration rate (GFR) from serum creatinine in children is the Bedside Stack equation. It is less accurate in patients with extremes of muscle mass, restriction of dietary protein, ingestion of creatine, extra-renal metabolism of creatinine, or treatment with medications that affect renal tubular creatinine secretion. CBC auto differentialon - Absolute Baso # 0.0 10*3/uL 0 - 0.2 10*3/uL [facility] Work Phone: [phone] Absolute Neut # 8.6 10*3/uL High 1.8 - 7 10*3/uL [facility] Work Phone: 1 Basophils/100 WBC (Bld) 0.3 % 0 - 2 % S [facility] Work Phone: Eosinophils (Bld) [#/Vol] 0.0 10*3/uL 0 - 0.5 10*3/uL [facility] Work Phone: [phone] Eosinophils/100 WBC (Bld) 0.0 % Low 1 - 6 % [facility] Work Phone: Erythrocyte distribution width (RBC) [Ratio] 14.1 % 11.5 - 14.5 % [facility] Work Phone: 22 Granulocytes/100 WBC (Bld) 79.9 % 40 - 80 % [facility] Work Phone: Hematocrit (Bld) [Volume fraction] 44.9 % 35 - 47 % [facility] Work Phone: Hemoglobin (Bld) [Mass/Vol] 15.1 g/dL 11.7 - 16 g/dL [facility] Work Phone: Lymphocytes (Bld) [#/Vol] 1.8 10*3/uL 1 - 4.3 10*3/uL [facility] Work Phone: 22 Lymphocytes/100 WBC (Bld) 16.6 % Low 20 - 40 % [facility] Work Phone: MCH (RBC) [Entitic mass] 27.6 pg 26 - 34 pg [facility] Work Phone: MCHC (RBC) [Mass/Vol] 33.7 % 32 - 36 % [facility] Work Phone: MCV (RBC) [Entitic vol] 81.9 fL 79 - 98 fL [facility] Work Phone: 22 Monocytes (Bld) [#/Vol] 0.3 10*3/uL 0 - 0.8 10*3/uL [facility] Work Phone: ) 22 Monocytes/100 WBC (Bld) 3.2 % 2 - 10 % [facility] Work Phone: Platelet mean volume (Bld) [Entitic vol] 7.6 fL 7.4 - 10.4 fL [facility] Work Phone: Platelets (Bld) [#/Vol] 135 10*3/uL Low 140 - 440 10*3/uL [facility] Work Phone: RBC (Bld) [#/Vol] 5.49 10*6/uL High 3.8 - 5.2 10*6/uL [facility] Work Phone: WBC (Bld) [#/Vol] 10.7 10*3/uL 3.6 - 10.7 10*3/uL [facility] Work Phone: FL UGIon 08-14-2020 Alok, Radha Incoming Radiology Results From [facility] - 08/14/2020 11:38 AM EST Patient Name: RICHELLE AHUJA Fluoroscopy ACCESSION EXAM DATE/TIME PROCEDURE ORDERING PROVIDER [id number] 08/14/2020 09:10 EST RF UGI w/o KUB & w/ or Chandan BURNETTE, w/o Delay Flm [facility] CPT code 19745 Reason For Exam (RF UGI w/o KUB & w/ or w/o Delay Flm) s/p hiatal hernia repair with toupet fundoplication Report GASTROGRAFIN UPPER GI SERIES CLINICAL INDICATIONS: Postop day one Leobardo fundoplication. Evaluate for leak. FLUOROSCOPY TIME: 0.57 Minutes FLUOROSCOPIC SPOT IMAGES: 31 FINDINGS: Preliminary image demonstrates scoliosis of the thoracic and lumbar spine.. The exam was performed using Gastrografin orally as requested. There is a small left-sided pharyngocele. There is narrowing of the distal end of the esophagus and deformity of the gastric fundus consistent with post surgical changes in accordance with Leobardo fundoplication. There are no contrast extravasation or obstruction. There are tertiary contractions of the esophagus. The remaining esophagus is otherwise unremarkable. The remainder of the esophagus is otherwise unremarkable. There is limited visualization of the stomach that shows contrast emptying into the duodenum without obstruction. There are surgical clips in the upper abdomen. There are atelectasis/infiltrate in the partially visualized lung bases. IMPRESSION: Changes consistent with Leobardo fundoplication. No extravasation or obstruction. Tertiary contractions of the esophagus. Small left-sided pharyngocele. Report Dictated on --- Final --- Dictated: 08/14/2020 9:34 am Dictating Physician: DO MYRICK ANTHONY Signed Date and Time: 08/14/2020 11:37 am Signed by: DO MYRICK ANTHONY Transcribed Date and Time: 08/14/2020 10:00 [email or web address] Work Phone: Patient Name: RICHELLE AHUJA Fluoroscopy ACCESSION EXAM DATE/TIME PROCEDURE ORDERING PROVIDER [id number] 08/14/2020 09:10 EST RF UGI w/o KUB & w/ or Chandan BURNETTE, w/o Delay Flm [facility] CPT code 57267 Reason For Exam (RF UGI w/o KUB & w/ or w/o Delay Flm) s/p hiatal hernia repair with toupet fundoplication Report GASTROGRAFIN UPPER GI SERIES CLINICAL INDICATIONS: Postop day one Leobardo fundoplication. Evaluate for leak. FLUOROSCOPY TIME: 0.57 Minutes FLUOROSCOPIC SPOT IMAGES: 31 FINDINGS: Preliminary image demonstrates scoliosis of the thoracic and lumbar spine.. The exam was performed using Gastrografin orally as requested. There is a small left-sided pharyngocele. There is narrowing of the distal end of the esophagus and deformity of the gastric fundus consistent with post surgical changes in accordance with Leobardo fundoplication. There are no contrast extravasation or obstruction. There are tertiary contractions of the esophagus. The remaining esophagus is otherwise unremarkable. The remainder of the esophagus is otherwise unremarkable. There is limited visualization of the stomach that shows contrast emptying into the duodenum without obstruction. There are surgical clips in the upper abdomen. There are atelectasis/infiltrate in the partially visualized lung bases. IMPRESSION: Changes consistent with Leobardo fundoplication. No extravasation or obstruction. Tertiary contractions of the esophagus. Small left-sided pharyngocele. Report Dictated on --- Final --- Dictated: 08/14/2020 9:34 am Dictating Physician: DO MYRICK ANTHONY Signed Date and Time: 08/14/2020 11:37 am Signed by: DO MYRICK ANTHONY Transcribed Date and Time: 08/14/2020 10:00 [email or web address] Work Phone: Hemogram w/ Autodiffon 08-14 Abs Baso Cnt 0.0 10*3/uL Normal 0.0-0.2 [facility] Comment on above: Performed By: #### M G3, HEMDF, PHOS3, BMP3M #### [facility] [address] [place], [place] Abs Neutrophile Cnt 8.6 10*3/uL High 1.8-7.0 [facility] Comment on above: Performed By: #### M G3, HEMDF, PHOS3, BMP3M #### [address] [place], [place] Basophils/100 WBC (Bld) 0.3 % Normal 0.0-2.[address] [facility] Comment on above: Performed By: #### M G3, HEMDF, PHOS3, BMP3M #### [address] [place], [place] Eosinophils (Bld) [#/Vol] 0.0 10*3/uL Normal 0.0-0.[address] [facility] Comment on above: Performed By: #### M G3, HEMDF, PHOS3, BMP3M #### [address] [place], [place] Eosinophils/100 WBC (Bld) 0.0 % Low 1.0-6.[address] [facility] Comment on above: Performed By: #### M G3, HEMDF, PHOS3, BMP3M #### [address] Erythrocyte distribution width (RBC) [Ratio] 14.1 % Normal 11.5-14.[address] [facility] Comment on above: Performed By: #### M G3, HEMDF, PHOS3, BMP3M #### [address] [place], [place] Granulocytes/100 WBC (Bld) 79.9 % Normal 40.0-80.[address] [facility] Comment on above: Performed By: #### M G3, HEMDF, PHOS3, BMP3M #### [address] [place], [place] Hematocrit (Bld) [Volume fraction] 44.9 % Normal 35.0-47.[address] [facility] Comment on above: Performed By: #### M G3, HEMDF, PHOS3, BMP3M #### [facility] [address] [place], [place] Hemoglobin (Bld) [Mass/Vol] 15.1 g/dL Normal 11.7-16.[address] [facility] Comment on above: Performed By: #### M G3, HEMDF, PHOS3, BMP3M #### [address] [place], [place] Lymphocytes (Bld) [#/Vol] 1.8 10*3/uL Normal 1.0-4.[address] [facility] Comment on above: Performed By: #### M G3, HEMDF, PHOS3, BMP3M #### [address] [place], [place] Lymphocytes/100 WBC (Bld) 16.6 % Low 20.0-40.[address] [facility] Comment on above: Performed By: #### M G3, HEMDF, PHOS3, BMP3M #### [address] [place], [place] MCH (RBC) [Entitic mass] 27.6 pg Normal 26.0-34.[address] [facility] Comment on above: Performed By: #### M G3, HEMDF, PHOS3, BMP3M #### [address] [place], [place] MCHC (RBC) [Mass/Vol] 33.7 % Normal 32.0-36.0 [facility] Comment on above: Performed By: #### M G3, HEMDF, PHOS3, BMP3M #### [address] [place], [place] MCV (RBC) [Entitic vol] 81.9 fL Normal 79.0-98.0 [facility] Comment on above: Performed By: #### M G3, HEMDF, PHOS3, BMP3M #### [address] [place], [place] Monocytes (Bld) [#/Vol] 0.3 10*3/uL Normal 0.0-0.[address] [facility] Comment on above: Performed By: #### M G3, HEMDF, PHOS3, BMP3M #### [facility] [address] [place], [place] Monocytes/100 WBC (Bld) 3.2 % Normal 2.0-10.[address] [facility] Comment on above: Performed By: #### M G3, HEMDF, PHOS3, BMP3M #### [address] [place], [place] Platelet mean volume (Bld) [Entitic vol] 7.6 fL Normal 7.4-10.[address] [facility] Comment on above: Performed By: #### M G3, HEMDF, PHOS3, BMP3M #### [address] [place], [place] Platelets (Bld) [#/Vol] 135 10*3/uL Low 140-[address] [facility] Comment on above: Performed By: #### M G3, HEMDF, PHOS3, BMP3M #### [address] [place], [place] RBC (Bld) [#/Vol] 5.49 10*6/uL High 3.80-5.[address] [facility] Comment on above: Performed By: #### M G3, HEMDF, PHOS3, BMP3M #### [address] [place], [place] WBC (Bld) [#/Vol] 10.7 10*3/uL Normal 3.6-10.[address] [facility] Comment on above: Performed By: #### M G3, HEMDF, PHOS3, BMP3M #### [address] [place], [place] Magnesiumon 08-14-2020 Magnesium [Mass/Vol] 1.9 mg/dL Normal 1.6-2.3 [facility] Work Phone: Comment on above: Performed By: #### M G3, HEMDF, PHOS3, BMP3M #### [employer] [address] [place] [phone] Otheron 08-14-2020 Interpretation and review of laboratory results Abnormal [facility] Work Phone: Test Performed by [employer], [address] [place] [id number] [facility] Work Phone: Phosphoruson 08-14-2020 Phosphate [Mass/Vol] 3.8 mg/dL Normal 2.5-4.5 [facility] Work Phone: Comment on above: Performed By: #### M G3, HEMDF, PHOS3, BMP3M #### [employer] [address] [place] [phone] RF UGI w/o KUB w/ or w/o Del ay Flmon 08-14-2020 RF UGI w/o KUB w/ or w/o Delay Flm Patient Name: RICHELLE AHUJA Fluoroscopy ACCESSION EXAM DATE/TIME PROCEDURE ORDERING PROVIDER [id number] 08/14/2020 09:10 EST RF UGI w/o KUB and w/ or Chandan BURNETTE, w/o Delay Flm [facility] CPT code 06755 Reason For Exam (RF UGI w/o KUB and w/ or w/o Delay Flm) s/p hiatal hernia repair with toupet fundoplication Report GASTROGRAFIN UPPER GI SERIES CLINICAL INDICATIONS: Postop day one Leobardo fundoplication. Evaluate for leak. FLUOROSCOPY TIME: 0.57 Minutes FLUOROSCOPIC SPOT IMAGES: 31 FINDINGS: Preliminary image demonstrates scoliosis of the thoracic and lumbar spine.. The exam was performed using Gastrografin orally as requested. There is a small left-sided pharyngocele. There is narrowing of the distal end of the esophagus and deformity of the gastric fundus consistent with post surgical changes in accordance with Leobardo fundoplication. There are no contrast extravasation or obstruction. There are tertiary contractions of the esophagus. The remaining esophagus is otherwise unremarkable. The remainder of the esophagus is otherwise unremarkable. There is limited visualization of the stomach that shows contrast emptying into the duodenum without obstruction. There are surgical clips in the upper abdomen. There are atelectasis/infiltrate in the partially visualized lung bases. IMPRESSION: Changes consistent with Leobardo fundoplication. No extravasation or obstruction. Tertiary contractions of the esophagus. Small left-sided pharyngocele. Report Dictated on Final Dictated: 08/14/2020 9:34 am Dictating Physician: DO MYRICK ANTHONY Signed Date and Time: 08/14/2020 11:37 am Signed by: DO MYRICK ANTHONY Transcribed Date and Time: 08/14/2020 10:[address] [facility] [id number] 08-12-2020 SARS-CoV-2 SARS-CoV-2 --> Statu s: F Not Detected. Expected Result: Not Detected _ Real-time, RT-PCR performed on the [employer] System by the [facility] Microbiology Service Negative results do not preclude SARS-CoV-2 infection and should not be used as the sole basis for treatment or other patient management decisions. This assay was developed by [employer] and distributed under an Emergency Use Authorization (EUA) granted by the FDA for the qualitative detection of SARS-CoV-2 nucleic acid. Provider and patient fact sheets can be found at https://www.fda.gov/me eligio/355455/download and https://www.fda.gov/ky eligio/392863/download. Expected Result: Not Detected _ Real-time, RT-PCR performed on the [employer] MAX System by the [facility] [employer] Service Negative results do not preclude SARS-CoV-2 infection and should not be used as the sole basis for treatment or other patient management decisions. This assay was developed by [employer] and distributed under an Emergency Use Authorization (EUA) granted by the FDA for the qualitative detection of SARS-CoV-2 nucleic acid. Provider and patient fact sheets can be found at https://www.fda.gov/me eligio/215050/download and https://www.fda.gov/ky eligio/485899/download. Normal [facility] Comment on above: Performed By: #### C OVID ####[id number] [place] [address] Basic Metabolic Panelon 03-0 Anion gap [Moles/Vol] 7 mmol/L Normal 3-13 [facility] Comment on above: Performed By: #### B MP3, HGHCT ####[facility] [email or web address] [id number] [place] [address] Calcium [Mass/Vol] 10.1 mg/dL Normal 8.4-10.[address] [facility] Comment on above: Performed By: #### B MP3, HGHCT ####[address] [place] [address] CO2 [Moles/Vol] 29 mmol/L Normal 22-30 [facility] Comment on above: Performed By: #### B MP3, HGHCT ####[address] [place] [address] Glucose [Mass/Vol] 92 mg/dL Normal 70-[address] [facility] Comment on above: Performed By: #### B MP3, HGHCT ####[facility] [email or web address] [id number] [place], [place] Urea nitrogen [Mass/Vol] 22 mg/dL High 7-[address] [facility] Comment on above: Performed By: #### B MP3, HGHCT ####[facility] [email or web address] [id number] [place], [place] Creatinine [Mass/Vol] 0.87 mg/dL Normal 0.52-1.25 [facility] Comment on above: Performed By: #### B MP3, HGHCT ####[facility] [email or web address] [id number] [place] [address] GFR/1.73 sq M predicted among blacks MDRD (S/P/Bld) [Vol rate/Area] 76.2 mL/min/{1.73_m2} Normal >60 [facility] Comment on above: Performed By: #### B MP3, HGHCT ####[facility] [email or web address] [id number] [place] [address] GFR/1.73 sq M predicted among non-blacks MDRD (S/P/Bld) [Vol rate/Area] 65.8 mL/min/{1.73_m2} Normal >60 [facility] Comment on above: Result Comment: KDIG O guidelines provide the following GFR categories: Stage GFR(ml/min/1.73 m2) Terms G1 >=90 Normal or high G2 60-89 Mildly decreased* G3a 45-59 Mildly to moderately decreased G3b 30-44 Moderately to severely decreased G4 15-29 Severely decreased G5 <15 Kidney failure *Relative to young adult level. In the absence of evidence of kidney damage, neither GFR category G1 nor G2 fulfill the criteria for CKD. The CKD-EPI equation is validated in individuals 18 years of age and older. Currently the best equation for estimating glomerular filtration rate (GFR) from serum creatinine in children is the Bedside Stack equation. It is less accurate in patients with extremes of muscle mass, restriction of dietary protein, ingestion of creatine, extra-renal metabolism of creatinine, or treatment with medications that affect renal tubular creatinine secretion. Performed By: #### B MP3, HGHCT ####[address] [place], [place] Potassium [Moles/Vol] 4.0 mmol/L Normal 3.5-5.1 [facility] Comment on above: Performed By: #### Cecil MP3, HGHCT ####[address] [place], [place] Sodium [Moles/Vol] 136 mmol/L Normal 135-[address] [facility] Comment on above: Performed By: #### Cecil MP3, HGHCT ####[address] [place], [place] Chloride [Moles/Vol] 100 mmol/L Normal 98-107 [facility] Comment on above: Performed By: #### B MP3, HGHCT ####[address] [place], [place] Anion gap [Moles/Vol] 7 mmol/L 3 - 13 mmol/L [facility] Work Phone: Calcium [Mass/Vol] 10.1 mg/dL 8.4 - 10. 4 mg/dL [facility] Work Phone: Chloride [Moles/Vol] 100 mmol/L 98 - 10 7 mmol/L [facility] Work Phone: [phone] CO2 [Moles/Vol] 29 mmol/L 22 - 30 mmol/L [facility] Work Phone: [phone] Creatinine [Mass/Vol] 0.87 mg/dL 0.52 - 1.25 mg/dL [facility] Work Phone: [phone] IF NonAfrican Somali 65.8 mL/min >60 [facility] Work Phone: [phone] Comment on above: KDIGO guidelines pro vide the following GFR categories: Stage GFR(ml/min/1.73 m2) Terms G1 >=90 Normal or high G2 60-89 Mildly decreased* G3a 45-59 Mildly to moderately decreased G3b 30-44 Moderately to severely decreased G4 15-29 Severely decreased G5 <15 Kidney failure *Relative to young adult level. In the absence of evidence of kidney damage, neither GFR category G1 nor G2 fulfill the criteria for CKD. The CKD-EPI equation is validated in individuals 18 years of age and older. Currently the best equation for estimating glomerular filtration rate (GFR) from serum creatinine in children is the Bedside Stack equation. It is less accurate in patients with extremes of muscle mass, restriction of dietary protein, ingestion of creatine, extra-renal metabolism of creatinine, or treatment with medications that affect renal tubular creatinine secretion. GFR/1.73 sq M predicted among blacks MDRD (S/P/Bld) [Vol rate/Area] 76.2 mL/min/{1.73_m2} >60 [facility] Work Phone: [phone] Glucose [Mass/Vol] 92 mg/dL 70 - 100 mg/dL [facility] Work Phone: [phone] Interpretation and review of laboratory results Abnormal [facility] Work Phone: [phone] Potassium [Moles/Vol] 4.0 mmol/L 3.5 - 5.1 mmol/L [facility] Work Phone: [phone] Sodium [Moles/Vol] 136 mmol/L 135 - 145 mmol/L [facility] Work Phone: [phone] Urea nitrogen [Mass/Vol] 22 mg/dL High 7 - 20 mg/dL [facility] Work Phone: [phone] Test Performed by [employer], [address] [place] [address] [facility] Work Phone: COVID-19on 08-11-2020 SARS-CoV-2 Not Detected. Not Detected [facility] Work Phone: Comment on above: Not Detected. Expected Result: Not Detected _ Real-time, RT-PCR performed on the [employer] System by the [facility] Microbiology Service Negative results do not preclude SARS-CoV-2 infection and should not be used as the sole basis for treatment or other patient management decisions. This assay was developed by [employer] and distributed under an Emergency Use Authorization (EUA) granted by the FDA for the qualitative detection of SARS-CoV-2 nucleic acid. Provider and patient fact sheets can be found at https://www.fda.gov/media/048908/download and https://www.fda.gov/media/620832/download. Test Performed by [email or web address], [address] [place] [address] CR Chest PA/LATon 08-11-2020 CR Chest PA/LAT Patient Name: RICHELLE AHUJA Diagnostic Radiology ACCESSION EXAM DATE/TIME PROCEDURE ORDERING PROVIDER [id number] 08/11/2020 14:41 EST CR Chest PA and LAT DONY GAN NICOLE L. CPT code 40685 Reason For Exam (CR Chest PA and LAT) pre-op Z01.818 Report Indication: Preoperative clearance. Hiatal hernia. Frontal and lateral views of the chest were obtained with no prior studies available for comparison. The heart is not enlarged. A moderate-sized hiatal hernia is visualized. There is no pulmonary vascular congestion. Mild chronic appearing interstitial lung changes are visualized. There are no acute infiltrates. There is a S-shaped scoliosis of the thoracolumbar spine. IMPRESSION: 1. No active intrathoracic disease. Hiatal hernia. Report Dictated on Final Dictated: 08/11/2020 2:52 pm Dictating Physician: DO MYRICK ANTHONY Signed Date and Time: 08/11/2020 2:53 pm Signed by: DO MYRICK ANTHONY Transcribed Date and Time: 08/11/2020 2:[address] [facility] Hemoglobin AND Hematocriton 08-11-2020 Hematocrit (Bld) [Volume fraction] 44.1 % Normal 35.0-47.[address] [facility] Comment on above: Performed By: #### B MP3, HGHCT #### [address] [address] Hemoglobin (Bld) [Mass/Vol] 14.5 g/dL Normal 11.7-16.[address] [facility] Comment on above: Performed By: #### B MP3, HGHCT #### [facility] [address] [place] [address] Hemoglobin and Hematocrit, B loodon 08-11-2020 Hematocrit (Bld) [Volume fraction] 44.1 % 35 - 47 % [facility] Work Phone: Hemoglobin (Bld) [Mass/Vol] 14.5 g/dL 11.7 - 16 g/dL [facility] Work Phone: Test Performed by [address] [address] [facility] Work Phone: XR CHEST (2 VW)on 08-11-2020 Alok, [facility] Incoming Radiology Results From [facility] - 08/11/2020 2:54 PM EST Patient Name: RICHELLE AHUJA Diagnostic Radiology ACCESSION EXAM DATE/TIME PROCEDURE ORDERING PROVIDER [id number] 08/11/2020 14:41 EST CR Chest PA & LAT DONY GAN NICOLE L. CPT code 43854 Reason For Exam (CR Chest PA & LAT) pre-op Z01.818 Report Indication: Preoperative clearance. Hiatal hernia. Frontal and lateral views of the chest were obtained with no prior studies available for comparison. The heart is not enlarged. A moderate-sized hiatal hernia is visualized. There is no pulmonary vascular congestion. Mild chronic appearing interstitial lung changes are visualized. There are no acute infiltrates. There is a S-shaped scoliosis of the thoracolumbar spine. IMPRESSION: 1. No active intrathoracic disease. Hiatal hernia. Report Dictated on --- Final --- Dictated: 08/11/2020 2:52 pm Dictating Physician: DO MYRICK ANTHONY Signed Date and Time: 08/11/2020 2:53 pm Signed by: DO YMRICK ANTHONY Transcribed Date and Time: 08/11/2020 2:52 [facility] Work Phone: Patient Name: RICHELLE AHUJA Diagnostic Radiology ACCESSION EXAM DATE/TIME PROCEDURE ORDERING PROVIDER [id number] 08/11/2020 14:41 EST CR Chest PA & LAT DONY GAN NICOLE L. CPT code 54827 Reason For Exam (CR Chest PA & LAT) pre-op Z01.818 Report Indication: Preoperative clearance. Hiatal hernia. Frontal and lateral views of the chest were obtained with no prior studies available for comparison. The heart is not enlarged. A moderate-sized hiatal hernia is visualized. There is no pulmonary vascular congestion. Mild chronic appearing interstitial lung changes are visualized. There are no acute infiltrates. There is a S-shaped scoliosis of the thoracolumbar spine. IMPRESSION: 1. No active intrathoracic disease. Hiatal hernia. Report Dictated on --- Final --- Dictated: 08/11/2020 2:52 pm Dictating Physician: DO MYRICK ANTHONY Signed Date and Time: 08/11/2020 2:53 pm Signed by: DO MYRICK ANTHONY Transcribed Date and Time: 08/11/2020 2:52 [facility] Work Phone: Surgical Pathology 020 Surgical Pathology [id number] [facility] PATHOLOGY AND LABORATORY MEDICINE [address] [place], [place] [id number] FINAL SURGICAL PATHOLOGY REPORT NAME: RICHELLE AHUJA : 1945 74 Y F BILLING NO.: [id number] LOCATION: 1XEO PROCEDURE 04/08/2020 DATE: SURGEON: SIN CASTRO M.D. RECEIVED 04/09/2020 DATE: ATTENDING: SIN CASTRO M.D. REPORT DATE: 04/10/2020 COPIES TO: DIAGNOSIS: STOMACH, ANTRUM, BIOPSY - MILD CHRONIC INACTIVE GASTRITIS. Comment: H&E stain is negative for H. pylori. No significant active inflammation present. Negative for intestinal metaplasia or malignancy. CRH/CRH Signature> CHANNING FRANCOIS M.D. CLINICAL INFORMATION: Gastroesophageal reflux disease SPECIMEN: GASTRIC BIOPSY GROSS DESCRIPTION: Received in formalin labeled gastric biopsy is two fragments of [place] tissue measuring up to 0.5 cm in greatest dimension. Entirely submitted in one cassette. OAS/STEPHANIE Disclaimer: The following statement applies to all immunohistochemistry, in situ hybridization, molecular studies, and immunofluorescence testing. The use of one or more reagents in the above tests is regulated as an analyte specific reagent (ASR). These tests were developed and their performance characteristics determined by the clinical laboratories of [facility] [email or web address] Formerly [facility]. They have not been cleared by the US Food and Drug Administration (FDA). The FDA has determined that such clearance or approval is not necessary. All the above immunostains were performed on paraffin embedded tissue. Appropriate positive and negative controls (where applicable) were run in parallel with the patient's specimen; these controls showed expected staining pattern, with acceptable intensity of staining. Immunohistochemical assays have not been validated on decalcified tissues. Results should be interpreted with caution given the raised possibility of false negativity on decalcified specimens. Professional Performing Location: [address] [address]. DEPARTMENT OF PATHOLOGY AND LABORATORY MEDICINE [place], [place] [address] [facility] RF UGI w/o KUB w/ or w/o Del ay Flmon 03-31-2020 RF UGI w/o KUB w/ or w/o Delay Flm Patient Name: RICHELLE AHUJA Fluoroscopy Exam Date/Time 03/31/2020 11:11:51 EDT Exam RF UGI w/o KUB and w/ or w/o Delay Flm Ordering Physician DONY TUCKER HEATHER L Accession Number [id number] [facility] Codes 10391 () Reason For Exam Heartburn Report AIR CONTRAST UGI SERIES (with marshmallow bagel protocol) CLINICAL INDICATIONS: Heartburn. History of hiatal hernia. COMPARISON: None. FLUOROSCOPY TIME: 1.14minutes. FLUOROSCOPIC EXPOSURES: 43 fluoroscopic spot images and two fluoroscopic loop runs were obtained. TECHNIQUE: Biphasic exam was performed with barium and air. Marshmallow bagel protocol was performed per ordering physician request. FINDINGS: Barium and air are administered. The esophagus is studied in the upright as well as the horizontal positions. There are small bilateral pharyngoceles. There is hypertrophy of the cricopharyngeus. The esophagus is normal in course. There is mucosal irregularity and narrowing of the distal esophagus. There are tertiary esophageal contractions. There is a large hiatal hernia with spontaneous gastroesophageal reflux. Barium flows freely from the esophagus into the stomach. The stomach and duodenum show normal mucosal pattern, with no discrete ulcer or mass. The visualized proximal jejunum is unremarkable. There is marked stasis and retrograde flow of the marshmallow bolus within the thoracic esophagus. IMPRESSION: Small bilateral pharyngoceles. Hypertrophy of the cricopharyngeus. Mucosal irregularity and narrowing of the distal esophagus. Consider endoscopy. Tertiary esophageal contractions. Large hiatus hernia with spontaneous gastroesophageal reflux. There is marked stasis and retrograde flow of the marshmallow bolus within the thoracic esophagus. Report Dictated on Final Dictated: 03/31/2020 2:05 pm Dictating Physician: MD FITZPATRICK JONATHAN R Signed Date and Time: 03/31/2020 3:39 pm Signed by: MD FITZPATRICK JONATHAN R Transcribed Date and Time: 03/31/2020 2:[address] [facility] XR FACIAL BONES MINIMUM 3 EWSon 09-25-2019 XR FACIAL BONES MINIMUM 3 VIEWS ORIGINAL XR FACIAL BONES MINIMUM 3 VIEWS CLINICAL STATEMENT: Fall, pain and nose COMPARISON: None FINDINGS: Suspect nondisplaced fracture at the tip of the nasal bone. Minimal anterolisthesis is noted at C2-C3 and C3-C4. IMPRESSION: Suspect nondisplaced fracture of the nasal bone tip. I have personally reviewed the images of this examination and agree with the resident's findings and interpretation. Interpreted By: Anderson Parry MD Preliminary Report By: Stephan Núñez MD Electronically Signed By: Anderson Parry MD Dictated Date: 09/25/2019 4:35:37 PM Prelim Date: 09/25/2019 4:43:44 PM Sign Date: 09/25/2019 5:16:11 PM Ordering Provider:[facility] [place] XR HAND MINIMUM 3 VIEWS LEFT on 09-25-2019 XR HAND MINIMUM 3 VIEWS LEFT ORIGINAL XR HAND MINIMUM 3 VIEWS LEFT, 09/25/2019 4:36 PM INDICATION: pain COMPARISON: No FINDINGS: There are no acute fractures. There are degenerative changes, most prominently to the distal interphalangeal joints, 3rd proximal interphalangeal joint and the base of the thumb. There are degenerative changes to the wrist as well. Of the base of the thumb. IMPRESSION: Moderate degenerative joint disease. Interpreted By: Anderson Parry MD Preliminary Report By: Anderson Parry MD Electronically Signed By: Anderson Parry MD Dictated Date: 09/25/2019 4:39:56 PM Prelim Date: 09/25/2019 4:39:56 PM Sign Date: 09/25/2019 4:40:55 PM Ordering Provider:[facility] [place] Vital Signs Date Time Vital Sign Value Performing Clinician Facility 12-06-2024 13:22-0400 Body temperature 97 [degF] Dr. Mickey Nguyen MD Work Phone: 4(484)[phone] [place] [address] 12-06-2024 13:22-0400 Diastolic blood pressure 74 mm[Hg] Dr. Mickey Nguyen MD Work Phone: 7(705)[phone] [place] [address] 12-06-2024 13:22-0400 Heart rate 81 /min Dr. Mickey Nguyen MD Work Phone: 8(253)[phone] [place] [address] 12-06-2024 13:22-0400 Respiratory rate 16 /min Dr. Mickey Nguyen MD Work Phone: 2(706)[phone] [place] [address] 12-06-2024 13:22-0400 SaO2% (BldA) [Mass fraction] 98 % Dr. Mickey Nguyen MD Work Phone: 8(306)[phone] [place] [address] 12-06-2024 13:22-0400 Systolic blood pressure 128 mm[Hg] Dr. Mickey Nguyen MD Work Phone: 8(719)[phone] [place] [address] 12-06-2024 11:33-0400 Body height 160.[address] Mickey Nguyen MD Work Phone: 6(879)[phone] [place] [address] 12-06-2024 11:33-0400 Body mass index (BMI) [Ratio] 26.4 kg/m2 Dr. Mickey Nguyen MD Work Phone: 9(534)[phone] [place] [address] 12-06-2024 11:33-0400 Body weight 67.[address] Mickey Nguyen MD Work Phone: 3(825)[phone] [place] [address] 07-13-2023 10:41-0500 Body height 160.[address] Mickey Nguyen Work Phone: 9(515)[phone] [place] [address] 07-13-2023 10:41-0500 Body mass index (BMI) [Ratio] 25.8 kg/m2 Dr. Mickey Nguyen Work Phone: 4(645)[phone] [place] [address] 07-13-2023 10:41-0500 Body temperature 97.8 [degF] Dr. Mickey Nguyen Work Phone: 4(874)[phone] [place] [address] 07-13-2023 10:41-0500 Body weight 66.[address] Mickey Nguyen Work Phone: [facility] 07-13-2023 10:41-0500 Diastolic blood pressure 74 mm[Hg] Dr. Mickey Nguyen Work Phone: [facility] 07-13-2023 10:41-0500 Heart rate 70 /min Dr. Mickey Nguyen Work Phone: [facility] 07-13-2023 10:41-0500 Respiratory rate 24 /min Dr. Mickey Nguyen Work Phone: [facility] 07-13-2023 10:41-0500 SaO2% (BldA) [Mass fraction] 96 % Dr. Mickey Nguyen Work Phone: [facility] 07-13-2023 10:41-0500 Systolic blood pressure 145 mm[Hg] Dr. Mickey Nguyen Work Phone: [facility] 03-03-2022 14:56-0400 Body temperature 97.5 [degF] Dr. Mickey Nguyen Work Phone: [facility] Work Phone: 03-03-2022 14:56-0400 Diastolic blood pressure 66 mm[Hg] Dr. Mickey Nguyen Work Phone: [facility] Work Phone: 03-03-2022 14:56-0400 Heart rate 55 /min Dr. Mickey Nguyen Work Phone: [facility] Work Phone: 03-03-2022 14:56-0400 Respiratory rate 16 /min Dr. Mickey Nguyen Work Phone: [facility] Work Phone: 03-03-2022 14:56-0400 SaO2% (BldA) [Mass fraction] 93 % Dr. Mickey Nguyen Work Phone: [facility] Work Phone: 03-03-2022 14:56-0400 Systolic blood pressure 123 mm[Hg] Dr. Mickey Nguyen Work Phone: [facility] Work Phone: 03-03-2022 14:48-0400 Body weight 64.[address] Mickey Nguyen Work Phone: [facility] Work Phone: 03-03-2022 12:37-0400 Body height 160.[address] Mickey Nguyen Work Phone: [facility] Work Phone: 08-21-2021 14:38-0500 Heart rate 80 /min Dr. Mickey Nguyen Work Phone: [facility] Work Phone: 08-21-2021 11:31-0500 Body temperature 98.6 [degF] Dr. Mickey Nguyen Work Phone: [facility] Work Phone: 08-21-2021 11:31-0500 Diastolic blood pressure 62 mm[Hg] Dr. Mickey Nguyen Work Phone: [facility] Work Phone: 08-21-2021 11:31-0500 Respiratory rate 20 /min Dr. Mickey Nguyen Work Phone: [facility] Work Phone: 08-21-2021 11:31-0500 SaO2% (BldA) [Mass fraction] 95 % Dr. Mickey Nguyen Work Phone: [facility] Work Phone: 08-21-2021 11:31-0500 Systolic blood pressure 98 mm[Hg] Dr. Mickey Nguyen Work Phone: [facility] Work Phone: 08-19-2021 12:51-0500 Body height 160.[address] Mickey Nguyen Work Phone: [facility] Work Phone: 08-19-2021 12:51-0500 Body weight 62.[address] Mickey Nguyen Work Phone: [facility] Work Phone: 08-18-2021 17:32-0500 Body mass index (BMI) [Ratio] 24.3 kg/m2 Dr. Mickey Nguyen Work Phone: [facility] Work Phone: 06-02-2021 07:12-0500 Body temperature 97.8 [degF] Dr. Mickey Nguyen Work Phone: [facility] Work Phone: 06-02-2021 07:12-0500 Body weight 68.[address] Mickey Nguyen Work Phone: [facility] Work Phone: 06-02-2021 07:12-0500 Diastolic blood pressure 73 mm[Hg] Dr. Mickey Nguyen Work Phone: [facility] Work Phone: 06-02-2021 07:12-0500 Heart rate 65 /min Dr. Mickey Nguyen Work Phone: [facility] Work Phone: 06-02-2021 07:12-0500 Respiratory rate 17 /min Dr. Mickey Nguyen Work Phone: [facility] Work Phone: 06-02-2021 07:12-0500 SaO2% (BldA) [Mass fraction] 95 % Dr. Mickey Nguyen Work Phone: [facility] Work Phone: 06-02-2021 07:12-0500 Systolic blood pressure 134 mm[Hg] Dr. Mickey Nguyen Work Phone: [facility] Work Phone: 10-29-2020 09:36-0400 Body mass index (BMI) [Ratio] 27.1 kg/m2 Dr. Mickey Nguyen Work Phone: [facility] Work Phone: 08-14-2020 13:29-0500 Body Temperature 98.6 [degF] Sin LEYVA Work Phone: 08-14-2020 13:29-0500 BP Diastolic 69 mm[Hg] Sin HARRISA Work Phone: 08-14-2020 13:29-0500 BP Systolic 136 mm[Hg] Sin HARRISA Work Phone: 08-14-2020 13:29-0500 Pulse (Heart Rate) 62 /min Sin HARRISA Work Phone: 08-14-2020 13:29-0500 Pulse Oximetry 97 % Sin LEYVA Work Phone: 08-14-2020 13:29-0500 Respiratory Rate 16 /min Sin LEYVA Work Phone: 08-13-2020 11:07-0500 BMI (Body Mass Index) 27.44 kg/m2 Sin LEYVA Work Phone: 08-13-2020 11:07-0500 Body weight 68.04 kg Sin LEYVA Work Phone: 08-13-2020 11:07-0500 Height 157.5 cm Sin LEYVA Work Phone: 08-11-2020 12:39-0500 Body Temperature 97.7 [degF] Sin LEYVA Work Phone: 08-11-2020 12:39-0500 BP Diastolic 67 mm[Hg] Sin HARRISA Work Phone: 08-11-2020 12:39-0500 BP Systolic 119 mm[Hg] Sin HARRISA Work Phone: 08-11-2020 12:39-0500 Pulse (Heart Rate) 56 /min Sin LEYVA Work Phone: 08-11-2020 12:39-0500 Pulse Oximetry 95 % Sin LEYVA Work Phone: 08-11-2020 12:39-0500 Respiratory Rate 16 /min Sin LEYVA Work Phone: 08-11-2020 12:30-0500 BMI (Body Mass Index) 27.47 kg/m2 Sin LEYVA Work Phone: 08-11-2020 12:30-0500 Body weight 68.13 kg Sin LEYVA Work Phone: 08-11-2020 12:30-0500 Height 157.5 cm Sin LEYVA Work Phone: 04-08-2020 10:43-0400 BP Diastolic 76 mm[Hg] Sin Woods [place], [place] 04-08-2020 10:43-0400 BP Systolic 157 mm[Hg] Sin Woods [email or web address] 04-08-2020 10:43-0400 Pulse (Heart Rate) 62 /min Sin Woods [place], [place] 04-08-2020 10:43-0400 Pulse Oximetry 98 % Sin Woods [facility] , [place] 04-08-2020 10:43-0400 Respiratory Rate 18 /min Sin Woods [email or web address] 04-08-2020 09:07-0400 BMI (Body Mass Index) 27.28 kg/m2 Sin Woods [facility], [place] 04-08-2020 09:07-0400 Body Temperature 98.29 [degF] Sin Woods [email or web address] 04-08-2020 09:07-0400 Body weight 69.85 kg Sin Woods [facility] , [place] 04-08-2020 09:07-0400 Height 160 cm Sin Woods [place], [place] Encounters Encounter Date Encounter Type Care Provider Facility Start: 12-06-2024 End: 12-06-2024 Emergency department patient visit Dr. Mickey Nguyen MD Work Phone: -Emergency Department Work Phone: Start: 12-02-2024 End: 12-03-2024 Emergency department patient visit KRISTEN ADLERCYDNEY PHARMACOVIGILANCE SCIENTIST-WHEEL SETTER Facility:[facility] Start: 12-02-2024 End: 12-03-2024 Observation KRISTEN ADLERCYDNEY PHARMACOVIGILANCE SCIENTIST-WHEEL SETTER [facility] Start: 08-21-2024 End: 08-21-[address] Mickey Nguyen MD Work Phone: [facility] Work Phone: Start: 08-21-2024 End: 08-21-[address] Mickey Nguyen MD -Laboratory, Phy Office 3rd Flr Start: 08-21-2024 End: 08-21-2024 ambulatory Mickey Chi Patrick Facility:[facility] Start: 08-06-2024 End: 08-06-[address] Mickey Nguyen MD Work Phone: [facility] Work Phone: Start: 08-06-2024 End: 08-06-[address] Mickey Nguyen MD -Laboratory, Phy Office 3rd Flr Start: 08-06-2024 End: 08-06-2024 ambulatory Mickey Chi Patrick Facility:[facility] Start: 05-15-2024 End: 05-15-[address] Mickey Nguyen MD -Laboratory, Phy Office 3rd Flr Start: 05-15-2024 End: 05-15-2024 ambulatory Mickey Chi Patrick Facility:[facility] Start: 03-07-2024 End: 03-07-2024 ambulatory Mansour Isckarus Facility:[facility] Start: 02-29-2024 ambulatory Mansour Isckarus Facili ty:[facility] Start: 02-29-2024 End: 02-29-2024 ambulatory Mansour Isckarus Facility:[facility] Start: 02-23-2024 ambulatory Mickey Chi Patrick Facility:[facility] Start: 02-20-2024 End: 02-20-2024 ambulatory Mickey Chi Patrick Facility:[facility] Start: 12-12-2023 End: 12-12-2023 Emergency department patient visit Sergio Smith Facility:[facility] Start: 10-21-[address] Mickey maxwell Work Phone: [facility]-Physical Therapy Work Phone: Start: 10-21-2023 End: 10-21-[address] Mickey Nguyen Work Phone: [facility] Work Phone: Start: 10-21-2023 End: 10-21-[address] Mickey Nguyen Work Phone: [facility]-Physical Therapy Work Phone: Start: 08-31-2023 End: 08-31-[address] Mickey Nguyen Work Phone: [facility] Work Phone: Start: 08-31-2023 End: 08-31-[address] Mickey Nguyen Work Phone: [facility]-Radiology, [facility] Work Phone: Start: 08-03-2023 End: 08-03-[address] Mickey Nguyen Work Phone: [facility]-Laboratory, Phy Office 3rd Rir Start: 07-13-2023 End: 07-13-[address] Mickey Nguyen Work Phone: [facility]-Pulmonary Medicine [facility] Work Phone: Start: 04-20-2022 Non-patient / Non-visit Dr. Berhane Nguyen Work Phone: [facility] Start: 04-19-2022 End: 04-19-[address] Mickey Nguyen Work Phone: [facility] Work Phone: Start: 04-19-2022 End: 04-19-[address] [facility] Start: 03-03-2022 End: 03-03-[address] [facility] Start: 09-24-2021 End: 09-24-[address] [facility] Start: 09-16-2021 End: 09-16-[address] [facility] Start: 08-21-2021 Non-patient / Non-visit Dr. Berhnae Nguyen Work Phone: [facility] Start: 08-20-2021 Non-patient / Non-visit Dr. Berhane Nguyen Work Phone: [facility] Start: 08-19-2021 Non-patient / Non-visit Dr. Berhane Nguyen Work Phone: [facility] Start: 08-18-2021 Non-patient / Non-visit Dr. Berhane Nguyen Work Phone: [facility] Start: 08-18-2021 End: 08-21-2021 Evaluation and management of inpatient Dr. Mickey [facility] Start: 08-18-2021 End: 08-18-[address] Mickey Nguyen Work Phone: [facility] Office 3rd Flr Start: 06-02-2021 End: 06-02-[address] [facility] Start: 08-13-2020 End: 08-14-2020 Subsequent hospital visit by physician Sin Castro Work Phone: [facility] Comment on above: Arrived Start: 08-11-2020 End: 08-11-2020 Subsequent hospital visit by physician Sin Castro Work Phone: [facility] Comment on above: Encounter for screen ing for other viral diseases Start: 04-08-2020 End: 04-08-2020 Subsequent hospital visit by physician Sin Castro Work Phone: [facility] Comment on above: Hiatal hernia; Gastroesophageal reflux disease without esophagitis Procedures Date Procedure Procedure Detail Performing Clinician Start: 12-06-2024 CT of head without contrast Dr. Mickey Nguyen MD Work Phone: Start: 12-06-2024 Plain X-ray of tibia and fibula Dr. Mickey Nguyen MD Work Phone: Start: 08-21-2024 Vitamin D, 25-hydrox y measurement Dr. Mickey Nguyen MD Work Phone: Comment on above: Vitamin D StatusDefi ciency: <20 ng/mL (50nmol/L)Insufficiency: 20-30 ng/mL (50-75 nmol/L)Sufficiency: 30-100 ng/mL (75-250 nmol/L)Toxicity: >100 ng/mL (>250 nmol/L) Start: 08-06-2024 SARS-CoV-2, Influenz a & RSV (PCR) Dr. Mickey Nguyen MD Work Phone: Start: 05-15-2024 SARS-CoV-2, Influenz a & RSV (PCR) Dr. Mickey Nguyen MD Work Phone: Start: 08-31-2023 Plain X-ray of shoulder Dr. Mickey Nguyen Work Phone: Start: 08-19-2021 CT angiography of ch est with contrast Dr. Mickey Nguyen Work Phone: Start: 08-18-2021 Plain chest X-ray Dr. Gayle Nguyen Work Phone: Start: 08-18-2021 End: 08-18-2021 Legionella pneumophila antigen assay Dr. Mickey Nguyen Work Phone: Start: 08-18-2021 Streptococcus pneumo niae Antigen (M Dr. Mickey Nguyen Work Phone: Start: 08-18-2021 End: 08-18-[address] Mickey Nguyen Work Phone: Start: 08-14-2020 Radex gi tract upper w/wo [...] 08-13-2020 OPERATIVE REPORT 3m Sca nning Start: 08-13-2020 Hiatal hernia (disorder) KRISTEN BELLDarío PHARMACOVIGILANCE SCIENTIST-WHEEL SETTER Start: 08-11-2020 Radiologic exam ches t 2 views Chinyere L Evan Work Phone: Start: 08-11-2020 Basic metabolic pane l calcium total Nadege Friedt Work Phone: Start: 08-11-2020 Blood count hemoglobin Nadege Friedt Work Phone: Start: 08-11-2020 COVID-19 Nadege Fr iedt Work Phone: Start: 04-08-2020 [facility] ENDOSCOPY REPORT 3m Scanning Start: 11-21-2016 Insertion of hip prosthesis KRISTEN ADLERCYDNEY PHARMACOVIGILANCE SCIENTIST-WHEEL SETTER Comment on above: Right Start: 08-31-2016 Insertion of hip prosthesis KRISTEN BELLDarío PHARMACOVIGILANCE SCIENTIST-WHEEL SETTER Comment on above: Left Start: 12-27-2012 Cataract (disorder) RANDALL BELLDarío PHARMACOVIGILANCE SCIENTIST-WHEEL SETTER Comment on above: Right Start: 01-05-2012 Cataract (disorder) RANDALL TORRE PHARMACOVIGILANCE SCIENTIST-WHEEL SETTER Start: 06-13-1964 Structure of wisdom tooth (body structure) KRISTEN TORRE PHARMACOVIGILANCE SCIENTIST-WHEEL SETTER Start: 06-13-1951 Tonsillectomy KRISTEN ALCARAZ PHARMACOVIGILANCE SCIENTIST-WHEEL SETTER Plan of Treatment Date Care Activity Detail Author Start: 12-06-2024 [facility] Start: 08-14-2021 Creatinine measurement Creatinine mo nitoring [facility] Work Phone: Start: 08-14-2021 Potassium monitoring Potassium monit oring [facility] Work Phone: Start: 08-11-2021 Creatinine measurement Creatinine mo nitoring [facility] Work Phone: Start: 08-11-2021 Potassium monitoring Potassium monit oring [facility] Work Phone: Start: 08-22-2020 End: 08-22-2020 Office Visit 08/22/2020 Office Visit [facility] Sin Castro MD [address], [address] [place] [address] [phone] [facility] [place] [facility] Start: 08-13-2020 Hospital Encounter 08/13/2020 Hospital Encounter General Surgery Sin Castro MD [address], [address] [place] [address] [phone] [facility] General Surgery Start: 04-18-2020 End: 04-18-2020 Office Visit 04/18/2020 Office Visit [facility] Sin Castro MD [address], [address] [place] [address] [phone] [facility] [place] [facility] Start: 02-27-2020 Annual Wellness Visi t (AWV) Annual Wellness Visit (AWV) [place], [place] Start: 02-12-2020 Influenza vaccination Flu vaccine (# 1) [place], [place] Start: 12-08-2011 Pneumococcal 65+ yea rs Vaccine (1 of 1 - PPSV23) Pneumococcal 65+ years Vaccine (1 of 1 - PPSV23) [place], [place] Start: 2001 Screening for osteoporosis DEXA (modify frequency per FRAX score) [place], [place] Start: 1996 Screening for malign ant neoplasm of breast Breast cancer screen [place], [place] Start: 1996 Screening for malign ant neoplasm of colon Colon cancer screen colonoscopy [place], [place] Start: 1996 Shingles Vaccine (1 of 2) Shingles Vaccine (1 of 2) [place], [place] Start: 1965 DTaP/Tdap/Td vaccine (1 - Tdap) DTaP/Tdap/Td vaccine (1 - Tdap) [place], [place] Start: 1962 COVID-19 Vaccine (1 of 2) COVID-19 Vaccine (1 of 2) [employer] Work Phone: Start: 1956 Lipid panel Lipid screen [place], [place] Start: 1946 Creatinine measurement Creatinine mo nitoring [place], [place] Start: 1946 Hepatitis C screening Hepatitis C sc reen [place], [place] Start: 1946 Potassium monitoring Potassium monit oring [place], [place] Basic Metabolic Pane l w/ Reflex to MG Basic Metabolic Panel w/ Reflex to MG Lab Routine Daily until discontinued starting 08/14/2020, 1 completed [email or web address] Work Phone: Comment on above: Daily until disconti nued starting 08/14/2020, 1 completed CBC auto differential CBC auto d ifferential Lab Routine Daily until discontinued starting 08/14/2020, 1 completed [email or web address] Work Phone: Comment on above: Daily until disconti nued starting 08/14/2020, 1 completed Intermittent pulse oximetry Pulse Oximetry Spot Check Respiratory Care Routine Every 4hr until discontinued starting 08/13/2020 [facility] Work Phone: Comment on above: Every 4hr until disc ontinued starting 08/13/2020 Magnesium [Mass/Vol] Magnesium L ab Routine Daily until discontinued starting 08/14/2020, 1 completed [employer] Work Phone: Comment on above: Daily until disconti nued starting 08/14/2020, 1 completed Oxygen therapy [[facility] Data Set] Initiate Oxygen Therapy Protocol Respiratory Care Routine Daily until discontinued starting 08/13/2020 [employer] Phone: Comment on above: Daily until disconti nued starting 08/13/2020 Patient Education Bruises (Contu sions) ED Head Injury (Adult) [facility] Work Phone: Patient referral [facility] Work Phone: Phosphate [Mass/Vol] Phosphorus Lab Routine Daily until discontinued starting 08/14/2020, 1 completed [employer] Work Phone: Comment on above: Daily until disconti nued starting 08/14/2020, 1 completed Spirometry panel Incentive lorraine metry Respiratory Care Routine Every 1hr while awake until discontinued starting 08/13/2020 [employer] Work Phone: Comment on above: Every 1hr while awak e until discontinued starting 08/13/2020 Immunizations Immunization Date Immunization Notes Care Provider Conchis christopher 04-28-2020 influenza virus vaccine, unspecified formulation KRISTEN TORRE PHARMACOVIGILANCE SCIENTIST-[employer] [facility] 03-07-2017 influenza virus vaccine, unspecified formulation KRISTEN TORRE APRN-[employer] [facility] 03-22-2015 tetanus and diphther ia toxoids, adsorbed, preservative free, for adult use (2 Lf of tetanus toxoid and 2 Lf of diphtheria toxoid) Dr. Mickey Nguyen Work Phone: [facility] 03-22-2015 tetanus and diphther ia toxoids, adsorbed, preservative free, for adult use (5 Lf of tetanus toxoid and 2 Lf of diphtheria toxoid) KRISTEN TORRE PHARMACOVIGILANCE SCIENTIST-[employer] [facility] 05-21-2013 pneumococcal conjuga te vaccine, 13 valent KRISTEN VITORCYDNEY PHARMACOVIGILANCE SCIENTIST-[employer]HE[employer] [facility] Payers Date Payer Category Payer Private Health Insurance [id number] 2023 Self-pay [id number] 2023 Unknown [id number] 2021 Medicare [id number] 2016 Unknown [id number] 2011 Medicare [id number] 1945 Unknown [id number] 2.16. [id number] Unknown [id number] 2.16.8 [id number] Unknown [id number] 2.16.8 [id number] Unknown [id number] 2.16.8 [id number] Unknown [id number] 2.16.8 [id number] Unknown [id number] 2.16.8 [id number] Unknown [id number] 2.16.8 [id number] Unknown [id number] 2.16.8 [id number] Unknown [id number] 2.16.8 [id number] Unknown [id number] 2.16.8 [id number] Unknown [id number] 2.16.8 [id number] Social History Date Type Detail Facility Start: 04-08-2020 End: 12-06-2024 Tobacco smoking status NHIS Never smoker [facility] Start: 04-08-2020 End: 08-13-2020 [facility] Start: 04-08-2020 End: 08-13-2020 Alcohol intake Lifetime non-drinker (finding) [place], [place] Start: 03-07-2020 History SDOH Alcohol Frequency 1 [place] Sex Assigned At Not on file [place] Exposure to SARS-CoV -2 (event) Not sure [place] Start: 08-18-2021 End: 07-13-2023 Tobacco smoking status NHIS Unknown if ever smoked [facility] Start: 1945 Sex Assigned At Female W [facility] Start: 12-06-2018 End: 08-16-2024 Sex Female (finding) [facility] Sexual Orientation Alvin fernandez [facility] Functional Status Date Assessment Result Facility 08-21-2021 Functional status Ambulates [facility] Work Phone: Mental Status Date Assessment Result Facility 12-06-2024 Cognitive function Level Of Cons ciousness Awake;Alert;Appropriate;Follow s Commands [facility] Work Phone: 08-21-2021 Cognitive function Voice/Name [facility] Work Phone: Clinical Notes 10-21-2023 to 12-06-2024 Note Date & Type Note Facility 12-06-2024 Radiology Diagnostic study note [facility] Imaging Services [address] [place], [place] [address] Tibia & Fibula 2 Views MR#: [id number] Acct: [id number] Name: RICHELLE AHUJA Rep #: [id number] : 1945 F 78 From: Tim Johnson MD PCP: Dr. Mickey Nguyen MD Status: REG E R Study:Tibia & Fibula 2 Views Date of Exam: 12/06/24 Exam# [id number] Ordering Dr: Archie Bone DO PROCEDURE: TIBIA FIBULA 2 VIEWS 12/06/2024 REASON FOR EXAM: INJURY TECHNIQUE: TIBIA FIBULA 2 VIEWS COMPARISON: None FINDINGS: No fracture or dislocation. Soft tissues are unremarkable. RAD/Tibia & Fibula 2 Views IMPRESSION: No acute abnormality is seen. Reading Location: [id number] CC: Dr. Mickey Nguyen MD; Dr. Archie Bone DO Global Program Director: Signed [facility] 12-06-2024 Radiology Diagnostic study note [facility] Imaging Services [address] [place], [place] [id number] Brain/Head without Contrast MR#: [id number] Acct: [id number] Name: RICHELLE AHUJA Rep #: [id number] : 1945 F 78 From: Tim Johnson MD PCP: Dr. Mickey Nguyen MD Status: REG E R Study:Brain/Head without Contrast Date of Exa m: 12/06/24 Exam# [id number] Ordering Dr: Archie Bone DO PROCEDURE: BRAIN/HEAD WITHOUT CONTRAST 12/06/2024 REASON FOR EXAM: HEAD INJURY TECHNIQUE: BRAIN/HEAD WITHOUT CONTRAST Coronal and Sagittal reconstruction series were provided. One or more dose reduction techniques were used (e.g., Automated exposure control, adjustment of the mA and/or kV according to patient size, use of iterative reconstruction technique. RADIATION DOSE SUMMARY: CTDlvol: 44.99 mGy DLP: 829.85 mGycm COMPARISON: None FINDINGS: Brain: Low density in the periventricular white matter suggests mild chronic small vessel ischemic changes. Atherosclerotic calcification of the cavernous portions of the internal carotid arteries bilaterally. CSF Spaces: Mild generalized cerebral atrophy Sinuses/Mastoids: Clear at visualized levels Bones: Hyperostosis frontalis interna. CT/Brain/Head without Contrast IMPRESSION: CHRONIC CHANGES. NO ACUTE FINDINGS. Reading Location: [facility] CC: Dr. Mickey Nguyen MD; Dr. Archie Bone DO ~ Global Program Director: Signed [facility] 12-03-2024 Hospital Discharge instructions Patient Education 12/03/2024 16:41:00 Stroke Prevention, Xpga-ci-Nhbv Stroke Prevention Some medical conditions and lifestyle choices can lead to a higher risk for a stroke. You can help to prevent a stroke by making nutrition, lifestyle, and other changes. What nutrition changes can be made? Eat healthy foods. ?Choose foods that are high in fiber. These include: ?Fresh fruits. ?Fresh vegetables. ?Whole grains. ?Eat at least 5 or more servings of fruits and vegetables each day. Try to fill half of your plate at each meal with fruits and vegetables. ?Choose lean protein foods. These include: ?Lowfat (lean) cuts of meat. ?Chicken without skin. ?Fish. ?Tofu. ?Beans. ?Nuts. ?Eat low-fat dairy products. ?Avoid foods that: ?Are high in salt (sodium). ?Have saturated fat. ?Have trans fat. ?Have cholesterol. ?Are processed. ?Are premade. Follow eating guidelines as told by your doctor. These may include: ?Reducing how many calories you eat and drink each day. ?Limiting how much salt you eat or drink each day to 1,500 milligrams (mg). ?Using only healthy fats for cooking. These include: ?[place] oil. ?Canola oil. ?Walsh oil. ?Counting how many carbohydrates you eat and drink each day. What lifestyle changes can be made? Try to stay at a healthy weight. Talk to your doctor about what a good weight is for you. Get at least 30 minutes of moderate physical activity at least 5 days a week. This can include: ?Fast walking. ?Biking. ?Swimming. Do not use any products that have nicotine or tobacco. This includes cigarettes and e-cigarettes. If you need help quitting, ask your doctor. Avoid being around tobacco smoke in general. Limit how much alcohol you drink to no more than 1 drink a day for non women and 2 drinks a day for men. One drink equals 12 oz of beer, 5 oz of wine, or 1 oz of hard liquor. Do not use drugs. Avoid taking control pills. Talk to your doctor about the risks of taking control pills if: ?You are over 35 years old. ?You smoke. ?You get migraines. ?You have had a blood clot. What other changes can be made? Manage your cholesterol. ?It is important to eat a healthy diet. ?If your cholesterol cannot be managed through your diet, you may also need to take medicines. Take medicines as told by your doctor. Manage your diabetes. ?It is important to eat a healthy diet and to exercise regularly. ?If your blood sugar cannot be managed through diet and exercise, you may need to take medicines. Take medicines as told by your doctor. Control your high blood pressure (hypertension). ?Try to keep your blood pressure below 130/80. This can help lower your risk of stroke. ?It is important to eat a healthy diet and to exercise regularly. ?If your blood pressure cannot be managed through diet and exercise, you may need to take medicines. Take medicines as told by your doctor. ?Ask your doctor if you should check your blood pressure at home. ?Have your blood pressure checked every year. Do this even if your blood pressure is normal. Talk to your doctor about getting checked for a sleep disorder. Signs of this can include: ?Snoring a lot. ?Feeling very tired. Take aoil-zaw-ravfenx and prescription medicines only as told by your doctor. These may include aspirin or blood thinners (antiplatelets or anticoagulants). Make sure that any other medical conditions you have are managed. Where to find more information [place] [employer] Association: www.strokeassociation.org National Stroke Association: www.stroke.org Get help right away if: You have any symptoms of stroke. BE FAST is an easy way to remember the main warning signs: ?B - Balance. Signs are dizziness, sudden trouble walking, or loss of balance. ?E - Eyes. Signs are trouble seeing or a sudden change in how you see. ?F - Face. Signs are sudden weakness or loss of feeling of the face, or the face or eyelid drooping on one side. ?A - Arms. Signs are weakness or loss of feeling in an arm. This happens suddenly and usually on one side of the body. ?S - Speech. Signs are sudden trouble speaking, slurred speech, or trouble understanding what people say. ?T - Time. Time to call emergency services. Write down what time symptoms started. You have other signs of stroke, such as: ?A sudden, very bad headache with no known cause. ?Feeling sick to your stomach (nausea). ?Throwing up (vomiting). ?Jerky movements you cannot control (seizure). These symptoms may represent a serious problem that is an emergency. Do not wait to see if the symptoms will go away. Get medical help right away. Call your local emergency services (911 in the [place] Do not drive yourself to the hospital. Summary You can prevent a stroke by eating healthy, exercising, not smoking, drinking less alcohol, and treating other health problems, such as diabetes, high blood pressure, or high cholesterol. Do not use any products that contain nicotine or tobacco, such as cigarettes and e-cigarettes. Get help right away if you have any signs or symptoms of a stroke. This information is not intended to replace advice given to you by your health care provider. Make sure you discuss any questions you have with your health care provider. Document Released: 11/28/2012 Document Revised: 07/26/2019 Document Reviewed: 08/31/2017 [employer] Patient Education 2020 4Less. 12/03/2024 16:40:57 Ischemic Stroke, Odgt-cg-Rbyv Ischemic Stroke An ischemic stroke is the sudden of brain tissue. Blood carries oxygen to all areas of the body. This type of stroke happens when your blood does not flow to your brain like normal. Your brain cannot get the oxygen it needs. This is an emergency. It must be treated right away. Symptoms of a stroke usually happen all of a sudden. You may notice them when you wake up. They can include: Weakness or loss of feeling in your face, arm, or leg. This often happens on one side of the body. Trouble walking. Trouble moving your arms or legs. Loss of balance or coordination. Feeling confused. Trouble talking or understanding what people are saying. Slurred speech. Trouble seeing. Seeing two of one object (double vision). Feeling dizzy. Feeling sick to your stomach (nauseous) and throwing up (vomiting). A very bad headache for no reason. Get help as soon as any of these problems start. This is important. Some treatments work better if they are given right away. These include: Aspirin. Medicines to control blood pressure. A shot (injection) of medicine to break up the blood clot. Treatments given in the blood vessel (artery) to take out the clot or break it up. Other treatments may include: Oxygen. Fluids given through an IV tube. Medicines to thin out your blood. Procedures to help your blood flow better. What increases the risk? Certain things may make you more likely to have a stroke. Some of these are things that you can change, such as: Being very overweight (obesity). Smoking. Taking control pills. Not being active. Drinking too much alcohol. Using drugs. Other risk factors include: High blood pressure. High cholesterol. Diabetes. Heart disease. Being , , , or . Being over age 60. Family history of stroke. Having had blood clots, stroke, or warning stroke (transient ischemic attack, TIA) in the past. Sickle cell disease. Being a woman with a history of high blood pressure in (preeclampsia). Migraine headache. Sleep apnea. Having an irregular heartbeat (atrial fibrillation). Long-term (chronic) diseases that cause soreness and swelling (inflammation). Disorders that affect how your blood clots. Follow these instructions at home: Medicines Take zvho-fjz-ahyemaz and prescription medicines only as told by your doctor. If you were told to take aspirin or another medicine to thin your blood, take it exactly as told by your doctor. ?Taking too much of the medicine can cause bleeding. ?If you do not take enough, it may not work as well. Know the side effects of your medicines. If you are taking a blood thinner, make sure you: ?Hold pressure over any cuts for longer than usual. ?Tell your dentist and other doctors that you take this medicine. ?Avoid activities that may cause damage or injury to your body. Eating and drinking Follow instructions from your doctor about what you cannot eat or drink. Eat healthy foods. If you have trouble with swallowing, do these things to avoid choking: ?Take small bites when eating. ?Eat foods that are soft or pureed. Safety Follow instructions from your health care team about physical activity. Use a walker or cane as told by your doctor. Keep your home safe so you do not fall. This may include: ?Having experts look at your home to make sure it is safe. ?Putting grab bars in the bedroom and bathroom. ?Using raised toilets. ?Putting a seat in the shower. General instructions Do not use any tobacco products. ?Examples of these are cigarettes, chewing tobacco, and e-cigarettes. ?If you need help quitting, ask your doctor. Limit how much alcohol you drink. This means no more than 1 drink a day for non women and 2 drinks a day for men. One drink equals 12 oz of beer, 5 oz of wine, or 1 oz of hard liquor. If you need help to stop using drugs or alcohol, ask your doctor to refer you to a program or specialist. Stay active. Exercise as told by your doctor. Keep all follow-up visits as told by your doctor. This is important. Get help right away if: You have any signs of a stroke. BE FAST is an easy way to remember the main warning signs: ?B - Balance. Signs are dizziness, sudden trouble walking, or loss of balance. ?E - Eyes. Signs are trouble seeing or a change in how you see. ?F - Face. Signs are sudden weakness or loss of feeling of the face, or the face or eyelid drooping on one side. ?A - Arms. Signs are weakness or loss of feeling in an arm. This happens suddenly and usually on one side of the body. ?S - Speech. Signs are sudden trouble speaking, slurred speech, or trouble understanding what people say. ?T - Time. Time to call emergency services. Write down what time symptoms started. You have other signs of a stroke, such as: ?A sudden, very bad headache with no known cause. ?Feeling sick to your stomach (nausea). ?Throwing up (vomiting). ?Jerky movements you cannot control (seizure). These symptoms may be an emergency. Do not wait to see if the symptoms will go away. Get medical help right away. Call your local emergency services (911 in the [place] Do not drive yourself to the hospital. Summary An ischemic stroke is the sudden of brain tissue. Symptoms of a stroke usually happen all of a sudden. You may notice them when you wake up. Get help if you have any warning signs of a stroke. This is important. Some treatments work better if they are given right away. This information is not intended to replace advice given to you by your health care provider. Make sure you discuss any questions you have with your health care provider. Document Released: 05/18/2012 Document Revised: 11/08/2018 Document Reviewed: 08/25/2016 [employer] Patient Education 2020 4Less. Follow Up Care 12/02/2024 09:41:07 With:SANJEEV NGUYEN MD Address: [facility] [address] [place] [id number]- When:3-5 days Comments:Please call to schedule your post-hospital follow-up appointment and ask Dr. Nguyen about the neurology recommendation. [facility] 12-03-2024 Note Discharge Instructions Thank you for allowing [facility] to assist you with your healthcare needs. The following is important discharge information regarding your hospital visit. Your Care Team [facility] Your Diagnosis Altered mental status HLD (hyperlipidemia) HTN (hypertension) TIA (transient ischemic attack) Type 2 diabetes mellitus What to do next Instructions From Your Doctor You were admitted for TIA (mini stroke). Your symptoms resolved shortly after being moved from ER to [facility] floor. You were started on aspirin and Plavix for stroke prevention. You are already taking rosuvastatin 10 mg daily. You will be on this and aspirin indefinitely. You will take Plavix 75 mg daily for a total of 21 days. You already received a dose today. You may start this tomorrow. It was recommended that you follow-up with neurology and you indicated that you would prefer that your PCP make that referral. You are unable to undergo MRI due to the machine being down but indicated that you did not want to stay to wait for an MRI. A CT of your head was repeated and was unchanged from the initial CT of your head. CTA of your head and neck didn't show any significant stenosis of your carotid arteries. If you should have any changes or symptoms, return to the emergency department immediately. Follow Up Appointments Follow Up with SANJEEV NGUYEN MD When:Within 3-5 days Where:[facility] [address] [place] [address] Additional Information: Please call to schedule your post-hospital follow-up appointment and ask Dr. Nguyen about the neurology recommendation. The Following Activity and Diet Have Been Ordered for You Discharge Activity - Ordered -- Resume your pre-hospitalization activity, 12/03/24 16:35:00 EDT Discharge Diet - Ordered -- No changes were made to your diet during your hospital stay. Please resume your pre hospitalization diet on discharge., 12/03/24 16:35:00 EDT Allergies cortisone (Moderate) nausea, rash Latex rash Misc medication for hypertension (non-codified) narcotics codeine nausea predniSONE nausea, rash Medications Please ask your primary doctor or pharmacist before taking any other medication not listed, including over the counter drugs, herbal medications, vitamins and or supplements as they may interact with your home medications. What How Much When Instructions Last Dose New aspirin (aspirin 81 mg oral tablet, chewable) 1 tab(s) by mouth Once a day Duration: 30 Days Pickup at [facility]/pharmacy #[id number] New clopidogrel (Plavix 75 mg oral tablet) 1 tab(s) by mouth Once a day Duration: 20 Days Pickup at [facility]/pharmacy #[id number] Unchanged ascorbic acid (Vitamin C) See instructions qDay Unchanged biotin Once a day Unchanged brimonidine ophthalmic (Alphagan 0.2% ophthalmic solution) INSTILL 1 DROP INTO EACH EYE TWICE DAILY Unchanged cholecalciferol (Vitamin D3) 25 Microgram by mouth Every day Unchanged citalopram (citalopram 20 mg oral tablet) TAKE 1 TABLET BY MOUTH ONCE DAILY Unchanged fexofenadine (Radha 24 Hour Allergy) 180 Milligram by mouth Once a day Unchanged latanoprost ophthalmic (latanoprost 0.005% ophthalmic solution) INSTILL 1 DROP INTO EACH EYE AT BEDTIME Unchanged losartan (losartan 50 mg oral tablet) TAKE 1 TABLET BY MOUTH ONCE DAILY Unchanged netarsudil ophthalmic (Rhopressa 0.02% ophthalmic solution) 1 Drops Both eyes Once a day (in the evening) Unchanged potassium chloride (potassium chloride 20 mEq oral tablet, extended release) TAKE 1 TABLET BY MOUTH ONCE DAILY Unchanged rosuvastatin (rosuvastatin 10 mg oral tablet) TAKE 1 TABLET BY MOUTH AT BEDTIME Unchanged timolol ophthalmic (timolol maleate 0.5% ophthalmic solution) INSTILL 1 DROP INTO EACH EYE TWICE DAILY Pharmacy Information [facility]/pharmacy #[id number]: [address], [place] [phone] Please take this list to your next doctor s visit. Bring all medications you take, including over the counter medications, herbals and other supplements with you to your doctor s visit. Patients and families are reminded to discard old lists and to update any records with all medication providers or retail pharmacies. Medication Leaflets aspirin (oral) ( pir in) Aspi-Cor, Aguila Plus, Ecotrin, Miniprin, [place] What is the most important information I should know about aspirin? Aspirin can cause Xenia's syndrome, a serious and sometimes fatal condition in children. What is aspirin? Aspirin is a salicylate (qb-HOZ-ap-ate) that is used to treat pain, and reduce fever or inflammation. Aspirin is sometimes used to treat or prevent heart attacks, strokes, and chest pain (angina). Aspirin should be used for these conditions only under the supervision of a doctor. Aspirin may also be used for purposes not listed in this medication guide. What should I discuss with my healthcare provider before taking aspirin? Using aspirin in a child or teenager with flu symptoms or chickenpox can cause a serious or fatal condition called Xenia's syndrome. You should not use aspirin if you are allergic to it, or if you have: a recent history of stomach or intestinal bleeding; a bleeding disorder such as hemophilia; or if you have ever had an asthma attack or severe allergic reaction after taking aspirin or an NSAID (non-steroidal anti-inflammatory drug). Tell your doctor if you have ever had: asthma or seasonal allergies; stomach ulcers; liver disease; kidney disease; a bleeding or blood clotting disorder; gout; or heart disease, high blood pressure, or congestive heart failure. Taking aspirin during late may cause bleeding in the mother or the baby during delivery. Tell your doctor if you are or plan to become . You should not breastfeed while using this medicine. How should I take aspirin? Use exactly as directed on the label, or as prescribed by your doctor. Always follow directions on the medicine label about giving aspirin to a child. Take with food if aspirin upsets your stomach. You must chew the chewable tablet before you swallow it. Do not crush, chew, break, or open an enteric-coated or delayed/extended-release pill. Swallow it whole. Tell your doctor if you have a planned surgery. Store at room temperature away from moisture and heat. Do not use aspirin if you smell a strong vinegar odor in the aspirin bottle. The medicine may no longer be effective. What happens if I miss a dose? Aspirin is used when needed. If you are on a dosing schedule, skip any missed dose. Do not use two doses at one time. What happens if I overdose? Seek emergency medical attention or call the Poison Help line at . Overdose may cause stomach pain, vomiting, diarrhea, vision or hearing problems, fast or slow breathing, or confusion. What should I avoid while taking aspirin? Avoid alcohol. Heavy drinking can increase your risk of stomach bleeding. Avoid taking ibuprofen if you take aspirin to prevent stroke or heart attack. Ibuprofen can make aspirin less effective in protecting your heart and blood vessels. Ask your doctor how far apart your doses should be. Ask a doctor or pharmacist before using other medicines for pain, fever, swelling, or cold/flu symptoms. They may contain ingredients similar to aspirin (such as magnesium salicylate, ibuprofen, ketoprofen, or naproxen). What are the possible side effects of aspirin? Get emergency medical help if you have signs of an allergic reaction: hives; difficult breathing; swelling of your face, lips, tongue, or throat. Stop using aspirin and call your doctor at once if you have: ringing in your ears, confusion, hallucinations, rapid breathing, seizure (convulsions); severe nausea, vomiting, or stomach pain; bloody or tarry stools, coughing up blood or vomit that looks like coffee grounds; fever lasting longer than 3 days; or swelling, or pain lasting longer than 10 days. Common side effects may include: upset stomach, heartburn; drowsiness; or mild headache. This is not a complete list of side effects and others may occur. Call your doctor for medical advice about side effects. You may report side effects to FDA at 4-685-IYL-3353. What other drugs will affect aspirin? Ask your doctor before using aspirin if you take an antidepressant. Taking certain antidepressants with aspirin may cause you to bruise or bleed easily. Ask a doctor or pharmacist before using aspirin with any other medications, especially: a blood thinner (warfarin, Coumadin, Jantoven), or other medication used to prevent blood clots; or other salicylates such as Nuprin Backache Caplet, Kaopectate, KneeRelief, Pamprin Cramp Formula, Pepto-Bismol, Tricosal, Trilisate, and others. This list is not complete. Other drugs may affect aspirin, including prescription and wbgx-zor-zesivcg medicines, vitamins, and herbal products. Not all possible drug interactions are listed here. Where can I get more information? Your pharmacist can provide more information about aspirin. Remember, keep this and all other medicines out of the reach of children, never share your medicines with others, and use this medication only for the indication prescribed. Every effort has been made to ensure that the information provided by [employer] ('[employer]') is accurate, up-to-date, and complete, but no guarantee is made to that effect. Drug information contained herein may be time sensitive. [employer] information has been compiled for use by healthcare practitioners and consumers in the [place] and therefore [employer] does not warrant that uses outside of the [place] are appropriate, unless specifically indicated otherwise. [employer] drug information does not endorse drugs, diagnose patients or recommend therapy. [employer] drug information is an informational resource designed to assist licensed healthcare practitioners in caring for their patients and/or to serve consumers viewing this service as a supplement to, and not a substitute for, the expertise, skill, knowledge and judgment of healthcare practitioners. The absence of a warning for a given drug or drug combination in no way should be construed to indicate that the drug or drug combination is safe, effective or appropriate for any given patient. [employer] does not assume any responsibility for any aspect of healthcare administered with the aid of information [employer] provides. The information contained herein is not intended to cover all possible uses, directions, precautions, warnings, drug interactions, allergic reactions, or adverse effects. If you have questions about the drugs you are taking, check with your doctor, nurse or pharmacist. Copyright 9669-3494 [employer] Version: 18.. Revision Date: 05/30/2024. clopidogrel (kloe PID oh grel) Plavix What is the most important information I should know about clopidogrel? You should not use this medicine if you have any active bleeding such as a stomach ulcer or bleeding in the brain. Clopidogrel increases your risk of bleeding, which can be severe or life-threatening. Call your doctor or seek emergency medical attention if you have bleeding that will not stop, if you have blood in your urine, black or bloody stools, or if you cough up blood or vomit that looks like coffee grounds. Do not stop taking clopidogrel without first talking to your doctor, even if you have signs of bleeding. Stopping clopidogrel may increase your risk of a heart attack or stroke. What is clopidogrel? Clopidogrel is used to lower your risk of having a stroke, blood clot, or serious heart problem after you've had a heart attack, severe chest pain (angina), or circulation problems. Clopidogrel may also be used for purposes not listed in this medication guide. What should I discuss with my healthcare provider before taking clopidogrel? You should not use clopidogrel if you are allergic to it, or if you have: any active bleeding; or a stomach ulcer or bleeding in the brain (such as from a head injury). Tell your doctor if you have ever had: an ulcer in your stomach or intestines; or a bleeding disorder or blood clotting disorder. Clopidogrel may not work as well if you have certain genetic factors that affect the breakdown of this medicine in your body. Your doctor may perform a blood test to make sure clopidogrel is right for you. This medicine is not expected to harm an unborn baby. However, taking clopidogrel within 1 week before childbirth can cause bleeding in the mother. Tell your doctor if you are or plan to become . You should not breastfeed while using this medicine. How should I take clopidogrel? Follow all directions on your prescription label and read all medication guides or instruction sheets. Use these medicines exactly as directed. Clopidogrel can be taken with or without food. Clopidogrel is sometimes taken together with aspirin. Take aspirin only if your doctor tells you to. Clopidogrel keeps your blood from coagulating (clotting) and can make it easier for you to bleed, even from a minor injury. Contact your doctor or seek emergency medical attention if you have any bleeding that will not stop. You may need to stop using clopidogrel for a short time before a surgery, medical procedure, or dental work. Any healthcare provider who treats you should know that you are taking clopidogrel. Do not stop taking clopidogrel without first talking to your doctor, even if you have signs of bleeding. Stopping the medicine could increase your risk of a heart attack or stroke. Store at room temperature away from moisture and heat. What happens if I miss a dose? Take the medicine as soon as you can, but skip the missed dose if it is almost time for your next dose. Do not take two doses at one time. What happens if I overdose? Seek emergency medical attention or call the Poison Help line at . Overdose can cause excessive bleeding. What should I avoid while taking clopidogrel? Avoid alcohol. It can increase your risk of stomach bleeding. Avoid activities that may increase your risk of bleeding or injury. Use extra care to prevent bleeding while shaving or brushing your teeth. If you also take aspirin: Ask a doctor or pharmacist before using medicines for pain, fever, swelling, or cold/flu symptoms. They may contain ingredients similar to aspirin (such as salicylates, ibuprofen, ketoprofen, or naproxen). Taking these products together can increase your risk of bleeding. What are the possible side effects of clopidogrel? Get emergency medical help if you have signs of an allergic reaction: hives; difficult breathing; swelling of your face, lips, tongue, or throat. Clopidogrel increases your risk of bleeding, which can be severe or life-threatening. Call your doctor or seek emergency medical attention if you have bleeding that will not stop, if you have blood in your urine, black or bloody stools, or if you cough up blood or vomit that looks like coffee grounds. Also call your doctor at once if you have: nosebleeds, pale skin, easy bruising, purple spots under your skin or in your mouth; jaundice (yellowing of your skin or eyes); fast heartbeats, shortness of breath; headache, fever, weakness, feeling tired; little or no urination; a seizure; low blood sugar--headache, hunger, sweating, irritability, dizziness, fast heart rate, and feeling anxious or shaky; or signs of a blood clot--sudden numbness or weakness, confusion, problems with vision or speech. Common side effects may include: bleeding. This is not a complete list of side effects and others may occur. Call your doctor for medical advice about side effects. You may report side effects to FDA at 0-199-CON-1265. What other drugs will affect clopidogrel? Sometimes it is not safe to use certain medications at the same time. Some drugs can affect your blood levels of other drugs you take, which may increase side effects or make the medications less effective. Tell your doctor about all your other medicines, especially: a stomach acid dice spotter such as omeprazole, Nexium, or Prilosec; an antidepressant such as citalopram, fluoxetine, sertraline, Cymbalta, Effexor, Lexapro, Pristiq, or Prozac; rifampin; a blood thinner--warfarin, Coumadin, Jantoven; or NSAIDs (nonsteroidal anti-inflammatory drugs)--aspirin, ibuprofen (Advil, Motrin), naproxen (Aleve), celecoxib, diclofenac, indomethacin, meloxicam, and others. This list is not complete. Other drugs may affect clopidogrel, including prescription and intw-omc-qamzyvh medicines, vitamins, and herbal products. Not all possible drug interactions are listed here. Where can I get more information? Your pharmacist can provide more information about clopidogrel. Remember, keep this and all other medicines out of the reach of children, never share your medicines with others, and use this medication only for the indication prescribed. Every effort has been made to ensure that the information provided by [employer] ('[employer]') is accurate, up-to-date, and complete, but no guarantee is made to that effect. Drug information contained herein may be time sensitive. [employer] information has been compiled for use by healthcare practitioners and consumers in the [place] and therefore [employer] does not warrant that uses outside of the [place] are appropriate, unless specifically indicated otherwise. [employer] drug information does not endorse drugs, diagnose patients or recommend therapy. [employer] drug information is an informational resource designed to assist licensed healthcare practitioners in caring for their patients and/or to serve consumers viewing this service as a supplement to, and not a substitute for, the expertise, skill, knowledge and judgment of healthcare practitioners. The absence of a warning for a given drug or drug combination in no way should be construed to indicate that the drug or drug combination is safe, effective or appropriate for any given patient. [employer] does not assume any responsibility for any aspect of healthcare administered with the aid of information [employer] provides. The information contained herein is not intended to cover all possible uses, directions, precautions, warnings, drug interactions, allergic reactions, or adverse effects. If you have questions about the drugs you are taking, check with your doctor, nurse or pharmacist. Copyright [id number] [employer] Version: 18.01. Revision Date: 09/10/2020. Education Materials Stroke Prevention Some medical conditions and lifestyle choices can lead to a higher risk for a stroke. You can help to prevent a stroke by making nutrition, lifestyle, and other changes. What nutrition changes can be made? Eat healthy foods. ? Choose foods that are high in fiber. These include: ? Fresh fruits. ? Fresh vegetables. ? Whole grains. ? Eat at least 5 or more servings of fruits and vegetables each day. Try to fill half of your plate at each meal with fruits and vegetables. ? Choose lean protein foods. These include: ? Lowfat (lean) cuts of meat. ? Chicken without skin. ? Fish. ? Tofu. ? Beans. ? Nuts. ? Eat low-fat dairy products. ? Avoid foods that: ? Are high in salt (sodium). ? Have saturated fat. ? Have trans fat. ? Have cholesterol. ? Are processed. ? Are premade. Follow eating guidelines as told by your doctor. These may include: ? Reducing how many calories you eat and drink each day. ? Limiting how much salt you eat or drink each day to 1,500 milligrams (mg). ? Using only healthy fats for cooking. These include: ? [place] oil. ? Canola oil. ? [place] oil. ? Counting how many carbohydrates you eat and drink each day. What lifestyle changes can be made? Try to stay at a healthy weight. Talk to your doctor about what a good weight is for you. Get at least 30 minutes of moderate physical activity at least 5 days a week. This can include: ? Fast walking. ? Biking. ? Swimming. Do not use any products that have nicotine or tobacco. This includes cigarettes and e-cigarettes. If you need help quitting, ask your doctor. Avoid being around tobacco smoke in general. Limit how much alcohol you drink to no more than 1 drink a day for non women and 2 drinks a day for men. One drink equals 12 oz of beer, 5 oz of wine, or 1 oz of hard liquor. Do not use drugs. Avoid taking control pills. Talk to your doctor about the risks of taking control pills if: ? You are over 35 years old. ? You smoke. ? You get migraines. ? You have had a blood clot. What other changes can be made? Manage your cholesterol. ? It is important to eat a healthy diet. ? If your cholesterol cannot be managed through your diet, you may also need to take medicines. Take medicines as told by your doctor. Manage your diabetes. ? It is important to eat a healthy diet and to exercise regularly. ? If your blood sugar cannot be managed through diet and exercise, you may need to take medicines. Take medicines as told by your doctor. Control your high blood pressure (hypertension). ? Try to keep your blood pressure below 130/80. This can help lower your risk of stroke. ? It is important to eat a healthy diet and to exercise regularly. ? If your blood pressure cannot be managed through diet and exercise, you may need to take medicines. Take medicines as told by your doctor. ? Ask your doctor if you should check your blood pressure at home. ? Have your blood pressure checked every year. Do this even if your blood pressure is normal. Talk to your doctor about getting checked for a sleep disorder. Signs of this can include: ? Snoring a lot. ? Feeling very tired. Take ntdx-oda-irwrdpj and prescription medicines only as told by your doctor. These may include aspirin or blood thinners (antiplatelets or anticoagulants). Make sure that any other medical conditions you have are managed. Where to find more information [place] St[employer] Association: www.strokeassociation.org National Stroke Association: www.stroke.org Get help right away if: You have any symptoms of stroke. BE FAST is an easy way to remember the main warning signs: ? B - Balance. Signs are dizziness, sudden trouble walking, or loss of balance. ? E - Eyes. Signs are trouble seeing or a sudden change in how you see. ? F - Face. Signs are sudden weakness or loss of feeling of the face, or the face or eyelid drooping on one side. ? A - Arms. Signs are weakness or loss of feeling in an arm. This happens suddenly and usually on one side of the body. ? S - Speech. Signs are sudden trouble speaking, slurred speech, or trouble understanding what people say. ? T - Time. Time to call emergency services. Write down what time symptoms started. You have other signs of stroke, such as: ? A sudden, very bad headache with no known cause. ? Feeling sick to your stomach (nausea). ? Throwing up (vomiting). ? Jerky movements you cannot control (seizure). These symptoms may represent a serious problem that is an emergency. Do not wait to see if the symptoms will go away. Get medical help right away. Call your local emergency services (911 in the [place] Do not drive yourself to the hospital. Summary You can prevent a stroke by eating healthy, exercising, not smoking, drinking less alcohol, and treating other health problems, such as diabetes, high blood pressure, or high cholesterol. Do not use any products that contain nicotine or tobacco, such as cigarettes and e-cigarettes. Get help right away if you have any signs or symptoms of a stroke. This information is not intended to replace advice given to you by your health care provider. Make sure you discuss any questions you have with your health care provider. Document Released: 11/28/2012 Document Revised: 07/26/2019 Document Reviewed: 08/31/2017 [employer] Patient Education 2020 4Less. Ischemic Stroke An ischemic stroke is the sudden of brain tissue. Blood carries oxygen to all areas of the body. This type of stroke happens when your blood does not flow to your brain like normal. Your brain cannot get the oxygen it needs. This is an emergency. It must be treated right away. Symptoms of a stroke usually happen all of a sudden. You may notice them when you wake up. They can include: Weakness or loss of feeling in your face, arm, or leg. This often happens on one side of the body. Trouble walking. Trouble moving your arms or legs. Loss of balance or coordination. Feeling confused. Trouble talking or understanding what people are saying. Slurred speech. Trouble seeing. Seeing two of one object (double vision). Feeling dizzy. Feeling sick to your stomach (nauseous) and throwing up (vomiting). A very bad headache for no reason. Get help as soon as any of these problems start. This is important. Some treatments work better if they are given right away. These include: Aspirin. Medicines to control blood pressure. A shot (injection) of medicine to break up the blood clot. Treatments given in the blood vessel (artery) to take out the clot or break it up. Other treatments may include: Oxygen. Fluids given through an IV tube. Medicines to thin out your blood. Procedures to help your blood flow better. What increases the risk? Certain things may make you more likely to have a stroke. Some of these are things that you can change, such as: Being very overweight (obesity). Smoking. Taking control pills. Not being active. Drinking too much alcohol. Using drugs. Other risk factors include: High blood pressure. High cholesterol. Diabetes. Heart disease. Being , , , or . Being over age 60. Family history of stroke. Having had blood clots, stroke, or warning stroke (transient ischemic attack, TIA) in the past. Sickle cell disease. Being a woman with a history of high blood pressure in (preeclampsia). Migraine headache. Sleep apnea. Having an irregular heartbeat (atrial fibrillation). Long-term (chronic) diseases that cause soreness and swelling (inflammation). Disorders that affect how your blood clots. Follow these instructions at home: Medicines Take nluu-evd-eccvrdh and prescription medicines only as told by your doctor. If you were told to take aspirin or another medicine to thin your blood, take it exactly as told by your doctor. ? Taking too much of the medicine can cause bleeding. ? If you do not take enough, it may not work as well. Know the side effects of your medicines. If you are taking a blood thinner, make sure you: ? Hold pressure over any cuts for longer than usual. ? Tell your dentist and other doctors that you take this medicine. ? Avoid activities that may cause damage or injury to your body. Eating and drinking Follow instructions from your doctor about what you cannot eat or drink. Eat healthy foods. If you have trouble with swallowing, do these things to avoid choking: ? Take small bites when eating. ? Eat foods that are soft or pureed. Safety Follow instructions from your health care team about physical activity. Use a walker or cane as told by your doctor. Keep your home safe so you do not fall. This may include: ? Having experts look at your home to make sure it is safe. ? Putting grab bars in the bedroom and bathroom. ? Using raised toilets. ? Putting a seat in the shower. General instructions Do not use any tobacco products. ? Examples of these are cigarettes, chewing tobacco, and e-cigarettes. ? If you need help quitting, ask your doctor. Limit how much alcohol you drink. This means no more than 1 drink a day for non women and 2 drinks a day for men. One drink equals 12 oz of beer, 5 oz of wine, or 1 oz of hard liquor. If you need help to stop using drugs or alcohol, ask your doctor to refer you to a program or specialist. Stay active. Exercise as told by your doctor. Keep all follow-up visits as told by your doctor. This is important. Get help right away if: You have any signs of a stroke. BE FAST is an easy way to remember the main warning signs: ? B - Balance. Signs are dizziness, sudden trouble walking, or loss of balance. ? E - Eyes. Signs are trouble seeing or a change in how you see. ? F - Face. Signs are sudden weakness or loss of feeling of the face, or the face or eyelid drooping on one side. ? A - Arms. Signs are weakness or loss of feeling in an arm. This happens suddenly and usually on one side of the body. ? S - Speech. Signs are sudden trouble speaking, slurred speech, or trouble understanding what people say. ? T - Time. Time to call emergency services. Write down what time symptoms started. You have other signs of a stroke, such as: ? A sudden, very bad headache with no known cause. ? Feeling sick to your stomach (nausea). ? Throwing up (vomiting). ? Jerky movements you cannot control (seizure). These symptoms may be an emergency. Do not wait to see if the symptoms will go away. Get medical help right away. Call your local emergency services (911 in the [place] Do not drive yourself to the hospital. Summary An ischemic stroke is the sudden of brain tissue. Symptoms of a stroke usually happen all of a sudden. You may notice them when you wake up. Get help if you have any warning signs of a stroke. This is important. Some treatments work better if they are given right away. This information is not intended to replace advice given to you by your health care provider. Make sure you discuss any questions you have with your health care provider. Document Released: 05/18/2012 Document Revised: 11/08/2018 Document Reviewed: 08/25/2016 Elsevier Patient Education 2020 [employer]. Additional Information VACCINATE! IT SAVES LIVES! Members of the community who have not yet received the COVID-19 vaccine and would like to receive it can visit one of [facility] vaccine clinics. There are many vaccine clinic locations within the [facility]. For locations and available times, please visit [email or web address] It is important to note that some COVID mobile vaccine clinics are held outdoors and may be canceled in rainy or stormy conditions. To learn more about pediatric vaccinations (ages 5-11), we invite you to visit the [facility] webpage. [email or web address] To learn more about the COVID-19 vaccine, we invite you to visit the CDC website for a list of frequently asked questions.https://www.cdc.gov/co ronavirus/2019-ncov/vaccines/faq .html [facility] Patient Portal Access Instructions: Stay connected with your healthcare team and access your personal medical information anytime with the [facility] Patient Portal. Please follow the directions below to create your [employer] account: 1.Access the email account you provided upon registration to the hospital/physician office.2.Look for an invitation email from [facility].3.Open the email and access the invitation link: Accept Invitation to [employer].4.Fill in the required hull to create your account. To access your account, visit [email or web address]. Click the blue button labeled Access Patient Portal and then log in with the username and password that you created in the steps above. You will be able to view your test results, lab results, a summary of your visits, upcoming appointments and more. There is also a convenient messaging option where you can send secure messages to your provider. In addition, you will have the ability to download any documents or summaries to your computer and/or send the information securely to a physician. Remember that your healthcare information is confidential, so carefully consider who you will allow to register on the [facility] Patient Portal for access to your information. You can also access the [facility] Patient Portal on the [employer] saul. Simply click on Patient Portal and then log into your account. If you would like to receive a full copy of your medical records, please contact the [facility] Medical Records Department by calling [phone], Tuesday through Tuesday between 8 a.m. and 4:30 p.m. HOW TO SAFELY DISPOSE OF PRESCRIPTION MEDICATIONS Please use one of the following methods to safely dispose of your unused medications. 1.Use a drug disposal kit: the drug disposal pouch allows you to safely discard your old and unused drugs. Ask your nurse to give you one when you are discharged.2.Visit a local take-back location: Many local pharmacies and police departments have programs that collect old and unwanted prescription drugs. Call your local pharmacy or go to http://[employer].AppliLog/3H4Yf3d to find one close to you.3.Make use of household items: Use cat litter or old coffee grounds to dispose medications if other options are not available. Mix your drugs with these household products, seal them in an airtight container and throw it into the garbage. Call [facility]: [phone] to be sure your drugs can be disposed of in this way. Some medicines may require a different approach.4.Never flush your medications down the toilet. IF YOU HAVE BEEN PRESCRIBED AN OPIOID FOR PAIN If you have been prescribed an opioid (such as hydrocodone, oxycodone or morphine), it is critical to understand the possible side effects and risks of opioid pain medications. Even when taken as directed, opioids can have several side effects including: Tolerance, meaning you might need to take more of a medication for the same pain relief. Nausea, vomiting and/or constipation. Sleepiness, dizziness, dry mouth, confusion, depression or itching. Physical dependence, meaning you have withdrawal symptoms when a medication is stopped, can develop within a few days. KNOW YOUR RESPONSIBILITIES It is important to know exactly how much and how often to take the opioid pain medications you are prescribed. Never take opioids in higher amounts or more often than prescribed. Do not combine opioids with alcohol or other drugs that cause drowsiness, such as benzodiazepines, also known as benzos, including diazepam and alprazolam, muscle relaxants or sleep aids. Never sell or share prescription opioids. This is illegal. Store opioids in a secure place and out of reach of others (including children, family, friends and visitors). The last page of this document has been signed and retained as a CHART COPY. Signatures Patient Education Materials Stroke Prevention, Btwo-oz-Birw Ischemic Stroke, Wvju-qc-Mvpn Medication Leaflets aspirin (oral), clopidogrel My discharge plan and instructions have been reviewed and explained to me and I,RICHELLE AHUJA understand my current condition and have read and understand these discharge instructions. I have received a written copy of the plan/instructions. If I have questions, I am aware that I should contact my doctor. Patient/Steward Dishwasher Signature: Date/Time: Relationship to Patient: Witness Name/Signature: Date/Time: [facility] 12-03-2024 Note Exam Date Time Procedure Performing Provider Status 12/03/24 2:[address] Angiography Head w/ Contrast ANDERSON PARRY MD; Auth (Verified) [id number] ORIGINAL HISTORY: TIA COMPARISON: No TECHNIQUE: CT angiography of the head following uncomplicated administration of intravenous contrast, with 3D post-acquisition processing and with results displayed in source images, sagittal reconstructions through the carotid siphons, maximum intensity projections and volume rendered images. This exam was performed according to our departmental dose optimization program, and includes the following measures where applicable: automated exposure control, adjustment of the mAs and/or kVp according to patient size and/or exam, and an iterative reconstruction algorithm. FINDINGS: There are mild atherosclerotic changes to the cavernous internal carotid arteries. The internal carotid arteries their major branches are otherwise patent without, significant stenosis or aneurysm. There is early division of the left A2 segment. The major vessels of the posterior circulation are unremarkable in appearance. There is a circulatory pattern on the right. IMPRESSION: No large vessel occlusion. Interpreted by: Anderson Parry MD Preliminary Report By: Anderson Parry MD Electronically signed By Anderson Parry MD Dictated Date: 12/03/2024 3:23:08 PM Prelim Date: 12/03/2024 3:30:22 PM Sign Date: 12/03/2024 3:30:22 PM Ordering Provider: KRISTEN TORRE [facility]06-23-2025 Note* Exam Date Time Procedure Performing Provider Status 12/03/24 1:[address] Head or Brain w/o Contrast Lester PARRY MD; Auth (Verified) [id number] ORIGINAL HISTORY: TIA COMPARISON: Previous day TECHNIQUE: Routine noncontrast head CT, with sagittal and coronal reconstructions. This exam was performed according to our departmental dose optimization program, and includes the following measures where applicable: automated exposure control, adjustment of the mAs and/or kVp according to patient size and/or exam, and an iterative reconstruction algorithm. FINDINGS: The study is mildly degraded by motion. Theventricles and sulci are mildly enlarged. There are no abnormal intra or extra-axial fluid collections. Within the limits of the examination loving-white matter differentiation is maintained. The calvaria and the bones of base of the skull are intact. IMPRESSION: Limited by motion. Otherwise no significant change. Interpreted by: Anderson Parry MD Preliminary Report By: Anderson Parry MD Electronically signed By Anderson Parry MD Dictated Date: 12/03/2024 2:08:42 PM Prelim Date: 12/03/2024 2:10:15 PM Sign Date: 12/03/2024 2:10:15 PM Ordering Provider: KRISTEN TORRE [facility]06-23-2025 Note* Exam Date Time Procedure Performing Provider Status 12/03/24 9:30 AM Echocardiogram, Adul t with Bubble Study- RADHA LOVETT MD; Auth (Verified) [facility]06-23-2025 Pastoral care Progress note Pastoral Care Note Entered On: 12/03/2024 9:30 EDT Performed On: 12/03/2024 9:26 EDT by Jean Claude Aparicio Pastoral Care Type of Pastoral Visit : Initial visit Spiritual Care Visit Initiated by : Consult/Referral Spiritual Care Reason for Visit : General Pastoral Care Referral From : Patient Spiritual Assessment : Faithful, Grateful/Thankful, Positive Image of God, Spiritually Strong, GoodFaith Group Support Spiritual Care Emotional Assessment : Thoughtful/Reflective, Pessimistic, Has Support Network Spiritual Care Intervention : Active listening, Facilitate Life Review, Explore Spiritual Needs, Explore Emotional Needs, Prayer with Patient/Family Spiritual Outcomes : Identifies Reasons for Hope, Expresses Gratitude, Expresses Liz Spiritual Plan of Care : Visit as Requested Pastoral Care Comments : patient is welcoming and explains the situation, how her [facility]ist responded as episode happened there, and the good situation she has at her fdc home; pt has a medical background and speaks of what complications she could face and how that gives her pause on tests and t reatments; pt acknowledges that her liz in God is greater and she will use that to face the situation; pt also gives some life review; pt welcomes presence and prayer Pastoral Care Visit Length : 20 minute(s) Jean Claude Aparicio - 12/03/2024 9:26 EDT Digitally Signed by Jean Claude Aparicio on 12/03/2024 09:26 AM [facility]06-22-2025 Note Date of Service 12/02/24 Chief Complaint we were at [facility] and she beacme lightheaded and weak and shaky and clammy History of Present Illness 78-year-old female with past medical history significant for hypertension, hyperlipidemia, diastolic dysfunction, polycythemia, COVID long-hauler. Patient presented to [facility] emergency department 12/02/2024 with altered mental status. Patient went to [facility] this morning. Her friends stated that she was not acting right. In the emergency department she was mildly hypertensive in the 160s systolic. Vital signs otherwise unremarkable.No leukocytosis. Platelet count 106. Urinalysis negative. BMP unremarkable. Troponin 12. X-ray chest showed a few subtle scattered reticular pulmonary markings. Patient was given 1 L normal saline and Zofran. She was subsequently admitted for observation. On exam today, pt denies any fever or chills. No headache or dizziness. Chronic sinus issues/congestion. Denies chest pain, palpitations. No cough, dyspnea, sputum production. Denies N/V/D/C. No melena/hematochezia. No dysuria or hematuria. No new paresthesias. Review of Systems See HPI for specific ROS. All other systems reviewed and negative. Physical Exam Vitals and Measurements T: 36.6 C (Oral) HR: 67 RR: 16 BP: 167/81 SpO2: 93% No qualifying data available. GEN: Appears chronically ill EYES: No conjunctival erythema, drainage. EOMI EARS: Hearing grossly intact. NOSE: No nasal discharge. THROAT: Oral cavity and pharynx pink and moist. CHEST: Normal S1 and S2. Rhythm is regular. Clear to auscultation, without rales, rhonchi, wheezing. ABD: Positive bowel sounds x 4 quads. Soft, nondistended, nontender. EXT: No significant deformity or joint abnormality. No edema. Peripheral pulses intact. NEURO: NIH score 3. Unable to say the month for her age. Slight right mouth droop per friends at bedside. SKIN: Skin color normal PSYCH: The mental examination revealed the patient was alert and oriented x name and place Lab Results 12/02 10:47 WBC: 8.6 Hgb: 15.8 Hct: 47.1 H Platelet: 106 L Neutrophil %: 64.6 Glucose Level: 106 Sodium Level: 141 Potassium Level: 3.8 BUN: 28 H Creatinine Lvl (s): 0.93 Imaging Results and Diagnostics CT Head or Brain w/o Contrast Result Date: December 02, 2024 Verified By: EUGENIA STEARNS DO CLINICAL STATEMENT: IMPRESSION: Chronic brain changes. No acute intracranial process demonstrated. CT headexam limited for evaluation for subtle acute ischemic process. XR Chest 1 View Result Date: December 02, 2024 Verified By: EUGENIA STEARNS DO CLINICAL STATEMENT: IMPRESSION: []1. A few subtle scattered reticular pulmonary markings.2. Other findings described above. EKG EC12/02/24: Sinus rhythm Electronic Signature: BENJAMIN WEST DO 12/02/2024 10:21:12 Assessment/Plan 1. Altered mental status 2. HTN (hypertension) 3. HLD (hyperlipidemia) Altered mental status ABCD 2 score 4. Last seen well greater than [address] head was negative. Patient will be admitted for stroke workup. MRI of the brain, carotid Dopplers, therapy evaluation. Check a lipid panel, A1c. Plavix 300 mg p.o. x 1 then 75 mg daily for 21 days, aspirin 81 mg Daily. Patient takes rosuvastatin 10 mg daily. HTN- SBP goal 140 or less. Continue home antihypertensives. Hyperlipidemia continue statin DVT prophylaxis: SCDs Code Status: Full code Plan of care discussed with patient. All questions answered. Patient verbalizes understanding is agreeable to plan of care. This dictation was performed using voice recognition software and may include grammatical and/or spelling errors. Procedure/Surgical History No qualifying data available. Medications Home Medications (9) Active Alphagan 0.2% ophthalmic solution citalopram 20 mg oral tablet Claritin 10 mg, Oral, qDay hydroCHLOROthiazide 50 mg oral tablet latanoprost 0.005% ophthalmic solution losartan 50 mg oral tablet potassium chloride 20 mEq oral tablet, extended release rosuvastatin 10 mg oral tablet timolol maleate 0.5% ophthalmic solution Allergies Latex Misc medication for hypertension (non-codified) narcotics predniSONE Social History Tobacco Nicotine Use: Never (less than 100 in lifetime)., 09/25/2019 Family History Family history is unknown Immunizations No qualifying data available. Code Status Code Status - Ordered -- 12/02/24 13:45:00 EDT, Full Code, Constant Order Digitally Signed by KRISTEN TORRE on 12/02/2024 03:07 PM Digitally Signed by NBA HARO DO on 12/02/2024 04:07 PM [facility]06-22-2025 Evaluation + Plan noteExtracted from: Title:History and Physical Author:KRISTEN TORRE Date:12/02/24 1. Altered mental status 2. HTN (hypertension) 3. HLD (hyperlipidemia) Altered mental status ABCD 2 score 4. Last seen well greater than [address] head was negative. Patient will be admitted for stroke workup. MRI of the brain, carotid Dopplers, therapy evaluation. Check a lipid panel, A1c. Plavix 300 mg p.o. x 1 then 75 mg daily for 21 days, aspirin 81 mg Daily. Patient takes rosuvastatin 10 mg daily. HTN- SBP goal 140 or less. Continue home antihypertensives. Hyperlipidemia continue statin DVT prophylaxis: SCDs Code Status: Full code Plan of care discussed with patient. All questions answered. Patient verbalizes understanding is agreeable to plan of care. This dictation was performed using voice recognition software and may include grammatical and/or spelling errors. [facility] 06-22-2025 Note* Exam Date Time Procedure Performing Provider Status 12/02/24 1:[address] Head or Brain w/o Contrast Judson STEARNS DO; Auth (Verified) [id number] ORIGINAL EXAMINATION: Exam Title:CT OF THE HEAD WITHOUT CONTRAST Completed Time: 12/02/2024 1:06 pm Procedure Description:CT HEAD/BRAIN WITHOUT CONTRAST COMPARISON: No direct comparison available HISTORY: ORDERING SYSTEM PROVIDED HISTORY: Reason for Exam: Delirium TECHNIQUE: Non-contrast CT head performed according to protocol. Multiplanar reconstructions performed. This exam was performed according to our departmental dose optimization program, and includes the following measures where applicable: automated exposure control, adjustment of the mAs and/or kVp according to patient size and/or exam, and an iterative reconstruction algorithm. FINDINGS: Calcified falx meningiomas. Moderate diffuse cerebral and mild diffuse cerebellar atrophy. Atherosclerotic disease. There is no gross intracranial hemorrhage, midline shift, or mass effect . No evidence for major vessel acute ischemic change. No acute osseous abnormality. Included portions of the globes, retrobulbar soft tissue, paranasal sinuses, mastoid air cells, and middle ears are normal in appearance. IMPRESSION: Chronic brain changes. No acute intracranial process demonstrated. CT head exam limited for evaluation for subtle acute ischemic process. Interpreted by: Eugenia Stearns DO Preliminary Report By: Eugenia Stearns DO Electronically signed By Eugenia Stearns DO Dictated Date: 12/02/2024 1:19:17 PM Prelim Date: 12/02/2024 1:20:06 PM Sign Date: 12/02/2024 1:20:06 PM Ordering Provider: [facility]06-22-2025 Note* Exam Date Time Procedure Performing Provider Status 12/02/24 11:59 AM XR Chest 1 View EUGENIA STEARNS DO; Auth (Verified) [id number] ORIGINAL EXAMINATION: Exam Title:ONE XRAY VIEW OF THE CHEST Completed Time: 12/02/2024 12:00 pm Procedure Description:CHEST ONE VIEW AP/PA COMPARISON: No direct comparison available. HISTORY: ORDERING SYSTEM PROVIDED HISTORY: Reason for Exam: cough FINDINGS: Moderate-severe rotoscoliosis. A few scattered reticular pulmonary markings. No gross consolidative pneumonia, effusion, or pneumothorax. Heart size felt to be upper limits of normal. External chest leads. IMPRESSION: [] 1. A few subtle scattered reticular pulmonary markings. 2. Other findings described above. Interpreted by: Eugenia Stearns DO Preliminary Report By: Eugenia Stearns DO Electronically signed By Eugenia Stearns DO Dictated Date: 12/02/2024 12:13:20 PM Prelim Date: 12/02/2024 12:14:01 PM Sign Date: 12/02/2024 12:14:01 PM Ordering Provider: BENAJMINPedro Pablo WEST [facility]06-22-2025 Note* Exam Date Time Procedure Performing Provider Status 12/02/24 10:06 AM EKG [ED AOH] - CV BENJAMIN WEST DO; A uth (Verified) ECG Final Report Sinus rhythm Electronic Signature: BENJAMIN WEST DO 12/02/2024 10:21:12 [facility]05-10-2024 Discharge summary Author Alonso Wills [facility] October 21, 2023 3:10pm Note Date/Time October 21, 2023 3:10p m [facility] Physical Therapy [facility] [address] [place] [address] / REHABILITATION SERVICES DISCHARGE SUMMARY MR#: [id number] Acct: [id number] Name: RICHELLE AHUJA Rep #: [id number] : 1945 77 From: Alonso Wills DPT, OCS, CSCS Referring Dr.: Dr. Mickey Nguyen MD Status: REG RCR Insurance: MEDICARE PART A B [facility] Discharge Summary D/C summary: It has been my pleasure to treat RICHELLE AHUJA referred by Dr. Mickey Nguyen MD, with the diagnosis of R shoulder pain for a total of 12 visit(s). Discharge Date: 10/21/23 Please see the following information for a summary of their discharge status. Subjective Subjective: Been dooing good lately, weather makes her sore today. Soreness 4/10, was much better 1-2/10. Exeercises no problem at home. Shoulder activityis normal outside of heavy lifting and mopping. Dressing. Pain R shoulder: Pain Intensity (Out of 10): 1 Overall Improvement % Improvement: 80 Objective Objective/Function: full aROM, stiff near full elevation, strength 4-/5 wihtout pain. Doing well overall and understands activitiy mdoficaiton Goals Goal 1:: Pain in R shoulder 75% better and 2/10 at worst Goal Progress: Goal Met Goal 2:: I appropriate HEP of posture, activitiy modifciaiton and strength Rc and posture to limit future problems Goal Progress: Goal Met Goal 3:: Do hair and eyebrows without increased pain R shoulder Goal Progress: Goal Met Goal 4:: quickdash score 15 or better. Goal Progress: Goal Met Plan Plan: d/c to HEP D/C Information d/c sentence: If there are questions or concerns regarding this patient's physical therapy, please feel free to call me at [phone]. Thank you for the referral of thispatient. Sincerely, Alonso Wills, DPT, OCS, CSCS Balance/Gait/Functional tests Balance/Special Test Scores Quick DASH Score: 25.0000 Improvement % Improvement: 80 <Electronically signed by Alonso VILLALTAT, OCS, CSCS> 10/21/23 1510 CC: Dr. Mickey Nguyen MD ~ EBG Signed [facility] Work Phone: Chief complaint+Reason for visit Narrative* Chief Complaint 6 M FU Reason for Visit COVID-19 scooter everett manifesting chronic cough Diastolic dysfunction Kyphoscoliosis [facility] Work Phone: Evaluation note* Diagnosis Onset Date Resolution Status Shortness of breath acute Acute respiratory failure with hypoxia acute Debility acute Hypoxia acute Shortness of breath acute Bilateral pneumonia resolved Elevated d-dimer resolved Hyperglycemia resolved Hypokalemia resolved Transaminitis resolved [facility] Work Phone: Evaluation note* Diagnosis Onset Date Resolution Status Acute respiratory failure with hypoxia acute Debility acute Hypoxia acute Shortness of breath acute Bilateral pneumonia resolved Elevated d-dimer resolved Hyperglycemia resolved Hypokalemia resolved Transaminitis resolved [facility] Work Phone: Evaluation note* Diagnosis Onset Date Resolution Status Acute respiratory failure with hypoxia acute COVID-19 scooter rockwelluler manifesting chronic cough acute [facility] Work Phone: Evaluation note* Diagnosis Onset Date Resolution Status COVID-19 scooter rockwelluler manifesting chronic cough acute Diastolic dysfunction chroni c Kyphoscoliosis chronic [facility] Work Phone: Evaluation noteNo assessment information available [facility] Work Phone: Hospital course Narrative No data available for this section [facility] Discharge instructions Additional Instructions CT brain negative. Left leg x-ray negative for fracture. Continue Adeel wrap ice can use Tylenol as needed. Follow-up with your doctor.[facility] Work Phone: Reason for referral (narrative)No reason for referral information availableWCleveland [facility] Work Phone: Summary Purpose Family History No Family History Records Found Relationship Condition Age at Onset Recorded Date/T roma father Coronary artery disease Unknown Myocardial infarction Unknown mother Hypertension Unknown uncle Pulmonary emphysema Unknown Relationship Condition Age at Onset Recorded Date/T roma father Coronary artery disease Unknown Myocardial infarction Unknown mother Hypertension Unknown Cardiac disease Unknown uncle Pulmonary emphysema Unknown Advance Directives No Advanced Directives Records FoundLatest Code Status on File Code Status Date Activated Date Inactivated Comments Full Code 08/13/2020 6:26 PM Full Code 08/13/2020 11:07 AM 08/13/2020 6:23 PM Advance Directive Response Recorded Date/ Time Living Will No August 18, 2021 7:33pm Power of Mandarin Chinese Teacher No August 18 2 7:33pm Advance Directive Response Recorded Date/ Time Living Will No August 18, 2021 6:33pm Power of Mandarin Chinese Teacher No August 18 2 6:33pm Advance Directive Response Recorded Date/ Time Do you have a Healthcare Power of Mandarin Chinese Teacher? No December 06, 2024 12:52pm Discharge Instructions * Instructions* Sadie Shetty RN [...] mild sore throat. You may use an iluz-tjq-bquwgsm chloraseptic spray, gargle with warm salt water, [...] please call your surgeon. Please bring your [employer] Surgical Information folder on the day of surgery. Please saniya the last dose taken (date and time ) on your Daily Medications List provided in your After Visit Summary. Please bring a photo ID and insurance information to 1st floor surgery. * Attachments The following attachments cannot be sent through Care Everywhere. * Hiatal Hernia (Djiboutian) documented in this encounter* Discharge Instr - [...] beverages are permitted based on tolerance Popsicles Cypriot ice Day 2 and Day 3 after [...] Nutritional drinks including Ensure , Boost , [place] Instant Breakfast (no chocolate-flavored) Mashed potatoes On [...] Nutritional drinks including Boost , Ensure , [place] Instant Breakfast Chocolate milk, cocoa or other chocolate-flavored drinks Carbonated drinks Alcohol [place] juices like orange, grapefruit, lemon and [place] Breads Pancakes, Czech toast and waffles Crackers (saltine, butter, soda, mathieu, Goldfish and Cheese Nips ) Toasted bread Untoasted bread, bagels, Rg and hard rolls, [place]ian muffins Crackers with nuts, seeds, fresh or [...] seasoned salad dressings, cream sauces and gravies Watts, watts fat, ham fat, lard and salt pork [...] and ricotta cheeses Mild cheese, such as Somali, brick, mozzarella and baby Citizen Of [place] Creamy peanut butter Plain custard or blended fruit yogurt Moist casseroles, such as macaroni & cheese, tuna noodle Grilled or toasted cheese sandwich Tough meats with a lot of gristle Fried, highly seasoned, smoked and fatty meat, fish or poultry, such as frankfurters, luncheon meats, sausage, watts, spare ribs, beef brisket, sardines, anchovies, duck and goose [place] and other entrees made with pepper or [...] foods Coconut and seeds Pickles and olives [place] sauces, ketchup, barbecue sauce, horseradish, black pepper, chili powder and onion and garlicseasonings Any other strongly flavored seasoning, condiment, spice or herb not tolerated Any food not tolerated * Additional Instructions* Caprice Burnette MD - 08/13/2020 [facility] - Surgery [facility] Physicians Surgery DISCHARGE INSTRUCTIONS FOR DR. CASTRO Thank you very much for allowing me to participate in your care, it is truly a privilege. Below please see discharge orders that will help you during your recovery. Please do not hesitate to call theoffice during the day at [phone] for any questions. After hours, the same [...] care, and get well soon! Best regards, Sin Castro M.D., F.A.C.S. * Attachments The following attachments cannot be sent through Care Everywhere. * Leobardo Fundoplication: Post-op (Djiboutian) documented in this encounter Assessments Diagnosis Hiatal hernia Diaphragmatic hernia without mention of obstruction or gangrene Gastroesophageal reflux disease without esophagitis Esophageal reflux Chronic superficial gastritis without bleeding Atrophic gastritis without mention of hemorrhage Diagnosis Encounter for screening for other viral diseases Diagnosis Hiatal hernia- Primary Diaphragmatic hernia without mention of obstruction or gangrene Gastroesophageal reflux disease without esophagitis Esophageal reflux Hospital Course Note 48 Hour Discharge Summary No te Patient ID: Richelle Abbasi Page [id number] y.o. 1945 Admit date: 08/13/2020 Discharge date and time: 08/14/20 Admitting Physician: Sin Castro MD Discharge Physician: Caprice Burnette MD [...] 1-2 weeks Diet: clear liquids Discharge Medications: Richelle Ahuja Ayleen Home Medication Instructions JOHNATHON:[id number] Printed on:08/14/20 9240 Medication Information acetaminophen (TYLENOL) 500 M (more content not included)... Note [facility] Surgery Patient Name: Richelle Ahuja OPERATIVE NOTE DATE OF PROCEDURE: 08/13/2020 SURGEON: Sin Castro SOCIAL SCIENCE PROFESSOR: Caprice Burnette MD PREOPERATIVE DIAGNOSIS: ? Large [...] (more content not included)... Procedure Findings Note [facility] Surgery Patient Name: Richelle Ahuja OPERATIVE NOTE DATE OF PROCEDURE: 08/13/2020 SURGEON: Sin Castro SOCIAL SCIENCE PROFESSOR: Caprice Burnette MD PREOPERATIVE DIAGNOSIS: ? Large [...] Date 08/14/20 0000 - 08/14/20 2359 Shift [id number] [id number] [id number] 24 Hour Total INTAKE I.V.(mL/kg) 10(0.1) 10(0.1) [...] rashes or erythema Data: CBC: Recent Labs 08/11/20 1425 08/14/20 013 WBC -- 10.7 HGB 14.5 15.1 HCT 44.1 44.9 PLT -- 135* BMP: Recent Labs 08/11/20 1425 08/14/20 0137 NA 136 134* K 4.0 4.0 CL [...] PGY-5 08/14/2020 8:55 AM Associated attestation - Sin Castro MD - 08/14/2020 3:34 PM EST [facility] - Surgery B[facility] Patient Name: Richelle Abbasi Page Date: 08/14/20 MIS-General Surgery/Bariatric Progress Note Subjective: The patient is doing well, postoperative day #1 from [facility]. No nausea, vomiting, or adverse eventsovernight. Scheduled [...] types tape, bandaids Morphine Nausea And Vomiting Ramona [Hydrocodone-Acetaminophen] Nausea And Vomiting Tolerates Tylenol Oxycodone [...] Out: 414 [Urine:400; Blood:14] CBC: Recent Labs 08/14/20136 WBC 10.7 HGB 15.1 HCT 44.9 PLT 135* BMP: Recent Labs 08/14/20136 NA 134* K 4.0 CL 99 CO2 [...] RN - 08/13/2020 6:[address] Bonilla pagesally for [facility] order for pain at [address] burnette paged at [address] Ibarra gave verbal order, order placed and pharmacy called to verify order so it can be given, pttransported to H5 Mirna Sierra RN - 08/13/2020 4:[address] burnette paged morphine ordered for the floor and pt has allergy to it Mirna Sierra RN - 08/13/2020 4:45 PM EST Pt [...] Oral airway removed. documented in this encounter Chief Complaint and Reason for Visit Chief Complaint 6 M FU ACUTE HYPOXIC RESPIRATORY INSUFFICIENCY ACUTE HYPOXIC RESPIRATORY INSUFFICIENCY ACUTE HYPOXIC RESPIRATORY INSUFFICIENCY ACUTE HYPOXIC RESPIRATORY INSUFFICIENCY ACUTE HYPOXIC RESPIRATORY INSUFFICIENCY Reason for Visit Shortness of breath Acute respiratory failure with hypoxia Debility Hypoxia Shortness of breath Bilateral pneumonia Elevated d-dimer Hyperglycemia Hypokalemia Transaminitis Chief Complaint ACUTE HYPOXIC RESPIR ATORY INSUFFICIENCY ACUTE HYPOXIC RESPIRATORY INSUFFICIENCY ACUTE HYPOXIC RESPIRATORY INSUFFICIENCY ACUTE HYPOXIC RESPIRATORY INSUFFICIENCY ACUTE HYPOXIC RESPIRATORY INSUFFICIENCY Reason for Visit Acute respiratory fa ilure with hypoxia Debility Hypoxia Shortness of breath Bilateral pneumonia Elevated d-dimer Hyperglycemia Hypokalemia Transaminitis Chief Complaint 3 M FU SOB Shortness of breath Reason for Visit Acute respiratory fa ilure with hypoxia 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 Diastolic dysfunction Kyphoscoliosis Chief Complaint Admit Date neuro sx, fallDecember 06, 2024 11:2 4am Additional Source Comments INFORMATION SOURCE (unrecogn ized section and content) DATE CREATED AUTHOR 09/25/2019 [facility] ([place]) DATE CREATED AUTHOR AUTHOR'S ORGANIZ ATION 08/16/2020 [facility] DATE CREATED AUTHOR AUTHOR'S ORGANIZ ATION 2024 [facility] DATE CREATED AUTHOR AUTHOR'S ORGANIZ ATION 12/11/2024 [facility] Ordered Prescriptions (unrec ognized section and content) Prescription Sig Dispensed Refills Start Date End Da te ondansetron (ZOFRAN-ODT) 4 MG disintegrating tablet Take 1 tablet by mouth 3 times daily as needed for Nausea or Vomiting 21 tablet 0 08/13/2020 Goals (unrecognized section and content) Goals may be documented in a n alternate sectionGoals may be documented in an alternate sectionGoals may be documented in an alternate sectionGoals may be documented in an alternate sectionGoals may be documented in an alternate sectionGoals may be documented in an alternate sectionGoals may be documented in an alternate section No data available for this sectionGoals may be documented in an alternate section Care Teams (unrecognized sec tion and content) Team Status: Active Member Role Status Dates Dr. Mickey Nguyen MD Family Provider Active Dr. Mickey Nguyen MD Primary Care Provider Active Team Status: Inactive Member Role Status Dates Dr. Mickey Nguyen MD Primary Care Provider, Referring Provider Active Dr. José Luis Damon MD Attending Provider Active Team Status: Inactive Member Role Status Dates Dr. Mickey Nguyen MD Primary Care Provider, Attending Provider Active Team Status: Inactive Member Role Status Dates Dr. Mickey Nguyen MD Primary Care Provi john, Attending Provider, Referring Provider Active Team Status: Active Member Role Status Dates Dr. Mickey Nguyen MD Primary Care Provider Active Dr. Per Portillo DPM Attending Provider, Referring P ale Active Team Status: Inactive Member Role Status Dates Dr. Mickey Nguyen MD Primary Care Provider Active Start: May 15, 2024 End: May 15, 2024 Dr. Mickey Nguyen MD Attending Provider Active Start: May 15, 2024 End: May 15, 2024 Team Status: Inactive Member Role Status Dates Dr. Mickey Nguyen MD Primary Care Provider Active Start: August 06, 2024 End: August 06, 2024 Dr. Mickey Nguyen MD Attending Provider Active Start: August 06, 2024 End: August 06, 2024 Team Status: Inactive Member Role Status Dates Dr. Mickey Nguyen MD Primary Care Provider Active Start: August 21, 2024 End: August 21, 2024 Dr. Mickey Nguyen MD Attending Provider Active Start: August 21, 2024 End: August 21, 2024 Team Status: Active Member Role Status Dates Dr. Mickey Nguyen MD Primary Care Provider Active Team Status: Inactive Member Role Status Dates Dr. Mickey Nguyen MD Primary Care Provider Active Start: December 06, 2024 End: December 06, 2024 Dr. Archie Bone DO Emergency Provider Active Start : December 06, 2024 End: December 06, 2024 FOR RECORDS PERTAINING TO PATIENTS WHO ARE [...] BE BASED ON THE PRIMARY CLINICAL RECORDS. [employer] provides no warranty or guarantee of the accuracy or completeness of information in this document.
== END | disposition home or self-care (01) ==
LOC: CVS 14:05
PROVIDERS: PCP Family Medicine Geriatric Medicine; Referring Provider Family Medicine Geriatric Medicine; Visit Provider Family Medicine Geriatric Medicine
DX: M79.605 Pain in left leg (principal); M79.89 Other specified soft tissue disorders
CPT/HCPCS: 93971

== ENCOUNTER → 2024-12-20 | Outpatient (CLI) | payer MEDICARE, OTHER, SELFPAY ==
--- NOTE | 2024-12-20 16:11 | MRI_ITS ---
PROCEDURE: BRAIN WITHOUT CONTRAST 12/20/2024 REASON FOR EXAM: TIA TECHNIQUE: BRAIN WITHOUT CONTRAST Multiplanar and multisequence images were obtained. FINDINGS: There is no pathologic diffusion restriction. No intracranial mass or hydrocephalus. No pathologic flow voids. Orbits appear symmetric. Sinuses are clear. There is mild atrophy and minimal leukomalacia in the frontal white matter bilaterally. Quite nonspecific. MRI/Brain without Contrast IMPRESSION: No acute abnormality. Minimal nonspecific punctate frontal leukomalacia. This can be seen with minimal small-vessel changes or even minimal microvascular disease. Reading [facility]
== END | disposition home or self-care (01) ==
LOC: MRI 16:02
PROVIDERS: PCP Family Medicine Geriatric Medicine; Referring Provider Family Medicine Geriatric Medicine; Visit Provider Family Medicine Geriatric Medicine
DX: G45.9 Transient cerebral ischemic attack, unspecified (principal)
CPT/HCPCS: 70551

== ENCOUNTER → 2025-02-20 | Outpatient (CLI) | payer MEDICARE, OTHER, SELFPAY ==
[2025-02-20 14:06] LABS: Hematocrit 48.6 % (37-47); Hemoglobin 16.0 g/dL (12.0-15.0); Immature Granulocytes Count 0.010 X10^3/uL (0.0-0.0); Mean Corp Hgb Conc 32.9 g/dL (32-36); Mean Corpuscular Volume 86.2 fL (81-99); Mean Platelet Vol. 9.0 fl (6.2-12.0); NRBC Flagged by Analyzer 0 % (0-5); Platelet Count 130 K/mm3 (150-450); RBC Distribution Width CV 12.5 % (11.6-14.6); RBC Distribution Width SD 38.9 fl (35.1-43.9); Red Blood Count 5.64 M/mm3 (4.2-5.4); White Blood Count 7.6 K/mm3 (4.4-11.0)
[2025-02-20 14:44] LABS: AST(SGOT) 25 U/L (<=31); Alanine Aminotransfer ALT/SGPT 16 U/L (<=34); Albumin, Serum 4.2 g/dL (3.4-4.8); Alkaline Phosphatase 103 U/L (35-104); Anion Gap 12 (5-15); BUN 20 mg/dL (4-19); BUN/Creat Ratio 19.1 RATIO (10-20); Calcium,Total 10.7 mg/dL (7.6-11.0); Carbon Dioxide 23.3 mmol/L (21.0-32.0); Chloride 105 mmol/L (98-108); Globulin 2.3 g/dL (2.2-4.2); Glucose 130 mg/dL (70-99); Potassium 4.1 mmol/L (3.3-5.1)
[2025-02-20 15:13] LABS: Vitamin D,25 Hydroxy 51.8 ng/mL (30-100)
--- OUTSIDE RECORDS SUMMARY | 2025-02-20 21:22 | XMS RPT_ITS | CCD ---
Author Organization [facility] CliniSymi Care Team Providers Care Wood Patternmaker Name Role Phone Sanjeev Nguyen Primary Care Provider Patrick, Dr. Mickey Whittington Primary Care Provider Patrick, Dr. Mickey Whittington Referring Provider Murray PLASTIC SHEETS FINISHING SUPERVISOR, PLASTIC SHEETS FINISHING SUPERVISOR-C Aleja Attending Provider Dr. Harris Jacobsen Emergency Provider Dr. Jada Mccarthy Admit Provider Dr. Jada Mccarthy Attending Provider [phone] Jada Mccarthy Other Provider Dr. Kiah Torre Attending Provider Dr. Kiah Torre Other Provider Dr. Mickey Nguyen Chi Primary Care Provider Patrick, Dr. Mickey Whittington Primary Care Provider Patrick, Dr. Mickey Whittington Referring Provider Murray PLASTIC SHEETS FINISHING SUPERVISOR, PLASTIC SHEETS FINISHING SUPERVISOR-C Aleja Attending Provider Murray PLASTIC SHEETS FINISHING SUPERVISOR, PLASTIC SHEETS FINISHING SUPERVISOR-C Aleja Referring Provider [phone] Murray PLASTIC SHEETS FINISHING SUPERVISOR, PLASTIC SHEETS FINISHING SUPERVISOR-C Aleja Other Provider Dr. José Luis Damon Attending Provider Dr. Mickey Nguyen Chi Primary Care Provider [phone] Patrick, Dr. Mickey Whittington Referring Provider Dr. José Luis Damon Attending Provider Patrick GAN, Dr. Mickey Whittington Primary Care Provider Patrick GAN, Dr. Mickey Whittington Attending Provider Patrick GAN, Dr. Mickey Whittington Primary Care Provider Patrick GAN, Dr. Mickey Whittington Attending Provider PATRICK GAN, DR CANALES Primary Care Physician Patrick GAN, Dr. Mickey Whittington Primary Care Provider [phone], [address] Mickey Whittington Attending Provider Smitha ALEXANDRE, Dr. Almanza Emergency Provider Smitha ALEXANDRE, Dr. Almanza Attending Provider Patrick GAN, Dr. Mickey Whittington Referring Provider [phone] Patrick GAN, Dr. Mickey Whittington Primary Care Provider Patrick GAN, Dr. Mickey Whittington Attending Provider Patrick, Mickey Chi Primary Care Unavailable Patrick, Mickey Chi Attending Unavailable Patrick, Mickey Chi Primary Care Unavailable Patrick, Mickey Chi Attending Unavailable Patrick, Mickey Chi Primary Care Unavailable Patrick, Mickey Chi Attending Unavailable Patrick, Mickey Chi Primary Care Unavailable Patrick, Mickey Chi Attending Unavailable Archie Bone Attending Unavailable Patrick, Mickey Chi Primary Care Unavailable Patrick, Mickey Chi Referring Unavailable Patrick, Mickey Chi Primary Care Unavailable Patrick, Mickey Chi Attending Unavailable Isckarus, Mansour Attending Unavailable Isckarus, Mansour Referring Unavailable Patrick, Mickey Chi Primary Care Unavailable Patrick, Mickey Chi Referring Unavailable Isckarus, Mansour Attending Unavailable Patrick, Mickey Chi Primary Care Unavailable Patrick, Mickey Chi Referring Unavailable Isckarus, Mansour Attending Unavailable Patrick, Mickey Chi Primary Care Unavailable Patrick, Mickey Chi Primary Care Unavailable Yvette Galoney Attending Unavailable Patrick, Mickey Chi Referring Unavailable Patrick, Mickey Chi Primary Care Unavailable Patrick, Mickey Chi Attending Unavailable PATRICK GAN, DR CANALES Primary Care Unavailable DR NBA HARO DO Attending Unavailable KRISTEN HAWKINS Admitting Unavai lable Allergies Allergy Classification Reported Allergen(s) Allergy Type Date of Onset Reaction(s) Facility (13 sources) Amoxicillin Drug Allergy 02-27-20 20 unknown [place], [place] (13 sources) Clavulanate Drug Allergy 02-27-20 20 unknown [place], [place] (14 sources) predniSONE; Translations: [prednisone] Drug Allergy 02-27-20 20 Rash [place], [place] (2 sources) Acetaminophen / HYDROcodone Drug Allergy 04-18-20 20 Nausea And Vomiting [facility] Work Phone: (2 sources) Acetaminophen / oxyCODONE Drug Allergy 04-18-20 20 Nausea And Vomiting [facility] Work Phone: (13 sources) Adhesive Tape; Translations: [adhesive tape] Propensity to adverse reactions to drug 08-12-19 21 Rash [facility] Work Phone: (2 sources) Morphine Drug Allergy 04-18-20 Nausea And Vomiting [facility] Work Phone: (2 sources) oxyCODONE Drug Allergy 04-18-20 Nausea And Vomiting [facility] Work Phone: (2 sources) oxyCODONE Drug Allergy 04-18-20 Nausea And Vomiting [facility] Work Phone: (3 sources) pain medication Propensity to adverse reactions 06-02-20 21 Difficulty swallowing [facility] Work Phone: (7 sources) Opioids - Morphine Analogues Propensity to adverse reactions 07-13-19 24 DIFFICULTY SWALLOWING [facility] (5 sources) Glucocorticoid Receptor Agonists Propensity to adverse reactions 03-07-20 24 Pain in joints [facility] (1 source) Codeine; Translations: [codeine] Drug Allergy nausea [facility] (1 source) Cortisone; Translations: [cortisone] Drug Allergy nausea, rash [facility] (1 source) Latex Allergy to substance rash [facility] (1 source) [facility] medication for hypertension (non-codified) Drug allergy narcotics [facility] (1 source) Amoxicillin Drug Allergy 12-07-19 [facility] (1 source) Clavulanate Drug Allergy 12-07-19 25 [facility] (1 source) Corticosteroids Drug allergy (disorder) 12-07-19 25 [facility] (1 source) predniSONE Drug Allergy 12-07-19 25 [facility] (1 source) Opioids - Morphine Analogues Drug allergy (disorder) 12-07-19 [facility] Medications Current Medications Medication Drug Class(es) Dates Sig (Normalized) Sig (Original) acetaminophen 325 mg oral tablet (19 sources) Start: 08-21-2021 End: 12-06-2024 take 2 [...] 24 hours. take 1 tablet by beata th every six hours as needed for pain acetaminophen (TYLENOL) 500 MG tablet Take 500 mg by mouth every 6 hours as needed for Pain 0 Suspended Albuterol Sulfate (10 sources) beta2-Adrenergic Agonist Start: 08-21-2021 take 1 [...] NEEDED as needed for Dyspnea, wheezing 0 0 August 21, 2021 1:00am November 24, [...] Status: Ordered Repeat number: 1 Ascorbic Acid (14 sources) Vitamin C Start: 12-02-2024 Vitamin C See Instructions, qDay, 0 Refill(s) Start Date: 12/02/24 Status: Ordered Repeat number: 1 Start: 01-06-2019 take 2 tablets by mo ut once daily Ascorbic Acid (Vitamin C) 500 [...] qDay, # 30 tab(s), 0 Refill(s), Pharmacy: [facility]/pharmacy #[id number], 160, cm, 12/02/24 15:49:00 EDT, Height, kg, 12/02/24 15:49:00 EDT, Dosing Weight Start Date: 12/03/24 Stop Date: 01/02/25 Status: Ordered Quantity: 30.0 Unit: tab(s) Repeat number: 1 Biotin (8 sources) Start: 12-02-2024 biotin qDay, 0 Refill(s) Start Date: 12/02/24 Status: Ordered Repeat number: 1 Start: 11-29-2022 Biotin (Hair, Skin And Nails (Biotin)) 10,000 mcg tablet,chewable Active 84467 ug PO DAILY November 29, 2022 12:00am [...] 12:00am brimonidine tartrate 2 mg/ml ophthalmic solution (15 sources) alpha-Adrenergic Agonist Start: 05-22-2020 Brimo nidine [...] number: 1 cholecalciferol 0.025 mg oral tablet (20 sources) Vitamin D Start: 02-04-2021 take 1 [...] 0 Active citalopram 20 mg oral tablet (15 sources) Serotonin Reuptake Inhibitor Start: 01-06-2019 take 1 tablet by mouth once daily Citalopram 20 mg tablet Active 20 mg PO DAILY January 06, 2019 12:00am clopidogrel 75 mg oral tablet (4 sources) P2Y12 Platelet Inhibitor Start: 12-04-2024 End: 12-24-2024 take 1 tablet by mouth once daily Clopidogrel 75 mg tablet Active 75 mg PO DAILY December 06, 2024 12:00am 1 ml hydrALAZINE hydrochloride 20 mg/ml injection (2 sources) Arteriolar Vasodilator Start: 08-13-2020 hydrALAZINE (APRESOLINE) injection 10 mg Start: 08-13-2020 End: 08-13-2020 hydrALAZINE (APRESOLINE) inj ection 5 mg hydroCHLOROthiazide 25 mg oral tablet (14 sources) Thiazide Diuretic Start: 08-14-2020 take 50 mg by mouth once daily 50 mg, Oral, DAILY, First dose on Alida 08/14/20 at 1045 Start: 01-06-2019 End: 07-13-2023 take 1 tablet by mouth once daily Hydrochlorothiazide 50 mg tablet Discontinued 50 mg PO DAILY January 06, 2019 12:00am July 13, 2023 11:46am Inhalational Spacing Device (Compact Space Chamber) Spacer (10 sources) Start: 08-21-2021 Inhalational S pacing Device (Compact Space Chamber) Spacer Active 1 EACH INHALATION NEEDED 0 August 21, 2021 1:24pm As Directed Start: 08-21-2021 Inhalational S pacing Device (Compact Space Chamber) Spacer Active 1 NMA INHALATION NEEDED as needed for WITH ALBUTEROL INHALER 0 0 August 21, 2021 1:00am As Directed [...] As Directed latanoprost 0.05 mg/ml ophthalmic solution (14 sources) Prostaglandin Analog Start: 09-25-2019 take 1 [...] Suspended losartan potassium 50 mg oral tablet (14 sources) Angiotensin 2 Receptor Zunilda Start: 01-06-2019 take 1 tablet by mouth once daily Losartan 50 mg tablet Active 50 mg PO DAILY January 06, 2019 12:00am netarsudil 0.2 mg/ml ophthalmic solution (6 sources) Rho Kinase Inhibitor Start: 12-02-2024 Rhopressa [...] chloride 20 meq extended release oral tablet (17 sources) Start: 12-06-2024 take 1 tablet by [...] 12:21pm rosuvastatin calcium 20 mg oral tablet (15 sources) HMG-CoA Reductase Inhibitor Start: 08-14-2020 take [...] hloride infusion timolol 0.005 mg/mg ophthalmic gel (18 sources) beta-Adrenergic Zunilda Start: 08-13-2020 1 drop [...] 0 mg atenolol 25 mg oral tablet (10 sources) beta-Adrenergic Zunilda Start: 01-06-2019 End: 08-03-2019 [...] 200 mg dexamethasone 6 mg oral tablet (10 sources) Corticosteroid Start: 08-21-2021 End: 08-28-2021 take 1 tablet by mouth once daily Dexamethasone (Decadron) 6 mg tablet Discontinued 6 mg PO DAILY 6 August 21, 2021 1:00am August 27, 2021 12:00am August 28, 2021 12:03am 0.4 ml enoxaparin sodium 100 mg/ml prefilled syringe (11 sources) Low Molecular Weight Heparin Start: 08-21-2021 End: 07-13-2023 Enoxaparin 40 mg/0.4 mL Syringe Discontinued 40 mg SC DAILY 0 0 August 21, 2021 1:00am July 13, [...] mg fexofenadine hydrochloride 180 mg oral tablet (20 sources) Histamine-1 Receptor Antagonist Start: 03-03-2022 End: 11-29-2022 take 1 tablet by mouth once daily Fexofenadine (Radha Allergy) 180 mg tablet Discontinued 180 mg PO DAILY 90 0 November 29, 2022 1:27pm November 29, 2022 1:27pm furosemide 20 mg oral tablet (10 sources) Loop Diuretic Start: 01-09-2019 End: 02-07-2020 take 1 tablet by mouth once daily as needed for edema, then take 3 tablets by mouth once daily as needed for edema Furosemide 20 mg tablet Discontinued 20 mg PO DAILY as needed for edema 30 January 09, 2019 12:00am February 07, 2020 [...] 2 mg loratadine 10 mg oral tablet (13 sources) Start: 01-06-2019 End: 03-03-2022 take 1 tablet by mouth once daily Loratadine (Claritin) 10 mg tablet Discontinued 10 mg PO DAILY January 06, 2019 12:00am March 03, 2022 2:51pm meloxicam 7.5 mg oral tablet (10 sources) Nonsteroidal Anti-inflammatory Drug Start: 01-06-2019 End: 08-03-2019 take 1 tablet by mouth twice daily Meloxicam 7.5 mg tablet Discontinued 7.5 mg PO TWICE A DAY January 06, 2019 12:00am August 03, 2019 12:47pm nystatin 100 unt/mg topical powder (2 sources) Polyene Antifungal Start: 04-16-2020 NYSTATIN 168032 UNIT/GM powder Apply topically as needed (groin rash) 0 04/16/2020 Suspended pantoprazole 40 mg delayed release oral tablet (10 sources) Proton Pump Inhibitor Start: 01-06-2019 End: 08-03-2019 take 1 tablet by mouth once daily Pantoprazole 40 mg tablet,delayed release (DR/EC) Discontinued 40 mg PO DAILY January 06, 2019 12:00am August 03, 2019 12:47pm Problems Active Problems Problem Classification Problem Date Documented Date Episodic/Chronic Abdominal hernia (15 sources) Hiatal hernia; Translations: [Diaphragmatic hernia without obstruction or gangrene] Onset: 04-08-2020 04-08-2020 Episodic Comment on above: Status post Leobardo M arch 2020 Allergic reactions (3 sources) Allergy status to narcotic agent status; Translations: [Allergy status to other drugs, medicaments and biological substances status] Onset: 12-02-2024 Episodic Diabetes mellitus without complication (4 sources) Type 2 diabetes mellitus without complication; Translations: [Type 2 diabetes mellitus without complications] Onset: 12-02-2024 Chronic Diabetes mellitus without complication (12 sources) Hyperglycemia; Translations: [Hyperglycemia, unspecified] Episodic Disorders of lipid metabolism (13 sources) Hyperlipidemia; Translations: [Hyperlipidemia, unspecified] Onset: 12-02-2024 02-04-2021 Chronic E Codes: Fall (3 sources) Fall; Translations: [Unspecified fall, initial encounter] 12-06-2024 Episodic Esophageal disorders (5 sources) Gastroesophageal reflux disease without esophagitis; Translations: [Gastroesophageal reflux disease without esophagitis] Onset: 04-08-2020 04-08-2020 Chronic Essential hypertension (13 sources) Essential hypertension; Translations: [Essential (primary) hypertension] Onset: 08-31-2024 01-06-2019 Chronic Fluid and electrolyte disorders (20 sources) Hypokalemia; Translations: [Hypokalemia] Episodic Gastritis and duodenitis (4 sources) Chronic superficial gastritis; Translations: [Chronic superficial gastritis without bleeding] 04-08-2020 Episodic Hypertension with complications and secondary hypertension (1 source) Hypertensive heart disease without heart failure; Translations: [Hypertensive heart disease without heart failure] Onset: 12-02-2024 Chronic Malaise and fatigue (12 sources) Asthenia; Translations: [Other malaise] Episodic Mood disorders (10 sources) Depressive disorder; Translations: [Depression] 01-06-2019 Chronic Nutritional deficiencies (10 sources) Vitamin D deficiency; Translations: [Vitamin D deficiency, unspecified] 01-06-2019 Chronic Other acquired deformities (10 sources) Kyphoscoliosis deformity of spine; Translations: [Scoliosis, unspecified] 01-23-2019 Chronic Other acquired deformities (2 sources) Scoliosis, unspecified; Translations: [Scoliosis [and kyphoscoliosis], idiopathic] 07-13-2023 Chronic Other aftercare (1 source) Encounter for therapeutic drug level monitoring; Translations: [Encounter for therapeutic drug level monitoring] Onset: 12-02-2024 Episodic Other aftercare (1 source) Other terminal supervisor (current) drug therapy; Translations: [Other nursing home (current) drug therapy] Onset: 12-02-2024 Episodic Other and ill-defined heart disease (10 sources) Diastolic dysfunction; Translations: [Other ill-defined heart diseases] 02-21-2020 Chronic Comment on above: Stage I per echo 08/11 Other and ill-defined heart disease (2 sources) Other ill-defined heart diseases; Translations: [Heart disease, unspecified] 07-13-2023 Chronic Other connective tissue disease (1 source) Pain in left leg; Translations: [Pain in left leg] Onset: 12-17-2024 Episodic Other hematologic conditions (5 sources) Erythrocytosis; Translations: [Secondary polycythemia] 02-29-2024 Episodic Other injuries and conditions due to external causes (3 sources) Injury of head; Translations: [Unspecified injury of head, initial encounter] 12-06-2024 Episodic Other injuries and conditions due to external causes (1 source) Encounter for examination and observation following other accident; Translations: [Encounter for examination and observation following other accident] Onset: 12-11-2024 Episodic Other liver diseases (12 sources) Enzyme level - finding; Translations: [Elevated transaminase measurement] Episodic Other lower respiratory disease (10 sources) Dyspnea; Translations: [Shortness of breath] 01-06-2019 Episodic Other lower respiratory disease (10 sources) Hypoxia; Translations: [Hypoxemia] 08-18-2021 Episodic Other lower respiratory disease (3 sources) Shortness of breath; Translations: [Shortness of breath] Episodic Other lower respiratory disease (2 sources) Hypoxemia; Translations: [Hypoxemia] Episodic Other lower respiratory disease (11 sources) Cough; Translations: [[id number] syndrome manifesting as chronic cough] Episodic Other screening for suspected conditions (not mental disorders or infectious disease) (12 sources) D-dimer above reference range; Translations: [Other specified abnormal findings of blood chemistry] Episodic Pneumonia (except that caused by tuberculosis or sexually transmitted disease) (12 sources) Bilateral pneumonia; Translations: [Pneumonia, unspecified organism] Episodic Residual codes; unclassified (10 sources) Edema; Translations: [Edema, unspecified] 01-06-2019 Episodic Residual codes; unclassified (1 source) Altered mental status; Translations: [Altered mental status, unspecified] Onset: 12-02-2024 Episodic Residual codes; unclassified (1 source) Altered mental status, unspecified; Translations: [Altered mental status, unspecified] Onset: 12-02-2024 Episodic Respiratory failure; insufficiency; arrest (adult) (13 sources) Acute respiratory failure; Translations: [Acute respiratory failure with hypoxia] Episodic Superficial injury; contusion (3 sources) Contusion of left lower leg, initial encounter; Translations: [Contusion of left lower extremity] 12-06-2024 Episodic Transient cerebral ischemia (4 sources) Transient cerebral ischemia; Translations: [Transient cerebral ischemic attack, unspecified] Onset: 12-02-2024 Chronic Unclassified (1 source) Patient encounter status; Translations: [Encounter for screening for other viral diseases] Unclassified (1 source) Post COVID-19 condition, unspecified; Translations: [Post COVID-19 condition, unspecified] Onset: 12-02-2024 Past or Other Problems Problem Classification Problem Date Documented Da te Episodic/Chronic Other hematologic conditions (2 sources) Secondary polycythemia; Translations: [Secondary polycythemia] Onset: 02-29-2024 Episodic Residual codes; unclassified (1 source) Chills (without fever); Translations: [Chills (without fever)] Onset: 08-16-2024 Episodic Results Test Name Value Interpretation Reference Range Facility Magnetic resonance imaging r eportOrdered By: Oz Young on 12-22-2024 Study report [facility] Imaging Services [address], [place] [address] Brain without Contrast MR#: [id number] Acct: [id number] Name: RICHELLE AHUJA Rep #: [id number] : 1945 F 79 From: Adrianne Young MD PCP: Dr. Mickey Nguyen MD Status: MYRIAM CRUZ Study:Brain without Contrast Date of Exam: 12/20/24 Exam# [id number] Ordering Dr: Mickey Nguyen MD PROCEDURE: BRAIN WITHOUT CONTRAST 12/20/2024 REASON FOR EXAM: TIA TECHNIQUE: BRAIN WITHOUT CONTRAST Multiplanar and multisequence images were obtained. FINDINGS: There is no pathologic diffusion restriction. No intracranial mass or hydrocephalus. No pathologic flow voids. Orbits appear symmetric. Sinuses are clear. There is mild atrophy and minimal leukomalacia in the frontal white matter bilaterally. Quite nonspecific. MRI/Brain without Contrast IMPRESSION: No acute abnormality. Minimal nonspecific punctate frontal leukomalacia. This can be seen with minimal small-vessel changes or even minimal microvascular disease. Reading Location: [facility] CC: Dr. Mickey Nguyen MD ~ Nuclear Radiation Engineer: Signed [facility] Brain without Contraston Brain without Contrast [facility] Imaging Services [address] [place] [id number] Brain without Contrast MR#: [id number] Acct: [id number] Name: RICHELLE AHUJA Rep #: [id number] : 1945 F 79 From: Oz Young MD PCP: Dr. Mickey Nguyen MD Status: REG CLI Study: Brain without Contrast Date of Exam: 12/20/24 Exam# [id number] Ordering Dr: Mickey Nguyen MD PROCEDURE: BRAIN WITHOUT CONTRAST 12/20/2024 REASON FOR EXAM: TIA TECHNIQUE: BRAIN WITHOUT CONTRAST Multiplanar and multisequence images were obtained. FINDINGS: There is no pathologic diffusion restriction. No intracranial mass or hydrocephalus. No pathologic flow voids. Orbits appear symmetric. Sinuses are clear. There is mild atrophy and minimal leukomalacia in the frontal white matter bilaterally. Quite nonspecific. MRI/Brain without Contrast IMPRESSION: No acute abnormality. Minimal nonspecific punctate frontal leukomalacia. This can be seen with minimal small-vessel changes or even minimal microvascular disease. Reading Location: [facility] CC: Dr. Mickey Nguyen MD Nuclear Radiation Engineer: Signed Normal [facility] Venous Duplex US, Unilateral on 12-11-2024 Venous Duplex US, Unilateral [facility] [address] [place], [place] [id number] Venous Duplex US, Unilateral 12/11/24 1416 MR#: [id number] Acct: [id number] Name: RICHELLE AHUJA Rep #: [id number] : 1945 79 From: Sunday Garrett MD Attending Dr: Dr. Mickey Nguyen MD Status: REG CLI Ordering Dr: Mickey Nguyen MD Date: 12/11/24 Location: [facility] Sex: F C Admitted: Reason For Study Reason For Study: Left leg swelling Procedure LEFT This is a venous duplex using B-mode, color flow and GSV is normal. spectral Doppler. CFV is compressible, spontaneous, phasic, competent, Exam performed in department. and demonstrates normal augmentation. A preliminary report was called and/or faxed to . FV is compressible, spontaneous, phasic, competent Patrick. and demonstrates normal augmentation. POP V is compressible, spontaneous, phasic, competent and demonstrates normal augmentation. T/P Trunk is compressible. PTV is compressible. LT PerV is compressible. VL/Venous Duplex US, Unilateral Interpretation Summary Deep veins of the left lower extremity are patent and compressible segmentally. There is no evidence of left lower extremity deep vein thrombosis. Valvular competence appears intact within the proximal deep venous system on the left . The left great saphenous vein appears patent and compressible segmentally. Ordering Physician: Mickey Nguyen Chi Referring Physician: Mickey Nguyen Chi Performed By: Kiana Mcqueen RVT 12/11/242058 Date Sunday Garrett MD CC: Dr. Mickey Nguyen MD Date Dictated: 12/11/241415 Date Transcribed: 12/11/242058 Nuclear Radiation Engineer: Signed Normal [facility] Venous duplex ultrasound rep ortOrdered By: Sunday Garrett on 12-11-2024 US Vein [facility] [address] [place] [address] Venous Duplex US, Unilateral 12/11/241415 MR#: [id number] Acct: [id number] Name: RICHELLE AHUJA Rep #:[id number] : 1945 79 From: Sunday Garrett MD Attending Dr: Dr. Mickey Nguyen MD Status: REG CLI Ordering Dr: Mickey Nguyen MD Date: 07/07 Location: [facility] Sex: F C Admitted: Reason For Study Reason For Study: Left leg swelling Procedure LEFT This is a venous duplex using B-mode, color flow and GSV is normal. spectral Doppler. CFV is compressible, spontaneous, phasic, competent, Exam performed in department. and demonstrates normal augmentation. A preliminary report was called and/or faxed to . FV is compressible, spontaneous, phasic, competent Patrick. and demonstrates normal augmentation. POP V is compressible, spontaneous, phasic, competent and demonstrates normal augmentation. T/P Trunk is compressible. PTV is compressible. LT PerV is compressible. VL/Venous Duplex US, Unilateral Interpretation Summary Deep veins of the left lower extremity are patent and compressible segmentally. There is no evidence of left lower extremity deep vein thrombosis. Valvular competence appears intact within the proximal deep venous system on the left . The left great saphenous vein appears patent and compressible segmentally. Ordering Physician: Mickey Nguyen Chi Referring Physician: Mickey Nguyen Chi Performed By: Kiana Mcqueen RVT 12/11/242058 Date _ Sunday Garrett MD CC: Dr. Mickey Nguyen MD ~ Date Dictated: 12/11/24 141 Date Transcribed: 12/11/242058 Nuclear Radiation Engineer: Signed [facility] Other Phone: Brain/Head without Contrasto n 12-06-2024 Brain/Head without Contrast [facility] Services [address] [place] [address] Brain/Head without Contrast MR#: [id number] Acct: [id number] Name: RICHELLE AHUJA Rep #: [id number] : 1945 F 78 From: Sinan pitts MD PCP: Dr. Mickey Nguyen MD Status: REG ER Study: Brain/Head without Contrast Date of Exam: 11/12 12/05 Exam# [id number] Ordering Dr: Archie Bone DO PROCEDURE: BRAIN/HEAD [...] CHRONIC CHANGES. NO ACUTE FINDINGS. Reading Location: [facility] CC: Dr. Mickey Nguyen MD; Dr. Archie Bone DO Nuclear Radiation Engineer: Signed Normal Greene [facility] Emergency Department Summary on 12-06-2024 Emergency Department Summary [facility] Medical Records Department [address] [place] [address] Emergency Department Summary 12/06/24 MR#: [id number] Acct: [id number] Name: RICHELLE AHUJA Rep #: [id number] : 1945 78 From: Archie Breaux PCP: Dr. Mickey Nguyen MD Status:DEP ER Location: ED HPI HPI - Fall History of Present Illness [...] able to ambulate. No loss of consciousness. [facility] Medical History Polycythemia Non-smoker Hiatal hernia [...] Fever, pain 11/12 12/05 Unknown History (Tylenol) -03/22 clopidogrel 75 mg tablet 75 mg PO [...] developed [place] (more content not included)... Normal [facility] Tibia Fibula 2 Viewson 12-06 Tibia Fibula 2 Views [facility] Imaging Services [address] [place] [address] [id number] Tibia Fibula 2 Views MR#: [id number] Acct: [id number] Name: RICHELLE AHUJA Rep #: [id number] : 1945 F 78 From: Sinan pitts MD PCP: Dr. Mickey Nguyen MD Status: REG ER Study: Tibia Fibula 2 Views Date of Exam: 12/06/24 Exam# [id number] Ordering Dr: Archie Bone DO PROCEDURE: TIBIA FIBULA 2 VIEWS 12/06/2024 REASON FOR EXAM: INJURY TECHNIQUE: TIBIA FIBULA 2 VIEWS COMPARISON: None FINDINGS: No fracture or dislocation. Soft tissues are unremarkable. RAD/Tibia Fibula 2 Views IMPRESSION: No acute abnormality is seen. Reading Location: [id number] CC: Dr. Mickey Nguyen MD; Dr. Archie Bone DO Nuclear Radiation Engineer: Signed Normal [facility] CT ANGIOGRAPHY NECK W/CONTRA STon 12-04-2024 CT [...] 12/04/2024 3:37:13 AM Ordering Provider: KRISTEN Wilde [facility] .Auto Diffon 12-03-2024 Basophil, Absolute 0.0 10 3/mcL Normal 0.0-0.3 [facility] Comment on above: Performed By: #### T SH, LIPID, FT4, A1C #### [address] [place], [place] [address] Basophils/100 WBC (Bld) 0.5 % Normal 0.0-2.5 [facility] Comment on above: Performed By: #### T SH, LIPID, FT4, A1C #### [address] [place], [place] [address] Eosinophil, Absolute 0.2 10 3/mcL Normal 0.0-0.7 [facility] Comment on above: Performed By: #### T SH, LIPID, FT4, A1C #### [address] [place], [place] [address] Eosinophils/100 WBC (Bld) 1.9 % Normal 0.0-6.0 [facility] Comment on above: Performed By: #### T SH, LIPID, FT4, A1C #### [address] [address] Lymphocyte, Absolute 2.7 10 3/mcL Normal 0.9-4.3 [facility] Comment on above: Performed By: #### T SH, LIPID, FT4, A1C #### [address] [address] Lymphocytes/100 WBC (Bld) 34.4 % Normal 20.0-40.0 [facility] Comment on above: Performed By: #### T SH, LIPID, FT4, A1C #### [address] [address] Monocyte, Absolute 0.7 10 3/mcL Normal 0.1-1.4 [facility] Comment on above: Performed By: #### T SH, LIPID, FT4, A1C #### [address] [address] Monocytes/100 WBC (Bld) 8.6 % Normal 2.0-13.0 [facility] Comment on above: Performed By: #### T SH, LIPID, FT4, A1C #### [address] [address] Neutrophils/100 WBC (Bld) 54.6 % Normal 50.0-75.0 [facility] Comment on above: Performed By: #### T SH, LIPID, FT4, A1C #### [address] [address] .GFRon 12-03-2024 Estimated Glomerular Filtration Rate 65 ml/min/1.73sqm Normal [facility] Comment on above: Result Comment: Stages [...] #### T SH, LIPID, FT4, A1C #### [place] [address] .NEUABSon 12-03-2024 Neutrophil, Absolute 4.4 10 3/mcL Normal 2.3-8.1 [facility] Comment on above: Performed By: #### T SH, LIPID, FT4, A1C #### [place] [address] CBCon 12-03-2024 Erythrocyte distribution width (RBC) [Ratio] 13.5 % Normal 11.5-15.5 [facility] Comment on above: Performed By: #### T SH, LIPID, FT4, A1C #### [place] [address] Hematocrit (Bld) [Volume fraction] 42.6 % Normal 34.0-46.0 [facility] Comment on above: Performed By: #### T SH, LIPID, FT4, A1C #### [place] [address] Hgb 14.5 G/dL Normal 12.0-16.0 [facility] Comment on above: Performed By: #### T SH, LIPID, FT4, A1C #### [place] [address] MCH (RBC) [Entitic mass] 29.3 pg Normal 27.0-33.0 [facility] Comment on above: Performed By: #### T SH, LIPID, FT4, A1C #### [place] [address] MCHC 34.1 G/dL Normal 32.0-36.0 [facility] Comment on above: Performed By: #### T SH, LIPID, FT4, A1C #### [address] [place], [place] [address] MCV (RBC) [Entitic vol] 85.8 fL Normal 80.0-99.0 A [facility] Comment on above: Performed By: #### T SH, LIPID, FT4, A1C #### [address] [address] Platelet 105 10 3/mcL Low 150-450 [facility] Comment on above: Performed By: #### T SH, LIPID, FT4, A1C #### [address] [address] Platelet mean volume (Bld) [Entitic vol] 7.2 fL Normal 6.6-10.5 [facility] Comment on above: Performed By: #### T SH, LIPID, FT4, A1C #### [address] [address] RBC 4.96 10 6/mcL Normal 4.10-5.30 [facility] Comment on above: Performed By: #### T SH, LIPID, FT4, A1C #### [address] [address] WBC 8.0 10 3/mcL Normal 4.5-10.8 [facility] Comment on above: Performed By: #### T SH, LIPID, FT4, A1C #### [address] [address] CMPon 12-03-2024 Albumin Level 3.3 G/dL Low 3.4-4.8 [facility] Comment on above: Performed By: #### T SH, LIPID, FT4, A1C #### [address] [address] Albumin/Globulin [Mass ratio] 1.4 {ratio} Normal 1.1-2.5 [facility] Comment on above: Performed By: #### T SH, LIPID, FT4, A1C #### [address] [address] ALP [Catalytic activity/Vol] 89 U/L Normal 40-135 [facility] Comment on above: Performed By: #### T SH, LIPID, FT4, A1C #### [address] [address] ALT [Catalytic activity/Vol] 18 U/L Normal 14-59 [facility] Comment on above: Performed By: #### T SH, LIPID, FT4, A1C #### [address] [address] AST [Catalytic activity/Vol] 34 U/L Normal 10-40 [facility] Comment on above: Performed By: #### T SH, LIPID, FT4, A1C #### [address] [address] Bili Total 0.9 mg/dL Normal 0.2-1.0 [facility] Comment on above: Result Comment: Use of this assay is not recommended for patients undergoing treatment with eltrombopag due to the potential for falsely elevated results. Performed By: #### T SH, LIPID, FT4, A1C #### [address] [address] BUN/Creatinine Ratio 21 ratio Normal 7-27 [facility] Comment on above: Performed By: #### T SH, LIPID, FT4, A1C #### [address] [address] Calcium [Mass/Vol] 9.6 mg/dL Normal 8.4-10.2 [facility] Comment on above: Performed By: #### T SH, LIPID, FT4, A1C #### [address] [address] Chloride [Moles/Vol] 109 mmol/L High 98-107 [facility] Comment on above: Performed By: #### T SH, LIPID, FT4, A1C #### [address] [address] CO2 [Moles/Vol] 30 mmol/L Normal 23-31 [facility] Comment on above: Performed By: #### T SH, LIPID, FT4, A1C #### [address] [address] Creatinine [Mass/Vol] 0.91 mg/dL Normal 0.51-0.95 [facility] Comment on above: Performed By: #### T SH, LIPID, FT4, A1C #### [address] [address] Electrolyte Balance 4.0 mEq/L Normal 4.0-15.[address] [facility] Comment on above: Performed By: #### T SH, LIPID, FT4, A1C #### [address] [address] Globulin 2.4 G/dL Low 2.7-4.4 [facility] Comment on above: Performed By: #### T SH, LIPID, FT4, A1C #### [address] [address] Glucose [Mass/Vol] 98 mg/dL Normal 83-110 [facility] Comment on above: Performed By: #### T SH, LIPID, FT4, A1C #### [address] [address] Potassium [Moles/Vol] 4.2 mmol/L Normal 3.5-5.1 [facility] Comment on above: Performed By: #### T SH, LIPID, FT4, A1C #### [address] [address] Sodium [Moles/Vol] 143 mmol/L Normal 136-145 [facility] Comment on above: Performed By: #### T SH, LIPID, FT4, A1C #### [address] [address] Total Protein 5.7 G/dL Low 6.4-8.2 [facility] Comment on above: Performed By: #### T SH, LIPID, FT4, A1C #### [address] [address] Urea nitrogen [Mass/Vol] 19 mg/dL High 7-18 [facility] Comment on above: Performed By: #### T SH, LIPID, FT4, A1C #### [address] [place], [place] [address] CT ANGIOGRAPHY HEAD W/ CONTR Theron 12-03-2024 [...] 12/03/2024 3:30:22 PM Ordering Provider: KRISTEN Wilde [facility] CT HEAD OR BRAIN W/O CONTRAS [...] collections. Within the limits of the examination jean-white matter differentiation is maintained. The calvaria and the bones of base of the skull are intact. IMPRESSION: Limited by motion. Otherwise no significant change. Interpreted by: Anderson Parry MD Preliminary Report By: Anderson Parry MD Electronically signed By Anderson Parry MD Dictated Date: 12/03/2024 2:08:42 PM Prelim Date: 12/03/2024 2:10:15 PM Sign Date: 12/03/2024 2:10:15 PM Ordering Provider: KRISTEN Wilde [facility] LABORATORYOrdered By: SYSTEM SYSTEM on 12-03-2024 Albumin [...] 12-03-2024 Magnesium [Mass/Vol] 2.0 mg/dL Normal 1.8-2.4 [facility] Comment on above: Performed By: #### T SH, LIPID, FT4, A1C #### [address] [address] .Auto Diffon 12-02-2024 Basophil, Absolute 0.1 10 3/mcL Normal 0.0-0.3 [facility] Comment on above: Performed By: #### T SH, LIPID, FT4, A1C #### [address] [address] Basophils/100 WBC (Bld) 0.8 % Normal 0.0-2.5 [facility] Comment on above: Performed By: #### T SH, LIPID, FT4, A1C #### [address] [address] Eosinophil, Absolute 0.1 10 3/mcL Normal 0.0-0.7 [facility] Comment on above: Performed By: #### T SH, LIPID, FT4, A1C #### [address] [address] Eosinophils/100 WBC (Bld) 1.3 % Normal 0.0-6.0 [facility] Comment on above: Performed By: #### T SH, LIPID, FT4, A1C #### [address] [address] Lymphocyte, Absolute 2.3 10 3/mcL Normal 0.9-4.3 [facility] Comment on above: Performed By: #### T SH, LIPID, FT4, A1C #### [address] [address] Lymphocytes/100 WBC (Bld) 27.3 % Normal 20.0-40.0 [facility] Comment on above: Performed By: #### T SH, LIPID, FT4, A1C #### [address] [address] Monocyte, Absolute 0.5 10 3/mcL Normal 0.1-1.4 [facility] Comment on above: Performed By: #### T SH, LIPID, FT4, A1C #### [address] [address] Monocytes/100 WBC (Bld) 6.0 % Normal 2.0-13.0 [facility] Comment on above: Performed By: #### T SH, LIPID, FT4, A1C #### [address] [address] Neutrophils/100 WBC (Bld) 64.6 % Normal 50.0-75.0 [facility] Comment on above: Performed By: #### T SH, LIPID, FT4, A1C #### [address] [address] .GFRon 12-02-2024 Estimated Glomerular Filtration Rate 63 ml/min/1.73sqm Normal [facility] Comment on above: Result Comment: Stages [...] #### T SH, LIPID, FT4, A1C #### [place] [address] .MDWon 12-02-2024 Monocyte Distribution Width 19.18 Normal 0.00-20.00 [facility] Comment on above: Result Comment: For ED adult patients suspected of sepsis, MDW<=20.0 does not rule out sepsis or risk of sepsis Performed By: #### T SH, LIPID, FT4, A1C #### [place] [address] .NEUABSon 12-02-2024 Neutrophil, Absolute 5.5 10 3/mcL Normal 2.3-8.1 [facility] Comment on above: Performed By: #### T SH, LIPID, FT4, A1C #### [place] [address] A1Con 12-02-2024 Glucose [Mass/Vol] 142 mg/dL Normal [facility] Comment on above: Result Comment: Erin mated average glucose (eAG) is a calculated value from Hemoglobin A1C and is procurement representative of the average blood glucose level in the last 2-3 month period. Normal range: less than 114 mg/dL Performed By: #### T SH, LIPID, FT4, A1C #### [place] [address] HbA1c (Bld) [Mass fraction] 6.6 % Normal 4.3-6.4 [facility] Comment on above: Performed By: #### T SH, LIPID, FT4, A1C #### [address] [address] BMPon 12-02-2024 BUN/Creatinine Ratio 30 ratio High 7-27 [facility] Comment on above: Performed By: #### T SH, LIPID, FT4, A1C #### [address] [address] Calcium [Mass/Vol] 9.9 mg/dL Normal 8.4-10.2 [facility] Comment on above: Performed By: #### T SH, LIPID, FT4, A1C #### [address] [address] Chloride [Moles/Vol] 107 mmol/L Normal 98-107 [facility] Comment on above: Performed By: #### T SH, LIPID, FT4, A1C #### [address] [address] CO2 [Moles/Vol] 27 mmol/L Normal 23-31 [facility] Comment on above: Performed By: #### T SH, LIPID, FT4, A1C #### [address] [address] Creatinine [Mass/Vol] 0.93 mg/dL Normal 0.51-0.95 [facility] Comment on above: Performed By: #### T SH, LIPID, FT4, A1C #### [address] [address] Electrolyte Balance 7.0 mEq/L Normal 4.0-15.[address] [facility] Comment on above: Performed By: #### T SH, LIPID, FT4, A1C #### [address] [address] Glucose [Mass/Vol] 106 mg/dL Normal 83-110 [facility] Comment on above: Performed By: #### T SH, LIPID, FT4, A1C #### [address] [address] Potassium [Moles/Vol] 3.8 mmol/L Normal 3.5-5.1 [facility] Comment on above: Performed By: #### T SH, LIPID, FT4, A1C #### [address] [address] Sodium [Moles/Vol] 141 mmol/L Normal 136-145 [facility] Comment on above: Performed By: #### T SH, LIPID, FT4, A1C #### [address] [address] Urea nitrogen [Mass/Vol] 28 mg/dL High 7-18 [facility] Comment on above: Performed By: #### T SH, LIPID, FT4, A1C #### [address] [address] CBCon 12-02-2024 Erythrocyte distribution width (RBC) [Ratio] 13.5 % Normal 11.5-15.5 [facility] Comment on above: Performed By: #### T SH, LIPID, FT4, A1C #### [place] [address] Hematocrit (Bld) [Volume fraction] 47.1 % High 34.0-46.0 [facility] Comment on above: Performed By: #### T SH, LIPID, FT4, A1C #### [place] [address] Hgb 15.8 G/dL Normal 12.0-16.0 [facility] Comment on above: Performed By: #### T SH, LIPID, FT4, A1C #### [address] [address] MCH (RBC) [Entitic mass] 28.7 pg Normal 27.0-33.0 [facility] Comment on above: Performed By: #### T SH, LIPID, FT4, A1C #### [place] [id number] MCHC 33.6 G/dL Normal 32.0-36.0 [facility] Comment on above: Performed By: #### T SH, LIPID, FT4, A1C #### [place] [id number] MCV (RBC) [Entitic vol] 85.3 fL Normal 80.0-99.0 A [facility] Comment on above: Performed By: #### T MACEY, LIPID, FT4, A1C #### [address] [address] Platelet 106 10 3/mcL Low 150-450 [facility] Comment on above: Performed By: #### T MACEY, LIPID, FT4, A1C #### [address] [address] Platelet mean volume (Bld) [Entitic vol] 6.8 fL Normal 6.6-10.5 [facility] Comment on above: Performed By: #### T MACEY, LIPID, FT4, A1C #### [address] [address] RBC 5.52 10 6/mcL High 4.10-5.30 [facility] Comment on above: Performed By: #### T MACEY, LIPID, FT4, A1C #### [address] [address] WBC 8.6 10 3/mcL Normal 4.5-10.8 [facility] Comment on above: Performed By: #### T MACEY, LIPID, FT4, A1C #### [address] [address] [address] HEAD OR BRAIN W/O CONTRAS Ton [...] 12/02/2024 1:20:06 PM Ordering Provider: BENJAMIN Wilde [facility] FT4on 12-02-2024 Free T4 [Mass/Vol] 1.11 ng/dL Normal 0.76-1.46 [facility] Comment on above: Performed By: #### T SH, LIPID, FT4, A1C #### [facility] [address] [address] LABORATORYOrdered By: Melba Pavon on 12-02-2024 Appearance [...] calculated value from Hemoglobin A1C and is procurement representative of the average blood glucose level [...] ng/L Male: 0-76 ng/L Testing performed on [employer] using a homogeneous sandwich chemiluminescent immunoassay based on [employer] technology. TSH Qn 1.41 m[IU]/L Normal 0.36 [...] 105 mg/dL Normal 82 - 115 mg/dL [facility] Work Phone: LIPIDon 12-02-2024 Cholesterol [Mass/Vol] 120 mg/dL Normal 0-200 [facility] Comment on above: Result Comment: Chol esterol Reference Interval: Less than 200 Desirable 200-239 Borderline high risk 240 and above High risk Performed By: #### T SH, LIPID, FT4, A1C #### [address] [address] Cholesterol in HDL [Mass/Vol] 50 mg/dL Normal 40-60 [facility] Comment on above: Performed By: #### T SH, LIPID, FT4, A1C #### [address] [address] Cholesterol in LDL [Mass/Vol] 49 mg/dL Normal 0-130 [facility] Comment on above: Performed By: #### T SH, LIPID, FT4, A1C #### [address] [address] Triglyceride [Mass/Vol] 103 mg/dL Normal 0-150 [facility] Comment on above: Result Comment: Trig lyceride Reference Interval: Less than 150 Normal 150-199 Borderline high risk 200-499 High risk 500 or higher Very high risk Performed By: #### T SH, LIPID, FT4, A1C #### [address] [address] TROPHSon 12-02-2024 High Sensitivity Troponin I 12 ng/L Normal 0-51 [facility] Comment on above: Result Comment: High Sensitive Troponin I Reference Ranges: Female: 0-51 ng/L Male: 0-76 ng/L Testing performed on [employer] using a homogeneous sandwich chemiluminescent immunoassay based on [employer] technology. Performed By: #### T SH, LIPID, FT4, A1C #### [address] [address] TSHon 12-02-2024 TSH Qn 1.41 m[IU]/L Normal 0.36-3.74 [facility] Comment on above: Performed By: #### T SH, LIPID, FT4, A1C #### [address] [address] UAon 12-02-2024 Color (U) Yellow Normal [facility] Comment on above: Performed By: #### U A #### [address] [address] Glucose (U) [Mass/Vol] Negative Normal Negative [facility] Comment on above: Performed By: #### U A #### [address] [address] Ketones Ql (U) Negative Normal Negative [facility] Comment on above: Performed By: #### U A #### [address] [address] UA Appear Clear Normal Clear [facility] Comment on above: Performed By: #### U A #### [address] [address] UA Blood Negative Normal Negative [facility] Comment on above: Performed By: #### U A #### [address] [address] UA Leuk Est Negative Normal Negative [facility] Comment on above: Performed By: #### U A #### [address] [address] UA Nitrite Negative Normal Negative [facility] Comment on above: Performed By: #### U A #### [address] [address] UA pH 6.0 Normal 5.0 - 8.0 [facility] Comment on above: Performed By: #### U A #### [address] [address] UA Protein Negative Normal Negative [facility] Comment on above: Performed By: #### U A #### [address] [address] UA Spec Grav 1.025 Normal 1.015-1.025 [facility] Comment on above: Performed By: #### U A #### [address] [address] UA Specimen Type Void Normal [facility] Comment on above: Performed By: #### U A #### [address], [place] [address] UA Urobilinogen 0.2 E.U./dL Normal 0.2-1.0 [facility] Comment on above: Performed By: #### U A #### [address] [place], [place] [address] Urobilinogen (U) [Mass/Vol] Negative Normal Negative [facility] Comment on above: Performed By: #### U A #### [address] [address] XR CHEST 1 VIEWon 12-02-2024 XR CHEST [...] 12/02/2024 12:14:01 PM Ordering Provider: BENJAMIN Wilde [facility] Absolute lymphocyte countOrd ered By: Mickey Nguyen on 08-21-2024 Lymphocytes Auto (Unsp spec) [#/Vol] 3.48 10*3/uL 0.83-4.51 [facility] Absolute neutrophil countOrd ered By: Mickey Nguyen on 08-21-2024 Neutrophils (Bld) [#/Vol] 6.1 10*3/uL 2.0-7.7 [facility] Anion gap in Serum or Plasma Ordered By: Mickey Nguyen on 08-21-2024 Anion gap [Moles/Vol] 11 mmol/L 5-15 [facility] Automated lymphocyte count a s percentage of total leukocytesOrdered By: Mickey Nguyen on 08-21-2024 Lymphocytes/100 WBC Auto (Unsp spec) 32.2 % 19-41 [facility] BUN/creatinine ratioOrdered By: Mickey Nguyen on 08-21-2024 Urea nitrogen/Creatinine [Mass ratio] 24.8 mg/mg High 10-20 [facility] Basophil percentageOrdered B y: Mickey Nguyen on 08-21-2024 Basophils/100 WBC (Bld) 0.7 % 0-1 [facility] Bilirubin, totalOrdered By: Mickey Nguyen on 08-21-2024 Bilirubin [Mass/Vol] 0.70 mg/dL 0.00-1.30 [facility] CBC W/Diff, Automatedon 08-11 Absolute Lymph 3.48 X10 3/uL Normal 0.83-4.51 [facility] Comment on above: Performed By: #### L 500.4050, L506.1001, L501.9520, L100.0100 #### [facility] [address] [place], [address] Absolute Neut 6.1 X10 3/uL Normal 2.0-7.7 [facility] Comment on above: Performed By: #### L 500.4050, L506.1001, L501.9520, L100.0100 #### [facility] [address] [place], [address] Basophils/100 WBC (Bld) 0.7 % Normal 0-1 [facility] Comment on above: Performed By: #### L 500.4050, L506.1001, L501.9520, L100.0100 #### [facility] [address] [place], [address] Eosinophils/100 WBC (Bld) 1.7 % Normal 0-5 [facility] Comment on above: Performed By: #### L 500.4050, L506.1001, L501.9520, L100.0100 #### [facility] [address] [place], [address] Erythrocyte distribution width (RBC) [Ratio] 12.7 % Normal 11.6-14.6 [facility] Comment on above: Performed By: #### L 500.4050, L506.1001, L501.9520, L100.0100 #### [facility] [address] [place], [address] Hematocrit (Bld) [Volume fraction] 49.1 % High 37-47 [facility] Comment on above: Performed By: #### L 500.4050, L506.1001, L501.9520, L100.0100 #### [facility] [address] [place], [address] Hemoglobin (Bld) [Mass/Vol] 15.9 g/dL High 12.0-15.0 [facility] Comment on above: Performed By: #### L 500.4050, L506.1001, L501.9520, L100.0100 #### [facility] [address] [place], [address] IG% 0.300 Normal 0.0-0.9 [facility] Comment on above: Result Comment: IG% - Immature Granulocytes (promyelocytes, myelocytes and metamyelocytes) > 1% indicates that a LEFT SHIFT is Present. Performed By: #### L 500.4050, L506.1001, L501.9520, L100.0100 #### [facility] [address] [place], [address] Lymphocytes/100 WBC (Bld) 32.2 % Normal 19-41 [facility] Comment on above: Performed By: #### L 500.4050, L506.1001, L501.9520, L100.0100 #### [facility] [address] [place], [address] MCH (RBC) [Entitic mass] 28.2 pg Normal 27.0-32.0 [facility] Comment on above: Performed By: #### L 500.4050, L506.1001, L501.9520, L100.0100 #### [facility] [address] [place], [address] MCHC (RBC) [Mass/Vol] 32.4 g/dL Normal 32-36 [facility] Comment on above: Performed By: #### L 500.4050, L506.1001, L501.9520, L100.0100 #### [facility] [address] [place], [address] MCV (RBC) [Entitic vol] 87.1 fL Normal 81-99 [facility] Comment on above: Performed By: #### L 500.4050, L506.1001, L501.9520, L100.0100 #### [facility] [address] [place], [address] Monocytes/100 WBC (Bld) 9.0 % Normal 0-10 [facility] Comment on above: Performed By: #### L 500.4050, L506.1001, L501.9520, L100.0100 #### [facility] [address] [place], [address] Neutrophils/100 WBC (Bld) 56.1 % Normal 47-70 [facility] Comment on above: Performed By: #### L 500.4050, L506.1001, L501.9520, L100.0100 #### [facility] [address] [place], [address] Nucleated RBC (Bld) [#/Vol] 0.2 10*3/uL Normal 0-5 [facility] Comment on above: Performed By: #### L 500.4050, L506.1001, L501.9520, L100.0100 #### [facility] [address] [place], [address] Platelet mean volume (Bld) [Entitic vol] 8.9 fL Normal 6.2-12.0 [facility] Comment on above: Performed By: #### L 500.4050, L506.1001, L501.9520, L100.0100 #### [facility] [address] [place], [address] Platelets (Bld) [#/Vol] 181 10*3/uL Normal 150-450 [facility] Comment on above: Performed By: #### L 500.4050, L506.1001, L501.9520, L100.0100 #### [facility] [address] [place], [address] RBC (Bld) [#/Vol] 5.64 10*6/uL High 4.2-5.4 [place] [facility] Comment on above: Performed By: #### L 500.4050, L506.1001, L501.9520, L100.0100 #### [facility] [address] [place], [address] RDW SD 40.5 fl Normal 35.1-43.9 [facility] Comment on above: Performed By: #### L 500.4050, L506.1001, L501.9520, L100.0100 #### [facility] [address] [place], [address] WBC (Bld) [#/Vol] 10.8 10*3/uL Normal 4.4-11.0 [facility] Comment on above: Performed By: #### L 500.4050, L506.1001, L501.9520, L100.0100 #### [facility] [address] [place], [address] Carbon dioxide, total [Moles /volume] in Central venous bloodOrdered By: Mickey Nguyen on 03-11-2025 CO2 [Moles/Vol] 24.5 mmol/L 21.0-32.0 [facility] Chloride assayOrdered By: Berhane Nguyen on 08-21-2024 Chloride [Moles/Vol] 104 mmol/L 98-108 [facility] Comprehensive Metabolic Prof ilon 08-21-2024 Albumin [Mass/Vol] 4.1 g/dL Normal 3.4-4.8 [facility] Comment on above: Performed By: #### L 500.4050, L506.1001, L501.9520, L100.0100 #### [facility] [address] [place], [address] Albumin/Globulin [Mass ratio] 1.6 {ratio} Normal 0.9-2.4 [facility] Comment on above: Performed By: #### L 500.4050, L506.1001, L501.9520, L100.0100 #### [facility] [address] [place], [address] ALK PHOS 114 U/L High 35-104 [facility] Comment on above: Performed By: #### L 500.4050, L506.1001, L501.9520, L100.0100 #### [facility] [address] [place], [address] ALT [Catalytic activity/Vol] 13 U/L Normal <=34 [facility] Comment on above: Performed By: #### L 500.4050, L506.1001, L501.9520, L100.0100 #### [facility] [address] [place], [address] AST [Catalytic activity/Vol] 24 U/L Normal <=31 [facility] Comment on above: Result Comment: Hemo lysis present, Results??could be affected. ?? Performed By: #### L 500.4050, L506.1001, L501.9520, L100.0100 #### [facility] [address] [place], [address] Bilirubin [Mass/Vol] 0.70 mg/dL Normal 0.00-1.30 [facility] Comment on above: Performed By: #### L 500.4050, L506.1001, L501.9520, L100.0100 #### [facility] [address] [place], [address] BUN/CRE 24.8 RATIO High 10-20 [facility] Comment on above: Performed By: #### L 500.4050, L506.1001, L501.9520, L100.0100 #### [facility] [address] [place], [address] Calcium [Mass/Vol] 10.6 mg/dL Normal 7.6-11.0 [facility] Comment on above: Performed By: #### L 500.4050, L506.1001, L501.9520, L100.0100 #### [facility] [address] [place], [address] Chloride [Moles/Vol] 104 mmol/L Normal 98-108 [facility] Comment on above: Performed By: #### L 500.4050, L506.1001, L501.9520, L100.0100 #### [facility] [address] [place], [address] CO2 [Moles/Vol] 24.5 mmol/L Normal 21.0-32.0 [facility] Comment on above: Performed By: #### L 500.4050, L506.1001, L501.9520, L100.0100 #### [facility] [address] [place], [address] Creatinine [Mass/Vol] 0.95 mg/dL Normal 0.70-1.20 [facility] Comment on above: Performed By: #### L 500.4050, L506.1001, L501.9520, L100.0100 #### [facility] [address] [place], [address] GAP 11 Normal 5-15 [facility] Comment on above: Performed By: #### L 500.4050, L506.1001, L501.9520, L100.0100 #### [facility] [address] [place], [address] GFR/1.73 sq M.predicted among non-blacks MDRD (S/P/Bld) [Vol rate/Area] 62 mL/min/{1.73_m2} Normal >60 [facility] Comment on above: Result Comment: mL/m in/1.73m2 CKD-EPI Creatinine Equation (2020) Performed By: #### L 500.4050, L506.1001, L501.9520, L100.0100 #### [facility] [address] [place], [address] Globulin (S) [Mass/Vol] 2.5 g/dL Normal 2.2-4.2 [facility] Comment on above: Performed By: #### L 500.4050, L506.1001, L501.9520, L100.0100 #### [facility] [address] [place], [address] Glucose [Mass/Vol] 80 mg/dL Normal 70-99 [facility] Comment on above: Performed By: #### L 500.4050, L506.1001, L501.9520, L100.0100 #### [facility] [address] [place], [address] Potassium [Moles/Vol] 4.6 mmol/L Normal 3.3-5.1 [facility] Comment on above: Result Comment: Hemo lysis present, Results??could be affected. ?? Performed By: #### L 500.4050, L506.1001, L501.9520, L100.0100 #### [facility] [address] [place], [address] Sodium [Moles/Vol] 140 mmol/L Normal 133-145 [facility] Comment on above: Performed By: #### L 500.4050, L506.1001, L501.9520, L100.0100 #### [facility] [address] [place], [address] T PROT 6.6 g/dL Normal 5.9-8.4 [facility] Comment on above: Performed By: #### L 500.4050, L506.1001, L501.9520, L100.0100 #### [facility] [address] [place], [address] Urea nitrogen [Mass/Vol] 23 mg/dL High 4-19 [facility] Comment on above: Performed By: #### L 500.4050, L506.1001, L501.9520, L100.0100 #### [facility] [address] [place], [address] Eosinophil percentageOrdered By: Mickey Nguyen on 08-21-2024 Eosinophils/100 WBC (Bld) 1.7 % 0-5 [facility] Erythrocyte distribution wid th ratioOrdered By: Mickey Nguyen on 08-21-2024 Erythrocyte distribution width (RBC) [Ratio] 12.7 % 11.6-14.6 [facility] Erythrocyte distribution wid th standard deviationOrdered By: Mickey Nguyen on 08-21-2024 Erythrocyte distribution width (RBC) [Entitic vol] 40.5 fL 35.1-43.9 [facility] Erythrocyte distribution width (RBC) [Ratio] 40.5 fl 35.1-43.9 [facility] GFR/1.73 sq M.predicted harry g non-blacks MDRD (S/P/Bld) [Vol rate/Area]Ordered By: Mickey Nguyen on 08-21-2024 Estimated GFR (MDRD) Non-Af Amer 62 >60 [facility] Comment on above: mL/min/1.73m2 CKD-EP I Creatinine Equation (2020) Glomerular filtration rate ( GFR) estimation/1.73 sq m using serum, plasma, or whole bOrdered By: Mickey Nguyen on 08-21-2024 GFR/1.73 sq M.predicted among non-blacks MDRD (S/P/Bld) [Vol rate/Area] 62 mL/min/{1.73_m2} >60 [facility] Comment on above: mL/min/1.73m2 CKD-EP I Creatinine Equation (2020) Hematocrit Auto (Bld) [Volum e fraction]Ordered By: Mickey Nguyen on 08-21-2024 Hematocrit (Bld) [Volume fraction] 49.1 % High 37-47 [facility] Hemoglobin measurementOrdere d By: Mickey Nguyen on 08-21-2024 Hemoglobin (Bld) [Mass/Vol] 15.9 g/dL High 12.0-15.0 [facility] Immature granulocytes/100 WB C Auto (Bld)Ordered By: Mickey Nguyen on 08-21-2024 Immature granulocytes/100 WBC (Bld) 0.300 % 0.0-0.9 [facility] Comment on above: IG% - Immature Granu locytes (promyelocytes, myelocytes and metamyelocytes) > 1% indicates that a LEFT SHIFT is Present. L506.1001on 08-21-2024 Vitamin D 25-OH 52.2 ng/mL Normal 30-100 [facility] Comment on above: Result Comment: Purvi min D Status Deficiency: <20 ng/mL (50nmol/L) Insufficiency: 20-30 ng/mL (50-75 nmol/L) Sufficiency: 30-100 ng/mL (75-250 nmol/L) Toxicity: >100 ng/mL (>250 nmol/L) Performed By: #### L 500.4050, L506.1001, L501.9520, L100.0100 ####[facility] [address] [place], [address] Laboratory - Chemistry and C hemistry - challengeOrdered By: Mickey Nguyen on 08-21-2024 AST [Catalytic activity/Vol] 24 U/L <32 [facility] Comment on above: Hemolysis present, R esults could be affected. Lymphocytes Auto (Unsp spec) [#/Vol]Ordered By: Mickey Nguyen on 08-21-2024 Lymphocytes (Bld) [#/Vol] 3.48 10*3/uL 0.83-4.51 [facility] Lymphocytes/100 WBC Auto (Un sp spec)Ordered By: Mickey Nguyen on 08-21-2024 Lymphocytes/100 WBC (Bld) 32.2 % 19-41 [facility] MCV (mean corpuscular volume ) determinationOrdered By: Mickey Nguyen on 08-21-2024 MCV (RBC) [Entitic vol] 87.1 fL 81-99 [facility] Mean corpuscular hemoglobin (MCH) determinationOrdered By: Mickey Nguyen on 08-21-2024 MCH (RBC) [Entitic mass] 28.2 pg 27.0-32.0 [facility] Mean corpuscular hemoglobin concentration (MCHC) determinationOrdered By: Mickey Nguyen on 08-21-2024 MCHC (RBC) [Mass/Vol] 32.4 g/dL 32-36 [facility] Mean platelet volume determi nationOrdered By: Mickey Nguyen on 08-21-2024 Platelet mean volume (Bld) [Entitic vol] 8.9 fL 6.2-12.0 [facility] Monocyte percentageOrdered B y: Mickey Nguyen on 08-21-2024 Monocytes/100 WBC (Bld) 9.0 % 0-10 [facility] Neutrophil percentageOrdered By: Mickey Nguyen on 08-21-2024 Neutrophils/100 WBC (Bld) 56.1 % 47-70 [facility] Nucleated red blood cell per centageOrdered By: Mickey Nguyen on 08-21-2024 Nucleated RBC/100 WBC (Bld) [Ratio] 0.2 % 0-5 [facility] Platelet countOrdered By: Berhane Nguyen on 08-21-2024 Platelets (Bld) [#/Vol] 181 10*3/uL 150-450 [facility] Potassium (Unsp spec) [Mass/ Vol]Ordered By: Mickey Nguyen on 08-21-2024 Potassium [Moles/Vol] 4.6 mmol/L 3.3-5.1 [facility] Comment on above: Hemolysis present, R esults could be affected. Potassium measurement (mass/ volume)Ordered By: Mickey Nguyen on 08-21-2024 Potassium (Unsp spec) [Mass/Vol] 4.6 mmol/L 3.3-5.1 [facility] Comment on above: Hemolysis present, R esults could be affected. RBC Auto (Bld) [#/Vol]Ordere d By: Mickey Nguyen on 08-21-2024 RBC (Bld) [#/Vol] 5.64 10*6/uL High 4.2-5.4 [facility] Serum creatinine measurement (mass/volume)Ordered By: Mickey Nguyen on 08-21-2024 Creatinine [Mass/Vol] 0.95 mg/dL 0.70-1.20 [facility] Serum globulin measurementOr dered By: Mickey Nguyen 08-21-2024 Globulin (S) [Mass/Vol] 2.5 g/dL 2.2-4.2 [facility] Serum glucose measurement (m ass/volume)Ordered By: Mickey Nguyen 08-21-2024 Glucose [Mass/Vol] 80 mg/dL 70-99 [facility] Serum or plasma alanine webb otransferase (ALT) measurementOrdered By: Mickey Nguyen 08-21-2024 ALT [Catalytic activity/Vol] 13 U/L <35 [facility] Serum or plasma albumin willam urement (mass/volume)Ordered By: Mickey Nguyen 08-21-2024 Albumin [Mass/Vol] 4.1 g/dL 3.4-4.8 [facility] Serum or plasma albumin/glob ulin mass ratioOrdered By: Mickey Nguyen 08-21-2024 Albumin/Globulin [Mass ratio] 1.6 {ratio} 0.9-2.4 [facility] Serum or plasma alkaline pollo sphatase measurementOrdered By: Mickey Nguyen 08-21-2024 ALP [Catalytic activity/Vol] 114 U/L High 35-104 [facility] Serum or plasma calcium willam urement (mass/volume)Ordered By: Mickey Nguyen 08-21-2024 Calcium [Mass/Vol] 10.6 mg/dL 7.6-11.0 [facility] Serum or plasma urea nitroge n measurement (mass/volume)Ordered By: Mickey Nguyen on 08-21-2024 Urea nitrogen [Mass/Vol] 23 mg/dL High 4-19 [facility] Sodium levelOrdered By: Mickey Nguyen on 08-21-2024 Sodium [Moles/Vol] 140 mmol/L 133-145 [facility] TSH DL <= 0.005 mIU/L QnOrde red By: Mickey Nguyen on 08-21-2024 Thyroid Stimulating Hormone (TSH) 1.910 uIU/mL 0.300-4.200 [facility] TSH Qn 1.910 uIU/mL 0.300-4.200 [facility] Thyroid Stim Hormone (TSH)on 08-21-2024 TSH 1.910 uIU/mL Normal 0.300-4.200 [facility] Comment on above: Performed By: #### L 500.4050, L506.1001, L501.9520, L100.0100 ####[facility] [address] [place], [address] Total proteinOrdered By: Mickey Nguyen on 08-21-2024 Protein [Mass/Vol] 6.6 g/dL 5.9-8.4 [facility] Vitamin D, 25-hydroxyOrdered By: Mickey Nguyen on 08-21-2024 Vitamin D 25-Hydroxy 52.2 ng/mL 30-100 [facility] Comment on above: Vitamin D StatusDefi ciency: <20 ng/mL (50nmol/L)Insufficiency: 20-30 ng/mL (50-75 nmol/L)Sufficiency: 30-100 ng/mL (75-250 nmol/L)Toxicity: >100 ng/mL (>250 nmol/L) White blood cell (WBC) count Ordered By: Mickey Nguyen on 08-21-2024 WBC (Bld) [#/Vol] 10.8 10*3/uL 4.4-11.0 [facility] Influenza virus A and B and SARS-CoV-2 (COVID-19) and Respiratory syncytial virus RNAOrdered By: Mickey Nguyen on 08-06-2024 SARS-CoV-2 (COVID-19) RNA LORAINE+probe Ql (Unsp spec) Influenzae A Abnormal [facility] SARS-CoV-2 (COVID-19) RNA LORAINE+probe Ql (Unsp spec) Influenzae A Abnormal [facility] M100.678on 08-06-2024 M100.[address] Rupert NGUYEN'S OFFICE 08/06/24 1627 Ely Nieves. REPORT READ BACK BY SAME. SARS-CoV-2 (COVID 19) Negative INFLUENZA A A Positive A INFLUENZA B Negative RSV PCR Negative INFLUENZAE A Normal [facility] Comment on above: Performed By: #### M 100.678 #### [facility] [address], [place], [address] Influenza virus A and B and SARS-CoV-2 (COVID-19) and Respiratory syncytial virus RNAOrdered By: Mickey Nguyen on 05-15-2024 SARS-CoV-2 (COVID-19) RNA LORAINE+probe Ql (Unsp spec) [facility] SARS-CoV-2 (COVID-19) RNA LORAINE+probe Ql (Unsp spec) [facility] M100.678on 05-15-2024 M100.678 Pending SARS-CoV-2 (COVID 19) Negative INFLUENZA A Negative INFLUENZA B Negative RSV PCR Negative Normal [facility] Comment on above: Performed By: #### M 100.678 #### [facility] [address] [facility] [place], [place], [address] Oncology Visit Reporton 02-12 Oncology Visit Report [facility] [place] [facility] [address] [place] [address]. [place] [address] OFFICE VISIT Date of Service: 03/07/24 1350 MR#: [id number] Acct: [id number] Name: RICHELLE AHUJA Rep #: [id number] : 1945 From: Tae Cruz MD Age/Sex: 78/F [place] [facility] [place]: Signed HPI Subjective Date of Service 03/07/24 Chief Complaint Elevated H H History of Present Illness 78-year-old female, with no known chronic cardiopulmonary disease and noted to have a chronic mild polycythemia, see lab section. [facility] Medical History Polycythemia Non-smoker Hiatal hernia History [...] (1) Poly (more content not included)... Normal [facility] Erythropoietinon 03-02-2024 ERYTHROPOIETIN 6.6 mIU/mL Normal 2.6-18.5 [facility] Comment on above: Result Comment: BLOVES DxI 800 Immunoassay System Values obtained with different assay methods or kits cannot be used interchangeably. Results cannot be interpreted as absolute evidence of the presence or absence of malignant disease. Performed at: [facility] [address] [id number] [employer]asing Material Weigher: Prince South PhD, Phone: [phone] Performed By: #### L 100.0100, L3100.1350 ####[facility] [address] [facility] [place], [address] CBC W/Diff, Automatedon 02-11 Absolute Lymph 2.68 X10 3/uL Normal 0.83-4.51 [facility] Comment on above: Performed By: #### L 100.0100, L3100.1350 ####[facility] [address] [place], [address] Absolute Neut 5.4 X10 3/uL Normal 2.0-7.7 [facility] Comment on above: Performed By: #### L 100.0100, L3100.1350 ####[facility] [address] [place], [address] Basophils/100 WBC (Bld) 0.6 % Normal 0-1 [facility] Comment on above: Performed By: #### L 100.0100, L3100.1350 ####[facility] [address] [place], [address] Eosinophils/100 WBC (Bld) 1.4 % Normal 0-5 [facility] Comment on above: Performed By: #### L 100.0100, L3100.1350 ####[facility] [address] [place], [address] Erythrocyte distribution width (RBC) [Ratio] 13.0 % Normal 11.6-14.6 [facility] Comment on above: Performed By: #### L 100.0100, L3100.1350 ####[facility] [address] [place], [address] Hematocrit (Bld) [Volume fraction] 47.6 % High 37-47 [facility] Comment on above: Performed By: #### L 100.0100, L3100.1350 ####[facility] [address] [place], [address] Hemoglobin (Bld) [Mass/Vol] 15.3 g/dL High 12.0-15.0 [facility] Comment on above: Performed By: #### L 100.0100, L3100.1350 ####[facility] [address] [place], [address] IG% 0.300 Normal 0.0-0.9 [facility] Comment on above: Result Comment: IG% - Immature Granulocytes (promyelocytes, myelocytes and metamyelocytes) > 1% indicates that a LEFT SHIFT is Present. Performed By: #### L 100.0100, L3100.1350 ####[facility] [address] [place], [address] Lymphocytes/100 WBC (Bld) 29.7 % Normal 19-41 [facility] Comment on above: Performed By: #### L 100.0100, L3100.1350 ####[facility] [address] [place], [address] MCH (RBC) [Entitic mass] 28.3 pg Normal 27.0-32.0 [facility] Comment on above: Performed By: #### L 100.0100, L3100.1350 ####[facility] [address] [place], [address] MCHC (RBC) [Mass/Vol] 32.1 g/dL Normal 32-36 [facility] Comment on above: Performed By: #### L 100.0100, L3100.1350 ####[facility] [address] [place], [address] MCV (RBC) [Entitic vol] 88.1 fL Normal 81-99 [facility] Comment on above: Performed By: #### L 100.0100, L3100.1350 ####[facility] [address] [place], [address] Monocytes/100 WBC (Bld) 7.8 % Normal 0-10 [facility] Comment on above: Performed By: #### L 100.0100, L3100.1350 ####[facility] [address] [place], [address] Neutrophils/100 WBC (Bld) 60.2 % Normal 47-70 [facility] Comment on above: Performed By: #### L 100.0100, L3100.1350 ####[facility] [address] [place], [address] Nucleated RBC (Bld) [#/Vol] 0 10*3/uL Normal 0-5 [facility] Comment on above: Performed By: #### L 100.0100, L3100.1350 ####[facility] [address], [address] Platelet mean volume (Bld) [Entitic vol] 8.5 fL Normal 6.2-12.0 [facility] Comment on above: Performed By: #### L 100.0100, L3100.1350 ####[facility] [address] [place], [address] Platelets (Bld) [#/Vol] 141 10*3/uL Low 150-450 [facility] Comment on above: Performed By: #### L 100.0100, L3100.1350 ####[facility] [address] [place], [address] RBC (Bld) [#/Vol] 5.40 10*6/uL Normal 4.2-5.4 [facility] Comment on above: Performed By: #### L 100.0100, L3100.1350 ####[facility] [address] [place], [address] RDW SD 41.8 fl Normal 35.1-43.9 [facility] Comment on above: Performed By: #### L 100.0100, L3100.1350 ####[facility] [address] [place], [address] WBC (Bld) [#/Vol] 9.0 10*3/uL Normal 4.4-11.0 [facility] Comment on above: Performed By: #### L 100.0100, L3100.1350 ####[facility] [address] [place], [address] Oncology Visit Reporton 02-11 Oncology Visit Report [facility] [address] [place] [address] OFFICE VISIT Date of Service: 02/29/24 1121 MR#: [id number] Acct: [id number] Name: RICHELLE AHUJA KOLE Rep #: [id number] : 1945 From: Tae rCuz MD Age/Sex: 78/F Location: [facility] Status: Signed HPI Subjective Date of Service 02/29/24 Chief Complaint Elevated H H History of Present Illness 78-year-old female, with no known chronic cardiopulmonary disease and noted to have a chronic mild polycythemia, see lab section. [facility] Medical History Polycythemia Non-smoker Hiatal hernia History [...] maleate 0. (more content not included)... Normal [facility] Vitamin D,25 Hydroxyon 02-20 Vitamin D 25-OH 52.0 ng/mL Normal [facility] Comment on above: Result Comment: Purvi min D 25(OH) Status Range Deficiency <20 ng/mL (50nmol/L) Insufficiency 20 - 30 ng/mL (50 - 75 nmol/L) Sufficiency 30 - 100 ng/mL (75 - 250 nmol/L) Toxicity >100 ng/mL (>250 nmol/L) Performed By: #### L 500.4050, L501.9520, L100.0100, L506.1000 ####[facility] [address] [place], [address] CBC W/Diff, Automatedon Absolute Lymph 2.22 X10 3/uL Normal 0.83-4.51 [facility] Comment on above: Performed By: #### L 500.4050, L501.9520, L100.0100, L506.1000 ####[facility] [address] [place], [address] Absolute Neut 5.1 X10 3/uL Normal 2.0-7.7 [facility] Comment on above: Performed By: #### L 500.4050, L501.9520, L100.0100, L506.1000 ####[facility] [address] [place], [address] Basophils/100 WBC (Bld) 0.7 % Normal 0-1 [facility] Comment on above: Performed By: #### L 500.4050, L501.9520, L100.0100, L506.1000 ####[facility] [address] [place], [address] Eosinophils/100 WBC (Bld) 1.5 % Normal 0-5 [facility] Comment on above: Performed By: #### L 500.4050, L501.9520, L100.0100, L506.1000 ####[facility] [address] [place], [address] Erythrocyte distribution width (RBC) [Ratio] 12.9 % Normal 11.6-14.6 [facility] Comment on above: Performed By: #### L 500.4050, L501.9520, L100.0100, L506.1000 ####[facility] [address] [place], [address] Hematocrit (Bld) [Volume fraction] 51.5 % High 37-47 [facility] Comment on above: Performed By: #### L 500.4050, L501.9520, L100.0100, L506.1000 ####[facility] [address] [place], [address] Hemoglobin (Bld) [Mass/Vol] 16.5 g/dL High 12.0-15.0 [facility] Comment on above: Performed By: #### L 500.4050, L501.9520, L100.0100, L506.1000 ####[facility] [address] [place], [address] IG% 0.400 Normal 0.0-0.9 [facility] Comment on above: Result Comment: IG% - Immature Granulocytes (promyelocytes, myelocytes and metamyelocytes) > 1% indicates that a LEFT SHIFT is Present. Performed By: #### L 500.4050, L501.9520, L100.0100, L506.1000 ####[facility] [address] [place], [address] Lymphocytes/100 WBC (Bld) 27.3 % Normal 19-41 [facility] Comment on above: Performed By: #### L 500.4050, L501.9520, L100.0100, L506.1000 ####[facility] [address] [place], [address] MCH (RBC) [Entitic mass] 28.1 pg Normal 27.0-32.0 [facility] Comment on above: Performed By: #### L 500.4050, L501.9520, L100.0100, L506.1000 ####[facility] [address] [place], [address] MCHC (RBC) [Mass/Vol] 32.0 g/dL Normal 32-36 [facility] Comment on above: Performed By: #### L 500.4050, L501.9520, L100.0100, L506.1000 ####[facility] [address] [place], [address] MCV (RBC) [Entitic vol] 87.7 fL Normal 81-99 [facility] Comment on above: Performed By: #### L 500.4050, L501.9520, L100.0100, L506.1000 ####[facility] [address] [place], [address] Monocytes/100 WBC (Bld) 7.4 % Normal 0-10 [facility] Comment on above: Performed By: #### L 500.4050, L501.9520, L100.0100, L506.1000 ####[facility] [address] [place], [address] Neutrophils/100 WBC (Bld) 62.7 % Normal 47-70 [facility] Comment on above: Performed By: #### L 500.4050, L501.9520, L100.0100, L506.1000 ####[facility] [address] [place], [address] Nucleated RBC (Bld) [#/Vol] 0 10*3/uL Normal 0-5 [facility] Comment on above: Performed By: #### L 500.4050, L501.9520, L100.0100, L506.1000 ####[facility] [address] [place], [address] Platelet mean volume (Bld) [Entitic vol] 8.5 fL Normal 6.2-12.0 [facility] Comment on above: Performed By: #### L 500.4050, [id number], L100.0100, L506.1000 ####[facility] [address] [place], [address] Platelets (Bld) [#/Vol] 143 10*3/uL Low 150-450 [facility] Comment on above: Performed By: #### L 500.4050, L501.9520, L100.0100, L506.1000 ####[facility] [address] [place], [address] RBC (Bld) [#/Vol] 5.87 10*6/uL High 4.2-5.4 [facility] Comment on above: Performed By: #### L 500.4050, [id number], L100.0100, L506.1000 ####[facility] [address] [place], [address] RDW SD 41.5 fl Normal 35.1-43.9 [facility] Comment on above: Performed By: #### L 500.4050, [id number], L100.0100, L506.1000 ####[facility] [address] [place], [address] WBC (Bld) [#/Vol] 8.1 10*3/uL Normal 4.4-11.0 [facility] Comment on above: Performed By: #### L 500.4050, [id number], L100.0100, L506.1000 ####[facility] [address] [place], [address] Comprehensive Metabolic Prof ilon 02-20-2024 Albumin [Mass/Vol] 3.8 g/dL Normal 3.2-5.0 [facility] Comment on above: Performed By: #### L 500.4050, [id number], L100.0100, L506.1000 ####[facility] [address] [place], [address] Albumin/Globulin [Mass ratio] 1.3 {ratio} Normal 0.9-2.4 [facility] Comment on above: Performed By: #### L 500.4050, [id number], L100.0100, L506.1000 ####[facility] [address] [place], [address] ALK P 125 U/L High 45-117 [facility] Comment on above: Performed By: #### L 500.4050, [id number], L100.0100, L506.1000 ####[facility] [address] [place], [address] ALT [Catalytic activity/Vol] 34 U/L Normal 13-56 [facility] Comment on above: Performed By: #### L 500.4050, [id number], L100.0100, L506.1000 ####[facility] [address] [place], [address] AST [Catalytic activity/Vol] 26 U/L Normal 15-37 [facility] Comment on above: Performed By: #### L 500.4050, [id number], L100.0100, L506.1000 ####[facility] [address] [place], [address] Bilirubin [Mass/Vol] 1.00 mg/dL Normal 0.20-1.00 [facility] Comment on above: Result Comment: For patients on eltrombopag therapy, use of Dimension [place] TBIL is not recommended. Performed By: #### L 500.4050, [id number], L100.0100, L506.1000 ####[facility] [address] [place], [address] BUN/CRE 19.1 RATIO Normal 10-20 [facility] Comment on above: Performed By: #### L 500.4050, [id number], L100.0100, L506.1000 ####[facility] [address] [place], [address] CA,Total 10.5 mg/dL High 8.5-10.1 [facility] Comment on above: Performed By: #### L 500.4050, [id number], L100.0100, L506.1000 ####[facility] [address] [place], [address] Chloride [Moles/Vol] 107 mmol/L Normal 98-107 [facility] Comment on above: Performed By: #### L 500.4050, [id number], L100.0100, L506.1000 ####[facility] [address] [place], [address] CO2 [Moles/Vol] 26.0 mmol/L Normal 21.0-32.0 [facility] Comment on above: Performed By: #### L 500.4050, [id number], L100.0100, L506.1000 ####[facility] [address] [place], [address] Creatinine [Mass/Vol] 1.10 mg/dL High 0.55-1.02 [facility] Comment on above: Result Comment: The validity of the calculated GFR GFRAA in patients over 70 years has not been determined. Clinical correlation is essential. Performed By: #### L 500.4050, L501.9520, L100.0100, L506.1000 ####[facility] [address] [place], [address] EST GFR - AA 62 mL/min Normal >60 [facility] Comment on above: Result Comment: Afri can Filipino GFR Calc Performed By: #### L 500.4050, [id number], L100.0100, L506.1000 ####[facility] [address] [place], [address] GAP 9 Normal 5-15 [facility] Comment on above: Performed By: #### L 500.4050, [id number], L100.0100, L506.1000 ####[facility] [address] [place], [address] GFR/1.73 sq M.predicted among non-blacks MDRD (S/P/Bld) [Vol rate/Area] 51 mL/min/{1.73_m2} Low >60 [facility] Comment on above: Result Comment: Non- GFR Calc Performed By: #### L 500.4050, L501.9520, L100.0100, L506.1000 ####[facility] [address] [place], [address] Globulin (S) [Mass/Vol] 2.9 g/dL Normal 2.2-4.2 [facility] Comment on above: Performed By: #### L 500.4050, [id number], L100.0100, L506.1000 ####[facility] [address] [place], [address] Glucose [Mass/Vol] 123 mg/dL High 74-106 [facility] Comment on above: Result Comment: Fast ing Glucose result from 100 to 125 mg/dL suggests IMPAIRED HOMEOSTASIS per A.D.A. criteria. Performed By: #### L 500.4050, L501.9520, L100.0100, L506.1000 ####[facility] [address] [place], [address] Potassium [Moles/Vol] 4.3 mmol/L Normal 3.5-5.1 [facility] Comment on above: Performed By: #### L 500.4050, [id number], L100.0100, L506.1000 ####[facility] [address] [place], [address] Sodium [Moles/Vol] 142 mmol/L Normal 136-145 [facility] Comment on above: Performed By: #### L 500.4050, [id number], L100.0100, L506.1000 ####[facility] [address] [place], [address] T PROT 6.7 g/dL Normal 6.4-8.2 [facility] Comment on above: Performed By: #### L 500.4050, [id number], L100.0100, L506.1000 ####[facility] [address] [place], [address] Urea nitrogen [Mass/Vol] 21 mg/dL High 7-18 [facility] Comment on above: Performed By: #### L 500.4050, [id number], L100.0100, L506.1000 ####[facility] [address] [place], [address] Thyroid Stim Hormone (TSH)on 02-20-2024 TSH 1.570 uIU/mL Normal 0.358-3.740 [facility] Comment on above: Performed By: #### L 500.4050, [id number], L100.0100, L506.1000 ####[facility] [address] [place], [address] Absolute lymphocyte countOrd ered By: Mickey Nguyen on 08-03-2023 Lymphocytes Auto (Unsp spec) [#/Vol] 1.92 10*3/uL 0.83-4.51 [facility] Automated lymphocyte count a s percentage of total leukocytesOrdered By: Mickey Nguyen on 08-03-2023 Lymphocytes/100 WBC Auto (Unsp spec) 24.3 % 19-41 [facility] Basophil percentageOrdered B y: Mickey Nguyen on 08-03-2023 Basophils/100 WBC (Bld) 0.9 % 0-1 [facility] Bilirubin [Mass/Vol] 0.70 mg/dL 0.20-1.00 [facility] Comment on above: For patients on eltr ombopag therapy, use of Dimension [place] TBIL is not recommended. Chloride [Moles/Vol] 110 mmol/L 98-107 [facility] Eosinophils/100 WBC (Bld) 1.5 % 0-5 [facility] Glucose [Mass/Vol] 108 mg/dL 74-106 [facility] Comment on above: Fasting Glucose resu lt from 100 to 125 mg/dL suggests IMPAIRED HOMEOSTASIS per A.D.A. criteria. Hemoglobin (Bld) [Mass/Vol] 15.6 g/dL 12.0-15.0 [facility] Monocytes/100 WBC (Bld) 6.7 % 0-10 [facility] Neutrophils (Bld) [#/Vol] 5.3 10*3/uL 2.0-7.7 [facility] Neutrophils/100 WBC (Bld) 66.5 % 47-70 [facility] Potassium [Moles/Vol] 4.0 mmol/L 3.5-5.1 [facility] Protein [Mass/Vol] 6.4 g/dL 6.4-8.2 [facility] Sodium [Moles/Vol] 142 mmol/L 136-145 [facility] WBC (Bld) [#/Vol] 7.9 10*3/uL 4.4-11.0 [facility] Determination of erythrocyte mean corpuscular volume (MCV)Ordered By: Mickey Nguyen on 08-03-2023 MCV (RBC) [Entitic vol] 89.7 fL 81-99 [facility] Erythrocyte distribution wid th ratioOrdered By: Mickey Nguyen on 08-03-2023 Erythrocyte distribution width (RBC) [Ratio] 13.1 % 11.6-14.6 [facility] Erythrocyte distribution wid th standard deviationOrdered By: Mickey Nguyen on 08-03-2023 Erythrocyte distribution width (RBC) [Entitic vol] 42.6 fL 35.1-43.9 [facility] Hematocrit Auto (Bld) [Volum e fraction]Ordered By: Mickey Nguyen on 08-03-2023 Hematocrit (Bld) [Volume fraction] 49.6 % 37-47 [facility] Immature granulocytes/100 WB C Auto (Bld)Ordered By: Mickey Nguyen on 08-03-2023 Immature granulocytes/100 WBC (Bld) 0.100 % 0.0-0.9 [facility] Comment on above: IG% - Immature Granu locytes (promyelocytes, myelocytes and metamyelocytes) > 1% indicates that a LEFT SHIFT is Present. Laboratory - Chemistry and C hemistry - challengeOrdered By: Mickey Nguyen on 08-03-2023 Albumin/Globulin [Mass ratio] 1.4 {ratio} 0.9-2.4 [facility] ALP [Catalytic activity/Vol] 101 U/L 45-117 [facility] ALT [Catalytic activity/Vol] 25 U/L 13-56 [facility] CO2 [Moles/Vol] 28.0 mmol/L 21.0-32.0 [facility] Globulin (S) [Mass/Vol] 2.7 g/dL 2.2-4.2 [facility] Urea nitrogen/Creatinine [Mass ratio] 22.6 mg/mg 10-20 [facility] Laboratory - Hematology and Cell countsOrdered By: Mickey Nguyen on 08-03-2023 MCH (RBC) [Entitic mass] 28.2 pg 27.0-32.0 [facility] MCHC (RBC) [Mass/Vol] 31.5 g/dL 32-36 [facility] Nucleated RBC/100 WBC (Bld) [Ratio] 0 % 0-5 [facility] Platelet mean volume (Bld) [Entitic vol] 9.6 fL 6.2-12.0 [facility] Platelets (Bld) [#/Vol] 146 10*3/uL 150-450 [facility] No Panel InformationOrdered By: Mickey Nguyen on 08-03-2023 Estimated GFR (MDRD) Amer 71 mL/min >60 [facility] Comment on above: GFR Calc Estimated GFR (MDRD) Non-Af Amer 59 mL/min >60 [facility] Comment on above: Non- GFR Calc Vitamin D 25-Hydroxy 66.9 ng/mL [facility] Comment on above: Vitamin D 25(OH) Sta tus Range Deficiency <20 ng/mL (50nmol/L) Insufficiency 20 - 30 ng/mL (50 - 75 nmol/L) Sufficiency 30 - 100 ng/mL (75 - 250 nmol/L) Toxicity >100 ng/mL (>250 nmol/L) RBC Auto (Bld) [#/Vol]Ordere d By: Mickey Nguyen on 08-03-2023 RBC (Bld) [#/Vol] 5.53 10*6/uL 4.2-5.4 [facility] Serum or plasma calcium willam urement (mass/volume)Ordered By: Mickey Nguyen on 08-03-2023 Calcium [Mass/Vol] 10.1 mg/dL 8.5-10.1 [facility] Serum or plasma creatinine m easurement (mass/volume)Ordered By: Mickey Nguyen on 08-03-2023 Creatinine [Mass/Vol] 0.98 mg/dL 0.55-1.02 [facility] Comment on above: The validity of the calculated GFR & GFRAA in patients over 70 years has not been determined. Clinical correlation is essential. Serum or plasma thyroid stim ulating hormone (TSH) measurement (units/volume)Ordered By: Mickey Nguyen on 08-03-2023 TSH Qn 1.24 uIU/mL 0.358-3.74 [facility] Serum or plasma urea nitroge n measurement (mass/volume)Ordered By: Mickey Nguyen on 08-03-2023 Urea nitrogen [Mass/Vol] 22 mg/dL 7-18 [facility] Thin prep Papanicolaou smear with manual screeningOrdered By: Mickey Nguyen 08-03-2023 Thin prep Papanicolaou smear with manual screening 3.7 g/dL 3.2-5.0 [facility] Thin prep Papanicolaou smear with manual screening 22 U/L 15-37 [facility] Thin prep Papanicolaou smear with manual screening 4 5-15 [facility] Basophil percentageon 2021 Chloride [Moles/Vol] 105 mmol/L 98-107 [facility] Work Phone: Glucose [Mass/Vol] 111 mg/dL 74-106 [facility] Work Phone: Comment on above: Fasting Glucose resu lt from 100 to 125 mg/dL suggests IMPAIRED HOMEOSTASIS per A.D.A. criteria. Potassium [Moles/Vol] 4.1 mmol/L 3.5-5.1 [facility] Work Phone: Sodium [Moles/Vol] 139 mmol/L 136-145 [facility] Work Phone: Laboratory - Chemistry and C hemistry - challengeon 09-24-2021 CO2 [Moles/Vol] 29.0 mmol/L 21.0-32.0 [facility] Work Phone: Urea nitrogen/Creatinine [Mass ratio] 19.4 mg/mg 10-20 [facility] Work Phone: No Panel Informationon 09-24 Estimated GFR (MDRD) Amer 76 mL/min >60 [facility] Work Phone: Comment on above: GFR Calc Estimated GFR (MDRD) Non-Af Amer 63 mL/min >60 [facility] Work Phone: Comment on above: Non- GFR Calc Serum or plasma calcium willam urement (mass/volume)on 09-24-2021 Calcium [Mass/Vol] 9.6 mg/dL 8.5-10.1 [facility] Work Phone: Serum or plasma creatinine m easurement (mass/volume)on 09-24-2021 Creatinine [Mass/Vol] 0.93 mg/dL 0.55-1.02 [facility] Work Phone: Comment on above: The validity of the calculated GFR & GFRAA in patients over 70 years has not been determined. Clinical correlation is essential. Serum or plasma urea nitroge n measurement (mass/volume)on 09-24-2021 Urea nitrogen [Mass/Vol] 18 mg/dL 7-18 [facility] Work Phone: Thin prep Papanicolaou smear with manual screeningon 09-24-2021 Thin prep Papanicolaou smear with manual screening 5 5-15 [facility] Work Phone: Basophil percentageon 2021 Chloride [Moles/Vol] 105 mmol/L 98-107 [facility] Work Phone: Glucose [Mass/Vol] 85 mg/dL 74-106 [facility] Work Phone: Potassium [Moles/Vol] 4.1 mmol/L 3.5-5.1 [facility] Work Phone: Sodium [Moles/Vol] 139 mmol/L 136-145 [facility] Work Phone: Laboratory - Chemistry and C hemistry - challengeon 09-16-2021 CO2 [Moles/Vol] 29.0 mmol/L 21.0-32.0 [facility] Work Phone: Urea nitrogen/Creatinine [Mass ratio] 24.8 mg/mg 10-20 [facility] Work Phone: No Panel Informationon 09-16 Estimated GFR (MDRD) Amer 63 mL/min >60 [facility] Work Phone: Comment on above: GFR Calc Estimated GFR (MDRD) Non-Af Amer 52 mL/min >60 [facility] Work Phone: Comment on above: Non- GFR Calc Serum or plasma calcium willam urement (mass/volume)on 09-16-2021 Calcium [Mass/Vol] 10.6 mg/dL 8.5-10.1 [facility] Work Phone: Serum or plasma creatinine m easurement (mass/volume)on 09-16-2021 Creatinine [Mass/Vol] 1.09 mg/dL 0.55-1.02 [facility] Work Phone: Comment on above: The validity of the calculated GFR & GFRAA in patients over 70 years has not been determined. Clinical correlation is essential. Serum or plasma urea nitroge n measurement (mass/volume)on 09-16-2021 Urea nitrogen [Mass/Vol] 27 mg/dL 7-18 [facility] Work Phone: Thin prep Papanicolaou smear with manual screeningon 04-06-2022 Thin prep Papanicolaou smear with manual screening 5 5-15 [facility] Work Phone: Basophil percentageon 2021 Chloride [Moles/Vol] 99 mmol/L 98-107 [facility] Work Phone: Glucose [Mass/Vol] 110 mg/dL 74-106 [facility] Work Phone: Comment on above: Fasting Glucose resu lt from 100 to 125 mg/dL suggests IMPAIRED HOMEOSTASIS per A.D.A. criteria. Potassium [Moles/Vol] 3.9 mmol/L 3.5-5.1 [facility] Work Phone: Sodium [Moles/Vol] 135 mmol/L 136-145 [facility] Work Phone: Laboratory - Chemistry and C hemistry - challengeon 08-21-2021 CO2 [Moles/Vol] 30.0 mmol/L 21.0-32.0 [facility] Work Phone: Urea nitrogen/Creatinine [Mass ratio] 36.5 mg/mg 10-20 [facility] Work Phone: No Panel Informationon 08-21 Estimated Creatinine Clearance Calc 48.03 ml/min [facility] Work Phone: Estimated GFR (MDRD) Amer 84 mL/min >60 [facility] Work Phone: Comment on above: GFR Calc Estimated GFR (MDRD) Non-Af Amer 69 mL/min >60 [facility] Work Phone: Comment on above: Non- GFR Calc Serum or plasma calcium willam urement (mass/volume)on 08-21-2021 Calcium [Mass/Vol] 9.4 mg/dL 8.5-10.1 [facility] Work Phone: Serum or plasma creatinine m easurement (mass/volume)on 08-21-2021 Creatinine [Mass/Vol] 0.85 mg/dL 0.55-1.02 [facility] Work Phone: Comment on above: The validity of the calculated GFR & GFRAA in patients over 70 years has not been determined. Clinical correlation is essential. Serum or plasma urea nitroge n measurement (mass/volume)on 08-21-2021 Urea nitrogen [Mass/Vol] 31 mg/dL 7-18 [facility] Work Phone: Thin prep Papanicolaou smear with manual screeningon 08-21-2021 Thin prep Papanicolaou smear with manual screening 6 5-15 [facility] Work Phone: [phone] Absolute lymphocyte counton 08-19-2021 Lymphocytes Auto (Unsp spec) [#/Vol] 3.71 10*3/uL 0.83-4.51 [facility] Work Phone: Basophil percentageon 2021 Basophils/100 WBC (Bld) 0.0 % 0-1 [facility] Work Phone: Bilirubin [Mass/Vol] 0.80 mg/dL 0.20-1.00 [facility] Work Phone: Comment on above: For patients on eltr ombopag therapy, use of Dimension [place] TBIL is not recommended. Eosinophils/100 WBC (Bld) 0.0 % 0-5 [facility] Work Phone: Neutrophils (Bld) [#/Vol] 2.3 10*3/uL 2.0-7.7 [facility] Work Phone: Neutrophils/100 WBC (Bld) 36.6 % 47-70 [facility] Work Phone: Protein [Mass/Vol] 5.7 g/dL 6.4-8.2 [facility] Work Phone: WBC (Bld) [#/Vol] 6.2 10*3/uL 4.4-11.0 [facility] Work Phone: Blood erythrocytes count (nu mber/volume)on 08-19-2021 RBC (Bld) [#/Vol] 5.18 10*6/uL 4.2-5.4 [facility] Work Phone: Blood hemoglobin measurement (mass/volume)on 08-19-2021 Hemoglobin (Bld) [Mass/Vol] 14.8 g/dL 12.0-15.0 [facility] Work Phone: [phone] Blood lymphocytes/100 leukoc yteson 08-19-2021 Lymphocytes/100 WBC (Bld) 60.0 % 19-41 [facility] Work Phone: [phone] Blood monocytes/100 leukocyt eson 08-19-2021 Monocytes/100 WBC (Bld) 3.1 % 0-10 [facility] Work Phone: [phone] Blood platelet mean volumeon 08-19-2021 Platelet mean volume (Bld) [Entitic vol] 10.3 fL 6.2-12.0 [facility] Work Phone: [phone] Determination of erythrocyte mean corpuscular volume (MCV)on 08-19-2021 MCV (RBC) [Entitic vol] 85.9 fL 81-99 [facility] Work Phone: [phone] Hematocrit Auto (Bld) [Volum e fraction]on 08-19-2021 Hematocrit (Bld) [Volume fraction] 44.5 % 37-47 [facility] Work Phone: Laboratory - Chemistry and C hemistry - challengeon 08-19-2021 ALP [Catalytic activity/Vol] 92 U/L 45-117 [facility] Work Phone: [phone] ALT [Catalytic activity/Vol] 45 U/L 13-56 [facility] Work Phone: [phone] Globulin (S) [Mass/Vol] 3.4 g/dL 2.2-4.2 [facility] Work Phone: [phone] Laboratory - Hematology and Cell countson 08-19-2021 Erythrocyte distribution width (RBC) [Entitic vol] 42.2 fL 35.1-43.9 [facility] Work Phone: [phone] Erythrocyte distribution width (RBC) [Ratio] 13.2 % 11.6-14.6 [facility] Work Phone: Immature granulocytes/100 WBC (Bld) 0.300 % 0.0-0.9 [facility] Work Phone: Comment on above: IG% - Immature Granu locytes (promyelocytes, myelocytes and metamyelocytes) > 1% indicates that a LEFT SHIFT is Present. MCH (RBC) [Entitic mass] 28.6 pg 27.0-32.0 [facility] Work Phone: Nucleated RBC/100 WBC (Bld) [Ratio] 0 % 0-5 [facility] Work Phone: MCHC Auto (RBC) [Mass/Vol]on 08-19-2021 MCHC (RBC) [Mass/Vol] 33.3 g/dL 32-36 [facility] Work Phone: No Panel Informationon 08-19 Troponin I High Sensitivity 28 pg/mL 3.0-54.0 [facility] Work Phone: Comment on above: Please Note: New Pepper t Units and Gender Specific Reference Ranges. For more information see Policy Stat Procedure [place] High Sensitivity Troponin (TNIH) and attachments. Platelets bldon 08-19-2021 Platelets (Bld) [#/Vol] 158 10*3/uL 150-450 [facility] Work Phone: Serum or plasma C reactive p rotein measurement (mass/volume)on 08-19-2021 CRP [Mass/Vol] 60.60 mg/L 0.0-3.0 [facility] Work Phone: Comment on above: C-Reactive Protein ( CRP) provides useful information for thediagnosis, therapy and monitoring of inflammatory processesand associated diseases. For the evaluation of Relative Riskfor Cardiovascular Disease, a High Sensitivity CRP (HSCRP)should be ordered. Serum or plasma albumin willam urement (mass/volume)on 08-19-2021 Albumin [Mass/Vol] 2.3 g/dL 3.2-5.0 [facility] Work Phone: Serum or plasma albumin/glob ulin mass ratioon 08-19-2021 Albumin/Globulin [Mass ratio] 0.7 {ratio} 0.9-2.4 [facility] Work Phone: Thin prep Papanicolaou smear with manual screeningon 08-19-2021 Thin prep Papanicolaou smear with manual screening 73 U/L 15-37 [facility] Work Phone: [phone] Absolute lymphocyte counton 08-18-2021 Lymphocytes Auto (Unsp spec) [#/Vol] 3.24 10*3/uL 0.83-4.51 [facility] Work Phone: Basophil percentageon 2021 Lactate [Moles/Vol] 1.6 mmol/L 0.4-2.0 [facility] Work Phone: Basophils/100 WBC (Bld) 0.2 % 0-1 [facility] Work Phone: Bilirubin [Mass/Vol] 1.40 mg/dL 0.20-1.00 [facility] Work Phone: Comment on above: For patients on eltr ombopag therapy, use of Dimension [place] TBIL is not recommended. Chloride [Moles/Vol] 93 mmol/L 98-107 [facility] Work Phone: Eosinophils/100 WBC (Bld) 0.0 % 0-5 [facility] Work Phone: Glucose [Mass/Vol] 133 mg/dL 74-106 [facility] Work Phone: Comment on above: Fasting Glucose resu lt greater than or equal to 126 mg/dL suggests DIABETES MELLITUS per A.D.A. criteria. Neutrophils (Bld) [#/Vol] 5.2 10*3/uL 2.0-7.7 [facility] Work Phone: Neutrophils/100 WBC (Bld) 56.5 % 47-70 [facility] Work Phone: Potassium [Moles/Vol] 3.5 mmol/L 3.5-5.1 [facility] Work Phone: Protein [Mass/Vol] 6.8 g/dL 6.4-8.2 [facility] Work Phone: Sodium [Moles/Vol] 131 mmol/L 136-145 [facility] Work Phone: [phone] WBC (Bld) [#/Vol] 9.1 10*3/uL 4.4-11.0 [facility] Work Phone: [phone] Blood erythrocytes count (nu mber/volume)on 08-18-2021 RBC (Bld) [#/Vol] 5.69 10*6/uL 4.2-5.4 [facility] Work Phone: Blood hemoglobin measurement (mass/volume)on 08-18-2021 Hemoglobin (Bld) [Mass/Vol] 16.6 g/dL 12.0-15.0 [facility] Work Phone: [phone] Blood lymphocytes/100 leukoc yteson 08-18-2021 Lymphocytes/100 WBC (Bld) 35.6 % 19-41 [facility] Work Phone: [phone] Blood monocytes/100 leukocyt eson 08-18-2021 Monocytes/100 WBC (Bld) 7.4 % 0-10 [facility] Work Phone: [phone] Blood platelet mean volumeon 08-18-2021 Platelet mean volume (Bld) [Entitic vol] 10.1 fL 6.2-12.0 [facility] Work Phone: [phone] Determination of erythrocyte mean corpuscular volume (MCV)on 08-18-2021 MCV (RBC) [Entitic vol] 83.8 fL 81-99 [facility] Work Phone: [phone] Hematocrit Auto (Bld) [Volum e fraction]on 08-18-2021 Hematocrit (Bld) [Volume fraction] 47.7 % 37-47 [facility] Work Phone: [phone] Laboratory - Chemistry and C hemistry - challengeon 08-18-2021 ALP [Catalytic activity/Vol] 102 U/L 45-117 [facility] Work Phone: [phone] ALT [Catalytic activity/Vol] 57 U/L 13-56 [facility] Work Phone: [phone] CO2 [Moles/Vol] 29.0 mmol/L 21.0-32.0 [facility] [facility] Work Phone: [phone] Globulin (S) [Mass/Vol] 4.0 g/dL 2.2-4.2 [facility] Work Phone: [phone] Natriuretic peptide B (Bld) [Mass/Vol] 22.7 pg/mL 0-100 [facility] Work Phone: [phone] Urea nitrogen/Creatinine [Mass ratio] 19.2 mg/mg 10-20 [facility] Work Phone: [phone] Laboratory - Hematology and Cell countson 08-18-2021 Erythrocyte distribution width (RBC) [Entitic vol] 40.7 fL 35.1-43.9 [facility] Work Phone: [phone] Erythrocyte distribution width (RBC) [Ratio] 13.2 % 11.6-14.6 [facility] Work Phone: [phone] Immature granulocytes/100 WBC (Bld) 0.300 % 0.0-0.9 [facility] Work Phone: [phone] Comment on above: IG% - Immature Granu locytes (promyelocytes, myelocytes and metamyelocytes) > 1% indicates that a LEFT SHIFT is Present. MCH (RBC) [Entitic mass] 29.2 pg 27.0-32.0 [facility] Work Phone: [phone] Nucleated RBC/100 WBC (Bld) [Ratio] 0 % 0-5 [facility] Work Phone: [phone] Laboratory - Microbiology an d Antimicrobial susceptibilityon 08-18-2021 SARS-CoV-2 (COVID-19) RNA LORAINE+probe Ql (Unsp spec) Detected Not Detect [facility] Work Phone: [phone] Comment on above: Normal Reference Ran ge: Not DetectedMethod:(RT-PCR) real-time reverse transcriptase PCRLuminex DEL Instrument*The Food and Drug Administration (FDA) has issued an Emergency Use Authorization (EAU) for the DEL SARS-CoV-2 Assay for the rapid detection of the virus that causes COVID-19. This test has been validated, but the [facility] independent review of this validation is pending.*Negative [...] 08-18-2021 MCHC (RBC) [Mass/Vol] 34.8 g/dL 32-36 [facility] Work Phone: No Panel Informationon 08-18 Streptococcus pneumoniae Antigen (M [facility] Work Phone: D-Dimer Quantitative (PE/DVT) 2.62 FEU/ug/m 0.27-0.49 [facility] Work Phone: Comment on above: D-Dimer ELEVATED (>0 .49): Additional studies and clinicalassessments are indicated to conclude diagnosis of:Deep Vein Thrombosis (DVT) or Pulmonary Embolism (PE)CRITICAL VALUE VERIFIED. CALLED TO [id number]/08/22 2303 Ely Nieves.RESULTS READ BACK BY SAME . Estimated GFR (MDRD) Amer 67 mL/min >60 [facility] Work Phone: Comment on above: GFR Calc Estimated GFR (MDRD) Non-Af Amer 55 mL/min >60 [facility] Work Phone: Comment on above: Non- GFR Calc Thyroid Stimulating Hormone (TSH) 1.14 uIU/mL 0.358-3.74 [facility] Work Phone: Vitamin D 25-Hydroxy 63.2 ng/mL [facility] Work Phone: Comment on above: Vitamin D 25(OH) Sta tus Range Deficiency <20 ng/mL (50nmol/L) Insufficiency 20 - 30 ng/mL (50 - 75 nmol/L) Sufficiency 30 - 100 ng/mL (75 - 250 nmol/L) Toxicity >100 ng/mL (>250 nmol/L) Platelets bldon 08-18-2021 Platelets (Bld) [#/Vol] 186 10*3/uL 150-450 [facility] Work Phone: Serum or plasma albumin willam urement (mass/volume)on 08-18-2021 Albumin [Mass/Vol] 2.8 g/dL 3.2-5.0 [facility] Work Phone: Serum or plasma albumin/glob ulin mass ratioon 08-18-2021 Albumin/Globulin [Mass ratio] 0.7 {ratio} 0.9-2.4 [facility] Work Phone: Serum or plasma calcium willam urement (mass/volume)on 08-18-2021 Calcium [Mass/Vol] 8.3 mg/dL 8.5-10.1 [facility] Work Phone: Serum or plasma creatinine m easurement (mass/volume)on 08-18-2021 Creatinine [Mass/Vol] 1.04 mg/dL 0.55-1.02 [facility] Work Phone: Comment on above: The validity of the calculated GFR & GFRAA in patients over 70 years has not been determined. Clinical correlation is essential. Serum or plasma urea nitroge n measurement (mass/volume)on 08-18-2021 Urea nitrogen [Mass/Vol] 20 mg/dL 7-18 [facility] Work Phone: Serum procalcitonin measurem enton 08-18-2021 Procalcitonin [Mass/Vol] 0.24 ng/mL 0.00-0.09 [facility] Work Phone: Comment on above: A procalcitonin [...] smear with manual screening 95 U/L 15-37 [facility] Work Phone: Thin prep Papanicolaou smear with manual screening 9 5-15 [facility] Work Phone: Basic Metabolic Panelon Calcium [Mass/Vol] 9.9 mg/dL Normal 8.4-10.4 [facility] Work Phone: [phone] Comment on above: Performed By: #### Dora G3, HEMDF, PHOS3, BMP3M #### [employer] [facility] [place] [address] Glucose [Mass/Vol] 130 mg/dL High 70-100 [facility] Work Phone: [phone] Comment on above: Performed By: #### Dora G3, HEMDF, PHOS3, BMP3M #### [employer] [address] [address] [place] [address] Urea nitrogen [Mass/Vol] 26 mg/dL High 7-20 [facility] Work Phone: [phone] Comment on above: Performed By: #### M G3, HEMDF, PHOS3, BMP3M #### [employer] [address] [address] [place] [address] Anion gap [Moles/Vol] 9 mmol/L Normal 3-13 [facility] Work Phone: [phone] Comment on above: Performed By: #### M G3, HEMDF, PHOS3, BMP3M #### [employer] [address] [address] [place] [address] CO2 [Moles/Vol] 26 mmol/L Normal 22-30 [facility] Work Phone: [phone] Comment on above: Performed By: #### M G3, HEMDF, PHOS3, BMP3M #### [employer] [address] [place], [place] Creatinine [Mass/Vol] 0.89 mg/dL Normal 0.52-1.25 [facility] Work Phone: Comment on above: Performed By: #### M G3, HEMDF, PHOS3, BMP3M #### [employer] [facility] [address] [place], [place] GFR/1.73 sq M predicted among blacks MDRD (S/P/Bld) [Vol rate/Area] 74.2 mL/min/{1.73_m2} Normal >60 [facility] Work Phone: Comment on above: Performed By: #### M G3, HEMDF, PHOS3, BMP3M #### [employer] [address] [place], [place] GFR/1.73 sq M predicted among non-blacks MDRD (S/P/Bld) [Vol rate/Area] 64.0 mL/min/{1.73_m2} Normal >60 [facility] Comment on above: Result Comment: KDIG [...] #### M G3, HEMDF, PHOS3, BMP3M #### [employer] [address] [place], [place] Chloride [Moles/Vol] 99 mmol/L Normal 98-107 [facility] Work Phone: Comment on above: Performed By: #### M G3, HEMDF, PHOS3, BMP3M #### [employer] [address] [place] [address] Potassium [Moles/Vol] 4.0 mmol/L Normal 3.5-5.1 [facility] Work Phone: Comment on above: Performed By: #### M G3, HEMDF, PHOS3, BMP3M #### [email or web address] [facility] [address] [place] [address] Sodium [Moles/Vol] 134 mmol/L Low 135-145 [facility] Work Phone: Comment on above: Performed By: #### M G3, HEMDF, PHOS3, BMP3M #### [employer] [facility] [place] [address] Basic Metabolic Panel w/ Ref mehul to MGon 08-14-2020 EGFR IF NonAfrican Filipino 64.0 mL/min >60 [facility] Work Phone: Comment on above: KDIGO guidelines pro vide [...] renal tubular creatinine secretion. CBC auto differentialon 03-0 Absolute Baso # 0.0 10*3/uL 0 - 0.2 10*3/uL [facility] Work Phone: Absolute Neut # 8.6 10*3/uL High 1.8 - 7 10*3/uL [facility] Work Phone: [phone] Basophils/100 WBC (Bld) 0.3 % 0 - 2 % [facility] Work Phone: [phone] Eosinophils (Bld) [#/Vol] 0.0 10*3/uL 0 - 0.5 10*3/uL [facility] Work Phone: [phone] Eosinophils/100 WBC (Bld) 0.0 % Low 1 - 6 % [facility] Work Phone: [phone] Erythrocyte distribution width (RBC) [Ratio] 14.1 % 11.5 - 14.5 % [facility] Work Phone: 1 22 Granulocytes/100 WBC (Bld) 79.9 % 40 - 80 % [facility] Work Phone: Hematocrit (Bld) [Volume fraction] 44.9 % 35 - 47 % [facility] Work Phone: 1 Hemoglobin (Bld) [Mass/Vol] 15.1 g/dL 11.7 - 16 g/dL [facility] Work Phone: [phone] Lymphocytes (Bld) [#/Vol] 1.8 10*3/uL 1 - 4.3 10*3/uL [facility] Work Phone: [phone] Lymphocytes/100 WBC (Bld) 16.6 % Low 20 - 40 % [facility] Work Phone: MCH (RBC) [Entitic mass] 27.6 pg 26 - 34 pg [facility] Work Phone: MCHC (RBC) [Mass/Vol] 33.7 % 32 - 36 % [facility] Work Phone: MCV (RBC) [Entitic vol] 81.9 fL 79 - 98 fL [facility] Work Phone: 22 Monocytes (Bld) [#/Vol] 0.3 10*3/uL 0 - 0.8 10*3/uL [facility] Work Phone: 22 Monocytes/100 WBC (Bld) 3.2 % 2 - 10 % [facility] Work Phone: Platelet mean volume (Bld) [Entitic vol] 7.6 fL 7.4 - 10.4 fL [facility] Work Phone: Platelets (Bld) [#/Vol] 135 10*3/uL Low 140 - 440 10*3/uL [facility] Work Phone: RBC (Bld) [#/Vol] 5.49 10*6/uL High 3.8 - 5.2 10*6/uL [facility] Work Phone: WBC (Bld) [#/Vol] 10.7 10*3/uL 3.6 - 10.7 10*3/uL [facility] Work Phone: FL UGIon 08-14-2020 Alok, [facility] Incoming Radiology Results From [facility] - 08/14/2020 11:38 AM EST Patient Name: RICHELLE AHUJA Fluoroscopy ACCESSION EXAM DATE/TIME PROCEDURE ORDERING PROVIDER [id number] 08/14/2020 09:10 EST RF UGI w/o KUB & w/ or Chandan BURNETTE, w/o Delay Flm [facility] CPT code 56342 Reason For Exam (RF UGI w/o KUB [...] ANTHONY Transcribed Date and Time: 08/14/2020 10:00 [facility] Work Phone: [id number] ACCESSION EXAM DATE/TIME PROCEDURE ORDERING PROVIDER [id number] 08/14/2020 09:10 EST RF UGI w/o KUB & w/ or Chandan BURNETTE, w/o Delay Flm [facility] CPT code 35791 Reason For Exam (RF UGI w/o KUB [...] ANTHONY Transcribed Date and Time: 08/14/2020 10:00 [facility] Work Phone: Hemogram w/ Autodiffon 08-14 Abs Baso Cnt 0.0 10*3/uL Normal 0.0-0.2 [facility] Comment on above: Performed By: #### M G3, HEMDF, PHOS3, BMP3M #### [address] [place] [address] Abs Neutrophile Cnt 8.6 10*3/uL High 1.8-7.0 [facility] Comment on above: Performed By: #### M G3, HEMDF, PHOS3, BMP3M #### [address] [address] [place], [place] Basophils/100 WBC (Bld) 0.3 % Normal 0.0-2.0 [facility] Comment on above: Performed By: #### M G3, HEMDF, PHOS3, BMP3M #### [address] [address] [place], [place] Eosinophils (Bld) [#/Vol] 0.0 10*3/uL Normal 0.0-0.5 [facility] Comment on above: Performed By: #### M G3, HEMDF, PHOS3, BMP3M #### [address] [address] [place] [address] Eosinophils/100 WBC (Bld) 0.0 % Low 1.0-6.0 [facility] Comment on above: Performed By: #### M G3, HEMDF, PHOS3, BMP3M #### [address] [address] [place] Erythrocyte distribution width (RBC) [Ratio] 14.1 % Normal 11.5-14.5 [facility] Comment on above: Performed By: #### M G3, HEMDF, PHOS3, BMP3M #### [address] [address] [place] [address] Granulocytes/100 WBC (Bld) 79.9 % Normal 40.0-80.0 [facility] Comment on above: Performed By: #### M G3, HEMDF, PHOS3, BMP3M #### [address] [address] [address] [place], [place] Hematocrit (Bld) [Volume fraction] 44.9 % Normal 35.0-47.0 [facility] Comment on above: Performed By: #### M G3, HEMDF, PHOS3, BMP3M #### [address] [address] [address] [place], [place] Hemoglobin (Bld) [Mass/Vol] 15.1 g/dL Normal 11.7-16.0 [facility] Comment on above: Performed By: #### M G3, HEMDF, PHOS3, BMP3M #### [address] [address] [address] [place], [place] Lymphocytes (Bld) [#/Vol] 1.8 10*3/uL Normal 1.0-4.3 [facility] Comment on above: Performed By: #### M G3, HEMDF, PHOS3, BMP3M #### [address] [address] [address] [place], [place] Lymphocytes/100 WBC (Bld) 16.6 % Low 20.0-40.0 [facility] Comment on above: Performed By: #### M G3, HEMDF, PHOS3, BMP3M #### [address] [address] [place] MCH (RBC) [Entitic mass] 27.6 pg Normal 26.0-34.0 [facility] Comment on above: Performed By: #### M G3, HEMDF, PHOS3, BMP3M #### [address] [address] [address] [place], [place] MCHC (RBC) [Mass/Vol] 33.7 % Normal 32.0-36.0 [facility] Comment on above: Performed By: #### M G3, HEMDF, PHOS3, BMP3M #### [address] [address] [address] [place], [place] MCV (RBC) [Entitic vol] 81.9 fL Normal 79.0-98.0 [facility] Comment on above: Performed By: #### M G3, HEMDF, PHOS3, BMP3M #### [address] [address] [address] [place], [place] Monocytes (Bld) [#/Vol] 0.3 10*3/uL Normal 0.0-0.8 [facility] Comment on above: Performed By: #### M G3, HEMDF, PHOS3, BMP3M #### [address] [address] [address] [place], [place] Monocytes/100 WBC (Bld) 3.2 % Normal 2.0-10.0 [facility] Comment on above: Performed By: #### M G3, HEMDF, PHOS3, BMP3M #### [address] [address] [address] [place], [place] Platelet mean volume (Bld) [Entitic vol] 7.6 fL Normal 7.4-10.4 [facility] Comment on above: Performed By: #### M G3, HEMDF, PHOS3, BMP3M #### [address] [address] [address] [place], [place] Platelets (Bld) [#/Vol] 135 10*3/uL Low 140-440 [facility] Comment on above: Performed By: #### M G3, HEMDF, PHOS3, BMP3M #### [address] [address] [address] [place], [place] RBC (Bld) [#/Vol] 5.49 10*6/uL High 3.80-5.20 [facility] Comment on above: Performed By: #### M G3, HEMDF, PHOS3, BMP3M #### [address] [address] [address] [place], [place] WBC (Bld) [#/Vol] 10.7 10*3/uL Normal 3.6-10.7 [facility] Comment on above: Performed By: #### M G3, HEMDF, PHOS3, BMP3M #### [address] [address] [place] [address] Magnesiumon 08-14-2020 Magnesium [Mass/Vol] 1.9 mg/dL Normal 1.6-2.3 [facility] Work Phone: Comment on above: Performed By: #### M G3, HEMDF, PHOS3, BMP3M #### [employer] [address] [place] [address] Otheron 08-14-2020 Interpretation and review of laboratory results Abnormal [facility] Work Phone: Test Performed by [employer], [address] [place] [address] [facility] Work Phone: Phosphoruson 08-14-2020 Phosphate [Mass/Vol] 3.8 mg/dL Normal 2.5-4.5 [facility] Work Phone: Comment on above: Performed By: #### M G3, HEMDF, PHOS3, BMP3M #### [employer] [address] [place] [phone] RF UGI w/o KUB w/ or w/o Del ay Flmon 08-14-2020 RF UGI w/o KUB w/ or w/o Delay Flm Patient Name: RICHELLE AHUJA Fluoroscopy ACCESSION EXAM DATE/TIME PROCEDURE ORDERING PROVIDER [id number] 08/14/2020 09:10 EST RF UGI w/o KUB and w/ or Chandan BURNETTE, w/o Delay Flm [facility] CPT code 50380 Reason For Exam (RF UGI w/o KUB [...] Transcribed Date and Time: 08/14/2020 10:00 Normal [facility] [id number] 08-12-2020 SARS-CoV-2 SARS-CoV-2 --> Statu s: F Not Detected. Expected Result: Not Detected _ Real-time, RT-PCR performed on the [employer] System by the [facility] Microbiology Service Negative results do not preclude SARS-CoV-2 infection and should not be used as the sole basis for treatment or other patient management decisions. This assay was developed by [employer] and distributed under an Emergency Use Authorization (EUA) granted by the FDA for the qualitative detection of SARS-CoV-2 nucleic acid. Provider and patient fact sheets can be found at https://www.fda.gov/ar eligio/868144/download and https://www.[facility].gov/ar eligio/499015/download. Expected Result: Not Detected _ Real-time, RT-PCR performed on the [employer] System by the [facility] Cuil Service Negative results do not preclude SARS-CoV-2 infection and should not be used as the sole basis for treatment or other patient management decisions. This assay was developed by [employer] and distributed under an Emergency Use Authorization (EUA) granted by the FDA for the qualitative detection of SARS-CoV-2 nucleic acid. Provider and patient fact sheets can be found at https://www.fda.gov/ar eligio/449596/download and https://www.fda.gov/ar eligio/111063/download. [facility] Comment on above: Performed By: #### C OVID ####[address] [place] [address] Basic Metabolic Panelon 03-0 Anion gap [Moles/Vol] 7 mmol/L Normal 3-13 [facility] Comment on above: Performed By: #### B MP3, HGHCT ####[facility] [place] [address] Calcium [Mass/Vol] 10.1 mg/dL Normal 8.4-10.4 [facility] Comment on above: Performed By: #### B MP3, HGHCT ####[address] [place] [address] CO2 [Moles/Vol] 29 mmol/L Normal 22-30 [facility] Comment on above: Performed By: #### B MP3, HGHCT ####[address] [facility] [place] Glucose [Mass/Vol] 92 mg/dL Normal 70-100 [facility] Comment on above: Performed By: #### B MP3, HGHCT ####[facility] [employer] [address] [facility], [place] Urea nitrogen [Mass/Vol] 22 mg/dL High 7-20 [facility] Comment on above: Performed By: #### B MP3, HGHCT ####[address] [facility], [place] Creatinine [Mass/Vol] 0.87 mg/dL Normal 0.52-1.25 [facility] Comment on above: Performed By: #### B MP3, HGHCT ####[address] [facility] [place] [address] GFR/1.73 sq M predicted among blacks MDRD (S/P/Bld) [Vol rate/Area] 76.2 mL/min/{1.73_m2} Normal >60 [facility] Comment on above: Performed By: #### B MP3, HGHCT ####[address] [facility] [place] [address] GFR/1.73 sq M predicted among non-blacks MDRD (S/P/Bld) [Vol rate/Area] 65.8 mL/min/{1.73_m2} Normal >60 [facility] Comment on above: Result Comment: KDIG O [...] renal tubular creatinine secretion. Performed By: #### Cecil MP3, HGHCT ####[address] [place], [place] Potassium [Moles/Vol] 4.0 mmol/L Normal 3.5-5.1 [facility] Comment on above: Performed By: #### Cecil PETE3, HGHCT ####[address] [place] [address] Sodium [Moles/Vol] 136 mmol/L Normal 135-145 [facility] Comment on above: Performed By: #### Cecil MP3, HGHCT ####[address] [place] [address] Chloride [Moles/Vol] 100 mmol/L Normal 98-107 [facility] Comment on above: Performed By: #### Cecil MP3, HGHCT ####[address] [place] [address] Anion gap [Moles/Vol] 7 mmol/L 3 - 13 mmol/L [facility] Work Phone: Calcium [Mass/Vol] 10.1 mg/dL 8.4 - 10. 4 mg/dL [facility] Work Phone: [phone] Chloride [Moles/Vol] 100 mmol/L 98 - 10 7 mmol/L [facility] Work Phone: [phone] CO2 [Moles/Vol] 29 mmol/L 22 - 30 mmol/L [facility] Work Phone: [phone] Creatinine [Mass/Vol] 0.87 mg/dL 0.52 - 1.25 mg/dL [facility] Work Phone: [phone] EGFR IF NonAfrican Filipino 65.8 mL/min >60 [facility] Work Phone: [phone] Comment on above: KDIGO guidelines pro vide [...] MDRD (S/P/Bld) [Vol rate/Area] 76.2 mL/min/{1.73_m2} >60 [facility] Work Phone: [phone] Glucose [Mass/Vol] 92 mg/dL 70 - 100 mg/dL [facility] Work Phone: [phone] Interpretation and review of laboratory results Abnormal [facility] Work Phone: [phone] Potassium [Moles/Vol] 4.0 mmol/L 3.5 - 5.1 mmol/L [facility] Work Phone: [phone] Sodium [Moles/Vol] 136 mmol/L 135 - 145 mmol/L [facility] Work Phone: [phone] Urea nitrogen [Mass/Vol] 22 mg/dL High 7 - 20 mg/dL [employer] Work Phone: Test Performed by [employer], [address] [place] [address] [employer] Work Phone: COVID-19on 08-11-2020 SARS-CoV-2 Not Detected. Not Detected [employer] Work Phone: Comment on above: Not Detected. Expected Result: Not Detected _ Real-time, RT-PCR performed on the [facility] by the [facility] Microbiology Service Negative results do not preclude SARS-CoV-2 infection and should not be used as the sole basis for treatment or other patient management decisions. This assay was developed by [employer] and distributed under an Emergency Use Authorization (EUA) granted by the FDA for the qualitative detection of SARS-CoV-2 nucleic acid. Provider and patient fact sheets can be found at https://www.fda.gov/media/573612/download and https://www.fda.gov/media/396818/download. Test Performed by [employer], [address] [place] [address] CR Chest PA/LATon 08-11-2020 CR Chest PA/LAT Patient Name: RICHELLE AHUJA Diagnostic Radiology ACCESSION EXAM DATE/TIME PROCEDURE ORDERING PROVIDER [id number] 08/11/2020 14:41 EST CR Chest PA and LAT DONY GORDON NICOLE L. CPT code 29427 Reason For Exam (CR Chest PA and [...] Transcribed Date and Time: 08/11/2020 2:52 Normal [facility] Hemoglobin AND Hematocriton 08-11-2020 Hematocrit (Bld) [Volume fraction] 44.1 % Normal 35.0-47.0 [facility] Comment on above: Performed By: #### B MP3, HGHCT #### [address] [address] Hemoglobin (Bld) [Mass/Vol] 14.5 g/dL Normal 11.7-16.0 [facility] Comment on above: Performed By: #### B MP3, HGHCT #### [address] [address] Hemoglobin and Hematocrit, B loodon 08-11-2020 Hematocrit (Bld) [Volume fraction] 44.1 % 35 - 47 % [facility] Work Phone: Hemoglobin (Bld) [Mass/Vol] 14.5 g/dL 11.7 - 16 g/dL [facility] Work Phone: Test Performed by [facility], [address] [place] [address] [facility] Work Phone: XR CHEST (2 VW)on 08-11-2020 Alok, [facility] Incoming Radiology Results From [facility] - 08/11/2020 2:54 PM EST Patient Name: RICHELLE AHUJA Diagnostic Radiology ACCESSION EXAM DATE/TIME PROCEDURE ORDERING PROVIDER [id number] 08/11/2020 14:41 EST CR Chest PA & LAT DONY GORDON NICOLE L. CPT code 71023 Reason For Exam (CR Chest PA & [...] Radiology ACCESSION EXAM DATE/TIME PROCEDURE ORDERING PROVIDER [id number] 08/11/2020 14:41 EST CR Chest PA & LAT DONY GORDON NICOLE L. CPT code 05707 Reason For Exam (CR Chest PA & [...] Time: 08/11/2020 2:52 [facility] Work Phone: Surgical Pathologyon [phone] Surgical Pathology [id number] [facility] DE[facility] PATHOLOGY AND LABORATORY MEDICINE [address] [place] [address] FINAL SURGICAL PATHOLOGY REPORT NAME: RICHELLE AHUJA : 1945 74 [address] Judson VÁSQUEZ NO.: [id number] LOCATION: [id number] PROCEDURE 04/08/2020 DATE: SURGEON: SIN [...] characteristics determined by the clinical laboratories of [facility] [employer] [facility]. They have not been cleared by the [...] negativity on decalcified specimens. Professional Performing Location: [address] [address]. DEPARTMENT OF PATHOLOGY AND LABORATORY MEDICINE [place], [place] [address] Normal [facility] RF UGI w/o KUB w/ or w/o Del ay [facility] 03-31-2020 RF UGI w/o KUB w/ or w/o Delay Fl Patient Name: RICHELLE AHUJA Fluoroscopy Exam Date/Time 03/31/2020 11:11:51 EDT Exam RF UGI w/o KUB and w/ or w/o Delay [facility] Ordering Physician DONY MUNGUIA HEATHER L Accession Number [id number] [facility] Codes 64379 () Reason For Exam Heartburn Report AIR [...] R Transcribed Date and Time: 03/31/2020 2:14 [facility] XR FACIAL BONES MINIMUM 3 EWSon [...] PM Sign Date: 09/25/2019 5:16:11 PM Ordering Provider:Wyatt Clark [facility] ([place]) XR HAND MINIMUM 3 VIEWS LEFT on [...] PM Sign Date: 09/25/2019 4:40:55 PM Ordering Provider:Wyatt Wilde [facility] ([place]) Vital Signs Date Time Vital Sign Value Performing Clinician Facility 12-06-2024 13:22-0400 Body temperature 97 [degF] Dr. Mickey Nguyen MD Work Phone: [phone] [place] [address] 12-06-2024 13:22-0400 Diastolic blood pressure 74 mm[Hg] Dr. Mickey Nguyen MD Work Phone: [phone] [place] [address] 12-06-2024 13:22-0400 Heart rate 81 /min Dr. Mickey Nguyen MD Work Phone: [phone] [place] [address] 12-06-2024 13:22-0400 Respiratory rate 16 /min Dr. Mickey Nguyen MD Work Phone: [phone] [address] [place] [address] 12-06-2024 13:22-0400 SaO2% (BldA) [Mass fraction] 98 % Dr. Mickey Nguyen MD Work Phone: 2([phone])767-887638 [place] [address] 12-06-2024 13:22-0400 Systolic blood pressure 128 mm[Hg] Dr. Mickey Nguyen MD Work Phone: [phone](062)992-405538 [place] [address] 12-06-2024 11:33-0400 Body height 160.[address] Mickey Nguyen MD Work Phone: 9(103)664-259338 [place] [address] 12-06-2024 11:33-0400 Body mass index (BMI) [Ratio] 26.4 kg/m2 Dr. Mickey Nguyen MD Work Phone: 3(351)[phone] [place] [address] 12-06-2024 11:33-0400 Body weight 67.[address] Mickey Nguyen MD Work Phone: 5(646)985-724938 [place] [address] 07-13-2023 10:41-0500 Body height 160.[address] Mickey Nguyen Work Phone: 8([phone])726-292538 [place] [address] 07-13-2023 10:41-0500 Body mass index (BMI) [Ratio] 25.8 kg/m2 Dr. Mickey Nguyen Work Phone: 9(064)[phone] [place] [address] 07-13-2023 10:41-0500 Body temperature 97.8 [degF] Dr. Mickey Nguyen Work Phone: [facility] 07-13-2023 10:41-0500 Body weight 66.[address] Mickey Nguyen Work Phone: [facility] 07-13-2023 10:41-0500 Diastolic blood pressure 74 mm[Hg] Dr. Mickey Nguyen Work Phone: [facility] 07-13-2023 10:41-0500 Heart rate 70 /min Dr. Mickey Nguyen Work Phone: [facility] 07-13-2023 10:41-0500 Respiratory rate 24 /min Dr. Mickey Nguyen Work Phone: [facility] 07-13-2023 10:41-0500 SaO2% (BldA) [Mass fraction] 96 % Dr. Mickey Nguyen Work Phone: [facility] 07-13-2023 10:41-0500 Systolic blood pressure 145 mm[Hg] Dr. Mickey Nguyen Work Phone: [facility] 03-03-2022 14:56-0400 Body temperature 97.5 [degF] Dr. Mickey Nguyen Work Phone: [facility] Work Phone: 03-03-2022 14:56-0400 Diastolic blood pressure 66 mm[Hg] Dr. Mickey Nguyen Work Phone: [facility] Work Phone: 03-03-2022 14:56-0400 Heart rate 55 /min Dr. Mickey Nguyen Work Phone: [facility] Work Phone: 03-03-2022 14:56-0400 Respiratory rate 16 /min Dr. Mickey Nguyen Work Phone: [facility] Work Phone: 03-03-2022 14:56-0400 SaO2% (BldA) [Mass fraction] 93 % Dr. Mickey Nguyen Work Phone: [facility] Work Phone: 03-03-2022 14:56-0400 Systolic blood pressure 123 mm[Hg] Dr. Mickey Nguyen Work Phone: [facility] Work Phone: 03-03-2022 14:48-0400 Body weight 64.[address] Mickey Nguyen Work Phone: [facility] Work Phone: 03-03-2022 12:37-0400 Body height 160.[address] Mickey Nguyen Work Phone: [facility] Work Phone: 08-21-2021 14:38-0500 Heart rate 80 /min Dr. Mickey Nguyen Work Phone: [facility] Work Phone: 08-21-2021 11:31-0500 Body temperature 98.6 [degF] Dr. Mickey Nguyen Work Phone: [facility] Work Phone: 08-21-2021 11:31-0500 Diastolic blood pressure 62 mm[Hg] Dr. Mickey Nguyen Work Phone: [facility] Work Phone: 08-21-2021 11:31-0500 Respiratory rate 20 /min Dr. Mickey Nguyen Work Phone: [facility] Work Phone: 08-21-2021 11:31-0500 SaO2% (BldA) [Mass fraction] 95 % Dr. Mickey Nguyen Work Phone: [facility] Work Phone: 08-21-2021 11:31-0500 Systolic blood pressure 98 mm[Hg] Dr. Mickey Nguyen Work Phone: [facility] Work Phone: 08-19-2021 12:51-0500 Body height 160.[address] Mickey Nguyen Work Phone: [facility] Work Phone: 08-19-2021 12:51-0500 Body weight 62.[address] Mickey Nguyen Work Phone: [facility] Work Phone: 08-18-2021 17:32-0500 Body mass index (BMI) [Ratio] 24.3 kg/m2 Dr. Mickey Nguyen Work Phone: [facility] Work Phone: 06-02-2021 07:12-0500 Body temperature 97.8 [degF] Dr. Mickey Nguyen Work Phone: [facility] Work Phone: 06-02-2021 07:12-0500 Body weight 68.[address] Mickey Nguyen Work Phone: [facility] Work Phone: 06-02-2021 07:12-0500 Diastolic blood pressure 73 mm[Hg] Dr. Mickey Nguyen Work Phone: [facility] Work Phone: 06-02-2021 07:12-0500 Heart rate 65 /min Dr. Mickey Nguyen Work Phone: [facility] Work Phone: 06-02-2021 07:12-0500 Respiratory rate 17 /min Dr. Mickey Nguyen Work Phone: [facility] Work Phone: 06-02-2021 07:12-0500 SaO2% (BldA) [Mass fraction] 95 % Dr. Mickey Nguyen Work Phone: [facility] Work Phone: 06-02-2021 07:12-0500 Systolic blood pressure 134 mm[Hg] Dr. Mickey Nguyen Work Phone: [facility] Work Phone: 10-29-2020 09:36-0400 Body mass index (BMI) [Ratio] 27.1 kg/m2 Dr. Mickey Nguyen Work Phone: [facility] Work Phone: 08-14-2020 13:29-0500 Body Temperature 98.6 [degF] Sin LEYVA Work Phone: 08-14-2020 13:29-0500 BP Diastolic 69 mm[Hg] Sin HARRISA Work Phone: 08-14-2020 13:29-0500 BP Systolic 136 mm[Hg] Sin HARRISA Work Phone: 08-14-2020 13:29-0500 Pulse (Heart Rate) 62 /min Sin LEYVA Work Phone: 08-14-2020 13:29-0500 Pulse Oximetry 97 % Sin LEYVA Work Phone: 08-14-2020 13:29-0500 Respiratory Rate 16 /min Sin LEYVA Work Phone: 08-13-2020 11:07-0500 BMI (Body Mass Index) 27.44 kg/m2 Sin LEYVA Work Phone: 08-13-2020 11:07-0500 Body weight 68.04 kg Sin LEYVA Work Phone: 08-13-2020 11:07-0500 Height 157.5 cm Sin LEYVA Work Phone: 08-11-2020 12:39-0500 Body Temperature 97.7 [degF] Sin HARRISA Work Phone: 08-11-2020 12:39-0500 BP Diastolic 67 mm[Hg] Sin HARRISA Work Phone: 08-11-2020 12:39-0500 BP Systolic 119 mm[Hg] Sin HARRISA Work Phone: 08-11-2020 12:39-0500 Pulse (Heart Rate) 56 /min Sin LEVYA Work Phone: 08-11-2020 12:39-0500 Pulse Oximetry 95 % Sni LEYVA Work Phone: 08-11-2020 12:39-0500 Respiratory Rate 16 /min Sin LEYVA Work Phone: 08-11-2020 12:30-0500 BMI (Body Mass Index) 27.47 kg/m2 Sin LEYVA Work Phone: 08-11-2020 12:30-0500 Body weight 68.13 kg Sin LEYVA Work Phone: 08-11-2020 12:30-0500 Height 157.5 cm Sin LEYVA Work Phone: 04-08-2020 10:43-0400 BP Diastolic 76 mm[Hg] Sin Castro [facility] [place] [facility] [place] 04-08-2020 10:43-0400 BP Systolic 157 mm[Hg] Sin Castro [facility] [place] [facility] [place] 04-08-2020 10:43-0400 Pulse (Heart Rate) 62 /min [facility] [place] [place] 04-08-2020 10:43-0400 Pulse Oximetry 98 % [facility] [place] [facility] [place] 04-08-2020 10:43-0400 Respiratory Rate 18 /min [facility] [place] 04-08-2020 09:07-0400 BMI (Body Mass Index) 27.28 kg/m2 Sin Woods [facility] [place], [place] 04-08-2020 09:07-0400 Body Temperature 98.29 [degF] [facility] [place] 04-08-2020 09:07-0400 Body weight 69.85 kg Sin [facility] [place] [facility] [place] 04-08-2020 09:07-0400 Height 160 cm Sin Woods [facility] , [place] Encounters Encounter Date Encounter Type Care Provider Facility Start: 12-20-2024 End: 12-20-[address] Mickey Nguyen MD Work Phone: -[facility] Start: 12-20-2024 End: 12-20-[address] Mickey Nguyen MD -[facility] Work Phone: Start: 12-20-2024 End: 12-20-2024 ambulatory Mickey Nguyen Facility:[facility] Start: 12-11-2024 End: 12-11-[address] Mickey Nguyen MD Work Phone: -[facility] Start: 12-11-2024 End: 12-11-[address] Mickey Nguyen MD -Cardiovascular Services Work Phone: Start: 12-11-2024 End: 12-11-2024 ambulatory Mickey Nguyen Facility:[facility] Start: 12-06-2024 End: 12-06-2024 Emergency department patient visit Dr. Mickey Nguyen MD Work Phone: -Emergency Department Work Phone: Start: 12-02-2024 End: 12-03-2024 Emergency department patient visit DR SANJEEV NGUYEN MD Facility:[facility] Start: 12-02-2024 End: 12-03-2024 Observation KRISTEN TORRE APRN-SHUTTLER [facility] Start: 08-21-2024 End: 08-21-[address] Mickey Nguyen MD Work Phone: [facility] Work Phone: Start: 08-21-2024 End: 08-21-[address] Mickey Nguyen MD -Laboratory, Phy Office [address] [place] [address] Start: 08-21-2024 End: 08-21-2024 ambulatory Mickey Nguyen Facility:[facility] Start: 08-06-2024 End: 08-06-[address] Mickey Nguyen MD Work Phone: [facility] Work Phone: Start: 08-06-2024 End: 08-06-[address] Mickey Nguyen MD -Laboratory, Phy Office 3rd Flr Start: 08-06-2024 End: 08-06-2024 ambulatory Mickey Chi Patrick Facility:[facility] Start: 05-15-2024 End: 05-15-[address] Mickey Nguyen MD -Laboratory, Phy Office 3rd Flr Start: 05-15-2024 End: 05-15-2024 ambulatory Mickey Chi Patrick Facility:[facility] Start: 03-07-2024 End: 03-07-2024 ambulatory Mickey Chi Patrick Facility:[facility] Start: 02-29-2024 ambulatory Mansjose Zieglerkarus Facili ty:[facility] Start: 02-29-2024 End: 02-29-2024 ambulatory Mickey Chi Patrick Facility:[facility] Start: 02-23-2024 ambulatory Mickey Chi Patrick Facility:[facility] Start: 02-20-2024 End: 02-20-2024 ambulatory Mickey Chi Patrick Facility:[facility] Start: 10-21-[address] Mickey maxwell Work Phone: [facility]-Physical Therapy Work Phone: Start: 10-21-2023 End: 10-21-[address] Mickey Nguyen Work Phone: [facility] Work Phone: Start: 10-21-2023 End: 10-21-[address] Mickey Nguyen Work Phone: [facility]Physical Therapy Work Phone: Start: 08-31-2023 End: 08-31-[address] Mickey Nguyen Work Phone: [facility] Work Phone: Start: 08-31-2023 End: 08-31-[address] Mickey Nguyen Work Phone: [facility]-Radiology, [facility] Work Phone: Start: 08-03-2023 End: 08-03-[address] [facility] Start: 07-13-2023 End: 07-13-[address] [facility] Work Phone: Start: 04-20-2022 Non-patient / Non-visit Dr. Berhane Nguyen Work Phone: [facility] Start: 04-19-2022 End: 04-19-[address] Mickey Nguyen Work Phone: [facility] Work Phone: Start: 04-19-2022 End: 04-19-[address] Mickey Nguyen Work Phone: [facility]-Pulmonary Services/Neurology Start: 03-03-2022 End: 03-03-[address] [facility] Start: 09-24-2021 End: 09-24-[address] [facility] Start: 09-16-2021 End: 09-16-[address] [facility] Start: 08-21-2021 Non-patient / Non-visit Dr. Berhane Nguyen Work Phone: [facility] Start: 08-20-2021 Non-patient / Non-visit Dr. Berhane Nguyen Work Phone: [facility] Start: 08-19-2021 Non-patient / Non-visit Dr. Berhane Nguyen Work Phone: [facility] Start: 08-18-2021 Non-patient / Non-visit Dr. Berhane Nguyen Work Phone: [facility] Start: 08-18-2021 End: 08-21-2021 Evaluation and management of inpatient Dr. Mickey Nguyen Work Phone: [facility]-Medical Surgical 3 Start: 08-18-2021 End: 08-18-[address] Mickey Nguyen Work Phone: [facility]-Laboratory, Phy Office 3rd Flr Start: 06-02-2021 End: 06-02-[address] Mickey Nguyen Work Phone: [facility]-Pulmonary Medicine [facility] Start: 08-13-2020 End: 08-14-2020 Subsequent hospital visit by physician Sin Castro Work Phone: [facility] Comment on above: Arrived Start: [...] Date Procedure Procedure Detail Performing Clinician Start: 12-20-2024 MRI of brain without contrast Dr. Mickey Nguyen MD Work Phone: Start: 12-06-2024 CT of head without contrast [...] nning Start: 08-13-2020 Hiatal hernia (disorder) KRISTEN TORRE EMAIL DESIGNER-SHUTTLER Start: 08-11-2020 Radiologic exam ches t 2 views Chinyere L Gordon Work Phone: Start: 08-11-2020 Basic metabolic pane l calcium total Nadege Munguia Work Phone: Start: 08-11-2020 Blood count hemoglobin Nadege Friedt Work Phone: Start: 08-11-2020 COVID-19 Nadege Fr iedt Work Phone: Start: 04-08-2020 [facility] ENDOSCOPY REPORT 3m Scanning Start: 11-21-2016 Insertion of hip prosthesis KRISTEN TORRE EMAIL DESIGNER-SHUTTLER Comment on above: Right Start: 08-31-2016 Insertion of hip prosthesis KRISTEN TORRE EMAIL DESIGNER-SHUTTLER Comment on above: Left Start: 12-27-2012 Cataract (disorder) RANDALL TORRE EMAIL DESIGNER-SHUTTLER Comment on above: Right Start: 01-05-2012 Cataract (disorder) RANDALL TORRE EMAIL DESIGNER-SHUTTLER Start: 06-13-1964 Structure of wisdom tooth (body structure) KRISTEN TORRE EMAIL DESIGNER-SHUTTLER Start: 06-13-1951 Tonsillectomy KRISTEN ALCARAZ EMAIL DESIGNER-SHUTTLER Plan of Treatment Date Care Activity Detail Author Start: 12-06-2024 [facility] Start: 08-14-2021 Creatinine measurement Creatinine mo nitoring [facility] Work Phone: Start: 08-14-2021 Potassium monitoring Potassium monit oring [facility] Work Phone: Start: 08-11-2021 Creatinine measurement Creatinine mo nitoring [facility] Work Phone: Start: 08-11-2021 Potassium monitoring Potassium monit oring [facility] Work Phone: Start: 08-22-2020 End: 08-22-2020 Office Visit 08/22/2020 Office Visit [facility] Sin Castro MD [address], [address] [place] [address] [phone] [facility] [place] [facility] Start: 08-13-2020 Hospital Encounter 08/13/2020 Hospital Encounter General Surgery Sin Castro MD [address], [address] [place] [address] [phone] [facility] Start: 04-18-2020 End: 04-18-2020 Office Visit 04/18/2020 Office Visit [facility] Sin Castro MD [address] [place] [address] [phone] [facility] [place] [facility] Start: 02-27-2020 Annual Wellness Visi t (AWV) Annual Wellness Visit (AWV) [place], [place] Start: 02-12-2020 Influenza vaccination Flu vaccine (# 1) [place] Start: 12-08-2011 Pneumococcal 65+ yea rs Vaccine (1 of 1 - PPSV23) Pneumococcal 65+ years Vaccine (1 of 1 - PPSV23) [place] Start: 2001 Screening for osteoporosis DEXA (modify frequency per FRAX score) [place] Start: 1996 Screening for malign ant neoplasm of breast Breast cancer screen [place] Start: 1996 Screening for malign ant neoplasm of colon Colon cancer screen colonoscopy [place] Start: 1996 Shingles Vaccine (1 of 2) Shingles Vaccine (1 of 2) [place] Start: 1965 DTaP/Tdap/Td vaccine (1 - Tdap) DTaP/Tdap/Td vaccine (1 - Tdap) [place] Start: 1962 COVID-19 Vaccine (1 of 2) COVID-19 Vaccine (1 of 2) [facility] Work Phone: Start: 1956 Lipid panel Lipid screen [place], [place] Start: 1946 Creatinine measurement Creatinine mo nitoring [place], [place] Start: 1946 Hepatitis C screening Hepatitis C sc reen [place], [place] Start: 1946 Potassium monitoring Potassium monit oring [place] Basic Metabolic Pane l w/ Reflex to MG Basic Metabolic Panel w/ Reflex to MG Lab Routine Daily until discontinued starting 08/14/2020, 1 completed [employer] Work Phone: Comment on above: Daily until disconti nued starting 08/14/2020, 1 completed CBC auto differential CBC auto d ifferential Lab Routine Daily until discontinued starting 08/14/2020, 1 completed [employer] Work Phone: Comment on above: Daily until disconti nued starting 08/14/2020, 1 completed Intermittent pulse oximetry Pulse Oximetry Spot Check Respiratory Care Routine Every 4hr until discontinued starting 08/13/2020 [employer] Work Phone: Comment on above: Every 4hr until disc ontinued starting 08/13/2020 Magnesium [Mass/Vol] Magnesium L ab Routine Daily until discontinued starting 08/14/2020, 1 completed [employer] Work Phone: Comment on above: Daily until disconti nued starting 08/14/2020, 1 completed Oxygen therapy [[facility] Data Set] Initiate Oxygen Therapy Protocol Respiratory Care Routine Daily until discontinued starting 08/13/2020 [employer] Work Phone: Comment on above: Daily until disconti nued starting 08/13/2020 Patient Education Bruises (Contu sions) ED Head Injury (Adult) [facility] Work Phone: Patient referral [facility] Work Phone: Phosphate [Mass/Vol] Phosphorus Lab Routine Daily until discontinued starting 08/14/2020, 1 completed [employer] Work Phone: Comment on above: Daily until disconti nued starting 08/14/2020, 1 completed Spirometry panel Incentive lorraine metry Respiratory Care Routine Every 1hr while awake until discontinued starting 08/13/2020 [employer] Work Phone: Comment on above: Every 1hr while awak e until discontinued starting 08/13/2020 Immunizations Immunization Date Immunization Notes Care Provider Conchis christopher 04-28-2020 influenza virus vaccine, unspecified formulation KRISTEN TORRE EMAIL DESIGNER-SHUTTLER [facility] 03-07-2017 influenza virus vaccine, unspecified formulation KRISTEN TORRE EMAIL DESIGNER-SHUTTLER [facility] 03-22-2015 tetanus and diphther ia toxoids, adsorbed, preservative free, for adult use (2 Lf of tetanus toxoid and 2 Lf of diphtheria toxoid) Dr. Mickey Nguyen Work Phone: [facility] 03-22-2015 tetanus and diphther ia toxoids, adsorbed, preservative free, for adult use (5 Lf of tetanus toxoid and 2 Lf of diphtheria toxoid) KRISTEN TORRE EMAIL DESIGNER-SHUTTLER [facility] 05-21-2013 pneumococcal conjuga te vaccine, 13 valent KRISTEN TORRE EMAIL DESIGNER-SHUTTLER [facility] Payers Date Payer Category Payer Private Health Insurance [id number] 2024 Self-pay [id number] 2024 Unknown [id number] 2021 Medicare [id number] 2016 Unknown [id number] 2011 Medicare [id number] 1945 Unknown [id number] 2.16. [id number] Unknown [id number] 2.16.8 [id number] Unknown [id number] 2.16.8 [id number] Unknown [id number] 2.16.8 [id number] Unknown [id number] 2.16.8 [id number] Unknown [id number] 2.16.8 [id number] Unknown [id number] 2.16.8 [id number] Unknown [id number] 2.16.8 [id number] Unknown [id number] 2.16.8 [id number] Unknown [id number] 2.16.8 [id number] Unknown [id number] 2.16.8 [id number] Unknown [id number] 2.16.8 [id number] Social History Date Type Detail Facility Start: 04-08-2020 End: 12-06-2024 Tobacco smoking status NHIS Never smoker [facility] Start: 04-08-2020 End: 08-13-2020 Tobacco use and exposure Never used [facility] [place] Start: 04-08-2020 End: 08-13-2020 Alcohol intake Lifetime non-drinker (finding) [place], [place] Start: 03-07-2020 History SDOH Alcohol Frequency 1 [place] Sex Assigned At Not on file [place] Exposure to SARS-CoV -2 (event) Not sure [place] Start: 08-18-2021 End: 07-13-2023 Tobacco smoking status KYIS Unknown if ever smoked [facility] Start: 1945 Sex Assigned At Female [facility] Start: 12-06-2018 End: 08-16-2024 Sex Female (finding) [facility] Sexual Orientation Sheryl Bernard Functional Status Date Assessment Result Facility 08-21-2021 Functional status Ambulates [facility] Work Phone: Mental Status Date Assessment Result Facility 12-06-2024 Cognitive function Level Of Cons ciousness Awake;Alert;Appropriate;Follow s Commands [facility] Work Phone: 08-21-2021 Cognitive function Voice/Name [facility] Work Phone: Clinical Notes 10-21-2023 to 12-06-2024 Note Date & Type Note Facility 12-06-2024 Radiology Diagnostic study note [facility] Imaging Services [address] [place] [address] Tibia & Fibula 2 Views MR#: [id number] Acct: [id number] Name: RICHELLE AHUJA Rep #: [id number] : 1945 F [id number] From: Tim Johnson MD PCP: Dr. Mickey Nguyen MD Status: REG E R Study:Tibia & Fibula 2 Views Date of Exam: 12/06/24 Exam# [id number] Ordering Dr: Archie Bone DO PROCEDURE: TIBIA FIBULA 2 VIEWS 12/06/2024 REASON FOR EXAM: INJURY TECHNIQUE: TIBIA FIBULA 2 VIEWS COMPARISON: None FINDINGS: No fracture or dislocation. Soft tissues are unremarkable. RAD/Tibia & Fibula 2 Views IMPRESSION: No acute abnormality is seen. Reading Location: [facility] CC: Dr. Mickey Nguyen MD; Dr. Archie Bone DO ~ Nuclear Radiation Engineer: Signed [facility] 12-06-2024 Radiology Diagnostic study note [facility] Imaging Services [address] [place] [address] Brain/Head without Contrast MR#: [id number] Acct: [id number] Name: RICHELLE AHUJA Rep #: [id number] : 1945 F 78 From: Tim Johnson MD PCP: Dr. Mickey Nguyen MD Status: REG E R Study:Brain/Head without Contrast Date of Exa m: 12/06/24 Exam# [id number] Ordering Dr: Archie Bone DO PROCEDURE: BRAIN/HEAD [...] CHRONIC CHANGES. NO ACUTE FINDINGS. Reading Location: [facility] CC: Dr. Mickey Nguyen MD; Dr. Archie Bone DO ~ Nuclear Radiation Engineer: Signed [facility] 12-03-2024 Hospital Discharge instructions Patient Education 12/03/2024 16:41:00 Stroke Prevention, Vajf-dt-Cxiw Stroke Prevention Some medical conditions and lifestyle [...] only healthy fats for cooking. These include: ?[place] oil. ?Canola oil. ?[place] oil. ?Counting how many carbohydrates you eat [...] ?Snoring a lot. ?Feeling very tired. Take ggrr-vua-xbnpamk and prescription medicines only as told by your doctor. These may include aspirin or blood thinners (antiplatelets or anticoagulants). Make sure that any other medical conditions you have are managed. Where to find more information [place] [employer]: www.strokeassociation.org National Stroke Association: www.stroke.org [...] 11/28/2012 Document Revised: 07/26/2019 Document Reviewed: 08/31/2017 [employer] Patient Education 2020 [employer]. 12/03/2024 16:40:57 Ischemic Stroke, Npfj-to-Woxj Ischemic Stroke An ischemic stroke is the [...] Follow these instructions at home: Medicines Take dqpw-kky-fiilrzr and prescription medicines only as told by [...] 05/18/2012 Document Revised: 11/08/2018 Document Reviewed: 08/25/2016 [employer] Patient Education 2020 [employer] Follow Up Care 12/02/2024 09:41:07 With:SANJEEV NGUYEN MD Address: [facility] [address] [place] [address] [address] [place] [address]- When:3-5 days Comments:Please call to schedule your post-hospital follow-up appointment and ask Dr. Nguyen about the neurology recommendation. [facility] 12-03-2024 Note Discharge Instructions Thank you for allowing [facility] to assist you with your healthcare needs. The following is important discharge information regarding your hospital visit. Your Care Team [facility] Your Diagnosis Altered mental status HLD (hyperlipidemia) HTN (hypertension) TIA (transient ischemic attack) Type 2 diabetes mellitus What to do next Instructions From Your Doctor You were admitted for TIA (mini stroke). Your symptoms resolved shortly after being moved from ER to [facility]. You were started on aspirin and Plavix [...] SANJEEV NGUYEN MD When:Within 3-5 days Where:[facility] [address] [place] [address]- Additional Information: Please call to schedule your [...] a day Duration: [address] [facility]/pharmacy #[id number] New clopidogrel (Plavix 75 mg oral tablet) 1 tab(s) by mouth Once a day Duration: [address] [facility]/pharmacy #[id number] Unchanged ascorbic acid (Vitamin C) See instructions [...] INTO EACH EYE TWICE DAILY Pharmacy Information [facility] [facility]/pharmacy #[id number]: [address], [place] [id number] [phone] Please take this list to your next [...] What is aspirin? Aspirin is a salicylate (zm-IVG-pm-ate) that is used to treat pain, and [...] may report side effects to FDA at 8-079-BEC-5959. What other drugs will affect aspirin? Ask [...] drugs may affect aspirin, including prescription and lcto-tja-gearlfr medicines, vitamins, and herbal products. Not all [...] to ensure that the information provided by [employer]Finder. ('Multum') is accurate, up-to-date, and complete, but no guarantee is made to that effect. Drug information contained herein may be time sensitive. [employer] information has been compiled for use by healthcare practitioners and consumers in the [place] and therefore [employer] does not warrant that uses outside of the [place] are appropriate, unless specifically indicated otherwise. [employer]'s drug information does not endorse drugs, diagnose patients or recommend therapy. [employer]'s drug information is an informational resource designed [...] effective or appropriate for any given patient. [facility] does not assume any responsibility for any aspect of healthcare administered with the aid of information [facility] provides. The information contained herein is not intended to cover all possible uses, directions, precautions, warnings, drug interactions, allergic reactions, or adverse effects. If you have questions about the drugs you are taking, check with your doctor, nurse or pharmacist. Copyright 3505-3068 [facility] [facility]. Version: 18.. Revision Date: 05/30/2024. clopidogrel (kloe [...] may report side effects to FDA at 2-246-IVJ-2771. What other drugs will affect clopidogrel? Sometimes it is not safe to use certain medications at the same time. Some drugs can affect your blood levels of other drugs you take, which may increase side effects or make the medications less effective. Tell your doctor about all your other medicines, especially: a stomach acid videotape sales representative such as omeprazole, Nexium, or Prilosec; an antidepressant such as citalopram, fluoxetine, sertraline, Cymbalta, Effexor, Lexapro, Pristiq, or Prozac; rifampin; a blood thinner--warfarin, Coumadin, Jantoven; or NSAIDs (nonsteroidal anti-inflammatory drugs)--aspirin, ibuprofen (Advil, Motrin), naproxen (Aleve), celecoxib, diclofenac, indomethacin, meloxicam, and others. This list is not complete. Other drugs may affect clopidogrel, including prescription and fiyj-ohr-bhbjvpi medicines, vitamins, and herbal products. Not all [...] to ensure that the information provided by [employer]inder. ('Multum') is accurate, up-to-date, and complete, but no guarantee is made to that effect. Drug information contained herein may be time sensitive. [employer] information has been compiled for use by healthcare practitioners and consumers in the [place] and therefore [employer] does not warrant that uses outside of the [place] are appropriate, unless specifically indicated otherwise. [facility], Inc[employer]s drug information does not endorse drugs, diagnose patients or recommend therapy. [facility]in[employer] Energycone health annie penn hospitalSkyWard IO, Inc.s drug information is an informational resource designed [...] effective or appropriate for any given patient. [facility] does not assume any responsibility for any aspect of healthcare administered with the aid of information [facility] provides. The information contained herein is not intended to cover all possible uses, directions, precautions, warnings, drug interactions, allergic reactions, or adverse effects. If you have questions about the drugs you are taking, check with your doctor, nurse or pharmacist. Copyright 1790-6699 [facility]. Version: 18.. Revision Date: 09/10/2020. Education Materials Stroke Prevention [...] healthy fats for cooking. These include: ? [place] oil. ? Canola oil. ? [place] oil. ? Counting how many carbohydrates you [...] a lot. ? Feeling very tired. Take yixn-ovi-zuvqspc and prescription medicines only as told by your doctor. These may include aspirin or blood thinners (antiplatelets or anticoagulants). Make sure that any other medical conditions you have are managed. Where to find more information [place] Stroke Association: www.strokeassociation.org National Stroke Association: www.stroke.org [...] 11/28/2012 Document Revised: 07/26/2019 Document Reviewed: 08/31/2017 [employer] Patient Education 2020 [employer]. Ischemic Stroke An ischemic stroke is the [...] Follow these instructions at home: Medicines Take rzgl-bnj-eoogvvc and prescription medicines only as told by [...] 05/18/2012 Document Revised: 11/08/2018 Document Reviewed: 08/25/2016 [employer] Patient Education 2020 [employer]. Additional Information VACCINATE! IT SAVES LIVES! Members of the community who have not yet received the COVID-19 vaccine and would like to receive it can visit one of [facility] vaccine clinics. There are many vaccine clinic locations within the [facility]. For locations and available times, please visit https://gettheshot.coronavirus.o hio.gov/. It is important to note that some COVID mobile vaccine clinics are held outdoors and may be canceled in rainy or stormy conditions. To learn more about pediatric vaccinations (ages 5-11), we invite you to visit the [facility] webpage. https://www.[facility].org/p ages/6514-Uncve-Undktohwzbu-Freq unwrtg-Rydkb-Kaykcvffg.html To learn more about the COVID-19 vaccine, we invite you to visit the CDC website for a list of frequently asked questions.https://www.cdc.gov/co ronavirus/2019-ncov/vaccines/faq .html [facility] Patient Portal Access Instructions: Stay connected with your healthcare team and access your personal medical information anytime with the [facility] Patient Portal. Please follow the directions below to create your [facility] account: 1.Access the email account you provided upon registration to the hospital/physician office.2.Look for an invitation email from [facility].3.Open the email and access the invitation link: Accept Invitation to [facility].4.Fill in the required hull to create your account. To access your account, visit [email or web address]. Click the blue button labeled Access Patient [...] you will allow to register on the [facility] Patient Portal for access to your information. You can also access the [facility] Patient Portal on the Sheryl Anywhere saul. Simply click on Patient Portal and then log into your account. If you would like to receive a full copy of your medical records, please contact the [facility] Medical Records Department by calling [phone], Tuesday through Tuesday between 8 a.m. and [...] Call your local pharmacy or go to [email or web address] to find one close to you.3.Make use of household items: Use cat litter or old coffee grounds to dispose medications if other options are not available. Mix your drugs with these household products, seal them in an airtight container and throw it into the garbage. Call [facility]: [phone] to be sure your drugs can be [...] COPY. Signatures Patient Education Materials Stroke Prevention, Txen-qn-Mlzt Ischemic Stroke, Ylwc-cf-Jiru Medication Leaflets aspirin (oral), clopidogrel My discharge plan and instructions have been reviewed and explained to me and IDESTINY VICTORIA L understand my current condition and have read and understand these discharge instructions. I have received a written copy of the plan/instructions. If I have questions, I am aware that I should contact my doctor. Patient/Press Feeder Signature: Date/Time: Relationship to Patient: Witness Name/Signature: Date/Time: [facility] 12-03-2024 Note Exam Date Time Procedure Performing Provider Status 12/03/24 2:[address] Angiography Head w/ Contrast ANDERSON PARRY MD; Auth (Verified) [id number] ORIGINAL HISTORY: TIA COMPARISON: No TECHNIQUE: CT [...] Sign Date: 12/03/2024 3:30:22 PM Ordering Provider: [facility]06-23-2025 Note* Exam Date Time Procedure Performing Provider Status 12/03/24 1:[address] Head or Brain w/o Contrast Lester PARRY MD; Auth (Verified) [id number] ORIGINAL HISTORY: TIA COMPARISON: Previous day TECHNIQUE: [...] collections. Within the limits of the examination jean-white matter differentiation is maintained. The calvaria and the bones of base of the skull are intact. IMPRESSION: Limited by motion. Otherwise no significant change. Interpreted by: Anderson Parry MD Preliminary Report By: Anderson Parry MD Electronically signed By Anderson Parry MD Dictated Date: 12/03/2024 2:08:42 PM Prelim Date: 12/03/2024 2:10:15 PM Sign Date: 12/03/2024 2:10:15 PM Ordering Provider: KRISTEN TORRE [facility]06-23-2025 Note* Exam Date Time Procedure Performing Provider Status 12/03/24 9:30 AM Echocardiogram, Adul t with Bubble Study- RADHA LOVETT MD; Auth (Verified) [facility]06-23-2025 Pastoral care Progress note Pastoral Care Note [...] welcoming and explains the situation, how her sikhism responded as episode happened there, and the good situation she has at her [facility] home; pt has a medical background and [...] Jean Claude Aparicio on 12/03/2024 09:26 AM [facility]06-22-2025 Note Date of Service 12/02/24 Chief Complaint we were at sikhism and she beacme lightheaded and weak and shaky and clammy History of Present Illness 78-year-old female with past medical history significant for hypertension, hyperlipidemia, diastolic dysfunction, polycythemia, COVID long-hauler. Patient presented to [facility] emergency department 12/02/2024 with altered mental status. Patient went to sikhism this morning. Her friends stated that she [...] EC12/02/24: Sinus rhythm Electronic Signature: BENJAMIN WEST 12/02/2024 10:21:12 Assessment/Plan 1. Altered mental status [...] NBA HARO DO on 12/02/2024 04:07 PM [facility]06-22-2025 Evaluation + Plan noteExtracted from: Title:History and [...] and may include grammatical and/or spelling errors. [facility] 06-22-2025 Note* Exam Date Time Procedure Performing Provider Status 12/02/24 1:[address] Head or Brain w/o Contrast Judson STERANS DO; Auth (Verified) [id number] ORIGINAL EXAMINATION: Exam Title:CT OF THE HEAD [...] Sign Date: 12/02/2024 1:20:06 PM Ordering Provider: [facility]06-22-2025 Note* Exam Date Time Procedure Performing Provider Status 12/02/24 11:59 AM XR Chest 1 View EUGENIA STEARNS DO; Auth (Verified) [id number] ORIGINAL EXAMINATION: Exam Title:ONE XRAY VIEW OF [...] Sign Date: 12/02/2024 12:14:01 PM Ordering Provider: [facility]06-22-2025 Note* Exam Date Time Procedure Performing Provider Status 12/02/24 10:06 AM EKG [ED AOH] - CV BENJAMIN WEST DO; A [facility] (Verified) ECG Final Report Sinus rhythm Electronic Signature: BENJAMIN WEST DO 12/02/2024 10:21:12 [facility]05-10-2024 Discharge summary Author Alonso Wills [facility] October 21, 2023 3:10pm Note Date/Time October 21, 2023 3:10p [facility] [address] [place] [address] [address] [place] [address] / REHABILITATION SERVICES DISCHARGE SUMMARY MR#: [id number] Acct: [id number] Name: RICHELLE AHUJA Rep #: [id number] 8 : 1945 77 From: Alonso Wills DPT, OCS, CSCS Referring Dr.: Dr. Mickey Nguyen MD Status: REG RCR Insurance: MEDICARE PART A B [facility] Discharge Summary D/C summary: It has been my pleasure to treat RICHELLE AHUJA referred by Dr. Mickey Nguyen MD, with the diagnosis of R shoulder pain for a total of 12 visit(s). Discharge Date: 10/21/23 Please see the following information for a summary of their discharge status. Subjective Subjective: Been dooing good lately, weather makes her sore today. Soreness 09/20, was much better 1-07/23. Exeercises no problem at home. Shoulder activityis [...] please feel free to call me at [phone]. Thank you for the referral of thispatient. Sincerely, Alonso Wills, DOUG, OCS, CSCS Balance/Gait/Functional tests Balance/Special Test Scores Quick DASH Score: 25.0000 Improvement % Improvement: 80 <Electronically signed by Alonso Wills DPT, SHIRA, CSCS> 10/21/23 1510 CC: Dr. Mickey Nguyen MD ~ EBG Signed [facility] Work Phone: Chief complaint+Reason for visit Narrative* Chief Complaint 6 M FU Reason for Visit COVID-19 scooter everett manifesting chronic cough Diastolic dysfunction Kyphoscoliosis [facility] Work Phone: Evaluation note* Diagnosis Onset Date Resolution Status Shortness of breath acute Acute respiratory failure with hypoxia acute Debility acute Hypoxia acute Shortness of breath acute Bilateral pneumonia resolved Elevated d-dimer resolved Hyperglycemia resolved Hypokalemia resolved Transaminitis resolved [facility] Work Phone: Evaluation note* Diagnosis Onset Date Resolution Status Acute respiratory failure with hypoxia acute Debility acute Hypoxia acute Shortness of breath acute Bilateral pneumonia resolved Elevated d-dimer resolved Hyperglycemia resolved Hypokalemia resolved Transaminitis resolved [facility] Work Phone: Evaluation note* Diagnosis Onset Date Resolution Status Acute respiratory failure with hypoxia acute COVID-19 scooter everett manifesting chronic cough acute [facility] Work Phone: Evaluation note* Diagnosis Onset Date Resolution Status COVID-19 scooter everett manifesting chronic cough acute Diastolic dysfunction chroni c Kyphoscoliosis chronic [facility] Work Phone: Evaluation noteNo assessment information available [facility] Work Phone: Hospital course Narrative No data available for this section [facility] Discharge instructions Additional Instructions CT brain negative. Left leg x-ray negative for fracture. Continue Adeel wrap ice can use Tylenol as needed. Follow-up with your doctor.[facility] Work Phone: Reason for referral (narrative)No reason for referral information availableWKindred Hospital [facility] Work Phone: Summary Purpose Family History No [...] No August 18, 2021 7:33pm Power of Teletray Operator No August 18 7:33pm Advance Directive Response Recorded Date/ Time Living Will No August 18, 2021 6:33pm Power of Teletray Operator No August 18 6:33pm Advance Directive Response Recorded Date/ Time Do you have a Healthcare Power of Teletray Operator? No December 06, 2024 12:52pm Discharge Instructions * Instructions* Sadie Shetty, RN - 04/08/2020 Upper GI Endoscopy: What [...] mild sore throat. You may use an onrv-flv-ijzkowi chloraseptic spray, gargle with warm salt water, [...] please call your surgeon. Please bring your [facility] [employer] Surgical Information folder on the day of surgery. Please saniya the last dose taken (date and time ) on your Daily Medications List provided in your After Visit Summary. Please bring a photo ID and insurance information to 1st floor surgery. * Attachments The following attachments cannot be sent through Care Everywhere. * Hiatal Hernia (Turkish) documented in this encounter* Discharge Instr - Diet* Caprice Bunrette MD - 08/13/2020 3:14 PM EST Good [...] beverages are permitted based on tolerance Popsicles Hungarian ice Day 2 and Day 3 after [...] Nutritional drinks including Ensure , Boost , [place] Instant Breakfast (no chocolate-flavored) Mashed potatoes On [...] Nutritional drinks including Boost , Ensure , [place] Instant Breakfast Chocolate milk, cocoa or other chocolate-flavored drinks Carbonated drinks Alcohol [place] juices like orange, grapefruit, lemon and sioux Breads Pancakes, Swazi toast and waffles Crackers (saltine, butter, soda, mathieu, Goldfish and Cheese Nips ) Toasted bread Untoasted bread, bagels, Rg and hard rolls, Turkish muffins Crackers with nuts, seeds, fresh or [...] and ricotta cheeses Mild cheese, such as Filipino, brick, mozzarella and baby Estonian Creamy peanut butter Plain custard or blended fruit yogurt Moist casseroles, such as macaroni & cheese, tuna noodle Grilled or toasted cheese sandwich Tough meats with a lot of gristle Fried, highly seasoned, smoked and fatty meat, fish or poultry, such as frankfurters, luncheon meats, sausage, watts, spare ribs, beef brisket, sardines, anchovies, duck and goose Corona and other entrees made with pepper or [...] foods Coconut and seeds Pickles and olives Corona sauces, ketchup, barbecue sauce, horseradish, black pepper, chili powder and onion and garlicseasonings Any other strongly flavored seasoning, condiment, spice or herb not tolerated Any food not tolerated * Additional Instructions* Caprice Burnette MD - 08/13/2020 [facility] - [facility] Physicians Surgery DISCHARGE INSTRUCTIONS FOR DR. CASTRO Thank you very much for allowing me to participate in your care, it is truly a privilege. Below please see discharge orders that will help you during your recovery. Please do not hesitate to call theoffice during the day at [phone] for any questions. After hours, the same [...] through Care Everywhere. * Leobardo Fundoplication: Post-op (Turkish) documented in this encounter Assessments Diagnosis Hiatal [...] Discharge Summary No te Patient ID: Richelle Ayleen Ahuja [id number] y.o. 1945 Admit date: 08/13/2020 Discharge [...] Diet: clear liquids Discharge Medications: Richelle Ahuja Home Medication Instructions JOHNATHON:[id number] Printed on:08/14/20 9291 Medication Information acetaminophen (TYLENOL) 500 M (more content not included)... Note [facility] Surgery Patient Name: Richelle Ahuja OPERATIVE NOTE DATE OF PROCEDURE: 08/13/2020 SURGEON: Sin Castro PHYSICAL THERAPY INSTRUCTOR: Caprice Burnette MD PREOPERATIVE DIAGNOSIS: ? Large [...] (more content not included)... Procedure Findings Note [facility] Surgery Patient Name: Richelle Ahuja OPERATIVE NOTE DATE OF PROCEDURE: 08/13/2020 SURGEON: Sin Castro PHYSICAL THERAPY INSTRUCTOR: Caprice Burnette MD PREOPERATIVE DIAGNOSIS: ? Large [...] Date 08/14/20 0000 - 08/14/20 2359 Shift [id number] 4444-5243 9814-4465 24 Hour Total INTAKE I.V.(mL/kg) 10(0.1) 10(0.1) [...] Data: CBC: Recent Labs 08/11/20 1425 08/14/20 0137 WBC -- 10.7 HGB 14.5 15.1 HCT [...] Castro MD - 08/14/2020 3:34 PM EST [facility] Patient Name: Richelle Abbasi Page Date: 08/14/20 MIS-General Surgery/Bariatric Progress Note Subjective: The patient is doing well, postoperative day #1 from [facility]. No nausea, vomiting, or adverse eventsovernight. Scheduled [...] types tape, bandaids Morphine Nausea And Vomiting [place] [Hydrocodone-Acetaminophen] Nausea And Vomiting Tolerates Tylenol Oxycodone [...] 6:[address] Bonilla pagesally for ofirmev order for pain at [address] [...] Kyphoscoliosis Chief Complaint Admit Date neuro sx, fall December 06, 2024 11:2 4am Chief Complaint Admit Date neuro sx, fall December 06, 2024 11:2 4am Other specified soft tissue disorders Ju ly 2024 2:04pm Chief Complaint Admit Date neuro sx, fall December 06, 2024 11:2 4am Other specified soft tissue disorders Ju ly 2024 2:04pm TIA December 20, 2024 4:00 pm Additional Source Comments INFORMATION SOURCE (unrecogn ized section and content) DATE CREATED AUTHOR 09/25/2019 [facility] ([place]) DATE CREATED AUTHOR AUTHOR'S ORGANIZ ATION 08/16/2020 [facility] DATE CREATED AUTHOR AUTHOR'S ORGANIZ ATION 12/26/2024 [facility] DATE CREATED AUTHOR AUTHOR'S ORGANIZ ATION 02/02/2025 [facility] Ordered Prescriptions (unrec ognized section and [...] December 06, 2024 End: December 06, 2024 Team Status: Active Member Role/Relationship Status Dates Dr. Mickey Nguyen MD Primary Care Provider Active Team Status: Inactive Member Role/Relationship Status Dates Dr. Mickey Nguyen MD Primary Care Provider Active Start: August 21, 2024 End: August 21, 2024 Dr. Mickey Nguyen MD Attending Provider Active Start: August 21, 2024 End: August 21, 2024 Team Status: Inactive Member Role/Relationship Status Dates Dr. Mickey Nguyen MD Primary Care Provider Active Start: December 06, 2024 End: December 06, 2024 Dr. Archie Bone DO Attending Provider Active Start : December 06, 2024 End: December 06, 2024 Dr. Archie Bone DO Emergency Provider Active Start : December 06, 2024 End: December 06, 2024 Team Status: Inactive Member Role/Relationship Status Dates Dr. Mickey Nguyen MD Primary Care Provider Active Start: December 11, 2024 End: December 11, 2024 Dr. Mickey Nguyen MD Attending Provider Active Start: December 11, 2024 End: December 11, 2024 Dr. Mickey Nguyen MD Referring Provider Active Start: December 11, 2024 End: December 11, 2024 Team Status: Inactive Member Role/Relationship Status Dates Dr. Mickey Nguyen MD Primary Care Provider Active Start: December 06, 2024 End: December 06, 2024 Dr. Archie Bone DO Attending Provider Active Start : December 06, 2024 End: December 06, 2024 Dr. Archie Bone DO Emergency Provider Active Start : December 06, 2024 End: December 06, 2024 Team Status: Inactive Member Role/Relationship Status Dates Dr. Mickey Nguyen MD Primary Care Provider Active Start: December 11, 2024 End: December 11, 2024 Dr. Mickey Nguyen MD Attending Provider Active Start: December 11, 2024 End: December 11, 2024 Dr. Mickey Nguyen MD Referring Provider Active Start: December 11, 2024 End: December 11, 2024 Team Status: Inactive Member Role/Relationship Status Dates Dr. Mickey Nguyen MD Primary Care Provider Active Start: December 20, 2024 End: December 20, 2024 Dr. Mickey Nguyen MD Attending Provider Active Start: December 20, 2024 End: December 20, 2024 Dr. Mickey Nguyen MD Referring Provider Active Start: December 20, 2024 End: December 20, 2024 FOR RECORDS PERTAINING TO PATIENTS WHO [...] BE BASED ON THE PRIMARY CLINICAL RECORDS. [facility] [employer] [facility]. provides no warranty or guarantee of the accuracy or completeness of information in this document.
[2025-02-20 21:41] LABS: Xtra Tube Kwok EXTRA TUBE
== END | disposition home or self-care (01) ==
LOC: POLAB3 13:41
PROVIDERS: PCP Family Medicine Geriatric Medicine; Visit Provider Family Medicine Geriatric Medicine
DX: I10 Essential (primary) hypertension (principal); E03.9 Hypothyroidism, unspecified; E55.9 Vitamin D deficiency, unspecified
CPT/HCPCS: 36415; 80053; 82306; 84443; 85025